=== PATIENT | male | born 1970 | race Hispanic/Latino ===

== ENCOUNTER 2022-03-03 14:44 | Inpatient (IN) | payer OTHER ==
--- OUTSIDE RECORDS SUMMARY | 2022-03-03 14:47 | XMS REPORT | Continuity of Care Document ---
:1970 Author Organization [facility] t Address [address] [place] [address] Dr. Mejia [address] [place] [id number] Care Team Providers Name Role Phone JEREMY BATISTA Attending Clinician Unavailable Problems This patient has no known problems. Allergies, Adverse Reactions, Alerts This patient has no known allergies or adverse reactions. Medications This patient has no known medications. Procedures This patient has no known procedures. Encounters Start End Encounter Admission Attending Care Care Encounter Source Date/Time Date/Time Type Type Clinicians Facility Department ID 2022-03-03 2022-03-03 Outpatient KARINA BATISTA [id number] Karina 10:00:00 10:00:00 JEREMY adler 2022-03-03 2022-03-03 Outpatient KARINA BATISTA [id number] Karina 10:00:00 10:00:00 JEREMY adler Results This patient has no known results.
--- NOTE | 2022-03-03 16:13 | RAD REPORT ---
EXAM DESCRIPTION: RAD -Hand Left 3 View - 03/03/2022 4:07 pm CLINICAL HISTORY: Left hand pain FINDINGS: Amputation involves the digits. Destruction involves portions of the fifth distal phalanx compatible with osteomyelitis . Pathologica l fracture present
[2022-03-03] MEDS ORDERED: MORPHINE 4 MG/ML SYR ONE (16:44)
[2022-03-03 16:53] LABS: Absolute Lymphocytes (CBC) 1.8 K/uL (0.7-4.9); Hematocrit 32.4 % (39.6-49.0); MCV 77.6 fL (80-100); MPV 7.1 fL (7.6-11.3); RBC Red Blood Cell Count 4.18 M/uL (4.33-5.43)
[2022-03-03 16:59] LABS: Protime INR 1.12
[2022-03-03 17:11] LABS: ALT/SGPT 17 U/L (12-78); AST/SGOT 14 U/L (15-37); Albumin 2.1 g/dL (3.4-5.0); Alkaline Phosphatase 97 U/L (45-117); BUN Blood Urea Nitrogen 20 mg/dL (7-18); Bicarbonate 24 mmol/L (21-32); Bilirubin Total 0.2 mg/dL (0.2-1.0); Glomerular Filtration Rate 40 ml/min (=/>90); Glucose Level 227 mg/dL (74-106); Magnesium 1.7 mg/dL (1.8-2.4); Potassium 3.2 mmol/L (3.5-5.1); Protein, Total 7.7 g/dL (6.4-8.2); Sodium Level 138 mmol/L (136-145)
[2022-03-03 17:12] LABS: Bilirubin Direct < 0.1 mg/dL (0-0.2)
[2022-03-03] MEDS ORDERED: POTASSIUM CL SA 10 MEQ TAB PO ONE (17:45)
[2022-03-03] MEDS ORDERED: MAGNESIUM SULFATE 1 gm IVPB 1 GM/100 ML BAG IV ONE (17:46)
[2022-03-03] MEDS ORDERED: CLINDAMYCIN 900MG/D5W 900 MG/50 ML IVPB IV ONE (17:46)
[2022-03-03] MEDS ORDERED: POTASSIUM 25 MEQ EFFERV TAB ONE (17:49)
--- NOTE | 2022-03-03 18:33 | EDPHYS ---
Physician Documentation [facility] Name: Bert Deng Age: 51 yrs Sex: Male : 1970 Arrival Date: 03/03/2022 Time: 14:45 Bed 17 Private MD: Durga Cheung ED Physician Yonny Ortiz HPI: 03/03 15:10 This 51 yrs old Male presents to ER via Ambulatory with complaints of Infected cp Finger. 15:10 The patient or guardian reports pain, tenderness, infection. The complaints affect the cp left fifth finger. 15:10 Onset: The symptoms/episode began/occurred 1.5 week(s) ago. Associated signs and cp symptoms: The patient has no apparent associated signs or symptoms. 15:10 Patient reports recent move to [facility] and history of multiple infections of hands that cp resulted in partial amputation of every finger except right thumb and left small finger. Patient reports history of OCD and biting fingernails and ends of fingers causing infection. Historical: - Allergies: 14:57 Sulfa (Sulfonamide Antibiotics); hb 14:57 Vancomycin; hb 14:57 Clonidine; hb 14:57 Lorazepam; hb - Home Meds: 17:55 Albuterol Inhl Inhale 2 puffs q4 prn for wheezing [Active]; Allopurinol Oral 100 mg mb8 daily [Active]; amlodipine oral 10 mg daily [Active]; Aspirin EC Oral 81 mg daily [Active]; Zyrtec Oral 10 mg daily [Active]; Plavix Oral 75 mg daily [Active]; Ferrous Sulfate Oral 325 mg daily with breakfast [Active]; Proscar Oral 5 mg daily [Active]; Flonase Nasal 1 Golden per nostril daily [Active]; Furosemide Oral 40 mg daily [Active]; Furosemide Oral 20 mg At Noon [Active]; Neurontin Oral 300 mg twice a day [Active]; Atarax Oral 25 mg 3 times a day as needed for itching [Active]; levothyroxine oral 125 mcg daily [Active]; Lisinopril Oral 10 mg daily [Active]; Loperamide Oral 2 mg as needed for diarrhea [Active]; Metformin Oral 500 mg twice a day [Active]; Nitroglycerin SL 0.4 mg as needed [Active]; Ondansetron Oral 4 mg every 8 hours [Active]; Seroquel Oral 25 mg twice a day [Active]; Seroquel Oral 50 mg nightly [Active]; Spironolactone Oral 75 mg daily [Active]; Flomax Oral 0.4 mg daily [Active]; Acetaminophen Oral 650 mg q4-6 hours as needed for pain for Pain Control [Active]; Effexor XR Oral 75 mg daily [Active]; - PMHx: 18:36 Diabetes mellitus; Hypothyroidism; Hypertensive disorder; mb8 - Immunization history:: Adult Immunizations up to date. - Social history:: Smoking status: Patient denies any tobacco usage or history of. ROS: 15:15 Constitutional: Negative for body aches, chills, fever, poor PO intake. cp 15:15 Eyes: Negative for injury, pain, redness, and discharge. cp 15:15 ENT: Negative for drainage from ear(s), ear pain, sore throat, difficulty swallowing, difficulty handling secretions. 15:15 Neck: Negative for pain with movement, pain at rest, stiffness. 15:15 Cardiovascular: Negative for chest pain, edema, palpitations. 15:15 Respiratory: Negative for cough, shortness of breath, wheezing. 15:15 Abdomen/GI: Negative for nausea, vomiting, and diarrhea. 15:15 Back: Negative for pain at rest, pain with movement. Exam: 15:20 Constitutional: The patient appears in no acute distress, alert, awake, cp non-diaphoretic, non-toxic, well developed, well nourished, obese. 15:20 Head/Face: Normocephalic, atraumatic. cp 15:20 Eyes: Periorbital structures: appear normal, Conjunctiva: normal, no exudate, no injection, Sclera: no appreciated abnormality, Lids and lashes: appear normal, bilaterally. 15:20 ENT: External ear(s): are unremarkable, Nose: is normal, Mouth: Lips: moist, Oral mucosa: pink and intact, moist, Posterior pharynx: Airway: no evidence of obstruction, patent. 15:20 Chest/axilla: Inspection: normal. 15:20 Cardiovascular: Rate: normal, Rhythm: regular, Pulses: Pulses are 2+ in right radial artery and left radial artery. Edema: is not appreciated, JVD: is not appreciated. 15:20 Respiratory: the patient does not display signs of respiratory distress, Respirations: normal, no use of accessory muscles, no retractions, labored breathing, is not present, Breath sounds: are clear throughout, no decreased breath sounds, no stridor, no wheezing. 15:20 Abdomen/GI: Exam negative for discomfort, distension, guarding, Inspection: abdomen appears normal. 15:20 Back: pain, is absent, ROM is normal. 15:20 Musculoskeletal/extremity: Extremities: noted in the left hand: deformity, left small finger appears with avulsed nail, distal phalanx is swollen with erythema, purulent drainage noted. 15:20 Neuro: Orientation: to person, place \T\ time. Mentation: is normal, Motor: moves all fours, strength is normal. 16:35 ECG was reviewed by the Attending Physician. cp Vital Signs: 14:54 BP 169 / 108; Pulse 88; Resp 16; Temp 98.1; Pulse Ox 98% on R/A; Weight 120.66 kg; hb Height 5 ft. 7 in. (170.18 cm); Pain 4/10; 16:28 BP 167 / 97; Pulse 82; Resp 20; Pulse Ox 99% on R/A; mb8 16:41 Pain 5/10; mb8 16:45 BP 181 / 96; Pulse 66; Resp 18; Pulse Ox 100% on R/A; Pain 4/10; mb8 17:48 BP 167 / 104; Pulse 64; Resp 18; Temp 97.3; Pulse Ox 99% on R/A; Pain 3/10; mb8 18:32 BP 177 / 103; Pulse 68 MON; Resp 16 S; Temp 98(TE); Pulse Ox 98% on R/A; Pain 3/10; mb8 14:54 Body Mass Index 41.66 (120.66 kg, 170.18 cm) hb MDM: 16:15 Patient medically screened. cp 16:38 Physician consultation: Kavin Msat MD was called at 16:38, regarding consult, cp patient's condition, left message with office staff for consult. 17:25 Data reviewed: vital signs, nurses notes, lab test result(s), EKG, radiologic studies, cp plain films. 17:25 Test interpretation: by ED physician or midlevel provider: ECG, plain radiologic cp studies. 17:32 Physician consultation: Kavin Mast MD was called at 17:25, regarding consult, cp patient's condition, voicemail full and unable to leave message. 17:35 Physician consultation: Kavin Mast MD was contacted at 17:35, regarding consult, cp patient's condition, requests admission to hospitalist, npo after midnight. 03/03 15:04 Order name: Basic Metabolic Panel; Complete Time: 17:23 cp 03/03 17:23 Interpretation: Normal except: K 3.2; GLUC 227; BUN 20; CRE 1.97; GFR 40; CA 8.3. cp 03/03 15:04 Order name: CBC with Diff; Complete Time: 17:23 cp 03/03 17:23 Interpretation: Normal except: RBC 4.18; HGB 11.2; HCT 32.4; MCV 77.6; MCH 26.9; MPV cp 7.1. 03/03 15:04 Order name: LFT's; Complete Time: 17:23 cp 03/03 19:32 Interpretation: Normal except: AST 14; ALB 2.1; GLOB 5.6; A/G 0.4. cp 03/03 15:04 Order name: Magnesium; Complete Time: 17:23 cp 03/03 19:31 Interpretation: Abnormal: MG 1.7. cp 03/03 15:04 Order name: PT-INR; Complete Time: 17:23 cp 03/03 15:04 Order name: ESR; Complete Time: 17:24 cp 03/03 17:24 Interpretation: Abnormal: SED > 140. cp 03/03 15:04 Order name: CRP; Complete Time: 17:23 cp 03/03 15:04 Order name: Blood Culture Adult (2) cp 03/03 15:04 Order name: Wound Culture cp 03/03 15:04 Order name: Procalcitonin; Complete Time: 17:36 cp 03/03 15:04 Order name: Lactate; Complete Time: 17:23 cp 03/03 18:44 Order name: BNP; Complete Time: 19:31 la1 03/03 19:31 Interpretation: NT PRO-BNP 793; Reviewed. cp 03/03 18:44 Order name: Troponin High Sensitivity; Complete Time: 19:31 la1 03/03 19:31 Interpretation: Reviewed. cp 03/03 20:43 Order name: SARS RAPID mw2 03/03 15:04 Order name: XRAY Hand LEFT 3 View; Complete Time: 16:16 cp 03/03 16:16 Interpretation: Report reviewed. cp 03/03 15:04 Order name: EKG; Complete Time: 15:07 cp 03/03 15:04 Order name: Cardiac monitoring; Complete Time: 16:33 cp 03/03 15:04 Order name: EKG - Nurse/Tech; Complete Time: 16:33 cp 03/03 15:04 Order name: IV Saline Lock; Complete Time: 16:33 cp 03/03 15:04 Order name: Labs collected and sent; Complete Time: 16:33 cp 03/03 15:04 Order name: O2 Per Protocol; Complete Time: 16:16 cp 03/03 18:44 Order name: Chest Single View XRAY; Complete Time: 20:17 la1 03/03 21:13 Order name: Glucose, Ancillary Testing EDMS 03/03 21:55 Order name: SARS-COV-2 Antigen Rapid EDMS 03/03 15:04 Order name: O2 Sat Monitoring; Complete Time: 16:16 cp EC:35 Rate is 68 beats/min. Rhythm is regular. OH interval is prolonged at 202 msec. QRS cp interval is prolonged at 106 msec. QT interval is normal. T waves are Inverted in lead aVR. Interpreted by me. Reviewed by me. Administered Medications: 16:40 Drug: morphine 4 mg Route: IVP; Infused Over: 4 mins; Site: right antecubital; mb8 18:34 Follow up: Response: No adverse reaction; Pain is decreased; RASS: Alert and Calm (0) mb8 17:48 Drug: Magnesium Sulfate 1 grams Route: IVPB; Infused Over: 1 hrs; Site: right mb8 antecubital; 18:43 Follow up: Response: No adverse reaction; No change in condition; IV Status: Completed mb8 infusion; IV Intake: 100ml 17:48 Drug: Potassium Effervescent Tablet 50 mEq Route: PO; mb8 18:34 Follow up: Response: No adverse reaction mb8 18:26 Drug: Clindamycin 900 mg Route: IVPB; Infused Over: 30 mins; Site: right antecubital; mb8 18:44 Follow up: Response: No adverse reaction; No change in condition; IV Status: Completed mb8 infusion; IV Intake: 100ml 18:56 Drug: Lasix (furosemide) 60 mg Route: IVP; Site: right antecubital; mb8 18:59 Follow up: Response: No adverse reaction mb8 Disposition: 21:20 Co-signature as Attending Physician, Duane Coronel DO I was immediately available on-site ms3 in the Emergency Department for consultation in the care of the patient.. Disposition Summary: 03/03/22 18:32 Hospitalization Ordered Hospitalization Status: Inpatient Admission cp Provider: Yonny Ortiz cp Condition: Stable cp Problem: new cp Symptoms: have improved cp Bed/Room Type: Standard cp Location: Telemetry/MedSurg (Inpatient)(03/03/22 20:59) mw Room Assignment: 210(03/03/22 22:08) mw Diagnosis - Other acute osteomyelitis, left hand - left fifth finger cp Forms: - Medication Reconciliation Form cp - SBAR form cp Signatures: Dispatcher [employer] EDMS Lilo Guzman Kimberly, RN RN Raina Hdez RN RN Joaquin Ohara, DIESEL ENGINE PIPE FITTER-C DIESEL ENGINE PIPE FITTER-Cla1 Al Boggs PA PA cp Sheri Alexander RN RN Duane Coronel DO DO ms3 Obie Dan RN RN mb8 Corrections: (The following items were deleted from the chart) 18:55 18:32 Telemetry/MedSurg (Inpatient) cp bd 18:55 18:32 cp bd 20:59 18:55 HS ER HOLD bd mw 20:59 18:55 ERHOLD- bd mw 22:08 20:59 mw mw
--- NOTE | 2022-03-03 18:33 | ER ---
Nurse's Notes [facility] Name: Bert Deng Age: 51 yrs Sex: Male : 1970 Arrival Date: 03/03/2022 Time: 14:45 Bed 17 Private MD: Durga Cheung Diagnosis: Other acute osteomyelitis, left hand-left fifth finger Presentation: 03/03 14:54 Chief complaint: Patient states: Sent by PCP for osteomyelitis in left 5th finger. Hx hb of osteomyelitis with partial amputations of all other fingers. Coronavirus screen: At this time, the client does not indicate any symptoms associated with coronavirus-19. Ebola Screen: No symptoms or risks identified at this time. Onset of symptoms is unknown. 14:54 Method Of Arrival: Ambulatory hb 14:54 Acuity: ELPIDIO 3 hb 23:39 Initial Sepsis Screen: Does the patient meet any 2 criteria? No. Patient's initial kl sepsis screen is negative. Does the patient have a suspected source of infection? Yes: Bone or joint infection. Risk Assessment: Do you want to hurt yourself or someone else? Patient reports no desire to harm self or others. Triage Assessment: 23:38 General: Appears in no apparent distress. Behavior is calm, cooperative. Historical: - Allergies: 14:57 Sulfa (Sulfonamide Antibiotics); hb 14:57 Vancomycin; hb 14:57 Clonidine; hb 14:57 Lorazepam; hb - Home Meds: 17:55 Albuterol Inhl Inhale 2 puffs q4 prn for wheezing [Active]; Allopurinol Oral 100 mg mb8 daily [Active]; amlodipine oral 10 mg daily [Active]; Aspirin EC Oral 81 mg daily [Active]; Zyrtec Oral 10 mg daily [Active]; Plavix Oral 75 mg daily [Active]; Ferrous Sulfate Oral 325 mg daily with breakfast [Active]; Proscar Oral 5 mg daily [Active]; Flonase Nasal 1 [place] per nostril daily [Active]; Furosemide Oral 40 mg daily [Active]; Furosemide Oral 20 mg At Noon [Active]; Neurontin Oral 300 mg twice a day [Active]; Atarax Oral 25 mg 3 times a day as needed for itching [Active]; levothyroxine oral 125 mcg daily [Active]; Lisinopril Oral 10 mg daily [Active]; Loperamide Oral 2 mg as needed for diarrhea [Active]; Metformin Oral 500 mg twice a day [Active]; Nitroglycerin SL 0.4 mg as needed [Active]; Ondansetron Oral 4 mg every 8 hours [Active]; Seroquel Oral 25 mg twice a day [Active]; Seroquel Oral 50 mg nightly [Active]; Spironolactone Oral 75 mg daily [Active]; Flomax Oral 0.4 mg daily [Active]; Acetaminophen Oral 650 mg q4-6 hours as needed for pain for Pain Control [Active]; Effexor XR Oral 75 mg daily [Active]; - PMHx: 18:36 Diabetes mellitus; Hypothyroidism; Hypertensive disorder; mb8 - Immunization history:: Adult Immunizations up to date. - Social history:: Smoking status: Patient denies any tobacco usage or history of. Screenin:29 Abuse screen: Denies threats or abuse. Nutritional screening: No deficits noted. mb8 Tuberculosis screening: No symptoms or risk factors identified. Fall Risk None identified. No fall in past 12 months (0 pts). Secondary diagnosis (15 points) Diabetes. No IV (0 pts). Ambulatory Aid- Crutches/Cane/Walker (15 pts). Gait- Normal/Bed Rest/Wheelchair (0 pts) Mental Status- Oriented to own ability (0 pts). Total Adamson Fall Scale indicates Low Risk Score (25-44 pts). Side Rails Up X 2 Family Present and informed to notify staff if they need to leave bedside As available Patient and Family Educated on Fall Prevention Program and strategies. Assessment: 16:26 Pain: Complains of pain in left hand Pain radiates to left arm Pain Quality of pain is mb8 described as Pain began. Cardiovascular: Denies chest pain. Respiratory: No deficits noted. Respiratory:. Derm: Wound noted left hand Reports. Musculoskeletal: Reports pain in left hand. 17:14 Pain: Complains of pain in left hand Pain radiates to left arm Pain currently is 2 out mb8 of 10 on a pain scale. Quality of pain is described as Is Alleviated by medications. 17:30 Reassessment: Patient and/or family updated on plan of care and expected duration. Pain mb8 level reassessed. Patient states feeling better. Patient states symptoms have improved. 18:29 Reassessment: Patient and/or family updated on plan of care and expected duration. Pain mb8 level reassessed. Vital Signs: 14:54 BP 169 / 108; Pulse 88; Resp 16; Temp 98.1; Pulse Ox 98% on R/A; Weight 120.66 kg; hb Height 5 ft. 7 in. (170.18 cm); Pain 4/10; 16:28 BP 167 / 97; Pulse 82; Resp 20; Pulse Ox 99% on R/A; mb8 16:41 Pain 5/10; mb8 16:45 BP 181 / 96; Pulse 66; Resp 18; Pulse Ox 100% on R/A; Pain 4/10; mb8 17:48 BP 167 / 104; Pulse 64; Resp 18; Temp 97.3; Pulse Ox 99% on R/A; Pain 3/10; mb8 18:32 BP 177 / 103; Pulse 68 MON; Resp 16 S; Temp 98(TE); Pulse Ox 98% on R/A; Pain 3/10; mb8 14:54 Body Mass Index 41.66 (120.66 kg, 170.18 cm) hb ED Course: 14:45 Patient arrived in ED. mr 14:46 Durga Cheung is Private Physician. mr 14:51 Al Boggs PA is PHCP. cp 14:51 Duane Coronel DO is Attending Physician. cp 14:54 Arm band placed on. hb 14:57 Triage completed. hb 16:09 XRAY Hand LEFT 3 View In Process Unspecified. EDMS 16:15 Guilherme Tavera, RN is Primary Nurse. ll1 16:15 Patient placed in an exam room, on a stretcher. ll1 16:31 No provider procedures requiring assistance completed. mb8 16:35 Inserted saline lock: 20 gauge in right antecubital area, using aseptic technique. mb8 16:48 Wound Culture Sent. mb8 16:48 Procalcitonin Sent. mb8 16:48 Lactate Sent. mb8 16:48 CRP Sent. mb8 16:48 ESR Sent. mb8 16:48 Blood Culture Adult (2) Sent. mb8 16:48 Basic Metabolic Panel Sent. mb8 16:48 CBC with Diff Sent. mb8 16:48 LFT's Sent. mb8 16:48 Magnesium Sent. mb8 16:48 PT-INR Sent. mb8 16:53 ESR Sent. mb8 16:54 Procalcitonin Sent. mb8 16:54 Lactate Sent. mb8 16:54 Wound Culture Sent. mb8 16:54 Blood Culture Adult (2) Sent. mb8 16:55 CRP Sent. mb8 16:55 Basic Metabolic Panel Sent. mb8 16:55 LFT's Sent. mb8 16:55 Magnesium Sent. mb8 16:55 PT-INR Sent. mb8 17:48 IV is patent, is intact. mb8 18:27 No apparent distress. Resting quietly. mb8 18:31 Yonny Ortiz MD is Hospitalizing Provider. cp 18:32 Admitting physician to see patient. mb8 18:55 IV is patent, is intact, with good blood return. mb8 18:57 Troponin High Sensitivity Sent. mb8 18:57 BNP Sent. mb8 19:23 Primary Nurse role handed off by Guilherme Tavera, NELL mw2 19:50 Chest Single View XRAY In Process Unspecified. EDMS 23:33 Attending Physician role handed off by Duane Coronel DO bb 23:39 Patient has correct armband on for positive identification. kl 23:39 Patient admitted, IV remains in place. 03/04 00:10 Yonny Ortiz MD is Attending Physician. Administered Medications: 03/03 16:40 Drug: morphine 4 mg Route: IVP; Infused Over: 4 mins; Site: right antecubital; mb8 18:34 Follow up: Response: No adverse reaction; Pain is decreased; RASS: Alert and Calm (0) mb8 17:48 Drug: Magnesium Sulfate 1 grams Route: IVPB; Infused Over: 1 hrs; Site: right mb8 antecubital; 18:43 Follow up: Response: No adverse reaction; No change in condition; IV Status: Completed mb8 infusion; IV Intake: 100ml 17:48 Drug: Potassium Effervescent Tablet 50 mEq Route: PO; mb8 18:34 Follow up: Response: No adverse reaction mb8 18:26 Drug: Clindamycin 900 mg Route: IVPB; Infused Over: 30 mins; Site: right antecubital; mb8 18:44 Follow up: Response: No adverse reaction; No change in condition; IV Status: Completed mb8 infusion; IV Intake: 100ml 18:56 Drug: Lasix (furosemide) 60 mg Route: IVP; Site: right antecubital; mb8 18:59 Follow up: Response: No adverse reaction mb8 Medication: 23:39 VIS not applicable for this client. kl Intake: 18:43 IV: 100ml; Total: 100ml. mb8 18:44 IV: 100ml; Total: 200ml. mb8 Outcome: 18:32 Decision to Hospitalize by Provider. cp 23:33 Patient left the ED. bb 23:38 Admitted to Med/surg room 210, with chart, Report called to Beverly lanier 23:38 Condition: good 23:38 Instructed on the need for admit, Demonstrated understanding of instructions. 03/04 00:10 Patient left the ED. yannick Signatures: Dispatcher [employer] EDMS Emma Tavera RN RN kl Rivera, Mary mr Deana Robertson RN RN bb Al Boggs PA PA cp Baxter, Heather, RN RN Omar Montgomery 2 Guilherme Tavera RN RN 1 Obie Dan RN RN mb8 Corrections: (The following items were deleted from the chart) 03/03 16:30 14:54 Chief complaint: Patient states: Sent by PCP for osteomyelitis in left 5th hb finger. Hx of osteomyelitis with amputations of all other fingers.
[2022-03-03] MEDS ORDERED: FUROSEMIDE 40 MG/4 ML VIAL ONE (18:58)
[2022-03-03 19:24] LABS: Troponin High Sensitivity 17.7 pg/mL (<58.9)
[2022-03-03] MEDS ORDERED: HYDRALAZINE HCL 20 MG/ML VIAL IV PRN (20:05)
[2022-03-03] MEDS ORDERED: ONDANSETRON 4 MG/2 ML VIAL IV PRN (20:05)
[2022-03-03] MEDS ORDERED: MORPHINE 2 MG/ML SYR IV PRN (20:05)
--- NOTE | 2022-03-03 20:11 | RAD REPORT ---
EXAM DESCRIPTION: Danial Single View03/03/2022 7:48 pm CLINICAL HISTORY: Shortness of breath COMPARISON: 2010 FINDINGS: The lungs appear clear of acute infiltrate. The heart is normal size IMPRESSION: No acute abnormalities displayed
--- NOTE | 2022-03-03 20:12 | P.HP ---
Certification for Inpatient Patient admitted to: Inpatient With expected LOS: >2 Midnights Patient will require the following post-hospital care: None Practitioner: I am a practitioner with admitting privileges, knowledge of patient current condition, hospital course, and medical plan of care. Services: Services provided to patient in accordance with Admission requirements found in Title 42 Section 412.3 of the Code of Federal Regulations <Joaquin Ohara - Last Filed: 03/03/22 20:02> Patient History Date of Service: 03/03/22 Reason for admission: Osteomyelitis History of Present Illness: 51-year-old male with history of diabetes mellitus type [id number]-[id number], hypothyroidism, CAD, CHF with unknown EF, CVA, CKD 3, gout and COPD presented to the emergency department for infection of his left fifth finger. Patient has had amputations of almost all of the other fingers on both hands as he compulsively chews on the ends of his fingers due to severe underlying OCD which become infected given his diabetes. Patient was evaluated here in the emergency department his labs were significant for white blood cell count of 9.2 ESR greater than 140 potassium 3.2 creatinine 1.97 GFR 40 glucose 227 C-reactive protein 28.3 BNP 793 x-ray of the left hand demonstrates destruction involves the portion of the fifth distal phalanx compatible with osteomyelitis pathological fracture present. Chest x-ray is pending, patient recently moved back from [place] he is only been somewhat compliant with his medications he does have pitting edema bilateral lower extremities history of CHF has been taking his Lasix intermittently chest x-ray pending. He was given antibioticsclindamycin in the emergency department ED provider discussed case with hand surgery who plans for amputation tomorrow patient to be n.p.o. after midnight. - Past Medical/Surgical History -: DM2 -: CHF -: CAD -: Gout -: Hypertension -: Hypothyroid -: COPD -: CKD 3 -: 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 -: Right rotator cuff repair Psychosocial/ Personal History: Patient lives at home with a friend, is disabled/unemployed - Family History Mother -: Diabetes Father -: Cancer - Social History Smoking Status: Former smoker Alcohol use: No CD- Drugs: No Caffeine use: Yes Place of Residence: Home <Joaquin Ohara - Last Filed: 03/03/22 20:02> Date of Service: 03/04/22 <Yonny Ortiz - Last Filed: 03/04/22 17:44> Review of Systems 10-point ROS is otherwise unremarkable Integumentary: Other (Open wound distal tip of left fifth distal phalanx, ulceration present to left moreno) <Joaquin Ohara - Last Filed: 03/03/22 20:02> Physical Examination - Physical Exam General: Alert, In no apparent distress, Oriented x3 HEENT: Atraumatic, PERRLA, Mucous membr. moist/pink, EOMI, Sclerae nonicteric Neck: Supple, 2+ carotid pulse no bruit Respiratory: Normal air movement, Diminished Cardiovascular: Regular rate/rhythm, Normal S1 S2, Edema (2+ pitting edema bilateral lower extremities) Capillary refill: <2 Seconds Gastrointestinal: Normal bowel sounds, No tenderness Musculoskeletal: No tenderness Integumentary: No rashes, Other (Open wound/diabetic ulceration to left distal fifth phalanx) Neurological: Normal speech, Normal strength at 5/5 x4 extr, Normal tone, Normal affect - Studies Laboratory Data (last 24 hrs) 03/03/22 16:37: PT 12.4, INR 1.12 03/03/22 16:37: WBC 9.20, Hgb 11.2 L, Hct 32.4 L, Plt Count 291 03/03/22 16:37: Sodium 138, Potassium 3.2 L, BUN 20 H, Creatinine 1.97 H, G lucose 227 H, Magnesium 1.7 L, Total Bilirubin 0.2, AST 14 L, ALT 17, Alkaline Phosphatase 97 <Joaquin Ohara - Last Filed: 03/03/22 20:02> - Studies Microbiology Data (last 24 hrs): 03/03/22 16:37 Blood - Blood Blood Culture Gram Stain - Final 03/03/22 16:37 Blood - Blood Gram Stain - Final 03/03/22 18:20 Blood - Blood Gram Stain - Final 03/03/22 16:45 Wound - Left Finger Gram Stain - Final <Yonny Ortiz - Last Filed: 03/04/22 17:44> Assessment and Plan - Plan Assessment: Left fifth distal phalanx osteomyelitis with pathological fracture Acute on chronic CHF with volume overloadunknown EF Diabetes mellitus type [id number]-[id number] with hyperglycemia CKD 3 History of CAD, CVA Gout COPD OCD Plan: Left fifth distal phalanx osteomyelitis with pathological fracture: Hand surgery consulted in the emergency department plan for distal tip amputation tomorrow. Patient on broad-spectrum antibiotics. No SIRS criteria met currently. NPO after midnight, as needed pain medications. Appreciate further input from hand surgery. Acute on chronic CHF with volume overloadunknown EF: Patient reports he has been only partially compliant with his Lasix, he is prescribed Lasix 40 mg in the morning, 20 mg at noon. He does have pitting edema bilateral lower extremities complains of mild dyspnea on exertion chest x-ray is pending BNP mildly elevated. We will continue diuresis with IV Lasix and obtain above echocardiogram, troponin pending as well. Patient denies any chest pain at this time. Does not know when he last had an echocardiogram continue other home medications once patient is no longer n.p.o. and have been verified. Diabetes mellitus type 9iqy-sfnjfhw-xtnzbqyyh with hyperglycemia: Sliding scale insulin, A1c with morning lab. CKD 3: Patient reports history of CKD 3 recently moved back from [place] there are recent labs available for comparison, will recheck chemistry in the a.m. if significant worsening consult nephrology. May be similar to patient's baseline. History of CAD, CVA: Hold aspirin, Plavix for now until cleared by surgery to restart. Monitor on telemetry. Gout: Continue allopurinol once milligram p.o. COPD: As needed nebulizer treatments OCD: Patient working to find outpatient psychiatrist to help manage his condition he has severe OCD and chews on his fingers compulsively leading to frequent infections. He has had 8 out of 10 fingers with distal tip amputations for similar problems. DVT PPX: SCD Code status: Full Discharge Plan: Home Plan to discharge in: 72 Hours - Advance Directives Does patient have a Living Will: No Does patient have a Durable POA for Healthcare: No - Code Status/Comfort Care Code Status Assessed: Yes (Full code) Critical Care: No Time Spent Managing Pts Care (In Minutes): 70 <Joaquin Ohara - Last Filed: 03/03/22 20:02> Physician Review: Patient Assessed, Agree with Above Assessment and Plan <Yonny Ortiz - Last Filed: 03/04/22 17:44>
[2022-03-03 20:43] VITALS: BMI 41.6
[2022-03-03] MEDS ORDERED: CEFEPIME 1 GM/VIAL ONE (20:55)
[2022-03-03] MEDS ORDERED: NA CHLORIDE 0.9% 100 ML ONE (20:55)
[2022-03-03] MEDS: CEFEPIME 1 GM in NA CHLORIDE 0.9% 100 ML IV SCH (21:00)
[2022-03-03] MEDS: INSULIN -REGULAR HUMAN 50 UNIT/0.5 ML ML SQ SCH (21:00)
[2022-03-03] MEDS ORDERED: HYDRALAZINE HCL 20 MG/ML VIAL ONE (21:43)
[2022-03-03 21:55] LABS: SARS-CoV-2 Antigen Rapid Res Negative (Negative)
[2022-03-04] MEDS ORDERED: CLINDAMYCIN 600MG/D5W 600 MG/50 ML BAG IV ONE (00:52)
[2022-03-04] MEDS ORDERED: CLINDAMYCIN INJ 600 MG in NA CHLORIDE 0.9% 50 ML IV SCH (01:00)
[2022-03-04 03:52] LABS: Absolute Lymphocytes (CBC) 1.8 K/uL (0.7-4.9); Hematocrit 32.3 % (39.6-49.0); Lymphocytes % 22.9 % (15.3-44.8); MCV 78.4 fL (80-100); MPV 7.2 fL (7.6-11.3); RBC Red Blood Cell Count 4.12 M/uL (4.33-5.43)
[2022-03-04 04:11] LABS: Albumin 1.9 g/dL (3.4-5.0); Bilirubin Total 0.2 mg/dL (0.2-1.0); Potassium 3.2 mmol/L (3.5-5.1); Protein, Total 7.5 g/dL (6.4-8.2)
[2022-03-04] MEDS ORDERED: hydrOXYzine HCL 25 MG TAB PO PRN (04:37)
[2022-03-04] MEDS ORDERED: QUETIAPINE 25 MG TAB PO PRN (05:00)
[2022-03-04] MEDS: LEVOTHYROXINE SOD 0.125 MG TAB PO SCH (06:29)
[2022-03-04] MEDS: INSULIN -REGULAR HUMAN 50 UNIT/0.5 ML ML SQ SCH ×4 (07:30→20:46)
[2022-03-04] MEDS ORDERED: CLINDAMYCIN 600MG/D5W 600 MG/50 ML BAG IV SCH (09:00)
[2022-03-04] MEDS: VITAMIN B COMPLEX 1 CAP PO SCH (09:10)
[2022-03-04] MEDS: VITAMIN D 1000 UNIT TAB PO SCH (09:10)
[2022-03-04] MEDS: FERROUS SULFATE 325 MG TAB PO SCH (09:10)
[2022-03-04] MEDS: CETIRIZINE HCL 5 MG TABLET PO SCH (09:11)
[2022-03-04] MEDS: ROSUVASTATIN 10 MG TAB PO SCH (09:11)
[2022-03-04] MEDS: SPIRONOLACTONE 25 MG TABLET PO SCH (09:11)
[2022-03-04] MEDS: lisinopriL 10 MG TAB PO SCH (09:11)
[2022-03-04] MEDS: AMLODIPINE 10 MG TAB PO SCH (09:11)
[2022-03-04] MEDS: FINASTERIDE 5 MG TAB PO SCH (09:11)
[2022-03-04] MEDS: VENLAFAXINE HCL XR 75 MG CAP PO SCH (09:11)
[2022-03-04] MEDS: allopurinoL 100 MG TAB PO SCH (09:11)
[2022-03-04] MEDS: GABAPENTIN 300 MG CAP PO SCH ×2 (09:11→20:44)
[2022-03-04] MEDS: FUROSEMIDE 40 MG/4 ML VIAL IV SCH ×2 (09:12→16:05)
[2022-03-04] MEDS: TAMSULOSIN 0.4 MG SR CAP PO SCH (09:12)
[2022-03-04] MEDS: CEFEPIME 1 GM in NA CHLORIDE 0.9% 100 ML IV SCH ×2 (09:12→20:44)
[2022-03-04] MEDS: DOXYCYCLINE 100 MG in NA CHLORIDE 0.9% 100 ML IVPB SCH ×2 (11:08→20:45)
--- NOTE | 2022-03-04 12:22 | CON ---
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 The patient was brought in because of osteomyelitis of left distal phalanx. Surgical lois ridement was performed. The patient is currently being treated with cefepime and doxycycline as the patient is allergic to vancomycin and sulfa drugs. Past Medical History: As per HPI. Social History: Tobacco positive. Alcohol negative. Family History: Noncontributory. Medications: Doxycycline and cefepime. See MAR for other medications. Allergies: SULFA DRUG, VANCOMYCIN, LORAZEPAM, CLONIDINE. Review of Systems: A 10-point review was performed. Physical Examination: General: This is a 51-year-old male, lying in bed, not in any acute cardiopulmonary distress. Vital Signs: Temperature 97, pulse 70, respirations 18, blood pressure 172/89. HEENT: Unremarkable. Neck: Supple. Lungs: Clear to auscultation. Heart: S1, S2. Regular. Abdomen: Soft, nontender. Bowel sounds present. Extremity: Multiple amputation sites to the both hands, phalanx. Laboratory Data: WBC 8, hemoglobin 11.2, platelets 292. Chemistry shows sodium 141, potassium 3.2, chloride 107, bicarb 26, BUN 22, creatinine 1.8, glucose is 164. Albumin level is 1.9. Micro data; blood cultures are pending. Blood culture from 03/03 and wound culture from 03/03 is growing gram-po sitive cocci in cluster, most likely Staph. Assessment And Plan: Left hand fifth digit osteomyelitis in a patient with obsessive-compulsive diso rder and nail biting. The patient is currently getting IV antibiotic, continue IV antibiotic and mon itor for signs of infection. Diabetes mellitus and diabetic neuropathy and tobacco, most likely caus e of circulation problem. The patient with multiple amputations sites, morbid obesity and hypoalbumi nemia most likely causing moderate protein-calorie malnourishment. Continue supportive care and woun d care. We will follow the patient. Thank you Dr. Ortiz for consult. NF/MODL Voice ID: [id number] Report ID: [id number]
[2022-03-04] MEDS ORDERED: NA CHLORIDE 0.9% 500 ML ONE (12:25)
[2022-03-04] MEDS ORDERED: FENTANYL CITR 100 MCG/2 ML ONE (14:16)
[2022-03-04] MEDS ORDERED: propofoL 200 MG/20 ML VIAL IV ONE ×2 (14:17→14:38)
[2022-03-04] MEDS ORDERED: LIDOCAINE 1% MPF 5 ML VIAL ONE (14:17)
[2022-03-04] MEDS ORDERED: MIDAZOLAM HCL 2 MG/2 ML INJ ONE (14:17)
--- NOTE | 2022-03-04 14:24 | ECHO ---
HEIGHT: 5 ft 7 in WEIGHT: 266 lb 0 oz DATE OF STUDY: 03/04/[address]: Joaquin Ohara NP 2-DIMENSIONAL: YES M.MODE: YES DOPPLER: YES COLOR FLOW: YES TDS: NO PORTABLE: YES DEFINITY: NO BUBBLE STUDY: NO DIAGNOSIS: CONGESTIVE HEART FAILURE, VOLUME OVERLOAD, SURGICAL CLEARANCE CARDIAC HISTORY: CATHERIZATION: YES SURGERY: NO PROSTHETIC VALVE: NO PACEMAKER: NO MEASUREMENTS (cm) DIASTOLIC (NORMALS) SYSTOLIC (NORMALS) IVSd 1.4 (0.6-1.2) LA Diam 3.0 (1.9-4.0) LVEF 63% LVIDd 4.0 (3.5-5.7) LVIDs 2.7 (2.0-3.5) %FS 34% LVPWd 1.4 (0.6-1.2) Ao Diam 2.9 (2.0-3.7) 2 DIMENSIONAL ASSESSMENT: RIGHT ATRIUM: NORMAL LEFT ATRIUM: NORMAL RIGHT VENTRICLE: NORMAL LEFT VENTRICLE: LEFT VENTRICULAR HYPERTORPHY TRICUSPID VALVE: NORMAL MITRAL VALVE: NORMAL PULMONIC VALVE: NORMAL AORTIC VALVE: NORMAL PERICARDIAL EFFUSION: NONE AORTIC ROOT: NORMAL LEFT VENTRICULAR WALL MOTION: NORMAL. DOPPLER/COLOR FLOW: DECREASED LEFT VENTRICULAR COMPLIANCE. COMMENTS: DIASTOLIC DYSFUNCTION - GRADE I. LEFT VENTRICULAR HYPERTROPHY. NORMAL EJECTION FRACTION. TECHNOLOGIST: SAMIR ALARCON
[2022-03-04] MEDS ORDERED: EPHEDRINE SULF 50 MG/ML VIAL ONE (14:48)
[2022-03-04] MEDS ORDERED: NS 0.9% VIAL 20 ML ONE (14:48)
[2022-03-04 15:14] VITALS: O2SAT 100
[2022-03-04] MEDS ORDERED: CODEINE 30MG/APAP 300MG TAB PO PRN (15:29)
--- NOTE | 2022-03-04 17:29 | P.PN ---
Subjective Date of Service: 03/04/22 Chief Complaint: Osteomyelitis Subjective: No new changes No acute events overnight. Reports minimal pain in left 5th digit. He has been NPO past midnight for surgery today. Review of Systems 10-point ROS is otherwise unremarkable Musculoskeletal: Hand Pain (minimal right and left) Physical Examination - Vital Signs Temperature: 97.5 F Blood Pressure: 102/51 Pulse: 71 Respirations: 18 Pulse Ox (%): 98 - Physical Exam General: Alert, In no apparent distress, Oriented x3 HEENT: Atraumatic, PERRLA, Mucous membr. moist/pink, EOMI, Sclerae nonicteric Neck: Supple, JVD distended (minimal) Respiratory: Normal air movement, Crackles/rales (faint bibasilar) Cardiovascular: Regular rate/rhythm, Normal S1 S2, No gallops, No rubs, No murmurs, Edema (1+ bilateral) Gastrointestinal: Normal bowel sounds, Soft and benign, Non-distended, No tenderness, No rebound, No guarding Musculoskeletal: Other (he is s/p multiple digital distal amputations. Multiple digits with wound at distal tip. 5th digit tip is covered in clean gauze.) Integumentary: No rashes - Studies Microbiology Data (last 24 hrs): 03/03/22 16:37 Blood - Blood Blood Culture Gram Stain - Final 03/03/22 16:37 Blood - Blood Gram Stain - Final 03/03/22 18:20 Blood - Blood Gram Stain - Final 03/03/22 16:45 Wound - Left Finger Gram Stain - Final Assessment And Plan - Plan # Left 5th Distal Phalanx Osteomyelitis with Pathological Fracture # History of 10 Distal Finger due to Amputations # 1/4 Blood Cultures positive for Gram-Positive Cocci in Clusters - Hand Surgery consulted and Dr. Mathews notified - recommendations appreciated - Plan for distal tip amputation today - Consulted Infectious Diseases and spoke with Dr. Glover - recommendations appreciated - 1/4 blood cultures positive for gram-positive cocci in clusters - possibly secondary to contamination - Repeat blood cultures ordered - Started on doxycycline + cefepime given vancomycin allergy - Currently no SIRS criteria met currently. - Appreciate wound care recs # Acute Decompensated Diastolic Congestive Heart Failure with Preserved Ejection Fraction - Consult Cardiology - recommendations appreciated - Transthoracic echocardiogram = LVEF 63 %, grade I diastolic dysfunction - Diuresis with IV furosemide for today - Daily weights - Strict I/O - Cardiac diet, 1.5 L fluid restriction, 2 g Na restriction # Elevated Creatinine - Acute Kidney Injury vs Chronic Kidney Distase Stage III - Monitor creatinine and urine output - Renally dose medications - If worsening, obtain renal ultrasound and consult Nephrology # Coronary Artery Disease # History of Cerebrovascular Accident - Aspirin and clopidogrel on hold now pending surgery - Resume when cleared by surgery # Obsessive-Compulsive Disorder - Requested assistance finding an outpatient psychiatrist - We have provided him with the contact information of the local psychiatrist (Dr. Simon Steve) # Chronic Obstructive Pulmonary Disease # Gout No evidence of exacerbation - Continue home meds Yonny Ortiz M.D.
[2022-03-04] MEDS: MEDIHONEY 44 ML TOPICAL TUBE TOP SCH (18:08)
[2022-03-04] MEDS: QUETIAPINE 25 MG TAB PO SCH (20:44)
--- NOTE | 2022-03-05 02:02 | HP ---
Date of Admission: 03/03/2022 History Of Present Illness: 51-year-old white male who had open wound infection of his left little finger for about one and a half weeks, type 2 diabetic, hypertension, kidney failure, myocardial infarction with strokes. He has multiple amputations of the digits. Social History: He vapes. He drinks alcohol rarely. Allergies: HE IS ALLERGIC TO SULFA, VANCOMYCIN, LORAZEPAM. Medication, see list. Physical Examination: Extremities: He has gangrene of the left little fingertip and osteomyelitis. Assessment: Infection, left little fingertip. Plan: Amputation. ELIECER/VIVIENNE Voice ID: [id number] LANDON
--- NOTE | 2022-03-05 02:16 | OP ---
Surgeon: Kavin Mast MD Preoperative Diagnosis: Osteomyelitis of the left little finger. Postoperative Diagnosis: Osteomyelitis of the left little finger. Procedure: Amputation of the left little finger at the distal portion of the middle phalanx, flap closure. Anesthesia: General. Description Of Procedure: After satisfactory induction of general anesthesia, left hand was prepped with Betadine scrub, Betadine paint, and dry sterile drapes were applied in the usual manner . Incision was made through skin, excellent bleeding. The tourniquet was then placed using a Fabiola drain and then the fishmouth incision was completed. The bone was amputated at the DIP joint. Then, the bone was cut to distal portion of the middle phalanx the tourniquet was removed and then the wound closed with 4-0 Prolene simple sutures. Dressed with Xeroform, 2-inch Ирина. The patient tolerated procedure well and returned to recovery. ELIECER/VIVIENNE Voice ID: [id number] Report ID: [id number] LANDON
[2022-03-05 04:05] LABS: Absolute Lymphocytes (CBC) 1.6 K/uL (0.7-4.9); Lymphocytes % 22.6 % (15.3-44.8); MCV 78.8 fL (80-100); MPV 7.1 fL (7.6-11.3); RBC Red Blood Cell Count 3.81 M/uL (4.33-5.43)
[2022-03-05 04:18] LABS: Albumin 1.9 g/dL (3.4-5.0); Bilirubin Total 0.2 mg/dL (0.2-1.0)
[2022-03-05] MEDS: LEVOTHYROXINE SOD 0.125 MG TAB PO SCH (06:17)
[2022-03-05] MEDS: INSULIN -REGULAR HUMAN 50 UNIT/0.5 ML ML SQ SCH ×4 (07:30→21:00)
[2022-03-05] MEDS ORDERED: LINEZOLID 600 MG IVPB 600 MG/300 ML BAG IV SCH (09:00)
[2022-03-05] MEDS: FUROSEMIDE 40 MG/4 ML VIAL IV SCH (09:14)
[2022-03-05] MEDS: ROSUVASTATIN 10 MG TAB PO SCH (09:15)
[2022-03-05] MEDS: VITAMIN B COMPLEX 1 CAP PO SCH (09:15)
[2022-03-05] MEDS: allopurinoL 100 MG TAB PO SCH (09:15)
[2022-03-05] MEDS: CETIRIZINE HCL 5 MG TABLET PO SCH (09:15)
[2022-03-05] MEDS: ASPIRIN EC 81 MG TAB PO SCH (09:15)
[2022-03-05] MEDS: lisinopriL 10 MG TAB PO SCH (09:15)
[2022-03-05] MEDS: FERROUS SULFATE 325 MG TAB PO SCH (09:15)
[2022-03-05] MEDS: VITAMIN D 1000 UNIT TAB PO SCH (09:15)
[2022-03-05] MEDS: SPIRONOLACTONE 25 MG TABLET PO SCH (09:15)
[2022-03-05] MEDS: AMLODIPINE 10 MG TAB PO SCH (09:15)
[2022-03-05] MEDS: FINASTERIDE 5 MG TAB PO SCH (09:16)
[2022-03-05] MEDS: GABAPENTIN 300 MG CAP PO SCH ×2 (09:16→21:01)
[2022-03-05] MEDS: VENLAFAXINE HCL XR 75 MG CAP PO SCH (09:16)
[2022-03-05] MEDS: TAMSULOSIN 0.4 MG SR CAP PO SCH (09:16)
[2022-03-05] MEDS: MEDIHONEY 44 ML TOPICAL TUBE TOP SCH (09:20)
[2022-03-05] MEDS: CEFEPIME 1 GM in NA CHLORIDE 0.9% 100 ML IV SCH (09:54)
[2022-03-05] MEDS ORDERED: DAPTOmycin 700 MG in NA CHLORIDE 0.9% 100 ML IVPB SCH ×2 (14:00→15:00)
--- NOTE | 2022-03-05 14:30 | EKG ---
Test Date: 2022-03-03 Test Time: 16:28:41 Locomotive Firer: ARON MEASUREMENT RESULTS: Intervals: Rate: 68 CA: 202 QRSD: 106 QT: 426 QTc: 452 [place]: P: 45 CA: 202 QRS: 63 T: 77 INTERPRETIVE STATEMENTS: Normal sinus rhythm Cannot rule out Anterior infarct, age undetermined Abnormal ECG Compared to ECG 02/14/2011 06:52:08 First degree AV block no longer present T-wave abnormality no longer present Possible ischemia no longer present Left ventricular hypertrophy no longer present Prolonged QT interval no longer present Myocardial infarct finding still present Electronically Signed On 03-05-22 14:28:52 CDT by Travis Paulino
--- NOTE | 2022-03-05 14:44 | PN ---
Subjective: The patient lying in bed. No new acute event except blood cultures are growing 4/4 arina les Staph, sensitivity pending. The patient is currently being treated with IV daptomycin. The kade ent denies any headache, nausea, vomiting, chest pain, abdominal pain, constipation, or diarrhea. Objective: Vital Signs: Temperature 97.7, pulse 70, respirations 16, blood pressure 149/80. Lungs: Basal crackles. Heart: S1, S2. Regular. Abdomen: Soft, nontender. Bowel sounds present. Extremity: Trace edema. Wounds noted. Laboratory Data: Labs reviewed. Assessment And Plan: 1.Bacteremia secondary to Staph. Sensitivity is pending. Continue daptomycin. 2.Osteomyelitis of left hand. Consider getting hyperbaric treatment and long-term acute care. Cons ider getting a PICC line placement. Prognosis is guarded. We will follow the patient as needed. NF/MODL Voice ID: [id number] Report ID: [id number]
--- NOTE | 2022-03-05 16:08 | P.PN ---
Subjective Date of Service: 03/05/22 Chief Complaint: Osteomyelitis No acute events overnight. He is post-operative day # 1 from amputation of the left little finger at the distal portion of the middle phalanx, flap closure. Reports minimal pain in left 5th digit. No other concerns this morning. Review of Systems 10-point ROS is otherwise unremarkable Musculoskeletal: Hand Pain (left 5th distal digit) Physical Examination - Vital Signs Temperature: 97.7 F Blood Pressure: 148/83 Pulse: 70 Respirations: 16 Pulse Ox (%): 100 - Studies Microbiology Data (last 24 hrs): 03/03/22 16:45 Wound - Left Finger Gram Stain - Final 03/03/22 16:45 Wound - Left Finger Culture & Sensitivity - Final Staph Aureus 03/03/22 18:20 Blood - Blood Blood Culture Gram Stain - Final 03/03/22 18:20 Blood - Blood Gram Stain - Final 03/03/22 16:37 Blood - Blood Blood Culture Gram Stain - Final 03/03/22 16:37 Blood - Blood Gram Stain - Final Assessment And Plan - Plan - Physical Exam General: Alert, In no apparent distress, Oriented x3 HEENT: Atraumatic, PERRLA, Mucous membr. moist/pink, EOMI, Sclerae nonicteric Neck: Supple, JVD distended (minimal) Respiratory: Normal air movement, Crackles/rales (faint bibasilar) Cardiovascular: Regular rate/rhythm, Normal S1 S2, No gallops, No rubs, No murmurs, Edema (1+ bilateral) Gastrointestinal: Normal bowel sounds, Soft and benign, Non-distended, No tenderness, No rebound, No guarding Musculoskeletal: Other (he is s/p multiple digital distal amputations. Multiple digits with wound at distal tip. 5th digit tip is covered in clean gauze.) Integumentary: No rashes - Plan # Left 5th Distal Phalanx MSSA Osteomyelitis with Pathological Fracture s/p Amputation of the Left 5th Distal Middle Phalanx (03/04/2022) # Gram-Positive Bacteremia # History of 8/10 Distal Finger due to Amputations - Hand Surgery consulted and Dr. Mast notified - recommendations appreciated - Plan for distal tip amputation today - Consulted Infectious Diseases and spoke with Dr. Glover - recommendations appreciated - Recommended daptomycin for now - Recommended PICC line placement for 6 weeks of IV antibiotics and possible LTAC for IV antibiotics and wound care - Appreciate case management assistance - Wound culture positive for MSSA - 4/4 blood cultures positive for gram-positive cocci in clusters - ID following - Repeat blood cultures ordered - May require JÚNIOR - will discuss with Dr. Paulino - Currently no SIRS criteria met currently - Appreciate wound care recs # Acute Decompensated Diastolic Congestive Heart Failure with Preserved Ejection Fraction (improving) - Consult Cardiology - recommendations appreciated - Transthoracic echocardiogram = LVEF 63 %, grade I diastolic dysfunction - Switch to PO furosemide - Daily weights - Strict I/O - Cardiac diet, 1.5 L fluid restriction, 2 g Na restriction # Elevated Creatinine - Acute Kidney Injury vs Chronic Kidney Distase Stage III - Monitor creatinine and urine output - Renally dose medications - If worsening, obtain renal ultrasound and consult Nephrology # Coronary Artery Disease # History of Cerebrovascular Accident - Aspirin and clopidogrel on hold now pending surgery - Resume when cleared by surgery # Obsessive-Compulsive Disorder - Requested assistance finding an outpatient psychiatrist - We have provided him with the contact information of the local psychiatrist (Dr. Simon Steve) # Chronic Obstructive Pulmonary Disease # Gout No evidence of exacerbation - Continue home meds Yonny Ortiz M.D. Discharge Plan: LTAC Plan to discharge in: Greater than 2 days
[2022-03-05] MEDS: QUETIAPINE 25 MG TAB PO SCH (22:24)
[2022-03-06] MEDS: LEVOTHYROXINE SOD 0.125 MG TAB PO SCH (06:06)
[2022-03-06 06:07] LABS: Absolute Lymphocytes (CBC) 2.1 K/uL (0.7-4.9); Hematocrit 30.8 % (39.6-49.0); Lymphocytes % 27.2 % (15.3-44.8); MCV 78.3 fL (80-100); MPV 6.9 fL (7.6-11.3); RBC Red Blood Cell Count 3.94 M/uL (4.33-5.43)
[2022-03-06 06:21] LABS: Albumin 2.1 g/dL (3.4-5.0); Bilirubin Total 0.2 mg/dL (0.2-1.0); Potassium 3.1 mmol/L (3.5-5.1); Protein, Total 7.5 g/dL (6.4-8.2)
[2022-03-06] MEDS: INSULIN -REGULAR HUMAN 50 UNIT/0.5 ML ML SQ SCH ×2 (07:30→11:30)
[2022-03-06] MEDS: MEDIHONEY 44 ML TOPICAL TUBE TOP SCH (09:00)
[2022-03-06] MEDS ORDERED: FUROSEMIDE 40 MG TABLET PO SCH (09:00)
[2022-03-06] MEDS: FERROUS SULFATE 325 MG TAB PO SCH (09:08)
[2022-03-06] MEDS: SPIRONOLACTONE 25 MG TABLET PO SCH (09:08)
[2022-03-06] MEDS: TAMSULOSIN 0.4 MG SR CAP PO SCH (09:08)
[2022-03-06] MEDS: lisinopriL 10 MG TAB PO SCH (09:09)
[2022-03-06] MEDS: VITAMIN D 1000 UNIT TAB PO SCH (09:10)
[2022-03-06] MEDS: GABAPENTIN 300 MG CAP PO SCH (09:10)
[2022-03-06] MEDS: FINASTERIDE 5 MG TAB PO SCH (09:10)
[2022-03-06] MEDS: VENLAFAXINE HCL XR 75 MG CAP PO SCH (09:11)
[2022-03-06] MEDS: ASPIRIN EC 81 MG TAB PO SCH (09:11)
[2022-03-06] MEDS: allopurinoL 100 MG TAB PO SCH (09:11)
[2022-03-06] MEDS: AMLODIPINE 10 MG TAB PO SCH (09:11)
[2022-03-06] MEDS: VITAMIN B COMPLEX 1 CAP PO SCH (09:11)
[2022-03-06] MEDS: CETIRIZINE HCL 5 MG TABLET PO SCH (09:11)
[2022-03-06] MEDS: ROSUVASTATIN 10 MG TAB PO SCH (09:11)
[2022-03-06] MEDS ORDERED: CEFAZOLIN 2 GM in NA CHLORIDE 0.9% 100 ML IVPB SCH (10:30)
[2022-03-06 12:11] VITALS: BP 160/83; TEMP 97.6
--- NOTE | 2022-03-06 14:53 | P.DS ---
Admission Date: 03/03/22 Discharge Date: 03/06/22 Disposition: TRANSFER TO [facility] Discharge Condition: GOOD Reason for Admission: Osteomyelitis Consultations: 1. Infectious Diseases 2. Hand Surgery Procedures: - 03/04/2022 - Amputation of the Left 5th Distal Middle Phalanx Hospital Course: DIAGNOSES: # Left 5th Distal Phalanx MSSA Osteomyelitis with Pathological Fracture s/p Amputation of the Left 5th Distal Middle Phalanx (03/04/2022) # Methicillin-Sensitive Staphylococcus Aureus Bactermia # History of 8/10 Distal Finger due to Amputations # Acute Decompensated Diastolic Congestive Heart Failure with Preserved Ejection Fraction (resolved) # Elevated Creatinine - likely Chronic Kidney Disease Stage III # Coronary Artery Disease # History of Cerebrovascular Accident # Obsessive-Compulsive Disorder # Chronic Obstructive Pulmonary Disease # Gout HOSPITAL COURSE: Mr. Bert Deng is a pleasant 51-year-old male with a past medical history significant for chronic diastolic congestive heart failure, chronic kidney disease stage III, coronary artery disease, history of cerebrovascular accident, chronic obstructive pulmonary disease, and severe obsessive/compulsive disorder who was admitted to the [facility] on 03/03/2022 for pain in his left fifth digit. Upon further evaluation, he was found to have left distal phalanx osteomyelitis. He was admitted to the Medicine service and Hand Surgery was consulted. On 03/04/2022, he underwent an amputation of the left fifth distal middle phalanx, with no apparent complications. His wound culture from the surgery would return positive for Methicillin-Sensitive Staphylococcus Aureus. 4/4 blood cultures were also returned positive for MSSA. A transthoracic echocardiogram was obtained, which did not reveal any obvious valvular vegetations. Infectious Diseases was consulted and he was initially started on daptomycin to cover MRSA given his vancomycin allergy. Following speciation, he was switched to cefazolin. It was recommended that he receive 6 weeks of IV antibiotics and that he be discharged to [facility] for IV antibiotics and wound care. Infectious Diseases, Dr. Rocky Glover, will follow him at [facility]. However, prior to being medically cleared, he requires a transesophageal echocardiogram to evaluate for possible infective endocarditis. Unfortunately, we do not have this service currently available at our facility. He was transferred to [facility] for a transesophageal echocardiogram prior to discharge to [facility]. I have completed a doc to doc with Dr. Marco Lin, who has generously accepted him for transfer. On 03/06/2022, he was seen on morning rounds and deemed medically stable for transfer. He was given the opportunity to ask questions and reported no further questions. Furthermore, all questions were answered to the best of my ability. Today, I personally spent 40 minutes on his case, of which greater than 50% of the time was spent in patient education, counseling, and coordination of care as described above. - Physical Exam General: Alert, In no apparent distress, Oriented x3 HEENT: Atraumatic, PERRLA, Mucous membr. moist/pink, EOMI, Sclerae nonicteric Neck: Supple, JVD not distended Respiratory: Normal air movement, CTAB Cardiovascular: Regular rate/rhythm, Normal S1 S2, No gallops, No rubs, No murmurs, Edema (1+ bilateral) Gastrointestinal: Normal bowel sounds, Soft and benign, Non-distended, No tenderness, No rebound, No guarding Musculoskeletal: Other (he is s/p multiple digital distal amputations. Multiple digits with wound at distal tip. 5th digit tip is covered in clean gauze.) Integumentary: No rashes Vital Signs/Physical Exam: Temp Pulse Resp BP Pulse Ox 97.6 F 69 18 160/83 H 100 03/06/22 12:00 03/06/22 12:00 03/06/22 12:00 03/06/22 12:00 03/06/22 12:00 Laboratory Data at Discharge: WBC 7.60 K/uL (4.3-10.9) 03/06/22 05:43 Hgb 10.9 g/dL (13.6-17.9) L 03/06/22 05:43 Hct 30.8 % (39.6-49.0) L 03/06/22 05:43 Plt Count 262 K/uL (152-406) 03/06/22 05:43 PT 12.4 SECONDS (9.5-12.5) 03/03/22 16:37 INR 1.12 03/03/22 16:37 Sodium 140 mmol/L (136-145) 03/06/22 05:43 Potassium 3.1 mmol/L (3.5-5.1) L 03/06/22 05:43 BUN 24 mg/dL (7-18) H 03/06/22 05:43 Creatinine 1.96 mg/dL (0.55-1.3) H 03/06/22 05:43 Glucose 147 mg/dL (74-106) H 03/06/22 05:43 Magnesium 1.7 mg/dL (1.8-2.4) L 03/03/22 16:37 Total Bilirubin 0.2 mg/dL (0.2-1.0) 03/06/22 05:43 AST 11 U/L (15-37) L 03/06/22 05:43 ALT 14 U/L (12-78) 03/06/22 05:43 Alkaline Phosphatase 91 U/L (45-117) 03/06/22 05:43 Home Medications: Acetaminophen [Tylenol] 650 mg PO SEECOM PRN 03/04/22 Allopurinol 1 tab PO DAILY 03/04/22 Amlodipine [Norvasc*] 1 tab PO DAILY 03/04/22 Aspirin [[place] Aspirin EC] 1 tab PO DAILY 03/04/22 Cetirizine HCl [Zyrtec] 1 tab PO DAILY 03/04/22 Clopidogrel Bisulfate [Plavix] 1 tab PO DAILY 03/04/22 Ferrous Sulfate 1 tab PO BREAKFAST 03/04/22 Finasteride 1 tab PO DAILY 03/04/22 Fluticasone [Flonase 50MCG Nasal [place]*] 1 spray JEWEL DAILY 03/04/22 Folic Acid/Vit B Complex and C [Renal-Joy Tablet] 1 tab PO DAILY 03/04/22 Furosemide 1 tab PO SEECOM 03/04/22 Gabapentin 1 cap PO BID 03/04/22 Levothyroxine Sodium [Tirosint] 1 cap PO DAILY 03/04/22 Metformin HCl [Glucophage*] 1 tab PO BID 03/04/22 Nitroglycerin 1 tab SL SEECOM 03/04/22 Ondansetron [Zofran (Odt)*] 1 tab PO SEECOM PRN 03/04/22 Quetiapine [Seroquel*] 1 tab PO SEECOM 03/04/22 Quetiapine [Seroquel*] 50 mg PO BEDTIME 03/04/22 Rosuvastatin [Crestor*] 1 tab PO DAILY 03/04/22 Semaglutide [Ozempic] 1 mg SQ SEECOM 03/04/22 Sennosides/Docusate Sodium [Senna-S 8.6-50 mg Tablet] 2 tab PO BID 03/04/22 Spironolactone 1 tab PO DAILY 03/04/22 Tamsulosin [Flomax*] 1 cap PO DAILY 03/04/22 Venlafaxine HCl *Xr* [Effexor XR] 1 tab PO DAILY 03/04/22 Venlafaxine HCl [Venlafaxine HCl ER] 1 tab PO BREAKFAST 03/04/22 Vit D 50mcg 1 tab PO DAILY 03/04/22 hydrOXYzine HCL [Atarax*] 1 tab PO TID PRN 03/04/22 lisinopriL [Lisinopril] 1 tab PO DAILY 03/04/22 Medihoney [Medihoney Woundcare Gel*] 1 appl TOP DAILY tube 03/06/22 Diet: AHA Activity: Ad aparna Followup: Durga Cheung, SOCIAL SERVICES MANAGER [Primary Care Provider] - Time spent managing pt's care (in minutes): 40
--- NOTE | 2022-03-08 07:37 | CON ---
Date of Consultation: 03/05/2022 History Of Present Illness: Congestive heart failure. History Of Present Illness: Mr. Deng is a 51-year-old male who came in with an infected finger os teomyelitis, was thought to have congestive heart failure and was consulted. The patient did not hav e any symptoms from a cardiac standpoint. His chest x-ray was normal. He was awaiting surgery on hi s finger by Dr. Mast. He does have a history of hypertension. He is now taking antibiotics. Benigno du is on vancomycin, sulfa. He is on clonidine. No cardiac symptoms reported as stated earlier. Past Medical History: Includes hypertension, neuropathy, dyslipidemia, diabetes, hypothyroidism, chr onic diastolic congestive heart failure. Allergies: NONE. Review of Systems: Negative. Social History: Negative. Family History: Negative. Medications: Include, 1.Neurontin. 2.Synthroid. 3.Crestor. 4.Insulin. 5.Aldactone. 6.Allopurinol. 7.Lisinopril. 8.Lasix. 9.Norvasc. 10.Aspirin. He is now on 4 additional antibiotics. Physical Examination: General: Pleasant, in no acute distress. Vital Signs: Stable, afebrile, sinus rhythm. HEENT: Negative. Neck: Supple, no bruit. Chest: Clear. Cardiac Exam: Revealed a regular rhythm and rate with S4 gallops. Abdomen: Benign. Extremities: Revealed no clubbing, cyanosis, or edema. Diagnostic Data: Showed a normal chest x-ray. Potassium was 3.1, creatinine is 1.96, glucose of 153 . Chest x-ray is negative. EKG showed possible old anterior DE. Impression And Plan: 1.The patient with chronic diastolic congestive heart failure without any cardiac symptoms at this p oint. Echocardiogram is pending. 2.Osteomyelitis, on 4 antibiotics for infected finger. 3.Hypertension. 4.Hypothyroidism. 5.Gout. 6.Diabetes. 7.Dyslipidemia. We will see what the echocardiogram shows. His potassium needs to be corrected. He needs to be gent ly hydrated, I believe, rather than diuresed. NB/MODL Voice ID: [id number] Report ID: [id number]
--- NOTE | 2022-03-08 08:43 | PN ---
Date of Progress Note: 03/06/2022 Subjective: Mr. Deng is here with osteomyelitis. There were some suspicious of congestive heart failure but is not symptomatic from a CHF standpoint. He does have a history of chronic diastolic co ngestive heart failure, secondary to hypertension. He is now on 4 antibiotics for osteomyelitis. Hi s EKG was abnormal, potassium was 3.1, creatinine 1.96. Echocardiogram which was done, showed grade 1 diastolic congestive heart failure with normal ejection fraction. I agree with his present regimen . I will sign off his case. ERIKA/VIVIENNE Voice ID: [id number] Report ID: [id number]
== END 2022-03-06 16:38 | disposition short-term general hospital (02) | DRG 987 ==
LOC: ER 14:44 → ERHOLD 19:56 → 2ND 23:38
PROVIDERS: ADMIT Internal Medicine; ATTEND Internal Medicine
PROC: 0X6R0Z2 Detachment at Left Middle Finger, Mid, Open Approach (ICD-10-PCS; principal; 2022-03-04 13:30)
DX: E11.69 Type 2 diabetes mellitus with other specified complication (principal); I50.33 Acute on chronic diastolic (congestive) heart failure; M86.142 Other acute osteomyelitis, left hand; M84.642A Pathological fracture in other disease, left hand, initial encounter for fracture; I13.0 Hypertensive heart and chronic kidney disease with heart failure and stage 1 through stage 4 chronic kidney disease, or unspecified chronic kidney disease; Z68.41 Body mass index [BMI] 40.0-44.9, adult; E44.0 Moderate protein-calorie malnutrition; R78.81 Bacteremia; N18.30 Chronic kidney disease, stage 3 unspecified; E11.22 Type 2 diabetes mellitus with diabetic chronic kidney disease; E11.65 Type 2 diabetes mellitus with hyperglycemia; E11.40 Type 2 diabetes mellitus with diabetic neuropathy, unspecified; E03.9 Hypothyroidism, unspecified; I25.10 Atherosclerotic heart disease of native coronary artery without angina pectoris; J44.9 Chronic obstructive pulmonary disease, unspecified; E78.5 Hyperlipidemia, unspecified; E88.09 Other disorders of plasma-protein metabolism, not elsewhere classified; M10.9 Gout, unspecified; E66.01 Morbid (severe) obesity due to excess calories; F42.9 Obsessive-compulsive disorder, unspecified; I25.2 Old myocardial infarction; F17.290 Nicotine dependence, other tobacco product, uncomplicated; B95.61 Methicillin susceptible Staphylococcus aureus infection as the cause of diseases classified elsewhere; Z88.1 Allergy status to other antibiotic agents; Z88.8 Allergy status to other drugs, medicaments and biological substances; Z79.82 Long term (current) use of aspirin; Z79.02 Long term (current) use of antithrombotics/antiplatelets; Z79.890 Hormone replacement therapy; Z95.5 Presence of coronary angioplasty implant and graft; Z79.899 Other long term (current) drug therapy; Z86.73 Personal history of transient ischemic attack (TIA), and cerebral infarction without residual deficits; Z89.022 Acquired absence of left finger(s); Z89.021 Acquired absence of right finger(s); Z56.0 Unemployment, unspecified; Z87.891 Personal history of nicotine dependence; Z20.822 Contact with and (suspected) exposure to COVID-19
CPT/HCPCS: 36415; 71045; 80048; 80053; 80076; 82550; 82947; 83036; 83605; 83735; 83880; 84145; 84484; 85025; 85610; 85652; 86140; 87040; 87070; 87075; 87077; 87186; 87205; 87811; 88305; 88311; 93005; 93306; 96365; 96375; 99251; 99285; J0360; J0690; J0692; J0878; J1940; J2020; J2250; J2704; J3010; J3475; J7040

== ENCOUNTER 2022-06-09 11:53 | Emergency (ER) | payer OTHER ==
--- OUTSIDE RECORDS SUMMARY | 2022-06-09 11:57 | XMS REPORT | Continuity of Care Document ---
:1970 Author Organization [facility] t Address [facility] [place] [address] Care Team Providers Name Role Phone HENRY FUNEZ Attending Clinician Unavailable Riley MUNOZ, Emeka Collier Attending Clinician Henry Funez MD Attending Clinician Navid Ledezma MD Attending Clinician Mart Ramirez MD' Attending Clinician [phone] EMEKA ASHTON Attending Clinician Unavailable JEREMY BATISTA Attending Clinician Unavailable EMEKA ASHTON Admitting Clinician Unavailable Payers Payer Name Policy Type Policy Number Effective Date Expiration Date Gildardo MAI MEDICARE HMO [id number] 2021 POS 00:00:00 Problems Condition Condition Condition Status Onset Resolution Last Treating Co mments Source Name Details Category Date Date Treatment Clinician Date MSSA MSSA Disease Active [facility] b[facility]remia bacteremia 03-06 Michelle kes 00:00: Medical 00 [place] Diabetes Diabetes Disease Active [facility] mellitus mellitus [facility] Hypertensi Hypertensi Disease Active [facility] on on [facility] OCD OCD Disease Active Overview: [facility] (obsessive (obsessive [facility] compulsive compulsive g of this Medical disorder) disorder) note Cent er might be different from the original. Nail biting Neuropathy Neuropathy Disease Active [facility] Allergies, Adverse Reactions, Alerts Allergy Allergy Status Severity Reaction(s) Onset Inactive Treating Comm ents Source Name Type Date Date Clinician CLONIDIN Allergy Active [facility]06 [facility] 00:[facility]: Medical 00 Center LORAZEPA Allergy Active [facility] 8[facility]19 [facility] 00:00: Medical 00 Center SULFA Allergy Active [facility] (SULFONA 03-06 [facility] MIDE 00:00: Medical ANTIBIOT 00 Center ICS) VANCOMYC Allergy Active [facility] IN 8 [facility] 00:00: Medical 00 Center Clonidin Drug Active Patient [facility] Intolera 03-06 gets [facility] nce 00:00: dizzy Medical 00 with high Center dosages Lorazepa Drug Active Gets [facility] m Intolera 03-06 dizzy [facility] nce 00:00: with high Medical 00 dosages Center Sulfa Drug Active Swells up [facility] (Sulfona Allergy 03-06 [facility] mide 00:00: Medical Antibiot 00 Center ics) Vancomyc Propensi Active [facility] in ty to 03-06 [facility] adverse 00:00: Medical reaction 00 Center s Family History Family Member Diagnosis Comments Start Date Stop Date Source Natural father Cancer [facility] Natural father Hyperlipidemia [facility] Natural mother Diabetes [facility] Natural mother Hyperlipidemia [facility] Social History Social Habit Start Date Stop Date Quantity Comments Source History SDOH [facility] Alcohol Frequency Medical Center History SDOH [facility] Alcohol Std Drinks Medica l Center History SDOH [facility] Alcohol Binge Medical Shamar ter History SDOH [facility] Transport Non-Med Medical Center History SDWI 2022-03-07 2022-03-[address] [facility] Transport Med 00:00:00 00:00:[address] History SDWI 2022-03-07 2022-03-[address] [facility] Housing Unable to 00:00:00 00:00:00 Medical Center Pay History SDOH 2022-03-07 2022-03-[address] [facility] Housing Places 00:00:00 00:00:00 Medical Ce nter Lived History SDWI 2022-03-07 2022-03-[address] [facility] Housing Homeless 00:00:00 00:00:00 Medical Center Last Year Tobacco use and 2022-03-06 2022-03-[address] [facility] exposure 00:00:00 00:00:00 Medical Center Alcohol intake 2022-03-06 2022-03-06 Current drinker [place] [facility] 00:00:00 00:00:00 of alcohol Medical Center (finding) History SDOH 2022-03-06 2022-03-06 ocassionally. 1 [facility] Alcohol Comment 00:00:00 00:00:00 beer every Medical C enter couple of months Sex Assigned At [birth year] M [facility] kes 00:00:00 00:00:00 Medical Center Smoking Status Start Date Stop Date Source Current some day smoker 2022-03-06 00:00:00 [facility] Medications Ordered Filled Start Stop Current Ordering Indication Dosage Frequency Signature Comments Components Source Medication Medication Date Date Medication? Clinician (SIG) Name Name ceFAZolin 1g Inject [address] (ANCEF) 1 g 03-13 intravenou L ukes in sodium 00:00: 23:59 sly every Me dical chloride 00 :00 8 (eight) Center 0.9 % (NS) hours for 100 mL 33 days. (V2B) IVPB albuterol Yes 2{puff} Inhale [address] HFA 8-25 puffs by [facility] (VENTOLIN 16:51: mouth via Med ical HFA) 90 08 inhaler Center mcg/actuati every 4 on inhaler (four) hours as needed for Wheezing. allopurinoL Yes 100mg QD Take [address] (ZYLOPRIM) 8-25 mg by [facility] 100 MG 16:51: mouth Medical tablet 08 daily. Center amLODIPine Yes 10mg QD Take [address] (NORVASC) 8-25 by mouth [facility]ukes 10 MG 16:51: daily. Medical tablet 08 Center aspirin 81 Yes 81mg QD Take [address] MG EC 8-25 by mouth [facility] tablet 16:51: daily. Medical 08 Center cetirizine Yes 10mg QD Take [address] (ZyrTEC) 10 8-25 by mouth Luke s MG tablet 16:51: daily. Medica l 08 [place] clopidogreL Yes 75mg QD Take [address] (PLAVIX) 75 8-25 by mouth Luke s mg tablet 16:51: daily. Medica l 08 [place] ferrous Yes 325mg Take 325 [facility] t sulfate 325 8-25 mg by [facility]ukes (65 FE) MG 16:51: mouth Medica l tablet 08 daily with Center breakfast. finasteride 0 Yes 5mg QD Take [address] (PROSCAR) 5 8-25 by mouth Luke s mg tablet 16:51: daily. Medica l 08 [place] fluticasone Yes 1{spray QD [address] propionate 8-25 } Nasal [facility] (FLONASE) 16:51: route Medical 50 08 daily. Center mcg/actuati on nasal spray furosemide Yes 40mg QD Take [address] (LASIX) 40 8-25 by mouth [facility]ukes MG tablet 16:51: daily. Medica l 08 [place] gabapentin Yes 300mg Q.5D Take [address] (NEURONTIN) 8-25 mg by [facility]ukes 300 MG 16:51: mouth 2 Medical capsule 08 (two) Center times daily. hydrOXYzine Yes 25mg Take [address] (ATARAX) 25 8-25 by mouth 3 Michelle kes MG tablet 16:51: (three) Medic al 08 times Center daily as needed for Itching. levothyroxi Yes 125ug Take [address] ne 8-25 mcg by Lukes (SYNTHROID, 16:51: mouth Medic al LEVOTHROID) 08 Every Center 125 MCG morning on tablet an empty stomach. nitroglycer Yes .4mg Place 0.[address] in 8-25 mg under [facility]ukes (NITROSTAT) 16:51: the tongue Medical 0.4 MG SL 08 every 5 Center tablet (five) minutes as needed for Chest pain Put 1 pill under tongue every 5min as needed for chest pain.No more than 3 doses in 15min.Call 911 if pain unrelieved 5min after 1st dose . ondansetron Yes 4mg Take [address] (ZOFRAN-ODT 8-25 by mouth Luke s ) 4 MG 16:51: every 8 Medical disintegrat 08 (eight) Cente r ing tablet hours as needed for Nausea. QUEtiapine 0 Yes 25mg Q.5D Take [address] (SEROquel) 8-25 by mouth 2 Naseem es 25 MG 16:51: (two) Medical tablet 08 times Center daily As needed . QUEtiapine Yes 50mg QD Take [address] (SEROquel) 8-25 by mouth [facility]ukes 50 MG 16:51: nightly. Medical tablet 08 Center spironolact Yes 75mg QD Take [address] one 8-25 by mouth [facility]ukes (ALDACTONE) 16:51: daily. Medi kyle 25 MG 08 Center tablet tamsulosin Yes .4mg QD Take 0.[address] (FLOMAX) 8-25 mg by [facility]ukes 0.4 mg Cap 16:51: mouth Medica l 24 hr 08 daily. Center capsule acetaminoph Yes 650mg Take [address] en 8-25 mg by [facility]ukes (TYLENOL) 16:51: mouth Medical 325 MG 08 every 6 Center tablet (six) hours as needed for Pain. venlafaxine Yes 75mg QD Take [address] (EFFEXOR) 8-25 by mouth [facility]ukes 75 MG 16:51: daily. Medical tablet 08 [place] furosemide 2021- No 20mg QD Take [address] (LASIX) 20 8- 08-25 by mouth Luke s MG tablet 15:12: 00:00 daily At Med ica 34 :00 noon . Center lisinopriL 2021- No 10mg QD Take [address] (PRINIVIL,Z - 08-25 by mouth Naseem es ESTRIL) 10 15:12: 00:00 daily. Medi kyle MG tablet 34 :00 Center loperamide 2021- No 2mg Take [address] (IMODIUM) 2 8-25 08-25 by mouth 4 L ukes mg capsule 15:12: 00:00 (four) Medi kyle 34 :00 times Center daily as needed for Diarrhea. metFORMIN 2021- No 500mg Take [address] (GLUCOPHAGE 8-25 08-25 mg by Lukes ) 500 MG 15:12: 00:00 mouth 2 Medic al tablet 34 :00 (two) Center times daily with breakfast and dinner. atorvastati 2022- Yes 40mg QD Take [address] n (LIPITOR) 03-12 tablet (40 L ukes 40 MG 00:00: 23:59 mg total) Medica l tablet 00 :00 by mouth Center nightly. hydrALAZINE 2022- Yes 100mg Take [address] (APRESOLINE 03-12 tablet Lukes ) 100 MG 00:00: 23:59 (100 mg Medic al tablet 00 :00 total) by Center mouth every 8 (eight) hours. glipiZIDE 2022- Yes 5mg QD Take 1 [facility] t (GLUCOTROL 03-12 tablet (5 Naseem es XL) 5 MG 24 00:00: 23:59 mg total) Medical hr tablet 00 :00 by mouth Center daily. carvediloL 2021- No 6.25mg Q.5D Take [address] (COREG) 03-12 tablet Lukes 6.25 MG 00:00: 23:59 (6.25 mg Medic al tablet 00 :00 total) by Center mouth 2 (two) times daily for 30 days. ceFAZolin 2021- No 1g Inject [address] (ANCEF) 1 g 03-12 intravenou L ukes in sodium 00:00: 00:00 sly every Me dical chloride 00 :00 8 (eight) Center 0.9 % (NS) hours for 100 mL 10 days. (V2B) IVPB Vital Signs Vital Name Observation Time Observation Value Comments Source HEIGHT 2022-03-06 21:50:00 170.2 cm WEIGHT 2022-03-06 21:50:00 120.657 kg HEIGHT 2022-03-06 21:50:00 170.2 cm WEIGHT 2022-03-06 21:50:00 120.657 kg HEIGHT 2022-03-06 21:50:00 170.2 cm WEIGHT 2022-03-06 21:50:00 120.657 kg Systolic blood 2022-03-12 16:00:00 116 mm[Hg] [facility] pressure [facility] Center Diastolic blood 2022-03-12 16:00:00 63 mm[Hg] [facility] Heart rate 2022-03-12 16:00:00 87 /min [facility] Body temperature 2022-03-12 16:00:00 36.28 [place] [facility] Respiratory rate 2022-03-12 16:00:00 18 /min [facility] Oxygen saturation in 2022-03-12 16:00:00 99 /min [facility] Arterial blood by Medical Ce nter Pulse oximetry Body height 2022-03-06 21:50:00 170.2 cm [facility] Body weight 2022-03-06 21:50:00 120.657 kg [facility] BMI 2022-03-06 21:50:00 41.66 kg/m2 [facility] Procedures Procedure Date / Time Performing Clinician Source Performed POCT-GLUCOSE METER 2022-03-12 15:24:[facility] PO[facility]-GLUCOSE METER 2022-03-12 11:19:00 [facility] POCT-GLUCOSE METER 2022-03-12 06:41:00 Armin [facility] CBC W/PLT COUNT & AUTO 2022-03-12 05:47:[address] [facility] CBC W/PLT COUNT & AUTO 2022-03-12 05:47:[address] [facility] BASIC METABOLIC PANEL 2022-03-12 05:47:00 Emeka Ashton [facility] MAGNESIUM 2022-03-12 05:47:00 Emeka Ashton [facility] POCT-GLUCOSE METER 2022-03-11 21:10:00 Armin [facility] POCT-GLUCOSE METER 2022-03-11 17:07:00 Armin [facility] POCT-GLUCOSE METER 2022-03-11 12:19:00 Armin [facility] POCT-GLUCOSE METER 2022-03-11 06:51:00 Emeka Ashton [facility] CBC W/PLT COUNT & AUTO 2022-03-11 05:19:[address] [facility] CBC W/PLT COUNT & AUTO 2022-03-11 05:19:[address] [facility] BASIC METABOLIC PANEL 2022-03-11 05:19:00 CherieStephany garciasonido Collier [place] [facility] MAGNESIUM 2022-03-11 05:19:00 CherieStephany garciasonido Collier [place] [facility] POCT-GLUCOSE METER 2022-03-10 21:32:00 Emeka Ashton [facility] POCT-GLUCOSE METER 2022-03-10 16:27:00 Emeka Ashton Nando [facility] POCT-GLUCOSE METER 2022-03-10 11:19:00 Emeka Ashton Nando [facility] POCT-GLUCOSE METER 2022-03-10 07:04:00 Cherieradha Emeka Nando [facility] POCT-GLUCOSE METER 2022-03-09 21:12:00 Emeka Ashton [facility] POCT-GLUCOSE METER 2022-03-09 15:58:00 [facility] Nando [facility] IR TUNNELED CATHETER 2022-03-09 14:05:00 CherieStephany garciasonido Collier [facility] ECG 12-LEAD 2022-03-09 12:56:53 Unknown, Hl7 [facility] TRANSESOPHAGEAL ECHO 2022-03-09 11:09:12 Miguel [facility] COLOR-FLOW MAPPING 2022-03-09 07:32:46 Miguel [facility] CONT WAVE PULSED DOPPLER 2022-03-09 07:32:46 Miguel [facility] POCT-GLUCOSE METER 2022-03-09 06:56:00 Cherieradha Emeka C [facility] CBC W/PLT COUNT & AUTO 2022-03-09 05:51:[address] [facility] CBC W/PLT COUNT & AUTO 2022-03-09 05:51:[address] [facility] BASIC METABOLIC PANEL 2022-03-09 05:51:00 Emeka Ashton [facility] MAGNESIUM 2022-03-09 05:51:00 Emeka Ashton [facility] PROTHROMBIN TIME/INR 2022-03-09 05:51:00 CherieradhaEmeka [facility] APTT 2022-03-09 05:51:00 Emeka Ashton [facility] POCT-GLUCOSE METER 2022-03-08 20:44:00 Cherieradha Emeka C [facility] POCT-GLUCOSE METER 2022-03-08 15:44:00 Cherie Emeka C [facility] POCT-GLUCOSE METER 2022-03-08 11:40:00 CherieradhaEmeka [facility] POCT-GLUCOSE METER 2022-03-08 06:22:00 Emeka Ashton [facility] CBC W/PLT COUNT & AUTO 2022-03-08 05:01:[address] [facility] CBC W/PLT COUNT & AUTO 2022-03-08 05:01:00 [facility] BASIC METABOLIC PANEL 2022-03-08 05:01:00 Emeka Ashton [facility] MAGNESIUM 2022-03-08 05:01:00 Emeka Ashton [facility] POCT-GLUCOSE METER 2022-03-07 20:41:00 Emeka Ashton [facility] POCT-GLUCOSE METER 2022-03-07 15:53:00 [facility] Emeka C [facility] CBC W/PLT COUNT & AUTO 2022-03-07 05:59:[address] [facility] BASIC METABOLIC PANEL 2022-03-07 05:59:00 Emeka Ashton [facility] MAGNESIUM 2022-03-07 05:59:00 Emeka Ashton [facility] PROTHROMBIN TIME/INR 2022-03-07 05:59:00 Emeka Ashton [facility] PHOSPHORUS 2022-03-07 05:59:00 Marialuisa Goff [facility] CBC W/PLT COUNT & AUTO 2022-03-07 05:59:[address] [facility] APTT 2022-03-06 21:42:00 Emeka Ashton [facility] EKG-SCANNED 2022-03-06 00:00:00 Provider, Daniela [facility] St Naseem es Scanning [facility] CARDIAC CATH REPORT - SCAN 2022-03-06 00:00:00 Provider, Daniela [facility] Plan of Care Planned Activity Planned Date Details Comments Source Future Scheduled 2022-03-19 INFLUENZA VACCINE (#1) [facility] Test 00:00:00 [code = INFLUENZA Medical Ce nter VACCINE (#1)] Future Scheduled 2022-03-[address] Michelle kes Test 00:00:00 measurement (procedure) [facility] [code = 53769029] Future Scheduled 2021-10-17 Medicare IPPE (WELCOME [facility] Test 00:00:00 TO MEDICARE) [code = Medical Center Medicare IPPE (WELCOME TO MEDICARE)] Future Scheduled 2021-07-[address] [facility] Test 00:00:00 (12+) [code = Medical Center DEPRESSION SCREENING (12+)] Future Scheduled 2020 SHINGLES VACCINES ([address] [facility] Test 00:00:00 2) [code = SHINGLES [facility] Center VACCINES (1 of 2)] Future Scheduled 2005 Lipid panel (procedure) [facility] Test 00:00:00 [code = 63102010] Medical Ce nter Future Scheduled 1989 DTAP/TDAP/TD VACCINES [facility] Test 00:00:00 (1 - Tdap) [code = Medical C enter DTAP/TDAP/TD VACCINES (1 - Tdap)] Future Scheduled 1988 HEPATITIS C SCREENING [facility] Test 00:00:00 [code = HEPATITIS C Medical Center SCREENING] Future Scheduled 1980 DIABETIC EYE EXAM [code [facility] Test 00:00:00 = DIABETIC EYE EXAM] Medical Center Future Scheduled [address] Naseem es Test 00:00:00 examination Medical Center (regime/therapy) [code = 405690228] Future Scheduled 1980 Urine screening for [facility] Test 00:00:00 protein (procedure) Medical Center [code = 796761353] Future Scheduled [address] [facility] Test 00:00:00 0-64 YRS (1 - PCV) Medical C enter [code = PNEUMOCOCCAL VACCINE 0-64 YRS (1 - PCV)] Future Scheduled 1970 COVID-19 VACCINE (#1) [facility] Test 00:00:00 [code = COVID-[address] VACCINE (#1)] Future Scheduled 1970 CT Colonography (combo) [facility] Test 00:00:00 [code = CT Colonography [facility] Center (combo)] Future Scheduled 1970 Screening for malignant [facility] Test 00:00:00 neoplasm of colon Medical Ce nter (procedure) [code = 209874985] Future Scheduled 1970 Screening for malignant [facility] Test 00:00:00 neoplasm of colon Medical Ce nter (procedure) [code = 117949494] Future Scheduled 1970 Screening for malignant [facility] Test 00:00:00 neoplasm of colon Medical Ce nter (procedure) [code = 108905933] Future Scheduled 1970 Screening for malignant [facility] Test 00:00:00 neoplasm of colon Medical Ce nter (procedure) [code = 564493277] Future Scheduled 1970 Sigmoidoscopy [code = [facility] Test 00:00:00 Sigmoidoscopy] Medical [facility] Encounters Start End Encounter Admission Attending Care Care Encounter Source Date/Time Date/Time Type Type Clinicians Facility Department ID 2022-03-06 2022-03-12 [id number] 17:47:00 16:51:00 [facility] 2022-03-06 2022-03-[address] [facility] [id number] 17:47:00 16:51:00 Encounter Armin [facility] 2022-03-09 2022-03-[address] [facility] [id number] [facility] 11:33:00 12:07:00 Event [facility] 2022-03-09 2022-03-09 Surgery Ashley, [facility] [id number] 11:00:00 11:36:00 [facility] [place] 2022-03-06 2022-03-06 Travel [facility] [id number] [facility] 00:[facility]:00 00:00:00 [facility] 2022-03-03 2022-03-03 Outpatient JANNETTE BATISTA [id number] Jannette 10:00:00 10:00:00 JEREMY Seybol d 2022-03-03 2022-03-03 Outpatient JANNETTE BATISTA [id number] Jannette 10:00:00 10:00:00 JEREMY Seybol d Results Test Description Test Time Test Comments Results Result Comments Source POC-Glucose meter 2022-03-12 15:36:24 Test Item Value Reference Range Interpretation Comme nts POC-Glucose Meter (test code = 241 mg/dL 70-110 H : TESTED AT [facility] [address]) [place] [id number]: Director Of Hotel/Techni narciso ID = [id number] for Bethany Smiley Lab Interpretation (test code = Abnormal 93513-4) [facility] [id number] 15:36:24 Test Item Value Reference Range Interpretation Comments POC-GLUCOSE METER 241 mg/dL 70-110 H : TESTED A T [facility] [address] (BEAKER) (test code [address] [facility], = 1538) [place] [id number]: Director Of Hotel/Techni narciso ID = [id number] for Will iams, Shyanne POCT-GLUCOSE [id number] 11:31:00 Test Item Value Reference Range Interpretation Comments POC-GLUCOSE METER 196 mg/dL 70-110 H : TESTED A T [facility] [address] (BEAKER) (test code [address] [facility], = 1538) [place] [id number]: Director Of Hotel/Techni narciso ID = [id number] for Will iams, Shyanne POCT-GLUCOSE [id number] 06:53:14 Test Item Value Reference Range Interpretation Comments POC-GLUCOSE METER 153 mg/dL 70-110 H : TESTED A T [facility] [address] (BEAKER) (test code [address], = [address]) [facility] 77 [id number]: Director Of Hotel/Techni narciso ID = [id number] for Manuela Real [id number] 06:19:33 Test Item Value Reference Range Interpretation Comments MAGNESIUM (BEAKER) (test code = 1.7 mg/dL 1.5-3.0 627) Director Of Hotel ID - DSENSONOperator ID - DSENSONOperator ID - DSENSONOperator ID - DSENSONBASIC METABOLIC [id number] 06:18:13 Test Item Value Reference Range Interpretation Comments SODIUM (BEAKER) 139 meq/L 135-148 (test code = 381) POTASSIUM 3.7 meq/L 3.6-5.5 (BEAKER) (test code = 379) CHLORIDE (BEAKER) 105 meq/L 98-106 (test code = 382) CO2 (BEAKER) 24 meq/L 20-29 (test code = 355) BLOOD UREA 30 mg/dL 10-26 H NITROGEN (BEAKER) (test code = 354) CREATININE 1.99 mg/dL 0.50-1.20 H (BEAKER) (test code = 358) GLUCOSE RANDOM 152 mg/dL 70-110 H (BEAKER) (test code = 652) CALCIUM (BEAKER) 8.8 mg/dL 8.5-10.5 (test code = 697) EGFR (BEAKER) 40 Interpretatio n of eGFR (test code = mL/min/1.73 values Stage De scription 1092) sq m Result G1 Shannan l or high >=90 G2 Mildly decreased 60-89 G3a Mildl y to moderately 45-5 9 G3b Moderately to s everely 30-44 G4 Severl y decreased 15-29 G5 Kidney failure <15Reported eGF R is based on the CKD-EPI 2020 equation that d oes not use a race coefficientEsti mated GFR is not as accur ate as Creatinine Sasha hooks in predicting glom erular filtration rate . Estimated GFR is not appl icable for dialysis patien ts Director Of Hotel ID - DSENSONOperator ID - DSENSONOperator ID - DSENSONOperator ID - DSENSONOperator ID - DSENSONOperator ID - DSENSONOperator ID - DSENSONOperator ID - DSENSONOperator ID - DSENSONCBC W/PLT COUNT & AUTO DIFFERENTIAL 2022-03-12 06:02:07 Test Item Value Reference Range Interpretation Comments WHITE BLOOD CELL COUNT (BEAKER) 8.3 K/ L 4.0-10.0 (test code = 775) RED BLOOD CELL COUNT (BEAKER) 4.06 M/ L 4.20-5.80 L (test code = 761) HEMOGLOBIN (BEAKER) (test code = 11.3 GM/DL 13.0-16.8 L 410) HEMATOCRIT (BEAKER) (test code = 33.3 % 36.0-50.0 L 411) MEAN CORPUSCULAR VOLUME (BEAKER) 82.0 fL 82.0-99.0 (test code = 753) MEAN CORPUSCULAR HEMOGLOBIN 27.8 pg 27.0-33.0 (BEAKER) (test code = 751) MEAN CORPUSCULAR HEMOGLOBIN CONC 33.9 GM/DL 32.0-36.0 (BEAKER) (test code = 752) RED CELL DISTRIBUTION WIDTH 14.2 % 12.0-15.0 (BEAKER) (test code = 412) PLATELET COUNT (BEAKER) (test 221 K/CU MM 150-430 code = 756) MEAN PLATELET VOLUME (BEAKER) 9.2 fL 6.0-11.5 (test code = 754) NUCLEATED RED BLOOD CELLS 0 /100 WBC 0-0 (BEAKER) (test code = 413) NEUTROPHILS RELATIVE PERCENT 60 % (BEAKER) (test code = 429) LYMPHOCYTES RELATIVE PERCENT 29 % (BEAKER) (test code = 430) MONOCYTES RELATIVE PERCENT 7 % (BEAKER) (test code = 431) EOSINOPHILS RELATIVE PERCENT 3 % (BEAKER) (test code = 432) BASOPHILS RELATIVE PERCENT 1 % (BEAKER) (test code = 437) NEUTROPHILS ABSOLUTE COUNT 4.99 K/ L 1.80-8.00 (BEAKER) (test code = 670) LYMPHOCYTES ABSOLUTE COUNT 2.38 K/ L 1.48-4.50 (BEAKER) (test code = 414) MONOCYTES ABSOLUTE COUNT (BEAKER) 0.56 K/ L 0.00-1.30 (test code = 415) EOSINOPHILS ABSOLUTE COUNT 0.27 K/ L 0.00-0.50 (BEAKER) (test code = 416) BASOPHILS ABSOLUTE COUNT (BEAKER) 0.04 K/ L 0.00-0.20 (test code = 417) IMMATURE GRANULOCYTES-RELATIVE 0 % 0-0 PERCENT (BEAKER) (test code = 2801) POCT-GLUCOSE [id number] 21:21:14 Test Item Value Reference Range Interpretation Comments POC-GLUCOSE METER 229 mg/dL 70-110 H : TESTED A T [facility] (BEAKER) (test code [facility] ([address], = 1538) [place] [id number]: Director Of Hotel/Techni narciso ID = [id number] for Manuela Real POCT-GLUCOSE [id number] 17:19:11 Test Item Value Reference Range Interpretation Comments POC-GLUCOSE METER 222 mg/dL 70-110 H : TESTED A T [facility] (BEAKER) (test code [facility] ([facility], = 1538) [place] [id number]: Director Of Hotel/Techni narciso ID = [id number] for Will iams, Shyanne POCT-GLUCOSE [id number] 12:31:07 Test Item Value Reference Range Interpretation Comments POC-GLUCOSE METER 202 mg/dL 70-110 H : TESTED A T [facility] (BEAKER) (test code [facility] ([facility], = 1538) [place] [id number]: Director Of Hotel/Techni narciso ID = [id number] for Will iams, Shyanne POCT-GLUCOSE [id number] 07:02:52 Test Item Value Reference Range Interpretation Comments POC-GLUCOSE METER 147 mg/dL 70-110 H : TESTED A T [facility]17 (BEAKER) (test code [facility] ([address] [facility], = 1538) [place] [id number]: Director Of Hotel/Techni narciso ID = [id number] for Manuela Real [id number] 05:56:17 Test Item Value Reference Range Interpretation Comments MAGNESIUM (BEAKER) (test code = 1.9 mg/dL 1.5-3.0 627) Director Of Hotel ID - LITOOperator ID - LITOOperator ID - LITOOperator ID - LITOBASIC METABOLIC [id number] 05:54:55 Test Item Value Reference Range Interpretation Comments SODIUM (BEAKER) 138 meq/L 135-148 (test code = 381) POTASSIUM 3.6 meq/L 3.6-5.5 (BEAKER) (test code = 379) CHLORIDE (BEAKER) 105 meq/L 98-106 (test code = 382) CO2 (BEAKER) 23 meq/L 20-29 (test code = 355) BLOOD UREA 28 mg/dL 10-26 H NITROGEN (BEAKER) (test code = 354) CREATININE 1.82 mg/dL 0.50-1.20 H (BEAKER) (test code = 358) GLUCOSE RANDOM 144 mg/dL 70-110 H (BEAKER) (test code = 652) CALCIUM (BEAKER) 8.6 mg/dL 8.5-10.5 (test code = 697) EGFR (BEAKER) 45 Interpretatio n of eGFR (test code = mL/min/1.73 values Stage De scription 1092) sq m Result G1 Shannan l or high >=90 G2 Mildly decreased 60-89 G3a Mildl y to moderately 45-5 9 G3b Moderately to s everely 30-44 G4 Severl y decreased 15-29 G5 Kidney failure <15Reported eGF R is based on the CKD-EPI 2020 equation that d oes not use a race coefficientEsti mated GFR is not as accur ate as Creatinine Sasha hooks in predicting glom erular filtration rate . Estimated GFR is not appl icable for dialysis patien ts Director Of Hotel ID - LITOOperator ID - LITOOperator ID - LITOOperator ID - LITOOperator ID - LITOOperator ID - LITOOperator ID - LITOOperator ID - LITOOperator ID - LITOCBC W/PLT COUNT & AUTO [id number] 05:38:49 Test Item Value Reference Range Interpretation Comments WHITE BLOOD CELL COUNT (BEAKER) 8.2 K/ L 4.0-10.0 (test code = 775) RED BLOOD CELL COUNT (BEAKER) 4.09 M/ L 4.20-5.80 L (test code = 761) HEMOGLOBIN (BEAKER) (test code = 11.3 GM/DL 13.0-16.8 L 410) HEMATOCRIT (BEAKER) (test code = 33.3 % 36.0-50.0 L 411) MEAN CORPUSCULAR VOLUME (BEAKER) 81.4 fL 82.0-99.0 L (test code = 753) MEAN CORPUSCULAR HEMOGLOBIN 27.6 pg 27.0-33.0 (BEAKER) (test code = 751) MEAN CORPUSCULAR HEMOGLOBIN CONC 33.9 GM/DL 32.0-36.0 (BEAKER) (test code = 752) RED CELL DISTRIBUTION WIDTH 14.1 % 12.0-15.0 (BEAKER) (test code = 412) PLATELET COUNT (BEAKER) (test 233 K/CU MM 150-430 code = 756) MEAN PLATELET VOLUME (BEAKER) 9.5 fL 6.0-11.5 (test code = 754) NUCLEATED RED BLOOD CELLS 0 /100 WBC 0-0 (BEAKER) (test code = 413) NEUTROPHILS RELATIVE PERCENT 60 % (BEAKER) (test code = 429) LYMPHOCYTES RELATIVE PERCENT 30 % (BEAKER) (test code = 430) MONOCYTES RELATIVE PERCENT 6 % (BEAKER) (test code = 431) EOSINOPHILS RELATIVE PERCENT 3 % (BEAKER) (test code = 432) BASOPHILS RELATIVE PERCENT 1 % (BEAKER) (test code = 437) NEUTROPHILS ABSOLUTE COUNT 4.91 K/ L 1.80-8.00 (BEAKER) (test code = 670) LYMPHOCYTES ABSOLUTE COUNT 2.41 K/ L 1.48-4.50 (BEAKER) (test code = 414) MONOCYTES ABSOLUTE COUNT (BEAKER) 0.49 K/ L 0.00-1.30 (test code = 415) EOSINOPHILS ABSOLUTE COUNT 0.26 K/ L 0.00-0.50 (BEAKER) (test code = 416) BASOPHILS ABSOLUTE COUNT (BEAKER) 0.06 K/ L 0.00-0.20 (test code = 417) IMMATURE GRANULOCYTES-RELATIVE 1 % 0-0 H PERCENT (BEAKER) (test code = 2801) POCT-GLUCOSE [id number] 21:43:46 Test Item Value Reference Range Interpretation Comments POC-GLUCOSE METER 236 mg/dL 70-110 H : TESTED A T [facility] (BEAKER) (test code [address], = 1538) [facility] 77 478: Director Of Hotel/Techni narciso ID = [id number] for Manuela Real POCT-GLUCOSE [id number] 16:44:29 Test Item Value Reference Range Interpretation Comments POC-GLUCOSE METER 158 mg/dL 70-110 H : TESTED A T [facility] [address] (BEAKER) (test code [address], = 1538) [place] [address]: Director Of Hotel/Techni narciso ID = [id number] for Anamaria Tanner POCT-GLUCOSE [id number] 11:53:34 Test Item Value Reference Range Interpretation Comments POC-GLUCOSE METER 232 mg/dL 70-110 H : TESTED A T [facility] (BEAKER) (test code [address], = 1538) [place] [address] 478: Director Of Hotel/Techni narciso ID = [id number] for Anamaria Tanner POCT-GLUCOSE [id number] 07:16:21 Test Item Value Reference Range Interpretation Comments POC-GLUCOSE METER 159 mg/dL 70-110 H : TESTED A T [facility] [address] (BEAKER) (test code [address], = 1538) [place] [address] 478: Director Of Hotel/Techni narciso ID = [id number] for Brow n Debby POCT-GLUCOSE [id number] 21:25:29 Test Item Value Reference Range Interpretation Comments POC-GLUCOSE METER 151 mg/dL 70-110 H : TESTED A T [facility] [address]17 (BEAKER) (test code [address], = 1538) [place] [address] 478: Director Of Hotel/Techni narciso ID = [id number] for Brow n, Debby POCT-GLUCOSE [id number] 16:24:12 Test Item Value Reference Range Interpretation Comments POC-GLUCOSE METER 181 mg/dL 70-110 H : TESTED A T [facility] [address] (BEAKER) (test code [address], = 1538) [place] [address] 478: Director Of Hotel/Techni narciso ID = [id number] for Anamaria Tanner Transesophageal [id number] 15:43:50Ejection formerly [facility] 2022-03-09 14:32:00Reason for Central Line/PICC?->> 21 days of IV infusionReason for exam:->MSSA Bacteremia/Osteomyelitis requiring long-term IV antibiotics. CKD Stage 3 patient. Nephrology recommended tunneled lined [facility] 1970 Sex: MFINAL REPORT PROCEDURE: Tunneled Central Venous Catheter Placement CLINICAL HISTORY: MSSA Bacteremia/Osteomyelitis requiring long-term IV antibiotics. CKD Stage 3 patient. Nephrology recommended tunneled lined instead of PICC [employer]AS[employer]AND CONSERVATIONIST: Mike Lord M.D. ANESTHESIA: Conscious sedation was provided by radiology nursing using constant hemodynamic monitoring for 30 minutes. Versed IV 0.5 mg, Fentanyl IV 25 mcg. DEVICE: Dual-lumen 6 Swedish catheter DOSE INFORMATION - Ka,r: 38 mGyFluoroscopy time: 1 minute 1 second Estimated Blood Loss: <5 mL Samples: None. PROCEDURE: The risks, benefits, and alternatives to the procedure were discussed with the patient/healthcare proxy. All questions were answered and written informed consent was obtained. A universal timeout was performed prior to starting the procedure. For Prevention of Central Venous Catheter (CVC)-Related Bloodstream Infectionsall elements of maximal sterile barrier technique, hand hygiene, skin preparation and sterile techniques were followed. Ultrasound of the right internal jugular vein demonstrated a patent and compressible vessel. An ultrasound image of the vessel was obtained. Lidocaine was used for cutaneous anesthesia. Under ultrasound guidance the vessel was accessed with a 21-gauge needle and through this a wire was positioned in the inferior vena cava. Under fluoroscopic guidance, a peel- away sheath was advanced over the wire. I next directed my attention to the subcutaneous skin tract which was anesthetized with lidocaine. A small stab incision was made with a #11 blade. Using a metallic tunneling device connected to the catheter a subcutaneous tract was created from the stab incision to the venotomy site and the catheter was brought out the venotomy site. The core and wire were removed and the catheter was advanced with its tip positioned in the right atrium. Both lumens demonstrated excellent blood return and flushed easily. The catheter was secured to skin using suture, and sterile dressing was placed. The patient tolerated the procedure well and was returned to the recovery area/floor in stable condition. IMPRESSION:Successful placement of tunneled right internal jugular vein venous catheter. Catheter is ready for immediate use. Signed: Mariana Lord MDReport Verified Date/Time: 03/09/2022 14:32:48Reading Location: [facility] Radiology Reading Room POCT-GLUCOSE [id number] 07:07:43 Test Item Value Reference Range Interpretation Comments POC-GLUCOSE METER 143 mg/dL 70-110 H : TESTED A T [facility] 1317 (BEAKER) (test code [facility] [address], = 1538) [facility] 77 478: Director Of Hotel/Techni narciso ID = [id number] for Aurora Love [id number] 06:24:21 Test Item Value Reference Range Interpretation Comments MAGNESIUM (BEAKER) (test code = 1.8 mg/dL 1.5-3.0 627) Director Of Hotel ID - LITOOperator ID - LITOOperator ID - LITOOperator ID - LITOBASIC METABOLIC [id number] 06:23:18 Test Item Value Reference Range Interpretation Comments SODIUM (BEAKER) 141 meq/L 135-148 (test code = 381) POTASSIUM 3.6 meq/L 3.6-5.5 (BEAKER) (test code = 379) CHLORIDE (BEAKER) 107 meq/L 98-106 H (test code = 382) CO2 (BEAKER) 24 meq/L 20-29 (test code = 355) BLOOD UREA 22 mg/dL 10-26 NITROGEN (BEAKER) (test code = 354) CREATININE 1.63 mg/dL 0.50-1.20 H (BEAKER) (test code = 358) GLUCOSE RANDOM 146 mg/dL 70-110 H (BEAKER) (test code = 652) CALCIUM (BEAKER) 9.1 mg/dL 8.5-10.5 (test code = 697) EGFR (BEAKER) 51 Interpretatio n of eGFR (test code = mL/min/1.73 values Stage De scription 1092) sq m Result G1 Shannan l or high >=90 G2 Mildly decreased 60-89 G3a Mildl y to moderately 45-5 9 G3b Moderately to s everely 30-44 G4 Severl y decreased 15-29 G5 Kidney failure <15Reported eGF R is based on the CKD-EPI 2021 equation that d oes not use a race coefficientEsti mated GFR is not as accur ate as Creatinine Sasha neva in predicting glom erular filtration rate . Estimated GFR is not appl icable for dialysis patien ts Director Of Hotel ID - LITOOperator ID - LITOOperator ID - LITOOperator ID - LITOOperator ID - LITOOperator ID - LITOOperator ID - LITOOperator ID - LITOOperator ID - LITOPROTHROMBIN TIME/[id number] 06:17:39 Test Item Value Reference Range Interpretation Comments PROTIME (BEAKER) 10.9 seconds 9.3-12.0 Final Infor mation (test code = 759) (Auto Outp ut) INR (BEAKER) (test 0.99 See_Comment Final Inf ormation code = 370) (Auto Output) [Automated mess age] The system [email or web address] generated this result transmitted ref erence range: <=5.90. The reference range was not used to int erpret this result as normal/abnormal . RECOMMENDED COUMADIN/WARFARIN INR THERAPY RANGESSTANDARD DOSE: 2.0 - 3.0 Includes: PROPHYLAXIS for venous thrombosis, systemic embolization; TREATMENT for venous thrombosis and/or pulmonary embolus.HIGH RISK: Target INR is 2.5-3.5 for patients with mechanical heart valves.[id number] 06:17:39 Test Item Value Reference Range Interpretation Comments PARTIAL THROMBOPLASTIN 31.0 seconds 23.0-35.0 Final Information TIME (BEAKER) (test (Auto Ou tput) code = 760) CBC W/PLT COUNT & AUTO [id number] 06:01:50 Test Item Value Reference Range Interpretation Comments WHITE BLOOD CELL COUNT (BEAKER) 7.6 K/ L 4.0-10.0 (test code = 775) RED BLOOD CELL COUNT (BEAKER) 4.18 M/ L 4.20-5.80 L (test code = 761) HEMOGLOBIN (BEAKER) (test code = 11.5 GM/DL 13.0-16.8 L 410) HEMATOCRIT (BEAKER) (test code = 33.6 % 36.0-50.0 L 411) MEAN CORPUSCULAR VOLUME (BEAKER) 80.4 fL 82.0-99.0 L (test code = 753) MEAN CORPUSCULAR HEMOGLOBIN 27.5 pg 27.0-33.0 (BEAKER) (test code = 751) MEAN CORPUSCULAR HEMOGLOBIN CONC 34.2 GM/DL 32.0-36.0 (BEAKER) (test code = 752) RED CELL DISTRIBUTION WIDTH 13.7 % 12.0-15.0 (BEAKER) (test code = 412) PLATELET COUNT (BEAKER) (test 253 K/CU MM 150-430 code = 756) MEAN PLATELET VOLUME (BEAKER) 9.4 fL 6.0-11.5 (test code = 754) NUCLEATED RED BLOOD CELLS 0 /100 WBC 0-0 (BEAKER) (test code = 413) NEUTROPHILS RELATIVE PERCENT 62 % (BEAKER) (test code = 429) LYMPHOCYTES RELATIVE PERCENT 29 % (BEAKER) (test code = 430) MONOCYTES RELATIVE PERCENT 5 % (BEAKER) (test code = 431) EOSINOPHILS RELATIVE PERCENT 3 % (BEAKER) (test code = 432) BASOPHILS RELATIVE PERCENT 1 % (BEAKER) (test code = 437) NEUTROPHILS ABSOLUTE COUNT 4.68 K/ L 1.80-8.00 (BEAKER) (test code = 670) LYMPHOCYTES ABSOLUTE COUNT 2.17 K/ L 1.48-4.50 (BEAKER) (test code = 414) MONOCYTES ABSOLUTE COUNT (BEAKER) 0.41 K/ L 0.00-1.30 (test code = 415) EOSINOPHILS ABSOLUTE COUNT 0.25 K/ L 0.00-0.50 (BEAKER) (test code = 416) BASOPHILS ABSOLUTE COUNT (BEAKER) 0.04 K/ L 0.00-0.20 (test code = 417) IMMATURE GRANULOCYTES-RELATIVE 0 % 0-0 PERCENT (BEAKER) (test code = 2801) POCT-GLUCOSE [id number] 20:56:03 Test Item Value Reference Range Interpretation Comments POC-GLUCOSE METER 250 mg/dL 70-110 H : TESTED A T [facility] [address] (BEAKER) (test code [address], = 1538) [place] [id number]: Director Of Hotel/Techni narciso ID = [id number] [facility] PO[facility]-GLUCOSE [id number] 15:56:12 Test Item Value Reference Range Interpretation Comments POC-GLUCOSE METER 195 mg/dL 70-110 H : TESTED A T [facility] [address] (BEAKER) (test code [address], = 1538) [place] [id number]: Director Of Hotel/Techni narciso ID = [id number] for Will iams, Shyanne POCT-GLUCOSE [id number] 11:52:00 Test Item Value Reference Range Interpretation Comments POC-GLUCOSE METER 234 mg/dL 70-110 H : TESTED A T [facility]17 (BEAKER) (test code [address] [facility], = 1538) [place] [id number]: Director Of Hotel/Techni narciso ID = [id number] for Will iams, Shyanne POCT-GLUCOSE [id number] 06:33:26 Test Item Value Reference Range Interpretation Comments POC-GLUCOSE METER 146 mg/dL 70-110 H : TESTED A T [facility] [address] (BEAKER) (test code [address], = 1538) [place] [id number]: Director Of Hotel/Techni narciso ID = [id number] [facility] BASIC METABOLIC [id number] 05:52:23 Test Item Value Reference Range Interpretation Comments SODIUM (BEAKER) 140 meq/L 135-148 (test code = 381) POTASSIUM 3.5 meq/L 3.6-5.5 L (BEAKER) (test code = 379) CHLORIDE (BEAKER) 106 meq/L 98-106 (test code = 382) CO2 (BEAKER) 24 meq/L 20-29 (test code = 355) BLOOD UREA 20 mg/dL 10-26 NITROGEN (BEAKER) (test code = 354) CREATININE 1.53 mg/dL 0.50-1.20 H (BEAKER) (test code = 358) GLUCOSE RANDOM 146 mg/dL 70-110 H (BEAKER) (test code = 652) CALCIUM (BEAKER) 8.5 mg/dL 8.5-10.5 (test code = 697) EGFR (BEAKER) 55 Interpretatio n of eGFR (test code = mL/min/1.73 values Stage D escription 1092) sq m Result G1 Shannan l or high >=90 G2 Mildly decreased 60-89 G3a Mildl y to moderately 45-5 9 G3b Moderately to s everely 30-44 G4 Severl y decreased 15-29 G5 Kidney failure <15Reported eGF R is based on the CKD-EPI 2020 equation that d oes not use a race coefficientEsti mated GFR is not as accur ate as Creatinine Sasha hooks in predicting glom erular filtration rate . Estimated GFR is not appl icable for dialysis patien ts Director Of Hotel ID - [id number] ID - JBODOFFMV537Fwuerpxz ID - PZTZIPNEG948Mgkcljgy ID - [id number] ID - XXAYQMRDL276Kktesims ID - NOMYTJCRR115Xdzkmwdm ID - WUQAFUWAS772Dhcqtyml ID - AIDNQUXWA827Kxvlriro ID - MBEEGMAOH157Mcgjkuqf ID - [id number] 05:51:02 Test Item Value Reference Range Interpretation Comments MAGNESIUM (BEAKER) (test code = 2.2 mg/dL 1.5-3.0 627) Director Of Hotel ID - [id number] ID - GLLMTNLDN847Cpkofftd ID - VYDPBSSZW751Riunpkum ID - [id number] W/PLT COUNT & AUTO DIFFERENTIAL 2022-03-08 05:34:17 Test Item Value Reference Range Interpretation Comments WHITE BLOOD CELL COUNT (BEAKER) 7.1 K/ L 4.0-10.0 (test code = 775) RED BLOOD CELL COUNT (BEAKER) 3.92 M/ L 4.20-5.80 L (test code = 761) HEMOGLOBIN (BEAKER) (test code = 10.8 GM/DL 13.0-16.8 L 410) HEMATOCRIT (BEAKER) (test code = 31.6 % 36.0-50.0 L 411) MEAN CORPUSCULAR VOLUME (BEAKER) 80.6 fL 82.0-99.0 L (test code = 753) MEAN CORPUSCULAR HEMOGLOBIN 27.6 pg 27.0-33.0 (BEAKER) (test code = 751) MEAN CORPUSCULAR HEMOGLOBIN CONC 34.2 GM/DL 32.0-36.0 (BEAKER) (test code = 752) RED CELL DISTRIBUTION WIDTH 13.6 % 12.0-15.0 (BEAKER) (test code = 412) PLATELET COUNT (BEAKER) (test 257 K/CU MM 150-430 code = 756) MEAN PLATELET VOLUME (BEAKER) 9.3 fL 6.0-11.5 (test code = 754) NUCLEATED RED BLOOD CELLS 0 /100 WBC 0-0 (BEAKER) (test code = 413) NEUTROPHILS RELATIVE PERCENT 58 % (BEAKER) (test code = 429) LYMPHOCYTES RELATIVE PERCENT 31 % (BEAKER) (test code = 430) MONOCYTES RELATIVE PERCENT 6 % (BEAKER) (test code = 431) EOSINOPHILS RELATIVE PERCENT 4 % (BEAKER) (test code = 432) BASOPHILS RELATIVE PERCENT 1 % (BEAKER) (test code = 437) NEUTROPHILS ABSOLUTE COUNT 4.10 K/ L 1.80-8.00 (BEAKER) (test code = 670) LYMPHOCYTES ABSOLUTE COUNT 2.19 K/ L 1.48-4.50 (BEAKER) (test code = 414) MONOCYTES ABSOLUTE COUNT (BEAKER) 0.45 K/ L 0.00-1.30 (test code = 415) EOSINOPHILS ABSOLUTE COUNT 0.30 K/ L 0.00-0.50 (BEAKER) (test code = 416) BASOPHILS ABSOLUTE COUNT (BEAKER) 0.05 K/ L 0.00-0.20 (test code = 417) IMMATURE GRANULOCYTES-RELATIVE 0 % 0-0 PERCENT (BEAKER) (test code = 2801) POCT-GLUCOSE [id number] 20:53:26 Test Item Value Reference Range Interpretation Comments POC-GLUCOSE METER 176 mg/dL 70-110 H : TESTED A T [facility] [address] (BEAKER) (test code [address], = 1538) [facility] 77 478: Director Of Hotel/Techni narciso ID = [id number] for [facility] december POCT-GLUCOSE [id number] 16:05:06 Test Item Value Reference Range Interpretation Comments POC-GLUCOSE METER 207 mg/dL 70-110 H : TESTED A T [facility] [address] (BEAKER) (test code [address], = 1538) [facility] 77 478: Director Of Hotel/Techni narciso ID = [id number] for Angelic Hoskins BASIC METABOLIC [id number] 06:50:11 Test Item Value Reference Range Interpretation Comments SODIUM (BEAKER) 139 meq/L 135-148 (test code = 381) POTASSIUM 3.0 meq/L 3.6-5.5 L (BEAKER) (test code = 379) CHLORIDE (BEAKER) 105 meq/L 98-106 (test code = 382) CO2 (BEAKER) 23 meq/L 20-29 (test code = 355) BLOOD UREA 18 mg/dL 10-26 NITROGEN (BEAKER) (test code = 354) CREATININE 1.52 mg/dL 0.50-1.20 H (BEAKER) (test code = 358) GLUCOSE RANDOM 125 mg/dL 70-110 H (BEAKER) (test code = 652) CALCIUM (BEAKER) 8.5 mg/dL 8.5-10.5 (test code = 697) EGFR (BEAKER) 56 Interpretatio n of eGFR (test code = mL/min/1.73 values Stage De scription 1092) sq m Result G1 Shannan l or high >=90 G2 Mildly decreased 60-89 G3a Mildl y to moderately 45-5 9 G3b Moderately to s everely 30-44 G4 Severl y decreased 15-29 G5 Kidney failure <15Reported eGF R is based on the CKD-EPI 2020 equation that d oes not use a race coefficientEsti mated GFR is not as accur ate as Creatinine Sasha hooks in predicting glom erular filtration rate . Estimated GFR is not appl icable for dialysis patien ts Director Of Hotel ID - LITOOperator ID - LITOOperator ID - LITOOperator ID - LITOOperator ID - LITOOperator ID - LITOOperator ID - LITOOperator ID - LITOOperator ID - LITOOperator ID - [id number] 06:43:01 Test Item Value Reference Range Interpretation Comments MAGNESIUM (BEAKER) (test code = 1.7 mg/dL 1.5-3.0 627) Director Of Hotel ID - LITOOperator ID - LITOOperator ID - LITOOperator ID - SUNNI [id number] 06:39:57 Test Item Value Reference Range Interpretation Comments PHOSPHORUS (BEAKER) (test code = 3.0 mg/dL 2.5-4.5 604) Director Of Hotel ID - LITOPROTHROMBIN TIME/[id number] 06:35:14 Test Item Value Reference Range Interpretation Comments PROTIME (BEAKER) 11.6 seconds 9.3-12.0 Final Infor mation (test code = 759) (Auto Outp ut) INR (BEAKER) (test 1.06 See_Comment Final Inf ormation code = 370) (Auto Output) [Automated mess age] The system [email or web address] generated this result transmitted ref erence range: <=5.90. The reference range was not used to int erpret this result as normal/abnormal . RECOMMENDED COUMADIN/WARFARIN INR THERAPY RANGESSTANDARD DOSE: 2.0 - 3.0 Includes: PROPHYLAXIS for venous thrombosis, systemic embolization; TREATMENT for venous thrombosis and/or pulmonary embolus.HIGH RISK: Target INR is 2.5-3.5 for patients with mechanical heart valves.CBC W/PLT COUNT & AUTO [id number] 06:11:48 Test Item Value Reference Range Interpretation Comments WHITE BLOOD CELL COUNT (BEAKER) 6.6 K/ L 4.0-10.0 (test code = 775) RED BLOOD CELL COUNT (BEAKER) 3.95 M/ L 4.20-5.80 L (test code = 761) HEMOGLOBIN (BEAKER) (test code = 10.9 GM/DL 13.0-16.8 L 410) HEMATOCRIT (BEAKER) (test code = 31.2 % 36.0-50.0 L 411) MEAN CORPUSCULAR VOLUME (BEAKER) 79.0 fL 82.0-99.0 L (test code = 753) MEAN CORPUSCULAR HEMOGLOBIN 27.6 pg 27.0-33.0 (BEAKER) (test code = 751) MEAN CORPUSCULAR HEMOGLOBIN CONC 34.9 GM/DL 32.0-36.0 (BEAKER) (test code = 752) RED CELL DISTRIBUTION WIDTH 13.4 % 12.0-15.0 (BEAKER) (test code = 412) PLATELET COUNT (BEAKER) (test 243 K/CU MM 150-430 code = 756) MEAN PLATELET VOLUME (BEAKER) 9.1 fL 6.0-11.5 (test code = 754) NUCLEATED RED BLOOD CELLS 0 /100 WBC 0-0 (BEAKER) (test code = 413) NEUTROPHILS RELATIVE PERCENT 57 % (BEAKER) (test code = 429) LYMPHOCYTES RELATIVE PERCENT 31 % (BEAKER) (test code = 430) MONOCYTES RELATIVE PERCENT 7 % (BEAKER) (test code = 431) EOSINOPHILS RELATIVE PERCENT 4 % (BEAKER) (test code = 432) BASOPHILS RELATIVE PERCENT 1 % (BEAKER) (test code = 437) NEUTROPHILS ABSOLUTE COUNT 3.76 K/ L 1.80-8.00 (BEAKER) (test code = 670) LYMPHOCYTES ABSOLUTE COUNT 2.02 K/ L 1.48-4.50 (BEAKER) (test code = 414) MONOCYTES ABSOLUTE COUNT (BEAKER) 0.44 K/ L 0.00-1.30 (test code = 415) EOSINOPHILS ABSOLUTE COUNT 0.29 K/ L 0.00-0.50 (BEAKER) (test code = 416) BASOPHILS ABSOLUTE COUNT (BEAKER) 0.04 K/ L 0.00-0.20 (test code = 417) IMMATURE GRANULOCYTES-RELATIVE 0 % 0-0 PERCENT (BEAKER) (test code = 2801) [id number] 22:05:34 Test Item Value Reference Range Interpretation Comments PARTIAL THROMBOPLASTIN 32.5 seconds 23.0-35.0 Final Information TIME (BEAKER) (test (Auto Ou tput) code = 760)
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
[2022-06-09] MEDS ORDERED: HYDROCODONE/APAP 5/325 MG TAB ONE (12:42)
[2022-06-09] MEDS ORDERED: MUPIROCIN 2% OINT 22GM TUBE TOP ONE (12:49)
[2022-06-09 13:11] VITALS: BP 192/111; TEMP 98.7; O2SAT 100
== END 2022-06-09 13:06 | disposition home or self-care (01) ==
LOC: ER 11:53
DX: T23.102A Burn of first degree of left hand, unspecified site, initial encounter (principal); Z88.2 Allergy status to sulfonamides; Z88.3 Allergy status to other anti-infective agents; Z88.8 Allergy status to other drugs, medicaments and biological substances
CPT/HCPCS: 99282

== ENCOUNTER 2022-06-26 15:58 | Inpatient (IN) | payer OTHER ==
--- OUTSIDE RECORDS SUMMARY | 2022-06-26 16:02 | XMS REPORT | Continuity of Care Document ---
:1970 Author Organization [facility] t Address [address] [place] [address] Dr. Mejia [address] [place] [address] Care Team Providers Name Role Phone Emeka Ashton MD Attending Clinician Armin MUNOZ, Henry Attending Clinician HENRY BELL Attending Clinician Unavailable Navid Ledezma MD Attending Clinician Ashley MUNOZ, Mart Arango' Attending Clinician [phone] JEREMY BATISTA Attending Clinician Unavailable EMEKA ASHTON Admitting Clinician Unavailable Payers Payer Name Policy Type Policy Number Effective Date Expiration Date S ource Problems Condition Condition Condition Status Onset Resolution Last Treating Co mments Source Name Details Category Date Date Treatment Clinician Date MSSA MSSA Disease Active [facility] bacteremia 03-06 Michelle kes 00:00: Medical 00 Center Diabetes Diabetes Disease Active [facility] mellitus mellitus [facility] Hypertensi Hypertensi Disease Active [facility] on on [facility] OCD OCD Disease Active Overview: [facility] (obsessive (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 Nail biting Neuropathy Neuropathy Disease Active C [facility] Allergies, Adverse Reactions, Alerts Allergy Allergy Status Severity Reaction(s) Onset Inactive Treating Comm ents Source Name Type Date Date Clinician Clonidin Drug Active Patient [facility] 00:00: dizzy Medical 00 [...] adverse 00:00: Medical reaction 00 Center s CLONIDIN Allergy Active [facility] 00:[facility]: Medical 00 Center LORAZEPA Allergy Active [facility] 00[facility]: Medical 00 Center SULFA Allergy Active [facility] (SULFONA 03-06 [facility] MIDE 00:00: Medical ANTIBIOT 00 Center ICS) VANCOMYC Allergy Active [facility]06 [facility] 00:[facility]: Medical 00 Center Sulfa Drug Active Swells up [facility] (Sulfona Allergy 03-06 [facility] mide 00:00: Medical Antibiot 00 Center ics) Family History Family Member Diagnosis Comments Start Date Stop Date Source Natural father Cancer [facility] Natural father Hyperlipidemia [facility] Natural mother Diabetes [facility] Natural mother Hyperlipidemia [facility] Social History Social Habit Start Date Stop Date Quantity Comments Source History SDOH [facility] Alcohol Frequency Medical Center History SDOH [facility] Alcohol Std Drinks Medica l Center History SDOH [facility] Alcohol Binge Medical Shamar [facility] History SDOH [facility] Transport Non-Med Medical Center History [facility] 2022-03-07 2022-03-[address] [facility] Transport Med 00:00:00 00:00:[address] History [facility] 2022-03-07 2022-03-[address] [facility] Housing Unable to 00:00:00 00:00:00 Medical Center Pay History [facility] 2022-03-07 2022-03-[address] [facility] Housing Places 00:00:00 00:00:00 Medical Ce nter Lived History [facility] 2022-03-07 2022-03-[address] [facility] Housing Homeless 00:00:00 00:00:00 Medical Center Last Year Tobacco use and 2022-03-06 2022-03-[address] [facility] exposure 00:00:00 00:00:00 Medical Center Alcohol intake 2022-03-06 2022-03-06 Current drinker [place] 00:00:00 00:00:00 of alcohol Medical Center (finding) History SDOH 2022-03-06 2022-03-06 ocassionally. [address] [facility] [address] [facility] Alcohol Comment 00:00:00 00:00:00 beer every Medical C enter couple of months Sex Assigned At [birth year] M [facility] damiáns 00:00:00 00:00:00 Medical Center Smoking Status Start Date Stop Date Source Current some day smoker 2022-03-06 00:00:00 [facility] Medications Ordered Filled Start Stop Current Ordering Indication Dosage Frequency Signature Comments Components Source Medication Medication Date Date Medication? Clinician (SIG) Name Name ceFAZolin 2021- No 1g Inject [address] (ANCEF) 1 g 03-13 intravenou L ukes in sodium 00:00: 23:59 sly every Me dical chloride 00 :00 8 (eight) Center 0.9 % (NS) hours for 100 mL 33 days. (V2B) IVPB ceFAZolin 2021- No 1g Inject [address] (ANCEF) 1 g 03-13 intravenou L ukes in sodium 00:00: 23:59 sly every Me dical chloride 00 :00 8 (eight) Center 0.9 % (NS) hours for 100 mL 33 days. (V2B) IV allopurinoL Yes 100mg QD Take 100 C [...] s MG tablet 16:51: daily. Medica l Center clopidogreL Yes 75mg QD Take [address] (PLAVIX) 75 8-25 by mouth Luke s mg tablet 16:51: daily. Medica l [address] [place] ferrous Yes 325mg Take 325 [facility] sulfate 325 8-25 mg by [facility]ukes (65 FE) MG 16:51: mouth Medica l tablet 08 daily with Center breakfast. finasteride Yes 5mg QD Take [address] (PROSCAR) 5 8-25 by mouth Luke s mg tablet 16:51: daily. Medica l 08 [place] fluticasone Yes 1{spray QD [address] propionate 8-25 } Nasal [facility]ukes (FLONASE) 16:51: route Medical 50 08 daily. Center mcg/actuati on nasal spray furosemide Yes 40mg QD Take [address] (LASIX) 40 8-25 by mouth [facility]ukes MG tablet 16:51: daily. Medica l 08 [place] gabapentin Yes 300mg Q.5D Take 300 CH [...] tablet hours as needed for Nausea. QUEtiapine Yes 25mg Q.5D Take [address] (SEROquel) 8-25 by mouth 2 Naseem es 25 MG 16:51: (two) Medical tablet 08 times Center daily As needed . QUEtiapine 0 Yes 50mg QD Take [address] (SEROquel) 8-25 by mouth [facility]ukes 50 MG 16:51: nightly. Medical tablet 08 [place] spironolact Yes 75mg QD Take [address] one 8-25 by mouth [facility]ukes (ALDACTONE) 16:51: daily. Medi kyle 25 MG 08 Center tablet tamsulosin Yes .4mg QD Take 0.[address] (FLOMAX) 8-25 mg by [facility]ukes 0.4 mg Cap 16:51: mouth Medica l 24 hr 08 daily. [place] capsule acetaminoph Yes 650mg Take [address] en 8-25 mg by [facility]ukes (TYLENOL) 16:51: mouth Medical 325 MG 08 every 6 Center tablet (six) hours as needed for Pain. venlafaxine Yes 75mg QD Take [address] (EFFEXOR) 8-25 by mouth [facility]ukes 75 MG 16:51: daily. Medical tablet 08 [place] albuterol Yes 2{puff} Inhale [address] HFA 8-25 puffs by [facility]ukes (VENTOLIN 16:51: mouth via Med ical HFA) 90 08 inhaler Center mcg/actuati every 4 on inhaler (four) hours as needed for Wheezing. allopurinoL Yes 100mg QD Take [address] (ZYLOPRIM) 8-25 mg by Lukes 100 MG 16:51: mouth Medical tablet 08 daily. [place] amLODIPine Yes 10mg QD Take [address] (NORVASC) 8-25 by mouth [facility]ukes 10 MG 16:51: daily. Medical tablet 08 [place] aspirin 81 0 Yes 81mg QD Take [address] MG EC 8-25 by mouth Lukes tablet 16:51: daily. Medical [address] [place] [address] cetirizine Yes 10mg QD Take [address] (ZyrTEC) 10 8-25 by mouth Luke s MG tablet 16:51: daily. Medica [address] clopidogreL Yes 75mg QD Take [address] (PLAVIX) 75 8-25 by mouth Luke s mg tablet 16:51: [facility]. [facility] [address] ferrous Yes 325mg Take 325 [facility] t sulfate 325 8-25 mg by Lukes (65 FE) MG 16:51: mouth Medica l tablet 08 daily with Center breakfast. finasteride Yes 5mg QD Take [address] (PROSCAR) 5 8-25 by mouth Luke s mg tablet 16:51: daily. [facility] [address] fluticasone Yes 1{spray QD [address] propionate 8-25 } Nasal [facility]ukes (FLONASE) 16:51: route Medical 50 08 daily. [place] mcg/actuati on nasal spray furosemide Yes 40mg QD Take [address] (LASIX) 40 8-25 by mouth [facility]ukes MG tablet 16:51: daily. [address] gabapentin Yes 300mg Q.5D Take 300 CH [...] tablet hours as needed for Nausea. QUEtiapine Yes 25mg Q.5D Take [address] (SEROquel) 8-25 by mouth 2 Naseem es 25 MG 16:51: (two) Medical tablet 08 times Center daily As needed . QUEtiapine 0 Yes 50mg QD Take [address] (SEROquel) 8-25 by mouth Lukes 50 MG 16:51: nightly. Medical tablet 08 Center spironolact 0 Yes 75mg QD Take [address] one 8-25 by mouth [facility]ukes (ALDACTONE) 16:51: daily. Medi kyle 25 MG 08 Center tablet tamsulosin Yes .4mg QD Take 0.[address] (FLOMAX) 8-25 mg by [facility]ukes 0.4 mg Cap 16:51: mouth Medica l 24 hr 08 daily. [place] capsule acetaminoph Yes 650mg Take [address] en 8-25 mg by Lukes (TYLENOL) 16:51: mouth Medical 325 MG 08 every 6 Center tablet (six) hours as needed for Pain. venlafaxine Yes 75mg QD Take [address] (EFFEXOR) 8-25 by mouth Lukes 75 MG 16:51: daily. Medical tablet 08 [place] albuterol Yes 2{puff} Inhale [address] HFA 8-25 puffs by Lukes (VENTOLIN 16:51: mouth via Med ical HFA) 90 08 inhaler Center mcg/actuati every 4 on inhaler (four) hours as needed for Wheezing. furosemide 2021- No 20mg QD Take [address] (LASIX) 20 8-25 08-25 by mouth Luke s MG tablet 15:12: 00:00 daily At Med ical 34 :00 noon . [place] lisinopriL 2021- No 10mg QD Take [address] (PRINIVIL,Z 8-25 08-25 by mouth Naseem es ESTRIL) 10 [...] Center times daily with breakfast and dinner. furosemide 2021- No 20mg QD Take [address] (LASIX) 20 03-12-25 by mouth Luke s MG tablet 15:12: 00:00 daily At [facility] 34 :00 noon . Center lisinopriL 2021- No 10mg QD Take [address] (PRINIVIL,Z 03-12-25 by mouth Naseem es ESTRIL) 10 15:12: 00:00 daily. Medi kyle MG tablet 34 :00 Center loperamide 2021- No 2mg Take [address] (IMODIUM) 2 03-12-25 by mouth 4 L ukes mg capsule 15:12: 00:00 (four) Medi kyle 34 :00 times Center daily as needed for Diarrhea. metFORMIN 2021- No 500mg Take [address] (GLUCOPHAGE 8-25 08-25 mg by Lukes ) 500 MG 15:12: 00:00 mouth 2 Medic al tablet 34 :00 (two) Center times daily with breakfast and dinner. atorvastati 2022- No 40mg QD Take [address] n (LIPITOR) -12 03-25 tablet (40 L ukes 40 MG 00:00: 23:59 mg total) Medica l tablet 00 :00 by mouth Center nightly. hydrALAZINE 2022- No 100mg Take [address] (APRESOLINE 8-25 08-25 tablet Lukes ) 100 MG 00:00: 23:59 (100 mg Medic al tablet 00 :00 total) by Center mouth every 8 (eight) hours. glipiZIDE 2022- No 5mg QD Take 1 [facility] t (GLUCOTROL 8-25 08-25 tablet (5 Naseem es XL) 5 MG 24 00:00: 23:59 mg total) Medical hr tablet 00 :00 by mouth Center daily. atorvastati 2022- No 40mg QD Take [address] n (LIPITOR) 03-12 tablet (40 L ukes 40 MG 00:00: 23:59 mg total) Medica l tablet 00 :00 by mouth Center nightly. hydrALAZINE 2022- No 100mg Take [address] (APRESOLINE 03-12 tablet Lukes ) 100 MG 00:00: 23:59 (100 mg Medic al tablet 00 :00 total) by Center mouth every 8 (eight) hours. glipiZIDE 2022- No 5mg QD Take 1 [facility] t [...] 2 (two) times daily for 30 days. carvediloL 2021- No 6.25mg Q.5D Take [address] (COREG) 03-12 tablet [facility]ukes 6.25 MG 00:00: 23:59 (6.25 mg Medic al tablet 00 :00 total) by Center mouth 2 (two) times daily for 30 days. ceFAZolin 2021- No 1g Inject [address] (ANCEF) 1 g 03-12- intravenou L ukes in sodium 00:00: 00:00 sly every Me dical chloride 00 :00 8 (eight) Center 0.9 % (NS) hours for 100 mL 10 days. (V2B) IVPB ceFAZolin 2021- No 1g Inject [address] (ANCEF) 1 g 03-12-26 intravenou L ukes in sodium 00:00: 00:00 [...] kg Systolic blood 2022-03-12 16:00:00 116 mm[Hg] [facility] Diastolic blood 2022-03-12 16:00:00 63 mm[Hg] [facility] Heart rate 2022-03-12 16:00:00 87 /min [facility] Body temperature 2022-03-12 16:00:00 36.28 [facility] Respiratory rate 2022-03-12 16:00:00 18 /min [facility] Oxygen saturation in 2022-03-12 16:00:00 99 /min [facility] Arterial blood by Medical Ce nter Pulse oximetry Body height 2022-03-06 21:50:00 170.2 cm [facility] Body weight 2022-03-06 21:50:00 120.657 kg [facility] BMI 2022-03-06 21:50:00 41.66 kg/m2 [facility] Procedures Procedure Date / Time Performing Clinician Source Performed POCT-GLUCOSE METER 2022-03-12 15:24:[facility]-03-12 [facility] 2022-03-12 06:41:00 Armin [facility] CBC W/PLT COUNT & AUTO 2022-03-12 05:47:00 Emeka Ashton [facility] BASIC METABOLIC PANEL 2022-03-12 05:47:00 Emeka Ashton [facility] MAGNESIUM 2022-03-12 05:47:00 Emeka Ashton [facility] CBC W/PLT COUNT & AUTO 2022-03-12 05:47:00 Emeka Ashton Nando [facility] POCT-GLUCOSE METER 2022-03-11 21:10:00 Armin [facility] POCT-GLUCOSE METER 2022-03-11 17:07:00 Armin [facility] POCT-GLUCOSE METER 2022-03-11 12:19:00 Armin [facility] POCT-GLUCOSE METER 2022-03-11 06:51:00 Emeka Ashton Nando [facility] CBC W/PLT COUNT & AUTO 2022-03-11 05:19:00 Stephany Ashtonsonido Collier [facility] BASIC METABOLIC PANEL 2022-03-11 05:19:00 RileyEmeka [facility] MAGNESIUM 2022-03-11 05:19:00 Emeka Ashton [facility] CBC W/PLT COUNT & AUTO 2022-03-11 05:19:00 Emeka Ashton Nando [facility] POCT-GLUCOSE METER 2022-03-10 21:32:00 RileyEmeka [facility] POCT-GLUCOSE METER 2022-03-10 16:27:00 Riley Emeka C [facility] POCT-GLUCOSE METER 2022-03-10 11:19:00 CherieradhaEmeka [facility] POCT-GLUCOSE METER 2022-03-10 07:04:00 RileyEmeka [facility] POCT-GLUCOSE METER 2022-03-09 21:12:00 Riley Emeka C [facility] POCT-GLUCOSE METER 2022-03-09 15:58:00 CherieradhaEmeka [facility] IR TUNNELED CATHETER 2022-03-09 14:05:00 CherieradhaEmeka [facility] ECG 12-LEAD 2022-03-09 12:56:53 Unknown, H[facility] ECG 12-LEAD 2022-03-09 12:56:53 Unknown, Hl7 Doctor [facility] TRANSESOPHAGEAL ECHO 2022-03-09 11:09:12 Miguel [facility] COLOR-FLOW MAPPING 2022-03-09 07:32:[address] [facility] CONT WAVE PULSED DOPPLER 2022-03-09 07:32:46 [facility] POCT-GLUCOSE METER 2022-03-09 06:56:00 Emeka Ashton [facility] CBC W/PLT COUNT & AUTO 2022-03-09 05:51:00 Emeka Ashton [facility] BASIC METABOLIC PANEL 2022-03-09 05:51:00 Emeka Ashton [facility] MAGNESIUM 2022-03-09 05:51:00 Emeka Ashton [facility] PROTHROMBIN TIME/INR 2022-03-09 05:51:00 Emeka Ashton [facility] APTT 2022-03-09 05:51:00 Emeka Ashton [facility] CBC W/PLT COUNT & AUTO 2022-03-09 05:51:00 Emeka Ashton [facility] POCT-GLUCOSE METER 2022-03-08 20:44:00 Emeka Ashton [facility] POCT-GLUCOSE METER 2022-03-08 15:44:00 Emeka Ashton [facility] POCT-GLUCOSE METER 2022-03-08 11:40:00 CherieEmeka [facility] POCT-GLUCOSE METER 2022-03-08 06:22:00 Emeak Ashton [facility] CBC W/PLT COUNT & AUTO 2022-03-08 05:01:00 Emeka Ashton [facility] BASIC METABOLIC PANEL 2022-03-08 05:01:00 Emeka Ashton [facility] MAGNESIUM 2022-03-08 05:01:00 Emeka Ashton [facility] CBC W/PLT COUNT & AUTO 2022-03-08 05:01:00 Riley Emeka Nando [facility] POCT-GLUCOSE METER 2022-03-07 20:41:00 [facility] Emeka Nando [facility] POCT-GLUCOSE METER 2022-03-07 15:53:00 [facility] CBC W/PLT COUNT & AUTO 2022-03-07 05:59:00 [facility] BASIC METABOLIC PANEL 2022-03-07 05:59:00 [facility] MAGNESIUM 2022-03-07 05:59:00 [facility] Emeka C [facility] PROTHROMBIN TIME/INR 2022-03-07 05:59:00 [facility] PHOSPHORUS 2022-03-07 05:59:00 Marialuisa Goff [facility] CBC W/PLT COUNT & AUTO 2022-03-07 05:59:00 [facility] APTT 2022-03-06 21:42:00 [facility] Emeka C [facility] CARDIAC CATH REPORT - SCAN 2022-03-06 00:00:00 ProviderDaniela [facility] EKG-SCANNED 2022-03-06 00:00:00 Provider [facility] Plan of Care Planned Activity Planned Date Details Comments Source Future Scheduled 2022-03-19 INFLUENZA VACCINE (#1) [facility] 00:00:00 [code = INFLUENZA Medical Ce nter VACCINE (#1)] Future Scheduled 2022-03-19 INFLUENZA VACCINE (#1) [facility] Test 00:00:00 [code = INFLUENZA Medical Ce nter VACCINE (#1)] Future Scheduled 2022-03-[address] Michelle kes Test 00:00:00 measurement (procedure) [facility] [code = 77899483] Future Scheduled 2022-03-[address] Michelle kes Test 00:00:00 measurement (procedure) [facility] [code = 84370703] Future Scheduled 2021-10-17 Medicare IPPE (WELCOME [facility] Test 00:00:00 TO MEDICARE) [code = Medical Center Medicare IPPE (WELCOME TO MEDICARE)] Future Scheduled 2021-10-17 Medicare IPPE (WELCOME [facility] Test 00:00:00 TO MEDICARE) [code = Medical Center Medicare IPPE (WELCOME TO MEDICARE)] Future Scheduled 2021-07-[address] [facility] Test 00:00:00 (12+) [code = Medical Center DEPRESSION SCREENING (12+)] Future Scheduled 2021-07-[address] [facility] Test 00:00:00 (12+) [code = Medical Center DEPRESSION SCREENING (12+)] Future Scheduled 2020 SHINGLES VACCINES ([address] [facility] Test 00:00:00 2) [code = SHINGLES Medical Center VACCINES (1 of 2)] Future Scheduled 2020 SHINGLES VACCINES ([address] [facility] Test 00:00:00 2) [code = SHINGLES Medical Center VACCINES (1 of 2)] Future Scheduled 2005 Lipid panel (procedure) [facility] Test 00:00:00 [code = 68790450] Medical Ce nter Future Scheduled 2005 Lipid panel (procedure) [facility] Test 00:00:00 [code = 70237848] Medical Ce nter Future Scheduled 1989 DTAP/TDAP/TD VACCINES [facility] 00:00:00 (1 - Tdap) [code = Medical C enter DTAP/TDAP/TD VACCINES (1 - Tdap)] Future Scheduled 1989 DTAP/TDAP/TD VACCINES [facility] Test 00:00:00 (1 - Tdap) [code = Medical C enter DTAP/TDAP/TD VACCINES (1 - Tdap)] Future Scheduled 1988 HEPATITIS C SCREENING [facility] 00:00:00 [code = HEPATITIS C Medical Center SCREENING] Future Scheduled 1988 HEPATITIS C [facility]CRE[facility]ING [facility] 00:00:00 [code = HEPATITIS C Medical Center SCREENING] Future Scheduled [address] [facility] Test 00:00:00 Counseling and Medical Cente r Screening (12+) [code = Tobacco Cessation Counseling and Screening (12+)] Future Scheduled 1980 DIABETIC EYE EXAM [code [facility] Test 00:00:00 = DIABETIC EYE EXAM] Medical Center Future Scheduled [address] Naseem es Test 00:00:00 examination Medical Center (regime/therapy) [code = 658048845] Future Scheduled 1980 Urine screening for [facility] Test 00:00:00 protein (procedure) Medical Center [code = 141769715] Future Scheduled 1980 DIABETIC EYE EXAM [code [facility] Test 00:00:00 = DIABETIC EYE EXAM] Medical Center Future Scheduled [address] Naseem es Test 00:00:00 examination Medical Center (regime/therapy) [code = 769027044] Future Scheduled 1980 Urine screening for [facility] Test 00:00:00 protein (procedure) Medical Center [code = 107482716] Future Scheduled [address] [facility] Test 00:00:00 0-64 YRS (1 - PCV) Medical C enter [code = PNEUMOCOCCAL VACCINE 0-64 YRS (1 - PCV)] Future Scheduled [address] [facility] Test 00:00:00 0-64 YRS (1 - PCV) Medical C enter [code = PNEUMOCOCCAL VACCINE 0-64 YRS (1 - PCV)] Future Scheduled 1970 COVID-19 VACCINE (#1) [facility] 00:00:00 [code = COVID-[address] VACCINE (#1)] Future Scheduled 1970 COVID-19 VACCINE (#1) [facility] 00:00:00 [code = COVID-[address] VACCINE (#1)] Future Scheduled 1970 CT Colonography (combo) [facility] Test 00:00:00 [code = CT Colonography [facility] (combo)] Future Scheduled 1970 Screening for malignant [facility] Test 00:00:00 neoplasm of colon Medical Ce nter (procedure) [code = 153814814] Future Scheduled 1970 Screening for malignant [facility] Test 00:00:00 neoplasm of colon Medical Ce nter (procedure) [code = 960480006] Future Scheduled 1970 Screening for malignant [facility] Test 00:00:00 neoplasm of colon Medical Ce nter (procedure) [code = 747640003] Future Scheduled 1970 Screening for malignant [facility] Test 00:00:00 neoplasm of colon Medical Ce nter (procedure) [code = 919001086] Future Scheduled 1970 Sigmoidoscopy [code = [facility] 00:00:00 Sigmoidoscopy] Medical Cente r Future Scheduled 1970 CT Colonography (combo) [facility] Test 00:00:00 [code = CT Colonography [facility] (combo)] Future Scheduled 1970 Screening for malignant [facility] Test 00:00:00 neoplasm of colon Medical Ce nter (procedure) [code = 068806019] Future Scheduled 1970 Screening for malignant [facility] Test 00:00:00 neoplasm of colon Medical Ce nter (procedure) [code = 374342988] Future Scheduled 1970 Screening for malignant [facility] Test 00:00:00 neoplasm of colon Medical Ce nter (procedure) [code = 204156869] Future Scheduled 1970 Screening for malignant [facility] Test 00:00:00 neoplasm of colon Medical Ce nter (procedure) [code = 878170670] Future Scheduled 1970 Sigmoidoscopy [code = [facility] Test 00:00:00 Sigmoidoscopy] Medical Cente r Encounters Start End Encounter Admission Attending Care Care Encounter Source Date/Time Date/Time Type Type Clinicians Facility Department ID 2022-03-06 2022-03-12 [facility] Emeka Ashton [facility] [id number] 17:47:00 16:51:00 Encounter Armin [facility] 2022-03-06 2022-03-12 [facility] CherieradhaEmeka [facility] [id number] 17:47:00 16:51:00 Encounter Armin [facility] 2022-03-06 2022-03-12 [facility] [id number]:47[facility]00 16:51:00 [facility] 2] 2022-03-09 2022-03-09 Anesthesia Ledezma, Navid [facility] [id number] [facility] 11:33:00 12:07:00 Event [facility] 2022-03-09 2022-03-09 Anesthesia Navid Ledezma [facility] [id number] [facility] 11:33:00 12:07:00 Event [facility] 2022-03-09 2022-03-09 [facility] [id number] 11:00:00 11:36:00 [facility] [place] 2022-03-09 2022-03-09 [facility] [id number] 11:00:00 11:36:00 [facility] [place] 2022-03-06 2022-03-[address] [facility] [id number] [facility] 00:00:00 [facility] 2022-03-06 2022-03-[address] [facility] [id number] [facility] 00:00:00 [facility] 2022-03-03 2022-03-03 Outpatient JANNETTE BATISTA [id number] Jannette 10:00:00 10:00:00 JEREMY adler 2022-03-03 2022-03-03 Outpatient JANNETTE BATISTA [id number] Jannette 10:00:00 10:00:00 JEREMY Setrinyol d Results Test Description Test Time Test Comments Results Result Comments Source POC-Glucose meter 2022-03-12 15:36:24 Test Item Value Reference Range Interpretation Comme [facility] POC-Glucose Meter (test code = 241 mg/dL 70-110 H : TESTED AT [place] [address]) [facility] [address]: Pediatric Neurologist/Techni narciso ID = [id number] for Baljit Bethany hall Lab Interpretation (test code = Abnormal 61484-3) [facility] [id number] 15:36:24 Test Item Value Reference Range Interpretation Comments POC-Glucose Meter (test 241 mg/dL 70-110 H : TE STED AT [facility] code = 1538) [address], [facility] [address]: Pediatric Neurologist/Techni narciso ID = [id number] for Bethany Smiley ee Lab Interpretation (test Abnormal code = 16719-9) [facility] [id number] 15:36:24 Test Item Value Reference Range Interpretation Comments POC-GLUCOSE METER 241 mg/dL 70-110 H : TESTED A T SLSL 1317 (BEAKER) (test code [address], = 1538) [place] [address] 478: Pediatric Neurologist/Techni narciso ID = [id number] for Will iams, Shyanne POCT-GLUCOSE [id number] 11:31:00 Test Item Value Reference Range Interpretation Comments POC-GLUCOSE METER 196 mg/dL 70-110 H : TESTED A T SLSL 1317 (BEAKER) (test code [address] [facility], = 1538) [place] [address] 478: Pediatric Neurologist/Techni narciso ID = [id number] for Will iams, Shyanne POCT-GLUCOSE [id number] 06:53:14 Test Item Value Reference Range Interpretation Comments POC-GLUCOSE METER 153 mg/dL 70-110 H : TESTED A T SLSL 1317 (BEAKER) (test code [address] [facility], = 1538) [place] [address] 478: Pediatric Neurologist/Techni narciso ID = [id number] for Manuela Real [id number] 06:19:33 Test Item Value Reference Range Interpretation Comments MAGNESIUM (BEAKER) (test code = 1.7 mg/dL 1.5-3.0 627) Pediatric Neurologist ID - DSENSONOperator ID - DSENSONOperator ID - DSENSONOperator ID - DSENSONBASIC METABOLIC [id number] 06:18:13 Test Item Value Reference Range Interpretation [...] not appl icable for dialysis patien ts Pediatric Neurologist ID - DSENSONOperator ID - DSENSONOperator ID [...] PERCENT (BEAKER) (test code = 2801) POCT-GLUCOSE [id number] 21:21:14 Test Item Value Reference Range Interpretation Comments POC-GLUCOSE METER 229 mg/dL 70-110 H : TESTED A T SLSL 1317 (BEAKER) (test code [facility], = 1538) [place] [id number]: Pediatric Neurologist/Techni narciso ID = [id number] for Justin danteManuela POCT-GLUCOSE [id number] 17:19:11 Test Item Value Reference Range Interpretation Comments POC-GLUCOSE METER 222 mg/dL 70-110 H : TESTED A T SLSL 1317 (BEAKER) (test code [facility], = 1538) [place] [address] 478: Pediatric Neurologist/Techni narciso ID = [id number] for Kendall gatesLiliae POCT-GLUCOSE [id number] 12:31:07 Test Item Value Reference Range Interpretation Comments POC-GLUCOSE METER 202 mg/dL 70-110 H : TESTED A T SLSL 1317 (BEAKER) (test code [address], = 1538) [facility] 77 478: Pediatric Neurologist/Techni narciso ID = [id number] for Shyanne Chung POCT-GLUCOSE [id number] 07:02:52 Test Item Value Reference Range Interpretation Comments POC-GLUCOSE METER 147 mg/dL 70-110 H : TESTED A T SLSL 1317 (BEAKER) (test code [address], = 1538) [facility] 77 478: Pediatric Neurologist/Techni narciso ID = [id number] for Manuela Real [id number] 05:56:17 Test Item Value Reference Range Interpretation Comments MAGNESIUM (BEAKER) (test code = 1.9 mg/dL 1.5-3.0 627) Pediatric Neurologist ID - LITOOperator ID - LITOOperator ID - LITOOperator ID - LITOBASIC METABOLIC [id number] 05:54:55 Test Item Value Reference Range Interpretation [...] not appl icable for dialysis patien ts Pediatric Neurologist ID - LITOOperator ID - LITOOperator ID - LITOOperator ID - LITOOperator ID - LITOOperator ID - LITOOperator ID - LITOOperator ID - LITOOperator ID - LITOCBC W/PLT COUNT & AUTO [id number] 05:38:49 Test Item Value Reference Range Interpretation [...] PERCENT (BEAKER) (test code = 2801) POCT-GLUCOSE [id number] 21:43:46 Test Item Value Reference Range Interpretation Comments POC-GLUCOSE METER 236 mg/dL 70-110 H : TESTED A T SLSL 1317 (BEAKER) (test code [facility], = 1538) [place] [address]: Pediatric Neurologist/Techni narciso ID = [id number] for Manuela Real POCT-GLUCOSE [id number] 16:44:29 Test Item Value Reference Range Interpretation Comments POC-GLUCOSE METER 158 mg/dL 70-110 H : TESTED A T SLSL 1317 (BEAKER) ([facility] = 1538) [place] [address]: Pediatric Neurologist/Techni narciso ID = [id number] for Kathryn Sarah corrigany POCT-GLUCOSE [id number] 11:53:34 Test Item Value Reference Range Interpretation Comments POC-GLUCOSE METER 232 mg/dL 70-110 H : TESTED A T SLSL 1317 (BEAKER) (test [facility], = 1538) [place] [id number]: Pediatric Neurologist/Techni narciso ID = [id number] for Kathryn corrigan, Anamaria POCT-GLUCOSE [id number] 07:16:21 Test Item Value Reference Range Interpretation Comments POC-GLUCOSE METER 159 mg/dL 70-110 H : TESTED A T SLSL 1317 (BEAKER) (test code [facility], = 1538) [place] [id number]: Pediatric Neurologist/Techni narciso ID = [id number] for Debby Chapman POCT-GLUCOSE [id number] 21:25:29 Test Item Value Reference Range Interpretation Comments POC-GLUCOSE METER 151 mg/dL 70-110 H : TESTED A T SLSL 1317 (BEAKER) (test code [address], = 1538) [facility] 77 478: Pediatric Neurologist/Techni narciso ID = [id number] for Debby Chapman POCT-GLUCOSE [id number] 16:24:12 Test Item Value Reference Range Interpretation Comments POC-GLUCOSE METER 181 mg/dL 70-110 H : TESTED A T SLSL 1317 (BEAKER) (test code [address], = 1538) [place] [address] 478: Pediatric Neurologist/Techni narciso ID = [id number] for Anamaria Tanner Transesophageal [id number] 15:43:50Ejection FractionSLEH ECHO HEARTLAB [facility] [id number] 15:43:50Ejection FractionSLEH ECHO HEARTLAB MKCKESSON [facility]NELED CATHETER [id number] 14:32:00Reason for Central Line/PICC?->> 21 days of IV infusionReason for exam:->MSSA Bacteremia/Osteomyelitis requiring long-term IV antibiotics. CKD Stage 3 patient. Nephrology recommended tunneled lined instead of PICC [facility] : 1970 Sex: MFINAL REPORT PROCEDURE: Tunneled Central Venous Catheter Placement CLINICAL HISTORY: MSSA Bacteremia/Osteomyelitis requiring long-term IV antibiotics. CKD Stage 3 patient. Nephrology recommended tunneled lined instead of PICC CONSUMER LOAN PROCESSOR: Mike Lord M.D. ANESTHESIA: Conscious sedation was provided by radiology nursing using constant hemodynamic monitoring for 30 minutes. Versed IV 0.5 mg, Fentanyl IV 25 mcg. DEVICE: Dual-lumen 6 Georgian catheter DOSE INFORMATION - Ka,r: 38 mGyFluoroscopy [...] ready for immediate use. Signed: Mariana Lord Verified Date/Time: 03/09/2022 14:32:48Reading Location: [facility] Radiology Reading Room POCT-GLUCOSE [id number] 07:07:43 Test Item Value Reference Range Interpretation Comments POC-GLUCOSE METER 143 mg/dL 70-110 H : [facility] ([facility] (test code [address], = 1538) [facility] [place] 77 478: Pediatric Neurologist/Techni narciso ID = [id number] for Aurora Love [id number] 06:24:21 Test Item Value Reference Range Interpretation Comments MAGNESIUM (BEAKER) (test code = 1.8 mg/dL 1.5-3.0 627) Pediatric Neurologist ID - LITOOperator ID - LITOOperator ID - LITOOperator ID - LITOBASIC METABOLIC [id number] 06:23:18 Test Item Value Reference Range Interpretation [...] not appl icable for dialysis patien ts Pediatric Neurologist ID - LITOOperator ID - LITOOperator ID - LITOOperator ID - LITOOperator ID - LITOOperator ID - LITOOperator ID - LITOOperator ID - LITOOperator ID - LITOPROTHROMBIN [id number] 06:17:39 Test Item Value Reference Range Interpretation Comments PROTIME (BEAKER) 10.9 seconds 9.3-12.0 Final Infor mation (test code = 759) (Auto Outp ut) INR (BEAKER) (test 0.99 See_Comment Final Inf ormation code = 370) (Auto Output) [Automated mess age] The system [employer] generated this result transmitted ref erence range: <=5.90. The reference range was not used to int erpret this result as normal/abnormal . RECOMMENDED COUMADIN/WARFARIN INR THERAPY RANGESSTANDARD DOSE: 2.0 - 3.0 Includes: PROPHYLAXIS for venous thrombosis, systemic embolization; TREATMENT for venous thrombosis and/or pulmonary embolus.HIGH RISK: Target INR is 2.5-3.5 for patients with mechanical heart valves.[id number] 06:17:39 Test Item Value Reference Range Interpretation Comments PARTIAL THROMBOPLASTIN 31.0 seconds 23.0-35.0 Final Information TIME (BEAKER) (test (Auto Ou tput) code = 760) CBC W/PLT COUNT & AUTO [id number] 06:01:50 Test Item Value Reference Range Interpretation [...] PERCENT (BEAKER) (test code = 2801) POCT-GLUCOSE [id number] 20:56:03 Test Item Value Reference Range Interpretation Comments POC-GLUCOSE METER 250 mg/dL 70-110 H : TESTED A T SLSL 1317 (BEAKER) (test code [facility] [address], = 1538) [place] [address]: Pediatric Neurologist/Techni narciso ID = [id number] for [facility] december POCT-GLUCOSE [id number] 15:56:12 Test Item Value Reference Range Interpretation Comments POC-GLUCOSE METER 195 mg/dL 70-110 H : TESTED A T SLSL 1317 (BEAKER) (test code [address], = 1538) [place] [address]: Pediatric Neurologist/Techni narciso ID = [id number] for Kendall yajairams Shyanne POCT-GLUCOSE [id number] 11:52:00 Test Item Value Reference Range Interpretation Comments POC-GLUCOSE METER 234 mg/dL 70-110 H : TESTED A T SLSL 1317 (BEAKER) (test code [address], = 1538) [facility] 77 478: Pediatric Neurologist/Techni narciso ID = [id number] for Shyanne Chung POCT-GLUCOSE [id number] 06:33:26 Test Item Value Reference Range Interpretation Comments POC-GLUCOSE METER 146 mg/dL 70-110 H : TESTED A T SLSL 1317 (BEAKER) (test code [address], = 1538) [facility] 77 478: Pediatric Neurologist/Techni narciso ID = [id number] for Bacc december BASIC METABOLIC [id number] 05:52:23 Test Item Value Reference Range Interpretation [...] not appl icable for dialysis patien ts Pediatric Neurologist ID - [id number] ID - [id number] ID - [id number] ID - [id number] ID - CSDVQZGEO909Ytuzolha ID - ZWWSVGNVB622Yffouiun ID - DBLLOUTZS209Qpgrcpax ID - PVVMSTGTL417Nkvgddpi ID - YRCYFQFCU724Jwpwjlzr ID - [id number] 05:51:02 Test Item Value Reference Range Interpretation Comments MAGNESIUM (BEAKER) (test code = 2.2 mg/dL 1.5-3.0 627) Pediatric Neurologist ID - [id number] ID - [id number] ID - [id number] ID - [id number] W/PLT COUNT & AUTO DIFFERENTIAL 2022-03-08 05:34:17 [...] PERCENT (BEAKER) (test code = 2801) POCT-GLUCOSE [id number] 20:53:26 Test Item Value Reference Range Interpretation Comments POC-GLUCOSE METER 176 mg/dL 70-110 H : TESTED A T SLSL 1317 (BEAKER) (test code [facility], = 1538) [place] [id number]: Pediatric Neurologist/Techni narciso ID = [id number] for [facility] december POCT-GLUCOSE [id number] 16:05:06 Test Item Value Reference Range Interpretation Comments POC-GLUCOSE METER 207 mg/dL 70-110 H : TESTED A T SLSL 1317 (BEAKER) (test code [facility], = 1538) [place] [id number]: Pediatric Neurologist/Techni narciso ID = [id number] for Angelic Hoskins BASIC METABOLIC [id number] 06:50:11 Test Item Value Reference Range Interpretation [...] 30-44 G4 Severl y decreased 15-29 G5 Kidne y failure <15Reported eGF R is based on the CKD-EPI 2020 equation that d oes not use a race coefficientEsti mated GFR is not as accur ate as Creatinine Sasha neva in predicting glom erular filtration rate . Estimated GFR is not appl icable for dialysis patien ts Pediatric Neurologist ID - LITOOperator ID - LITOOperator ID - LITOOperator ID - LITOOperator ID - LITOOperator ID - LITOOperator ID - LITOOperator ID - LITOOperator ID - LITOOperator ID - [id number] 06:43:01 Test Item Value Reference Range Interpretation Comments MAGNESIUM (BEAKER) (test code = 1.7 mg/dL 1.5-3.0 627) Pediatric Neurologist ID - LITOOperator ID - LITOOperator ID - LITOOperator ID - SUNNI [id number] 06:39:57 Test Item Value Reference Range Interpretation Comments PHOSPHORUS (BEAKER) (test code = 3.0 mg/dL 2.5-4.5 604) Pediatric Neurologist ID - LITOPROTHROMBIN [id number] 06:35:14 Test Item Value Reference Range Interpretation Comments PROTIME (BEAKER) 11.6 seconds 9.3-12.0 Final Infor mation (test code = 759) (Auto Outp ut) INR (BEAKER) (test 1.06 See_Comment Final Inf ormation code = 370) (Auto Output) [Automated mess age] The system [employer] generated this result transmitted ref erence range: <=5.90. The reference range was not used to int erpret this result as normal/abnormal . RECOMMENDED COUMADIN/WARFARIN INR THERAPY RANGESSTANDARD DOSE: 2.0 - 3.0 Includes: PROPHYLAXIS for venous thrombosis, systemic embolization; TREATMENT for venous thrombosis and/or pulmonary embolus.HIGH RISK: Target INR is 2.5-3.5 for patients with mechanical heart valves.CBC W/PLT COUNT & AUTO [id number] 06:11:48 Test Item Value Reference Range Interpretation [...] 0-0 PERCENT (BEAKER) (test code = 2801) [id number] 22:05:34 Test Item Value Reference Range Interpretation Comments PARTIAL THROMBOPLASTIN 32.5 seconds 23.0-35.0 Final Information TIME (BEAKER) (test (Auto Ou tput) code = 760)
[2022-06-26 16:52] LABS: Absolute Lymphocytes (CBC) 1.6 K/uL (0.7-4.9); Hematocrit 30.5 % (39.6-49.0); MCV 80.5 fL (80-100); MPV 7.6 fL (7.6-11.3); RBC Red Blood Cell Count 3.79 M/uL (4.33-5.43)
[2022-06-26 16:57] LABS: Protime INR 1.21
[2022-06-26] MEDS ORDERED: FENTANYL CITR 100 MCG/2 ML ONE (16:58)
[2022-06-26 17:07] LABS: Magnesium 1.2 mg/dL (1.6-2.4); Potassium 3.7 mmol/L (3.5-5.1)
--- NOTE | 2022-06-26 17:26 | RAD REPORT ---
EXAM DESCRIPTION: RAD - Chest Single View - 06/26/2022 5:13 pm CLINICAL HISTORY: leg swelling, chest pain COMPARISON: Portable 03/03/2022 TECHNIQUE: AP portable chest image was obtained 06/26/2022 5:13 pm . FINDINGS: Lungs are clear. Interstitial pattern matches comparison. Heart and vasculature are normal . No measurable pleural effusion and no pneumothorax. No acute bony abnormality seen. No acute aortic findings suspected. IMPRESSION: No acute cardiopulmonary process. No significant change from comparison study.
--- NOTE | 2022-06-26 18:09 | RAD REPORT ---
EXAM DESCRIPTION: US - Extrem Venous W Compress Sylvain - 06/26/2022 5:49 pm CLINICAL HISTORY: SWELLING COMPARISON: None. TECHNIQUE: Real-time sonographic evaluation of the bilateral lower extremity common femoral, superfi cial femoral, popliteal and posterior tibial veins was performed. FINDINGS: Normal compressibility, flow augmentation, phasic flow and spontaneous flow are identified in the left and right lower extremity common femoral, superficial femoral, popliteal and posterior t ibial veins. No intraluminal filling defects seen. IMPRESSION: No DVT in either lower extremity.
[2022-06-26] MEDS ORDERED: NA CHLORIDE 0.9% 100 ML IV ONE (18:38)
[2022-06-26] MEDS ORDERED: Levofloxacin 750mg IV 750 MG/150 ML BAG IV ONE (18:38)
[2022-06-26] MEDS ORDERED: CEFEPIME 2 GM VIAL ONE (18:38)
--- NOTE | 2022-06-26 18:40 | EDPHYS ---
Physician Documentation [facility] Name: Bert Deng Age: 52 yrs Sex: Male : 1970 Arrival Date: 06/26/2022 Time: 16:02 Bed 24 Private MD: ED Physician Steffen Sims HPI: 06/26 16:30 This 52 yrs old Male presents to ER via EMS with complaints of Leg Swelling. cp 16:30 The patient presents with pain, that is acute, swelling, tenderness. The complaints cp affect the left lower leg. Context: resulted from an unknown cause, the patient can fully bear weight, the patient is able to ambulate. Onset: The symptoms/episode began/occurred 1 week(s) ago. Associated signs and symptoms: Pertinent positives: swelling, warmth, Pertinent negatives fever, injury. Historical: - Allergies: 16:04 Clonidine; hb 16:04 Lorazepam; hb 16:04 Sulfa (Sulfonamide Antibiotics); hb 16:04 Vancomycin; hb - PMHx: 16:04 Cerebrovascular accident; chronic kidney disease; COPD; diabetes mellitus; Enlarged hb Heart; Hypertensive disorder; Hypothyroidism; Myocardial infarction; - Immunization history:: Adult Immunizations up to date. - Social history:: Smoking status: Patient denies any tobacco usage or history of. ROS: 16:35 Constitutional: Negative for body aches, chills, fever, poor PO intake. cp 16:35 Eyes: Negative for injury, pain, redness, and discharge. cp 16:35 ENT: Negative for drainage from ear(s), ear pain, sore throat, difficulty swallowing, difficulty handling secretions. 16:35 Cardiovascular: Negative for chest pain. 16:35 Respiratory: Negative for cough, shortness of breath, wheezing. 16:35 Abdomen/GI: Negative for abdominal pain, nausea, vomiting, and diarrhea. 16:35 MS/extremity: Negative for injury or acute deformity, paresthesias. 16:35 Skin: Positive for erythema, swelling, of the left lower leg. 16:35 Neuro: Negative for altered mental status, headache, weakness. 16:35 All other systems are negative. Exam: 16:40 Constitutional: The patient appears in no acute distress, alert, awake, cp non-diaphoretic, non-toxic, well developed, well nourished, obese. 16:40 Head/Face: Normocephalic, atraumatic. cp 16:40 Eyes: Periorbital structures: appear normal, Conjunctiva: normal, no exudate, no injection, Sclera: no appreciated abnormality, Lids and lashes: appear normal, bilaterally. 16:40 ENT: External ear(s): are unremarkable, Nose: is normal, Mouth: Lips: moist, Oral mucosa: pink and intact, moist, Posterior pharynx: Airway: no evidence of obstruction, patent. 16:40 Chest/axilla: Inspection: normal. 16:40 Cardiovascular: Rate: normal, Rhythm: regular, JVD: is not appreciated. 16:40 Respiratory: the patient does not display signs of respiratory distress, Respirations: normal, no use of accessory muscles, no retractions, labored breathing, is not present, Breath sounds: are clear throughout, no decreased breath sounds, no stridor, no wheezing. 16:40 Abdomen/GI: Inspection: abdomen appears normal, Palpation: abdomen is soft and non-tender, in all quadrants. 16:40 Musculoskeletal/extremity: Extremities: grossly normal except: noted in the left lower leg: erythema, pain, swelling, tenderness, left dorsalis pedis pulse palpable, weak. 16:40 Neuro: Orientation: to person, place \T\ time. Mentation: is normal, Motor: moves all fours, strength is normal. Vital Signs: 16:02 BP 113 / 76; Pulse 95; Resp 18; Temp 100; Pulse Ox 100% on R/A; Weight 122.47 kg; hb Height 5 ft. 8 in. (172.72 cm); Pain 10/10; 17:00 BP 132 / 82; Pulse 89; Resp 19; Pulse Ox 99% on R/A; hb 19:00 BP 126 / 68; Pulse 88; Resp 18; Pulse Ox 99% ; hb 20:37 BP 138 / 87; Pulse 84; Resp 15; Pulse Ox 100% on R/A; hb 21:43 BP 121 / 79; Pulse 86; Resp 16; Pulse Ox 100% on R/A; hb 16:02 Body Mass Index 41.05 (122.47 kg, 172.72 cm) hb MDM: 16:05 Patient medically screened. rt 18:30 Data reviewed: vital signs, nurses notes, lab test result(s), EKG, radiologic studies, cp plain films, ultrasound, and as a result, I will admit patient. 18:30 Test interpretation: by ED physician or midlevel provider: ECG, plain radiologic cp studies. Counseling: I had a detailed discussion with the patient and/or guardian regarding: the historical points, exam findings, and any diagnostic results supporting the discharge/admit diagnosis, lab results, radiology results, the need for further work-up and treatment in the hospital. Physician consultation: Ruben Blandon MD was contacted at 18:30, regarding admission, to the medical/surgical unit. patient's condition. 06/26 16:21 Order name: Basic Metabolic Panel; Complete Time: 17:28 cp 06/26 17:28 Interpretation: Normal except: NA 134; GLUC 244; BUN 44; CRE 2.52; GFR 30; CA 8.3. cp 06/26 16:21 Order name: CBC with Diff; Complete Time: 17:28 cp 06/26 17:29 Interpretation: Normal except: WBC 15.70; RBC 3.79; HGB 10.4; HCT 30.5; BLAKE% 81.8; LYM% cp 10.0; NEUT A 12.8. 06/26 16:21 Order name: Magnesium; Complete Time: 17:28 cp 06/26 17:29 Interpretation: Abnormal: MG 1.2. cp 06/26 16:21 Order name: NT PRO-BNP; Complete Time: 17:28 cp 06/26 16:21 Order name: PT-INR; Complete Time: 17:28 cp 06/26 16:21 Order name: Troponin HS; Complete Time: 17:28 cp 06/26 16:21 Order name: Lactate w/ 2H reflex if indic.; Complete Time: 17:28 cp 06/26 16:21 Order name: Procalcitonin; Complete Time: 18:21 cp 06/26 16:21 Order name: Blood Culture Adult (2) cp 06/26 19:43 Order name: SARS RAPID vc1 06/26 20:44 Order name: Basic Metabolic Panel EDMS 06/26 20:44 Order name: Basic Metabolic Panel EDMS 06/26 20:44 Order name: CBC with Automated Diff EDMS 06/26 20:44 Order name: CBC with Automated Diff EDMS 06/26 16:21 Order name: XRAY Chest (1 view); Complete Time: 17:28 cp 06/26 16:21 Order name: EKG; Complete Time: 16:22 cp 06/26 16:21 Order name: US Extremity Venous W Compression Sylvain; Complete Time: 18:21 cp 06/26 20:44 Order name: CONS Physician Consult EDMS 06/26 20:44 Order name: CONS [facility] Cons EDMS 06/26 20:44 Order name: 60g Consistent Carbohydrate (ADA 1800/1999) EDMS 06/26 20:44 Order name: Lipid Profile EDMS 06/26 20:44 Order name: Lipid Profile EDMS 06/26 20:44 Order name: Magnesium EDMS 06/26 20:44 Order name: Magnesium EDMS 06/26 20:44 Order name: Phosphorus EDMS 06/26 20:44 Order name: Phosphorus EDMS 06/26 16:21 Order name: Cardiac monitoring; Complete Time: 16:54 cp 06/26 16:21 Order name: EKG - Nurse/Tech; Complete Time: 19:01 cp 06/26 16:21 Order name: IV Saline Lock; Complete Time: 16:54 cp 06/26 16:21 Order name: Labs collected and sent; Complete Time: 16:54 cp 06/26 16:21 Order name: O2 Per Protocol; Complete Time: 16:54 cp 06/26 16:21 Order name: O2 Sat Monitoring; Complete Time: 16:54 cp Administered Medications: 16:57 Drug: fentaNYL (PF) 25 mcg Route: IVP; Site: left antecubital; hb 18:51 Drug: Cefepime 1 grams Route: IVPB; Rate: 200 ml/hr; Infused Over: 30 mins; Site: left hb antecubital; 19:36 Follow up: Response: No adverse reaction; IV Status: Completed infusion; IV Intake: hb 100ml 20:15 Drug: Magnesium Sulfate 2 grams Route: IVPB; Infused Over: 2 hrs; Site: left hb antecubital; 20:22 Drug: LevaQUIN (levofloxacin) 750 mg Volume: 150 ml; Route: IVPB; Infused Over: 90 hb mins; Site: left antecubital; Disposition Summary: 06/26/22 18:39 Hospitalization Ordered Hospitalization Status: Inpatient Admission cp Provider: Ruben Blandon cp Location: Telemetry/MedSurg (Inpatient) cp Condition: Stable cp Problem: new cp Symptoms: have improved cp Bed/Room Type: Standard cp Room Assignment: [facility](06/26/22 21:14) cg Diagnosis - Cellulitis of left lower limb cp - Hypomagnesemia cp Forms: - Medication Reconciliation Form cp - SBAR form cp Addendum: 07/03/2022 17:12 Co-signature as Attending Physician, Steffen Sims MD I agree with the assessment and r t plan of care. Signatures: Dispatcher [employer] EDMS Al Boggs PA PA cp Garcia, Cindy, RN RN cg Baxter, Heather, RN RN Steffen Sims MD MD rt Corrections: (The following items were deleted from the chart) 06/26 21:14 18:39 cp cg
--- NOTE | 2022-06-26 18:40 | ER ---
Nurse's Notes [facility] Name: Bert Deng Age: 52 yrs Sex: Male : 1970 Arrival Date: 06/26/2022 Time: 16:02 Bed 24 Private MD: Diagnosis: Cellulitis of left lower limb;Hypomagnesemia Presentation: 06/26 16:02 Chief complaint: EMS states: Left leg swelling and pain x 1 week. Coronavirus screen: hb At this time, the client does not indicate any symptoms associated with coronavirus-19. Ebola Screen: No symptoms or risks identified at this time. Initial Sepsis Screen: Does the patient meet any 2 criteria? No. Patient's initial sepsis screen is negative. Does the patient have a suspected source of infection? No. Patient's initial sepsis screen is negative. Risk Assessment: Do you want to hurt yourself or someone else? Patient reports no desire to harm self or others. Onset of symptoms was June 19, 2022. 16:02 Method Of Arrival: EMS: [facility] hb 16:02 Acuity: ELPIDIO 3 hb Triage Assessment: 16:04 General: Appears in no apparent distress. Behavior is calm, cooperative. Pain: Pain hb currently is 10 out of 10 on a pain scale. EENT: No signs and/or symptoms were reported regarding the EENT system. Neuro: Level of Consciousness is awake, alert, obeys commands, Oriented to person, place, time, situation. Cardiovascular: Patient's skin is warm and dry. Respiratory: Respiratory effort is even, unlabored, Respiratory pattern is regular, symmetrical. GI: No signs and/or symptoms were reported involving the gastrointestinal system. : No signs and/or symptoms were reported regarding the genitourinary system. Derm: Skin is pink, warm \T\ dry. Musculoskeletal: Reports left lower leg pain and swelling. Historical: - Allergies: 16:04 Clonidine; hb 16:04 Lorazepam; hb 16:04 Sulfa (Sulfonamide Antibiotics); hb 16:04 Vancomycin; hb - PMHx: 16:04 Cerebrovascular accident; chronic kidney disease; COPD; diabetes mellitus; Enlarged hb Heart; Hypertensive disorder; Hypothyroidism; Myocardial infarction; - Immunization history:: Adult Immunizations up to date. - Social history:: Smoking status: Patient denies any tobacco usage or history of. Screenin:06 Abuse screen: Denies threats or abuse. Denies injuries from another. Nutritional hb screening: No deficits noted. Tuberculosis screening: No symptoms or risk factors identified. Fall Risk Total Adamson Fall Scale indicates Low Risk Score (25-44 pts). Fall prevention measures have been instituted. Side Rails Up X 2 Frequent Obs/Assesments occuring As available Patient and Family Educated on Fall Prevention Program and strategies. Assessment: 16:06 General: See triage assessment. hb 17:00 Reassessment: Patient appears in no apparent distress at this time. Patient and/or hb family updated on plan of care and expected duration. Pain level reassessed. Patient is alert, oriented x 3, equal unlabored respirations, skin warm/dry/pink. 18:00 Reassessment: Patient appears in no apparent distress at this time. Patient and/or hb family updated on plan of care and expected duration. Pain level reassessed. Patient is alert, oriented x 3, equal unlabored respirations, skin warm/dry/pink. 18:40 Reassessment: OK to feed pt per LEANDER Melendez. [place] and drink provided as requested. hb 19:02 Reassessment: Admission ordered, awaiting floor orders and bed assignment. Family at bedside. VSS, NAD. 20:02 Reassessment: Patient appears in no apparent distress at this time. Patient and/or hb family updated on plan of care and expected duration. Pain level reassessed. Patient is alert, oriented x 3, equal unlabored respirations, skin warm/dry/pink. 21:43 Reassessment: Patient appears in no apparent distress at this time. Patient and/or hb family updated on plan of care and expected duration. Pain level reassessed. Patient is alert, oriented x 3, equal unlabored respirations, skin warm/dry/pink. Vital Signs: 16:02 BP 113 / 76; Pulse 95; Resp 18; Temp 100; Pulse Ox 100% on R/A; Weight 122.47 kg; hb Height 5 ft. 8 in. (172.72 cm); Pain 10/10; 17:00 BP 132 / 82; Pulse 89; Resp 19; Pulse Ox 99% on R/A; hb 19:00 BP 126 / 68; Pulse 88; Resp 18; Pulse Ox 99% ; hb 20:37 BP 138 / 87; Pulse 84; Resp 15; Pulse Ox 100% on R/A; hb 21:43 BP 121 / 79; Pulse 86; Resp 16; Pulse Ox 100% on R/A; hb 16:02 Body Mass Index 41.05 (122.47 kg, 172.72 cm) hb ED Course: 16:02 Patient arrived in ED. hb 16:02 Steffen Sims MD is Attending Physician. rt 16:04 Triage completed. hb 16:04 Arm band placed on. hb 16:06 Patient has correct armband on for positive identification. hb 16:19 Al Boggs PA is PHCP. cp 16:54 Sheri Alexander, RN is Primary Nurse. hb 17:15 XRAY Chest (1 view) In Process Unspecified. EDMS 17:51 US Extremity Venous W Compression [place] In Process Unspecified. EDMS 18:38 Ruben Blandon MD is Hospitalizing Provider. cp 20:37 SARS RAPID Sent. hb 21:43 No provider procedures requiring assistance completed. Patient admitted, IV remains in hb place. Administered Medications: 16:57 Drug: fentaNYL (PF) 25 mcg Route: IVP; Site: left antecubital; hb 18:51 Drug: Cefepime 1 grams Route: IVPB; Rate: 200 ml/hr; Infused Over: 30 mins; Site: left hb antecubital; 19:36 Follow up: Response: No adverse reaction; IV Status: Completed infusion; IV Intake: hb 100ml 20:15 Drug: Magnesium Sulfate 2 grams Route: IVPB; Infused Over: 2 hrs; Site: left hb antecubital; 20:22 Drug: LevaQUIN (levofloxacin) 750 mg Volume: 150 ml; Route: IVPB; Infused Over: 90 hb mins; Site: left antecubital; Medication: 16:06 VIS not applicable for this client. hb Intake: 19:36 IV: 100ml; Total: 100ml. hb Outcome: 18:39 Decision to Hospitalize by Provider. cp 22:05 Admitted to Tele hb 22:05 Condition: stable 22:05 Instructed on the need for admit, Demonstrated understanding of instructions. 23:17 Patient left the ED. [email or web address] Signatures: Dispatcher [employer] EDMS Al Boggs PA PA Sheri Muro RN RN Anupama Campa RN RN [email or web address] Steffen Sims MD MD rt Corrections: (The following items were deleted from the chart) 19:03 17:00 BP 123 / 62; Pulse 89bpm; Resp 19bpm; Pulse Ox 99% RA; hb hb
[2022-06-26] MEDS ORDERED: ONDANSETRON 4 MG/2 ML VIAL IV PRN (20:36)
[2022-06-26] MEDS ORDERED: ACETAMINOPHEN 325 MG TABLET PO PRN (20:36)
--- NOTE | 2022-06-26 20:47 | P.HP ---
Certification for Inpatient Patient admitted to: Inpatient Practitioner: I am a practitioner with admitting privileges, knowledge of patient current condition, hospital course, and medical plan of care. Services: Services provided to patient in accordance with Admission requirements found in Title 42 Section 412.3 of the Code of Federal Regulations Patient History Date of Service: 06/27/22 Reason for admission: Cellulitis and multiple wounds on the hands and left leg. History of Present Illness: 53-year-old male patient with medical history significant for obesity, hypertension, hyperlipidemia, diabetes type 2, benign prostatic hypertrophy, history of recurrent infection in the digits of the hands and leg was evaluated for episode of worsening infection in the left lower extremity and also in the fingers. 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 He also has increased redness and swelling in the left leg with an area of excoriation and hyperemia involving the lower two third of the left leg. He reports that he has been having this recurrent infection for a long time and he requires iv antibiotic therapy for management. Labs done in the emergency room was pertinent for elevated white cell of 15.7K and magnesium of 1.2. He also has elevated creatinine of 2.5. He was asked to be admitted for wound care, IV antibiotic therapy for management of cellulitis. At the time of encounter patient denied any overt episode of nausea with vomiting, headache, recent trauma. Allergies clonidine Allergy (Unknown, Verified 03/04/22 00:51) Itching/Hives/Rash Sulfa (Sulfonamide Antibiotics) Allergy (Verified 03/04/22 00:51) Itching vancomycin Allergy (Verified 03/04/22 00:51) Itching/Hives/Rash lorazepam Adverse Reaction (Verified 03/04/22 00:51) Shortness of breath Home Medications: Albuterol Inhaler [Ventolin Inhaler] 2 puff IH Q6H PRN 06/27/22 Allopurinol 100 mg PO DAILY 06/27/22 Amlodipine [Norvasc] 10 mg PO DAILY 06/27/22 Aspirin [Aspirin EC] 81 mg PO DAILY 06/27/22 Atorvastatin Calcium 40 mg PO BEDTIME 06/27/22 Cetirizine HCl 10 mg PO DAILY 06/27/22 Clopidogrel Bisulfate [Plavix] 75 mg PO DAILY 06/27/22 Ferrous Sulfate [Feosol] 325 mg PO DAILY 06/27/22 Finasteride [Proscar] 5 mg PO DAILY 06/27/22 Fluticasone [Flonase 50mcg Nasal [place]] 2 sprays NS DAILY 06/27/22 Furosemide [Lasix] 40 mg PO BID 06/27/22 Gabapentin 300 mg PO BID 06/27/22 Hydralazine HCl 100 mg PO TID 06/27/22 Levothyroxine [Synthroid] 125 mcg PO [id number] 06/27/22 Lisinopril [Zestril] 20 mg PO DAILY 06/27/22 Ondansetron [Zofran] 4 mg PO Q8HR PRN 06/27/22 Potassium Chloride [Klor-Con M20] 20 meq PO DAILY 06/27/22 Quetiapine Fumarate [Seroquel] 50 mg PO BEDTIME 06/27/22 Quetiapine [Seroquel] 25 mg PO BID PRN 06/27/22 Spironolactone [Aldactone] 75 mg PO DAILY 06/27/22 Tamsulosin [Flomax] 0.4 mg PO BEDTIME 06/27/22 Venlafaxine HCl 75 mg PO DAILY 06/27/22 carvediloL [Carvedilol] 6.25 mg PO BID 06/27/22 hydrOXYzine HCL [Atarax] 25 mg PO TID 06/27/22 - Past Medical/Surgical History Diabetic: Yes -: DM2 -: CHF -: CAD -: Gout -: Hypertension -: Hypothyroid -: COPD -: CKD 3 -: 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 -: Right rotator cuff repair Psychosocial/ Personal History: Patient lives at home with a friend, is disabled/unemployed - Family History Mother -: Diabetes Father -: Cancer - Social History Alcohol use: No CD- Drugs: No Caffeine use: Yes Review of Systems General: Malaise Eyes: Unremarkable ENT: Unremarkable Respiratory: Unremarkable Cardiovascular: Unremarkable Gastrointestinal: Unremarkable Genitourinary: Unremarkable Musculoskeletal: Hand Pain, Leg Pain Integumentary: Unremarkable Neurological: Unremarkable Lymphatics: Unremarkable Physical Examination - Physical Exam General: Alert, Oriented x3 HEENT: Atraumatic, Normocephalic Neck: Supple Respiratory: Normal air movement Cardiovascular: Regular rate/rhythm, Normal S1 S2 Gastrointestinal: Soft and benign Musculoskeletal: Erythema, Tenderness, Warmth (Involving the left leg.) Integumentary: Skin breakdown, Tenderness/swelling Neurological: Normal speech, Normal strength at 5/5 x4 extr - Studies Laboratory Data (last 24 hrs) 06/26/22 16:37: PT 13.3 H, INR 1.21 06/26/22 16:37: WBC 15.70 H, Hgb 10.4 L, Hct 30.5 L, Plt Count 196 06/26/22 16:37: Sodium 134 L, Potassium 3.7, BUN 44 H, Creatinine 2.52 H, Glucose 244 H, Magnesium 1.2 L* Assessment and Plan - Plan Cellulitis: Patient has multiple areas of the digits of the fingers bilaterally on the left lower extremity has hyperemia and open sores and significant infection. We have started empiric antibiotic therapy of Levaquin and cefepime for management of infection. ID has been consulted for management recommendation. Blood cultures have been obtained. Monitor cultures for adjustment of antibiotic therapy based on antibiogram Hypertension: Monitor vital signs per unit protocol and continue antihypertensive medications as prescribed outpatient. Diabetes type 2: Will monitor blood sugar before meals and at bedtime. We will continue sliding scale insulin for glucose management. Carb restricted diet to be continued. Hyperlipidemia: Continue statin therapy. Chronic wounds: Wound center consulted for management recommendations Prophylaxis: Heparin for DVT prophylaxis CODE STATUS: Full code Disposition: We will address cellulitis, have plans for wound management and discharge him when management plan is finalized. - Advance Directives Does patient have a Living Will: No Does patient have a Durable POA for Healthcare: No
[2022-06-26] MEDS: INSULIN -REGULAR HUMAN 50 UNIT/0.5 ML ML SQ SCH (21:00)
[2022-06-26 21:06] LABS: SARS-CoV-2 Antigen Rapid Res Negative (Negative)
[2022-06-27] MEDS: HEPARIN 5000 UNIT/ML 1 ML VIAL SQ SCH ×3 (02:03→16:28)
[2022-06-27 05:40] LABS: Absolute Lymphocytes (CBC) 1.8 K/uL (0.7-4.9); Hematocrit 27.5 % (39.6-49.0); Lymphocytes % 17.3 % (15.3-44.8); MCV 80.6 fL (80-100); MPV 7.6 fL (7.6-11.3); RBC Red Blood Cell Count 3.41 M/uL (4.33-5.43)
[2022-06-27 06:00] LABS: Magnesium 1.3 mg/dL (1.6-2.4); Phosphorus 3.1 mg/dL (2.5-4.9); Potassium 3.2 mmol/L (3.5-5.1)
[2022-06-27] MEDS ORDERED: Magnesium Sulfate 2gm IVPB 2 G/50 ML BAG IV ONE (09:00)
[2022-06-27] MEDS ORDERED: POTASSIUM 25 MEQ EFFERV TAB PO ONE (09:00)
[2022-06-27] MEDS: INSULIN -REGULAR HUMAN 50 UNIT/0.5 ML ML SQ SCH ×4 (09:08→21:18)
[2022-06-27 14:51] LABS: Magnesium 1.9 mg/dL (1.6-2.4); Potassium 3.9 mmol/L (3.5-5.1)
[2022-06-27] MEDS: CEFEPIME 1 GM in NA CHLORIDE 0.9% 100 ML IV SCH (21:18)
--- NOTE | 2022-06-27 21:42 | P.PN ---
Date of Service: 06/27/22 Subjective: no acute events overnight no significant change in cellulitis, erythema ROS: A complete review of systems was performed and is negative except as mentioned above Physical Exam: Gen: NAD, AOx3 HEENT: normal conjunctiva, sclera anicteric CV: regular rate & rhythm, trace edema in b/l lower extremities Pulm: non-labored respirations, clear bilaterally Abd: soft, non-tender, non-distended Skin: multiple wounds, ulcerations on b/l fingers, LLE: erythema, swelling, warmth Neuro: normal speech, normal affect, moves all extremities vitals reviewed Problem List Cellulitis of LLE HTN NIDDM2, with neuropathy HLD Chronic wounds prior amputations of b/l fingers multiple areas of digits of bilateral fingers with open wounds, erythema, infection pt with prior osteomyelitis continue empiric antibiotics ID consulted given appearance of wounds on hands, will consult Dr. Mast insulin sliding scale, diabetic diet continue statin continue antihypertensives VTE: heparin SQ Code: full Dispo: home, ~3-4 days Time Spent Managing Pts Care (In Minutes): 35
[2022-06-27] MEDS: QUETIAPINE 25 MG TAB PO SCH (22:35)
[2022-06-28] MEDS: HEPARIN 5000 UNIT/ML 1 ML VIAL SQ SCH ×3 (03:08→16:26)
[2022-06-28 05:02] LABS: MPV 7.6 fL (7.6-11.3); RBC Red Blood Cell Count 3.58 M/uL (4.33-5.43)
[2022-06-28 05:23] LABS: Magnesium 1.8 mg/dL (1.6-2.4); Phosphorus 3.6 mg/dL (2.5-4.9); Potassium 3.6 mmol/L (3.5-5.1)
--- NOTE | 2022-06-28 06:52 | RAD REPORT ---
EXAM DESCRIPTION: US - Renal Ultrasound-Complete - 06/28/2022 6:39 am CLINICAL HISTORY: incontinence COMPARISON: <Comparisons> FINDINGS: Both kidneys are normal in size, shape and echotexture. The right kidney measures 13 cm. Anechoic right upper pole renal lesion measuring 2.4 cm consistent w ith a cyst. Other smaller cysts noted. No hydronephrosis. No stones. The left kidney measures 12.8 cm. Hypoechoic lesion lower pole left kidney measuring 1.8 cm likely re presents a cyst. No hydronephrosis. No stones. Marked distended bladder with volume of 859 cc. IMPRESSION: 1. No evidence of hydronephrosis. 2. Distended bladder. 3. Bilateral renal lesions. On the right, these are consistent with simple cysts. On the left, the le puma is hypoechoic and cannot be confidently characterized as a though this is favored. Recommend thr ee-month follow-up ultrasound.
[2022-06-28] MEDS ORDERED: MAGNESIUM SULFATE 1 gm IVPB 1 GM/100 ML BAG IV ONE (07:00)
--- NOTE | 2022-06-28 07:32 | P.PN ---
Date of Service: 06/28/22 Subjective: no acute events overnight pain ok no worsening no incontinence since admission leg swelling slightly improved ROS: A complete review of systems was performed and is negative except as mentioned above Physical Exam: Gen: NAD, AOx3 HEENT: normal conjunctiva, sclera anicteric CV: regular rate & rhythm, trace-1+ edema in b/l lower extremities L>R Pulm: non-labored respirations, clear bilaterally Abd: soft, non-tender, non-distended Skin: multiple wounds, ulcerations on b/l fingers, LLE: erythema, swelling, warmth Neuro: normal speech, normal affect, moves all extremities vitals reviewed Problem List Cellulitis of LLE HTN NIDDM2, with neuropathy HLD Chronic wounds prior partial amputations of b/l fingers urinary incontinence multiple areas of digits of bilateral fingers with open wounds, erythema pt with prior osteomyelitis continue empiric antibiotics ID consulted given appearance of wounds on hands, consulted Dr. Mast insulin sliding scale, diabetic diet continue statin continue antihypertensives pt reported urinary and stool incontinence over the last ~1.5 weeks prior to admission, mostly consistent denies any new/worse numbness/tingling of saddle area or legs/feet no weakness, no paresthesias no recent fall / trauma to lower back no pain in lower back no other red flags for spinal injury from what patient tells me possibly from infection check UA, renal U/S, check post void residual patient denies any incontinence since admission, which is first time in last 1.5 weeks VTE: heparin SQ Code: full Dispo: home, ~3-4 days pending improvement / further eval by Dr. Mast if will need surgical treatment Time Spent Managing Pts Care (In Minutes): 35
[2022-06-28] MEDS ORDERED: POTASSIUM CL SA 10 MEQ TAB PO ONE (09:00)
[2022-06-28] MEDS: Levofloxacin 750mg IV 750 MG/150 ML BAG IV SCH (10:19)
[2022-06-28] MEDS: INSULIN -REGULAR HUMAN 50 UNIT/0.5 ML ML SQ SCH ×4 (12:52→21:04)
[2022-06-28 12:58] LABS: Specific Gravity 1.013 (1.005-1.030); Urine Bacteria <20 /HPF (<20); Urine Bilirubin NEGATIVE (Negative); Urine Blood Trace (Negative); Urine Clarity Clear (Clear); Urine Color Light-Yellow (Yellow); Urine Glucose 2+ (Negative); Urine Mucus Slight /HPF (None Seen); Urine Protein 3+ (Negative); Urine RBC <5 /HPF (None Seen); Urine Urobilinogen Normal (Normal); Urine WBC Clump Rare /HPF (None Seen)
[2022-06-28] MEDS: CEFEPIME 1 GM in NA CHLORIDE 0.9% 100 ML IV SCH (21:05)
[2022-06-28] MEDS: QUETIAPINE 25 MG TAB PO SCH (21:05)
[2022-06-28] MEDS ORDERED: QUETIAPINE 25 MG TAB PO SCH (22:11)
[2022-06-29] MEDS: HEPARIN 5000 UNIT/ML 1 ML VIAL SQ SCH ×4 (00:45→23:51)
[2022-06-29 05:58] LABS: Hematocrit 28.7 % (39.6-49.0); MCV 80.9 fL (80-100); MPV 7.8 fL (7.6-11.3); RBC Red Blood Cell Count 3.54 M/uL (4.33-5.43)
[2022-06-29 06:17] LABS: C-Reactive Protein 86.6 mg/L (<3.00); Magnesium 2.1 mg/dL (1.6-2.4); Potassium 4.1 mmol/L (3.5-5.1)
[2022-06-29 06:30] VITALS: BMI 42.2
--- NOTE | 2022-06-29 07:22 | P.PN ---
Date of Service: 06/29/22 Subjective: no acute events overnight pain improved swelling improving patient states Dr. Mast stopped by and planning to take him to OR tomorrow for skin grafts ROS: A complete review of systems was performed and is negative except as mentioned above Physical Exam: Gen: NAD, AOx3 HEENT: normal conjunctiva, sclera anicteric CV: regular rate & rhythm, trace-1+ edema in b/l lower extremities L>R Pulm: non-labored respirations, clear bilaterally Abd: soft, non-tender, non-distended Skin: multiple wounds, ulcerations on b/l fingers, LLE: erythema, swelling, warmth Neuro: normal speech, normal affect, moves all extremities vitals reviewed Problem List Cellulitis of LLE HTN NIDDM2, with neuropathy HLD Chronic wounds prior partial amputations of b/l fingers urinary incontinence multiple areas of digits of bilateral fingers with open wounds, erythema pt with prior osteomyelitis continue empiric antibiotics ID consulted given appearance of wounds on hands, consulted Dr. Mast tentatively planned for OR 06/29 insulin sliding scale, diabetic diet continue statin continue antihypertensives pt reported urinary and stool incontinence over the last ~1.5 weeks prior to admission, mostly consistent patient denies any incontinence since admission, which is first time in last 1.5 weeks VTE: heparin SQ Code: full Dispo: home, ~2-3 days pending improvement Time Spent Managing Pts Care (In Minutes): 25
[2022-06-29] MEDS: INSULIN -REGULAR HUMAN 50 UNIT/0.5 ML ML SQ SCH ×4 (09:25→21:00)
--- NOTE | 2022-06-29 12:27 | P.CNS ---
Date of Consult: 06/29/22 This is a 52-year-old male was consulted for cellulitis of leg and upper extremity osteomyelitis. Patient is feeling much better today denies any headache nausea vomiting chest pain abdominal pain constipation diarrhea currently getting cefepime and Levaquin swelling of the leg has gone down significantly. Patient has significant past medical history of benign prostatic hypertrophy diabetes mellitus, history of recurrent infection of the digits of the hand causing him to have partial amputation. Patient also has worsening infection of the lower extremity denies any other problems at this time tolerating antibiotic without any problems no rashes no diarrhea Past medical history Diabetes mellitus 's congestive heart failure Coronary artery disease Gout Hypertension Hypothyroidism COPD CKD x3 Amputation of distal phalanx 8 out of 10 Right rotator cuff repair Medication cefepime and Levaquin see MARS further medication Acetaminophen (Acetaminophen 325 Mg Tablet) 650 mg PO Q4HP PRN PRN Reason: Pain scale 2-4 (Mild) Last Admin: 06/28/22 15:52 Dose: 650 mg Heparin Sodium (Porcine) (Heparin 5000 Unit/Ml 1 Ml Vial) 5,000 unit SQ Q8HR MARY Last Admin: 06/29/22 09:25 Dose: 5,000 unit Cefepime HCl 1 gm/ Sodium (Chloride) 100 mls @ 200 mls/hr IV Q24H MARY; Protocol Last Admin: 06/28/22 21:05 Dose: 100 mls Levofloxacin/Dextrose (Levaquin 750 Mg/150 Ml Ivpb (Premix)) 750 mg in 150 mls @ 100 mls/hr IV Q48H MARY; Protocol Last Admin: 06/28/22 10:19 Dose: 150 mls Insulin Human Regular (Insulin -Regular Human 50 Unit/0.5 Ml Ml) 0 unit SQ ACHS MARY; Protocol Last Admin: 06/29/22 12:18 Dose: 5 unit Ondansetron HCl (Ondansetron 4 Mg/2 Ml Vial) 4 mg IV Q6HP PRN PRN Reason: NAUSEA / VOMITING Quetiapine Fumarate (Quetiapine 25 Mg Tab) 50 mg PO BEDTIME MARY Last Admin: 06/28/22 21:05 Dose: 50 mg Sodium Chloride (Flush Normal Saline 10 Ml) 10 ml IV BID MARY Last Admin: 06/29/22 09:25 Dose: 10 ml Allergies: Clonidine, sulfa drugs, vancomycin, and lorazepam Social history non-smoker nondrinker Family history noncontributory Review of system: 10 point review was performed Physical exam: Patient sitting in easy chair not in any acute cardiopulmonary distress Vital signs reviewed Temp Pulse Resp BP Pulse Ox 97.1 F 90 16 138/81 96 06/29/22 12:00 06/29/22 12:00 06/29/22 12:00 06/29/22 12:00 06/29/22 12:00 HEENT: Within normal limits Neck: Supple, no lymph apathy Lungs: Basal crackles Heart: S1-S2 regular Abdomen: Soft, bowel sound present Extremity: 2+ edema wounds noted on hands and on leg Laboratory Last Values WBC 15.70 K/uL (4.3-10.9) H 06/26/22 16:37 RBC 3.79 M/uL (4.33-5.43) L 06/26/22 16:37 Hgb 10.4 g/dL (13.6-17.9) L 06/26/22 16:37 Hct 30.5 % (39.6-49.0) L 06/26/22 16:37 MCV 80.5 fL (80-100) 06/26/22 16:37 MCH 27.5 pg (27.0-35.0) 06/26/22 16:37 MCHC 34.1 g/dL (32.0-36.0) 06/26/22 16:37 RDW 13.9 % (12.1-15.2) 06/26/22 16:37 Plt Count 196 K/uL (152-406) 06/26/22 16:37 MPV 7.6 fL (7.6-11.3) 06/26/22 16:37 Neutrophils % 81.8 % (41.7-73.7) H 06/26/22 16:37 Lymphocytes % 10.0 % (15.3-44.8) L 06/26/22 16:37 Monocytes % 6.5 % (3.3-12.3) 06/26/22 16:37 Eosinophils % 0.7 % (0-4.4) 06/26/22 16:37 Basophils % 1.0 % (0-1.3) 06/26/22 16:37 Absolute Neutrophils 12.8 K/uL (1.8-8.0) H 06/26/22 16:37 Absolute Lymphocytes 1.6 K/uL (0.7-4.9) 06/26/22 16:37 Absolute Monocytes 1.0 K/uL (0.1-1.3) 06/26/22 16:37 Absolute Eosinophils 0.1 K/uL (0-0.5) 06/26/22 16:37 Absolute Basophils 0.2 K/uL (0-0.5) 06/26/22 16:37 PT 13.3 SECONDS (9.5-12.5) H 06/26/22 16:37 INR 1.21 06/26/22 16:37 Sodium 134 mmol/L (136-145) L 06/26/22 16:37 Potassium 3.7 mmol/L (3.5-5.1) 06/26/22 16:37 Chloride 103 mmol/L (98-107) 06/26/22 16:37 Carbon Dioxide 21 mmol/L (21-32) 06/26/22 16:37 Anion Gap 13.7 mEq/L (5.0-15.0) 06/26/22 16:37 BUN 44 mg/dL (7-18) H 06/26/22 16:37 Creatinine 2.52 mg/dL (0.70-1.30) H 06/26/22 16:37 Est GFR (CKD-EPI) 30 ml/min (=/>90) L 06/26/22 16:37 Glucose 244 mg/dL (74-106) H 06/26/22 16:37 Lactic Acid 1.7 mmol/L (0.4-2.0) 06/26/22 16:37 Calcium 8.3 mg/dL (8.5-10.1) L 06/26/22 16:37 Magnesium 1.2 mg/dL (1.6-2.4) L* 06/26/22 16:37 Troponin I High Sens 27.0 pg/mL (<58.9) 06/26/22 16:37 NT-Pro-B Natriuret Pep 840 pg/mL (<125) H 06/26/22 16:37 Procalcitonin 1.32 ng/mL (<0.050) H 06/26/22 16:37 SARS-CoV-2 Ag (Rapid) Negative (Negative) 06/26/22 20:34 Cellulitis: Patient 52-year-old male with significant comorbidities has multiple areas of the digits of the fingers bilaterally on the left lower extremity has hyperemia and open sores and significant infection. Agree with antibiotic therapy of Levaquin and cefepime for management of infection. Diabetes type 2: Will monitor blood sugar before meals and at bedtime. We will continue sliding scale insulin for glucose management. Carb restricted diet to be continued. Anemia of chronic disease Chronic kidney disease Chronic wounds: Wound center consulted for management recommendations Monitor signs of infection with WBC and fever pattern Thank you for consult
[2022-06-29] MEDS: QUETIAPINE 25 MG TAB PO SCH (22:23)
[2022-06-29] MEDS: CEFEPIME 1 GM in NA CHLORIDE 0.9% 100 ML IV SCH (22:23)
[2022-06-30 04:17] LABS: C-Reactive Protein 54.7 mg/L (<3.00); Potassium 4.1 mmol/L (3.5-5.1)
[2022-06-30] MEDS: INSULIN -REGULAR HUMAN 50 UNIT/0.5 ML ML SQ SCH ×4 (07:30→21:00)
[2022-06-30] MEDS: HEPARIN 5000 UNIT/ML 1 ML VIAL SQ SCH ×2 (07:49→16:31)
[2022-06-30] MEDS: Levofloxacin 750mg IV 750 MG/150 ML BAG IV SCH (07:56)
[2022-06-30] MEDS ORDERED: NA CHLORIDE 0.9% 1,000 ML ONE (08:08)
[2022-06-30] MEDS ORDERED: propofoL 200 MG/20 ML VIAL IV ONE (08:34)
[2022-06-30] MEDS ORDERED: LIDOCAINE 2% MPF 5 ML VIAL ONE (08:34)
[2022-06-30] MEDS ORDERED: ONDANSETRON 4 MG/2 ML VIAL ONE (08:34)
[2022-06-30] MEDS ORDERED: FENTANYL CITR 100 MCG/2 ML ONE (08:34)
[2022-06-30] MEDS ORDERED: MINERAL OIL, LITE 10 ML VIAL ONE (08:44)
[2022-06-30] MEDS ORDERED: Mastisol Adhesive Liq ONE ×2 (10:30)
[2022-06-30] MEDS: MORPHINE 4 MG/ML SYR ONE ×2 (11:05→11:10)
[2022-06-30] MEDS ORDERED: CODEINE 30MG/APAP 300MG TAB PO PRN (11:19)
--- NOTE | 2022-06-30 17:47 | P.PN ---
Subjective Date of Service: 06/30/22 Chief Complaint: Cellulitis and multiple wounds on the hands and left leg. Patient has no new complain. Status post multiple finger wound debridement and skin grafting today. Physical Examination - Vital Signs Temperature: 97.2 F Blood Pressure: 169/86 Pulse: 72 Respirations: 18 Pulse Ox (%): 100 Assessment And Plan - Plan Physical Exam: Gen: NAD, AOx3 HEENT: normal conjunctiva, sclera anicteric CV: regular rate & rhythm, 1+ edema in b/l lower extremities L>R Pulm: clear bilaterally, no crackles or wheezes Abd: soft, non-tender, non-distended Skin: multiple wounds, ulcerations on b/l fingers, LLE: erythema, swelling, warmth Neuro: normal speech, normal affect, moves all extremities vitals reviewed Problem List Cellulitis of LLE HTN NIDDM2, with neuropathy HLD Chronic wounds prior partial amputations of b/l fingers urinary incontinence multiple areas of digits of bilateral fingers with open wounds, erythema pt with prior osteomyelitis. Status postdebridement and skin grafting done by Dr. Steve salgado continue empiric antibiotics ID is following Further management of wound per Dr. Mast. insulin sliding scale, diabetic diet continue statin continue home antihypertensives VTE: heparin SQ Code: full Dispo: home once cleared by Dr. Mast Time Spent Managing Pts Care (In Minutes): 26
[2022-06-30] MEDS ORDERED: HOME MED 1 EA UNK (Hydralazine Hcl [Hydralazine Hcl] 100 MG Tablet) PO SCH (21:00)
[2022-06-30] MEDS ORDERED: TAMSULOSIN 0.4 MG SR CAP PO SCH (21:00)
[2022-06-30] MEDS ORDERED: ATORVASTATIN 40 MG TAB PO SCH (21:00)
[2022-06-30] MEDS: FUROSEMIDE 40 MG TABLET PO SCH (22:23)
[2022-06-30] MEDS: GABAPENTIN 300 MG CAP PO SCH (22:23)
[2022-06-30] MEDS: carvediloL 6.25 MG TAB PO SCH (22:24)
[2022-06-30] MEDS: QUETIAPINE 25 MG TAB PO SCH (22:25)
[2022-06-30] MEDS: HYDRALAZINE HCL 25 MG TABLET PO SCH (22:25)
[2022-06-30] MEDS: CEFEPIME 1 GM in NA CHLORIDE 0.9% 100 ML IV SCH (22:26)
[2022-07-01] MEDS: HEPARIN 5000 UNIT/ML 1 ML VIAL SQ SCH ×3 (01:04→17:58)
[2022-07-01] MEDS ORDERED: LEVOTHYROXINE SOD 0.125 MG TAB PO SCH (06:00)
[2022-07-01] MEDS ORDERED: FINASTERIDE 5 MG TAB PO SCH (09:00)
[2022-07-01] MEDS ORDERED: HOME MED 1 EA UNK (Cetirizine Hcl [Cetirizine Hcl] 10 MG Tablet) PO SCH (09:00)
[2022-07-01] MEDS ORDERED: FLUTICASONE NAS SCH (09:00)
[2022-07-01] MEDS ORDERED: SPIRONOLACTONE 25 MG TABLET PO SCH (09:00)
[2022-07-01] MEDS ORDERED: CETIRIZINE HCL 5 MG TABLET PO SCH (09:00)
[2022-07-01] MEDS ORDERED: lisinopriL 20 MG TAB PO SCH (09:00)
[2022-07-01] MEDS ORDERED: FERROUS SULFATE 325 MG TAB PO SCH (09:00)
[2022-07-01] MEDS ORDERED: AMLODIPINE 10 MG TAB PO SCH (09:00)
[2022-07-01] MEDS ORDERED: VENLAFAXINE HCL 75 MG TABLET PO SCH (09:00)
[2022-07-01] MEDS ORDERED: allopurinoL 100 MG TAB PO SCH (09:00)
[2022-07-01] MEDS: HYDRALAZINE HCL 25 MG TABLET PO SCH ×2 (09:27→14:00)
[2022-07-01] MEDS: GABAPENTIN 300 MG CAP PO SCH (09:28)
[2022-07-01] MEDS: FUROSEMIDE 40 MG TABLET PO SCH (09:28)
[2022-07-01] MEDS: carvediloL 6.25 MG TAB PO SCH (09:29)
[2022-07-01] MEDS: INSULIN -REGULAR HUMAN 50 UNIT/0.5 ML ML SQ SCH ×3 (09:29→17:59)
--- NOTE | 2022-07-01 09:48 | OP ---
Surgeon: Kavin Mast MD Dispatch Supervisor: None. Preoperative Diagnosis: Open wounds of the right and left hand fingers. Postoperative Diagnosis: Open wounds of the right and left hand fingers. Procedure Performed: Debridement of skin and subcutaneous tissue, split-thickness skin graft to the right thumb, index, and middle; to the left thumb, index, middle, and ring. Anesthesia: General. Description Of Procedure: After satisfactory induction of general anesthesia, both hands and thigh w ere prepped with Betadine scrub and Betadine paint. Dry sterile drapes were applied in usual manner. A dermatome was used to harvest skin graft approximately 8 x 10 cm and then was placed o n back table. Attention was turned to the left hand first. A scalpel curette were used to debride s kin tissue as needed. The wounds were irrigated with saline and then the Veress open wound approxima tely 1 to 2 cm in size were covered were skin graft, in-stent dressing of 4-0 Prolene. wa s tied. This was done to the right hand the thumb, index, middle, and ring, and the left hand thumb, index, and middle. After both hands were done, the remaining graft was placed on donor site, covere d with Opsite and then dressing consisted of 2 inch Ирина in both hands. The patient tolerated procedure well and returned to recovery. ELIECER/VIVIENNE Voice ID: [id number] Report ID: [id number]
[2022-07-01 11:32] VITALS: O2SAT 99
--- NOTE | 2022-07-01 13:39 | PN ---
Subjective: The patient is sitting in easy chair, not in any acute distress. Had plastic surgery do ne and flap on his leg wound. Denies any other problems. Objective: Vital Signs: Temperature 97, pulse 72, respirations 18, blood pressure 139/83. Lungs: Clear to auscultation. Heart: S1, S2. Regular. Abdomen: Soft, nontender. Bowel sounds present. Extremity: Trace edema. Erythematous changes noted in lower extremity. Laboratory Data: Shows WBC 8, hemoglobin 9.7, platelets are 218. Chemistry shows BUN 37, creatinine 2.1, blood sugars ranging from 125 to 195. Blood cultures are negative. Assessment And Plan: Multiple wounds to hand and legs with cellulitis, improving. Continue cefepime and Levaquin. We will recommend to discontinue cefepime at this time and continue Levaquin total of 14 days. Monitor the patient for signs of infection with WBC and fever trend. NF/MODL Voice ID: [id number] Report ID: [id number]
--- NOTE | 2022-07-01 17:38 | P.DS ---
Admission Date: 06/26/22 Discharge Date: 07/01/22 Disposition: ROUTINE DISCHARGE Discharge Condition: FAIR Reason for Admission: Cellulitis and multiple wounds on the hands and left leg. Brief History of Present Illness: 53-year-old male patient with medical history significant for obesity, hypertension, hyperlipidemia, diabetes type 2, benign prostatic hypertrophy, history of recurrent infection in the digits of the hands and leg was evaluated for episode of worsening infection in the left lower extremity and also in the fingers. 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 He also has increased redness and swelling in the left leg with an area of excoriation and hyperemia involving the lower two third of the left leg. He reports that he has been having this recurrent infection for a long time and he requires iv antibiotic therapy for management. Labs done in the emergency room was pertinent for elevated white cell of 15.7K and magnesium of 1.2. He also has elevated creatinine of 2.5. He was admitted for wound care, IV antibiotic therapy for management of cellulitis. Hospital Course: Diagnosis Cellulitis of LLE HTN NIDDM2, with neuropathy HLD Chronic wounds prior partial amputations of b/l fingers urinary incontinence Patient with multiple areas of digits of bilateral fingers with open wounds and erythema He was seen and evaluated by hand surgery Dr. Mast who performed debridement and skin grafting of multiple fingers. He was treated with empiric antibiotic in consultation with infectious disease- Dr. Glover Blood sugar was managed with insulin sliding scale. Continued on home medications during the hospital stay. Patient deemed okay for discharge by Dr. Mast. He is discharged to continue antibiotic. He is informed to follow up with Dr. Mast next week Wednesday07/06/22. Vital Signs/Physical Exam: Temp Pulse Resp BP Pulse Ox 97.3 F 77 18 107/58 L 92 07/01/22 12:00 07/01/22 14:55 07/01/22 12:00 07/01/22 14:55 07/01/22 12:00 General: Alert, In no apparent distress, Oriented x3 HEENT: Mucous membr. moist/pink Neck: JVD not distended Respiratory: Clear to auscultation bilaterally Cardiovascular: Regular rate/rhythm, Normal S1 S2 Gastrointestinal: Soft and benign, Non-distended Musculoskeletal: No swelling, Other (Fingertips dressed.) Integumentary: Other (Superficial wound-left thigh-source of skin graft.) Neurological: Normal strength at 5/5 x4 extr Laboratory Data at Discharge: WBC 8.00 K/uL (4.3-10.9) 06/29/22 05:27 Hgb 9.7 g/dL (13.6-17.9) L 06/29/22 05:27 Hct 28.7 % (39.6-49.0) L 06/29/22 05:27 Plt Count 218 K/uL (152-406) 06/29/22 05:27 PT 13.3 SECONDS (9.5-12.5) H 06/26/22 16:37 INR 1.21 06/26/22 16:37 Sodium 137 mmol/L (136-145) 06/30/22 03:06 Potassium 4.1 mmol/L (3.5-5.1) 06/30/22 03:06 BUN 37 mg/dL (7-18) H 06/30/22 03:06 Creatinine 2.10 mg/dL (0.70-1.30) H 06/30/22 03:06 Glucose 137 mg/dL (74-106) H 06/30/22 03:06 Phosphorus 3.6 mg/dL (2.5-4.9) 06/28/22 04:50 Magnesium 2.1 mg/dL (1.6-2.4) 06/29/22 05:27 Triglycerides 195 mg/dL (<150) H 06/27/22 05:15 Cholesterol 96 mg/dL (<200) 06/27/22 05:15 HDL Cholesterol 34 mg/dL (40-60) L 06/27/22 05:15 Cholesterol/HDL Ratio 2.82 06/27/22 05:15 Home Medications: Albuterol Inhaler [Ventolin Inhaler*] 2 puff IH Q6H PRN 06/27/22 Allopurinol 100 mg PO DAILY 06/27/22 Amlodipine [Norvasc*] 10 mg PO DAILY 06/27/22 Aspirin [Aspirin EC] 81 mg PO DAILY 06/27/22 Atorvastatin Calcium 40 mg PO BEDTIME 06/27/22 Cetirizine HCl 10 mg PO DAILY 06/27/22 Clopidogrel Bisulfate [Plavix*] 75 mg PO DAILY 06/27/22 Ferrous Sulfate [Ferrous Sulfate*] 325 mg PO DAILY 06/27/22 Finasteride [Proscar*] 5 mg PO DAILY 06/27/22 Fluticasone [Flonase 50MCG Nasal [place]*] 2 sprays NS DAILY 06/27/22 Furosemide [Lasix] 40 mg PO BID 06/27/22 Gabapentin 300 mg PO BID 06/27/22 Hydralazine HCl 100 mg PO TID 06/27/22 Levothyroxine [Synthroid*] 125 mcg PO [id number] 06/27/22 Lisinopril [Zestril] 20 mg PO DAILY 06/27/22 Potassium Chloride [Klor-Con M20] 20 meq PO DAILY 06/27/22 Quetiapine Fumarate [Seroquel] 50 mg PO BEDTIME 06/27/22 Quetiapine [Seroquel*] 25 mg PO BID PRN 06/27/22 Spironolactone [Aldactone*] 75 mg PO DAILY 06/27/22 Tamsulosin [Flomax*] 0.4 mg PO BEDTIME 06/27/22 Venlafaxine HCl 75 mg PO DAILY 06/27/22 carvediloL [Carvedilol] 6.25 mg PO BID 06/27/22 hydrOXYzine HCL [Atarax*] 25 mg PO TID 06/27/22 Codeine/APAP [Tylenol #3*] 1 tab PO Q4HP PRN #15 tab 07/01/22 levoFLOXacin [Levaquin] 750 mg PO Q48H #4 tab 07/01/22 New Medications: Codeine/APAP [Tylenol #3*] 1 tab PO Q4HP PRN #15 tab PRN Reason: Pain Scale 5-7 (Moderate) levoFLOXacin [Levaquin] 750 mg PO Q48H #4 tab Diet: ADA Activity: Ad aparna Followup: NONE,NONE [Primary Care Provider] - Kavin Mast MD [ACTIVE - CAN ADMIT] - (Next week Wednesday at [place] [facility]. Please call and confirm time of appointment. ) Time spent managing pt's care (in minutes): 37
[2022-07-01 18:14] VITALS: BP 128/72; TEMP 97.2
== END 2022-07-01 19:30 | disposition home or self-care (01) | DRG 574 ==
LOC: ER 15:58 → ERHOLD 20:37 → 4TH 22:56
PROVIDERS: ADMIT Internal Medicine Nephrology; ATTEND Internal Medicine
PROC: 0HRFX74 Replacement of Right Hand Skin with Autologous Tissue Substitute, Partial Thickness, External Approach (ICD-10-PCS; 2022-06-30)
PROC: 0JBK0ZZ Excision of Left Hand Subcutaneous Tissue and Fascia, Open Approach (ICD-10-PCS; 2022-06-30)
PROC: 0JBJ0ZZ Excision of Right Hand Subcutaneous Tissue and Fascia, Open Approach (ICD-10-PCS; 2022-06-30)
PROC: 0HRGX74 Replacement of Left Hand Skin with Autologous Tissue Substitute, Partial Thickness, External Approach (ICD-10-PCS; principal; 2022-06-30 09:00)
DX: L03.116 Cellulitis of left lower limb (principal); N18.4 Chronic kidney disease, stage 4 (severe); Z68.41 Body mass index [BMI] 40.0-44.9, adult; L03.012 Cellulitis of left finger; E66.9 Obesity, unspecified; I12.9 Hypertensive chronic kidney disease with stage 1 through stage 4 chronic kidney disease, or unspecified chronic kidney disease; E11.22 Type 2 diabetes mellitus with diabetic chronic kidney disease; E11.40 Type 2 diabetes mellitus with diabetic neuropathy, unspecified; D63.1 Anemia in chronic kidney disease; E03.9 Hypothyroidism, unspecified; E78.5 Hyperlipidemia, unspecified; M10.9 Gout, unspecified; E83.42 Hypomagnesemia; J44.9 Chronic obstructive pulmonary disease, unspecified; D63.8 Anemia in other chronic diseases classified elsewhere; I25.10 Atherosclerotic heart disease of native coronary artery without angina pectoris; I25.2 Old myocardial infarction; R32 Unspecified urinary incontinence; Z88.1 Allergy status to other antibiotic agents; Z88.8 Allergy status to other drugs, medicaments and biological substances; Z56.0 Unemployment, unspecified; Z86.73 Personal history of transient ischemic attack (TIA), and cerebral infarction without residual deficits; Z79.82 Long term (current) use of aspirin; Z79.02 Long term (current) use of antithrombotics/antiplatelets; Z79.890 Hormone replacement therapy; Z79.899 Other long term (current) drug therapy; Z89.022 Acquired absence of left finger(s); Z89.021 Acquired absence of right finger(s); Z20.822 Contact with and (suspected) exposure to COVID-19
CPT/HCPCS: 36415; 71045; 76770; 80048; 80061; 81001; 82947; 83605; 83735; 83880; 84100; 84132; 84145; 84484; 85025; 85027; 85610; 86140; 87040; 87811; 88304; 93970; 96365; 96375; 99285; J0692; J1644; J1815; J2001; J2405; J2704; J3010; J3475; J7030

== ENCOUNTER 2022-07-24 13:22 | Emergency (ER) | payer OTHER ==
--- OUTSIDE RECORDS SUMMARY | 2022-07-24 13:28 | XMS REPORT | Continuity of Care Document ---
:1970 Author Organization [facility] t Address [facility] [address] [place] [address] Care Team Providers Name Role Phone VICKEY AMATO Attending Clinician Unavailable TROY CASE Attending Clinician Unavailable Emeka Ashton MD Attending Clinician Armin MUNOZ, Henry Attending Clinician HENRY FUNEZ Attending Clinician Unavailable Navid Ledezma MD Attending Clinician Ashley MUNOZ, Mart Arango' Attending Clinician [phone] JEREMY BATISTA Attending Clinician Unavailable EMEKA ASHTON Admitting Clinician Unavailable Payers Payer Name Policy Type Policy Number Effective Date Expiration Date S mian SERGEI CASTRO PPO 5 [id number] 2022 00:00:00 SERGEI CASTRO PREMIER 7 [id number] 2022 00:00:00 HMO PLAN Problems Condition Condition Condition Status Onset Resolution Last Treating Co mments Source Name Details Category Date Date Treatment Clinician Date MSSA MSSA Disease Active [facility] bacteremia - Michelle kes 00:00: Medical 00 Center Diabetes Diabetes Disease Active [facility] mellitus mellitus [facility] Hypertensi Hypertensi Disease Active [facility] on on [facility] OCD OCD Disease Active Overview: [facility] (obsessive (obsessive Formattin kes compulsive compulsive g of this Medical disorder) disorder) note Cent er might be different from the original. Nail biting Neuropathy Neuropathy Disease Active [facility] Allergies, Adverse Reactions, Alerts Allergy Allergy Status Severity Reaction(s) Onset Inactive Treating Comm ents Source Name Type Date Date Clinician Clonidin Drug Active Patient [facility] dizzy Medical 00 with high Center dosages Lorazepa Drug Active Gets [facility] - [facility] 00:00: with high Medical 00 dosages Center Sulfa Drug Active Swells up [facility] (Sulfona Allergy 03-06 [facility] 00:00: Medical Antibiot 00 Center ics) Vancomyc Propensi Active [facility] in ty to 03-06 [facility] adverse 00:00: Medical reaction 00 Center s CLONIDIN Allergy Active [facility]19 [facility] 00:00: Medical 00 Center LORAZEPA Allergy [...] Date Stop Date Source Natural father Cancer [facility] Natural father Hyperlipidemia [facility] Natural mother Diabetes [facility] Natural mother Hyperlipidemia [facility] Social History Social Habit Start Date Stop Date Quantity Comments Source History SDOH [facility] Alcohol Frequency Medical Center History SDOH [facility] Alcohol Std Drinks Medica l Center History SDOH [facility] Alcohol Binge Medical Shamar ter History SDOH [facility] Transport Non-Med Medical Center History SDOH 2022-03-07 2022-03-[address] [facility] Transport Med 00:00:00 00:00:[address] History SDOH 2022-03-07 2022-03-[address] [facility] Housing Unable to 00:00:00 00:00:00 Medical Center Pay History SDOH 2022-03-07 2022-03-[address] [facility] Housing Places 00:00:00 00:00:00 Medical Ce nter Lived History SDOH 2022-03-07 2022-03-[address] [facility] Housing Homeless 00:00:00 00:00:00 Medical Center Last Year Tobacco use and 2022-03-06 2022-03-[address] [facility] exposure 00:00:00 00:00:00 Medical Center Alcohol intake 2022-03-06 2022-03-06 Current drinker [place] [facility] 00:[facility] 00:00:00 of alcohol Medical Center (finding) History SDOH 2022-03-06 2022-03-06 ocassionally. 1 [place] Alcohol Comment 00:00:00 00:00:00 beer every Medical C enter couple of months Sex Assigned At [birth year] M [place] [facility] 00:00:00 00:00:00 Medical Center Smoking Status Start Date Stop Date Source Current some day smoker 2022-03-06 00:00:00 [facility] Medications Ordered Filled Start Stop Current Ordering Indication Dosage Frequency Signature Comments Components Source Medication Medication Date Date Medication? Clinician (SIG) Name Name ceFAZolin 2021- No 1g Inject [address] (ANCEF) 1 g 8-13 04-28 intravenou L ukes in sodium 00:00: 23:59 sly every Me dical chloride 00 :00 8 (eight) Center 0.9 % (NS) hours for 100 mL 33 days. (V2B) IVPB ceFAZolin 2021- No 1g Inject [address] (ANCEF) 1 g 8-13 04-28 intravenou L ukes in sodium 00:00: 23:59 sly every Me dical chloride 00 :00 8 (eight) Center 0.9 % (NS) hours for 100 mL 33 days. (V2B) IVPB ceFAZolin 2021- No 1g Inject [address] (ANCEF) 1 g 8-13 04-28 intravenou L ukes in sodium 00:00: 23:59 [...] MG 16:51: mouth Medical tablet 08 daily. [place] amLODIPine Yes 10mg QD Take [address] (NORVASC) 8-25 by mouth [facility] 10 MG 16:51: daily. Medical tablet 08 [place] aspirin 81 Yes 81mg QD Take [address] MG EC 8-25 by mouth [facility] tablet 16:51: daily. Medical [address] [place] [address] cetirizine Yes 10mg QD Take [address] (ZyrTEC) 10 8-25 by mouth Luke s MG tablet 16:51: daily. Medica l [address] [place] [address] clopidogreL Yes 75mg QD Take [address] (PLAVIX) 75 8-25 by mouth Luke s mg tablet 16:51: daily. Medica l [address] [place] [address] ferrous Yes 325mg Take 325 [facility] sulfate 325 8-25 mg by [facility] (65 FE) MG 16:51: mouth Medica l tablet 08 daily with Center breakfast. finasteride Yes 5mg QD Take [address] (PROSCAR) 5 8-25 by mouth Luke s mg tablet 16:51: daily. Medica [address] fluticasone Yes 1{spray QD [address] propionate 8-25 } Nasal [facility]ukes (FLONASE) 16:51: route Medical 50 08 daily. Center mcg/actuati on nasal spray furosemide Yes 40mg QD Take [address] (LASIX) 40 8-25 by mouth [facility]ukes MG tablet 16:51: daily. Medica l [address] [place] [address] gabapentin Yes 300mg Q.5D Take [address] (NEURONTIN) 8-25 mg by [facility]ukes 300 MG 16:51: mouth 2 Medical capsule 08 (two) Center times daily. hydrOXYzine Yes 25mg Take [address] (ATARAX) 25 8-25 by mouth 3 Michelle kes MG tablet 16:51: (three) Medic al 08 times Center daily as needed for Itching. levothyroxi 0 Yes 125ug Take [address] ne 8-25 mcg by [facility]ukes (SYNTHROID, 16:51: mouth Medic al LEVOTHROID) 08 Every Center 125 MCG morning on tablet an empty stomach. nitroglycer [address] 0[address] in 8-25 mg under [facility]ukes (NITROSTAT) 16:51: the tongue Medical 0.4 MG SL 08 every 5 Center tablet (five) minutes as needed for Chest pain Put 1 pill under tongue every 5min as needed for chest pain.No more than 3 doses in 15min.Call 911 if pain unrelieved 5min after 1st dose . ondansetron 0 Yes 4mg Take 4 mg C HI [...] kyle 25 MG 08 Center tablet tamsulosin 0 Yes .4mg QD Take 0.[address] (FLOMAX) 8-25 mg by [facility]ukes 0.4 mg Cap 16:51: mouth Medica l 24 hr 08 daily. Center capsule acetaminoph 0 Yes 650mg Take [address] en 8-25 mg by [facility]ukes (TYLENOL) 16:51: mouth Medical 325 MG 08 every 6 Center tablet (six) hours as needed for Pain. venlafaxine 2021-0 Yes 75mg QD Take [address] (EFFEXOR) 8-25 by mouth [facility]ukes 75 MG 16:51: daily. Medical tablet 08 Center albuterol 2022-0 Yes 2{puff} Inhale [address] HFA 8-25 puffs by [facility]ukes (VENTOLIN 16:51: mouth via Med ical HFA) 90 08 inhaler Center mcg/actuati every 4 on inhaler (four) hours as needed for Wheezing. allopurinoL Yes 100mg QD Take [address] (ZYLOPRIM) 8-25 mg by Lukes 100 MG 16:51: mouth Medical tablet 08 daily. [place] amLODIPine Yes 10mg QD Take [address] (NORVASC) 8-25 by mouth [facility]ukes 10 MG 16:51: daily. Medical tablet 08 [place] aspirin 81 Yes 81mg QD Take [address] MG EC 8-25 by mouth [facility]ukes tablet 16:51: daily. [address] cetirizine Yes 10mg QD Take [address] (ZyrTEC) 10 8-25 by mouth Luke s MG tablet 16:51: daily. Medica [address] clopidogreL Yes 75mg QD Take [address] (PLAVIX) 75 8-25 by mouth Luke s mg tablet 16:51: daily. Medica l [address] [place] [address] ferrous Yes 325mg Take 325 [facility] sulfate 325 8-25 mg by Lukes (65 FE) MG 16:51: mouth Medica l tablet 08 daily with Center breakfast. finasteride Yes 5mg QD Take [address] (PROSCAR) 5 8-25 by mouth Luke s mg tablet 16:51: daily. Medica [address] fluticasone Yes 1{spray QD [address] propionate 8-25 } Nasal Lukes (FLONASE) 16:51: route Medical 50 08 daily. Center mcg/actuati on nasal spray furosemide Yes 40mg QD Take [address] (LASIX) 40 8-25 by mouth Lukes MG tablet 16:51: daily. Medica l [address] [place] [address] gabapentin Yes 300mg Q.5D Take [address] (NEURONTIN) 8-25 mg by Lukes 300 MG 16:51: mouth 2 Medical capsule 08 (two) Center times daily. hydrOXYzine Yes 25mg Take [address] (ATARAX) 25 8-25 by mouth 3 Michelle kes MG tablet 16:51: (three) Medic al 08 times Center daily as needed for Itching. levothyroxi 2021-0 Yes 125ug Take [address] ne 8-25 mcg by Lukes (SYNTHROID, 16:51: mouth Medic al LEVOTHROID) 08 Every Center 125 MCG morning on tablet an empty stomach. nitroglycer [address] 0[address] in 8-25 mg under [facility]ukes (NITROSTAT) 16:51: the tongue Medical 0.4 MG SL 08 every 5 Center tablet (five) minutes as needed for Chest pain Put 1 pill under tongue every 5min as needed for chest pain.No more than 3 doses in 15min.Call 911 if pain unrelieved 5min after 1st dose . ondansetron 0 Yes 4mg Take [address] (ZOFRAN-ODT 8-25 by mouth Luke s ) 4 MG 16:51: every 8 Medical disintegrat 08 (eight) Cente r ing tablet hours as needed for Nausea. QUEtiapine 2021-0 Yes 25mg Q.5D Take 25 mg C [...] kyle 25 MG 08 Center tablet tamsulosin 0 Yes .4mg QD Take 0.[address] (FLOMAX) 8-25 mg by Lukes 0.4 mg Cap 16:51: mouth Medica l 24 hr 08 daily. Center capsule acetaminoph 2021-0 Yes 650mg Take [address] en 8-25 mg by Lukes (TYLENOL) 16:51: mouth Medical 325 MG 08 every 6 Center tablet (six) hours as needed for Pain. venlafaxine 2021-0 Yes 75mg QD Take [address] (EFFEXOR) 8-25 by mouth Lukes 75 MG 16:51: daily. Medical tablet 08 [place] albuterol Yes 2{puff} Inhale [address] HFA 8-25 puffs by Lukes (VENTOLIN 16:51: mouth via Med ical HFA) 90 08 inhaler Center mcg/actuati every 4 on inhaler (four) hours as needed for Wheezing. allopurinoL Yes 100mg QD Take [address] (ZYLOPRIM) 8-25 mg by Lukes 100 MG 16:51: mouth Medical tablet 08 daily. [place] amLODIPine Yes 10mg QD Take [address] (NORVASC) 8-25 by mouth Lukes 10 MG 16:51: daily. Medical tablet [address] [place] [address] aspirin 81 Yes 81mg QD Take [address] MG EC 8-25 by mouth Lukes tablet 16:51: daily. Medical [address] [place] [address] cetirizine Yes 10mg QD Take [address] (ZyrTEC) 10 8-25 by mouth Luke s MG tablet 16:51: daily. Medica [address] clopidogreL Yes 75mg QD Take [address] (PLAVIX) 75 8-25 by mouth Luke s mg tablet 16:51: daily. Medica l [address] [place] [address] ferrous Yes 325mg Take 325 [facility] sulfate 325 8-25 mg by Lukes (65 FE) MG 16:51: mouth Medica l tablet 08 daily with Center breakfast. finasteride Yes 5mg QD Take [address] (PROSCAR) 5 8-25 by mouth Luke s mg tablet 16:51: daily. Medica l [address] [place] [address] fluticasone Yes 1{spray QD [address] propionate 8-25 } Nasal Lukes (FLONASE) 16:51: route Medical 50 08 daily. [place] mcg/actuati on nasal spray furosemide Yes 40mg QD Take [address] (LASIX) 40 8-25 by mouth Lukes MG tablet 16:51: daily. Medica l [address] [place] [address] gabapentin Yes 300mg Q.5D Take [address] (NEURONTIN) 8-25 mg by Lukes 300 MG 16:51: mouth 2 Medical capsule 08 (two) Center times daily. hydrOXYzine 2022-0 Yes 25mg Take [address] (ATARAX) 25 8-25 by mouth 3 Michelle kes MG tablet 16:51: (three) Medic al 08 times Center daily as needed for Itching. levothyroxi 2021-0 Yes 125ug Take [address] ne 8-25 mcg by Lukes (SYNTHROID, 16:51: mouth Medic al LEVOTHROID) 08 Every Center 125 MCG morning on tablet an empty stomach. nitroglycer [address] 0[address] in 8-25 mg under Lukes (NITROSTAT) 16:51: the tongue Medical 0.4 MG SL 08 every 5 Center tablet (five) minutes as needed for Chest pain Put 1 pill under tongue every 5min as needed for chest pain.No more than 3 doses in 15min.Call 911 if pain unrelieved 5min after 1st dose . ondansetron 0 Yes 4mg Take 4 mg C HI [...] times Center daily As needed . QUEtiapine 2021-0 Yes 50mg QD Take [address] (SEROquel) 8-25 by mouth Lukes 50 MG 16:51: nightly. Medical tablet 08 Center spironolact 2021-0 Yes 75mg QD Take [address] one 8-25 by mouth Lukes (ALDACTONE) 16:51: daily. Medi kyle 25 MG 08 Center tablet tamsulosin 2021-0 Yes .4mg QD Take 0.[address] (FLOMAX) 8-25 mg by Lukes 0.4 mg Cap 16:51: mouth Medica l 24 hr 08 daily. Center capsule acetaminoph 2021-0 Yes 650mg Take [address] en 8-25 mg by Lukes (TYLENOL) 16:51: mouth Medical 325 MG 08 every 6 Center tablet (six) hours as needed for Pain. venlafaxine 2021-0 Yes 75mg QD Take [address] (EFFEXOR) 8-25 by mouth Lukes 75 MG 16:51: daily. Medical tablet 08 [place] furosemide 2021- No 20mg QD Take [address] (LASIX) 20 8- 08-25 by mouth Luke s MG tablet 15:12: 00:00 daily At [facility] 34 :00 noon . [place] lisinopriL 2021- No 10mg QD Take [address] (PRINIVIL,Z 8-12 03-25 by mouth Naseem es ESTRIL) 10 15:12: [...] Take [address] (LASIX) 20 8-12 03-25 by mouth Luke s MG tablet 15:12: 00:00 daily At [facility] 34 :00 noon . [place] lisinopriL 2021- No 10mg QD Take [address] (PRINIVIL,Z 8-12 03-25 by mouth Naseem es ESTRIL) 10 15:12: 00:00 daily. Medi kyle MG tablet 34 :00 Center loperamide 2021- No 2mg Take [address] (IMODIUM) 2 8- 08-25 by mouth 4 L ukes mg [...] Take [address] (LASIX) 20 03-1225 by mouth Luke s MG tablet 15:12: 00:00 daily At [facility] ica 34 :00 noon . Center lisinopriL 10mg QD Take [address] (PRINIVIL,Z 03-12 by mouth Naseem es ESTRIL) 10 15:12: 00:00 daily. Medi kyle MG tablet 34 :00 Center loperamide 2mg Take [address] (IMODIUM) 2 03-12 by mouth 4 L ukes mg capsule 15:12: 00:00 (four) Medi kyle 34 :00 times Center daily as needed for Diarrhea. metFORMIN 500mg Take [address] (GLUCOPHAGE 03-12-25 mg by Lukes ) 500 MG 15:12: 00:00 mouth 2 Medic al tablet 34 :00 (two) Center times daily with breakfast and dinner. atorvastati 2022- No 40mg QD Take [address] n (LIPITOR) 03-12-25 tablet (40 L ukes 40 MG 00:00: 23:59 mg total) Medica l tablet 00 :00 by mouth Center nightly. hydrALAZINE No 100mg Take [address] (APRESOLINE 03-12 08-25 tablet Lukes ) 100 MG 00:00: 23:59 (100 mg Medic al tablet 00 :00 total) by Center mouth every 8 (eight) hours. glipiZIDE No 5mg QD Take 1 [facility] (GLUCOTROL 03-12-25 tablet (5 Naseem es XL) 5 MG 24 00:00: 23:59 mg total) Medical hr tablet 00 :00 by mouth Center daily. atorvastati 2022- No 40mg QD Take [address] n (LIPITOR) 8- 08-25 tablet (40 L ukes 40 MG 00:00: [...] QD Take 1 [facility] (GLUCOTROL 03-12-25 tablet (5 Naseem es XL) 5 MG 24 00:00: 23:59 mg total) Medical hr tablet 00 :00 by mouth Center daily. atorvastati 2022- No 40mg QD Take [address] n (LIPITOR) 03-12-25 tablet (40 L ukes 40 MG 00:00: 23:59 mg total) Medica l tablet 00 :00 by mouth Center nightly. hydrALAZINE 2022- No 100mg Take [address] (APRESOLINE 03-12- tablet [facility]ukes ) 100 MG 00:00: 23:59 (100 mg Medic al tablet 00 :00 total) by Center mouth every 8 (eight) hours. glipiZIDE 2022- No 5mg QD Take 1 [facility] (GLUCOTROL 03-12-25 tablet (5 Naseem es XL) 5 MG 24 00:00: 23:59 mg total) Medical hr tablet 00 :00 by mouth Center daily. carvediloL 2021- No 6.25mg Q.5D Take [address] (COREG) 03-12 tablet Lukes 6.25 MG 00:00: 23:59 (6.25 mg Medic al tablet 00 :00 total) by Center mouth 2 (two) times daily for 30 days. carvediloL 2021-2021- No 6.25mg Q.5D Take [address] (COREG) 03-12- tablet [facility]ukes 6.25 MG 00:00: 23:59 (6.25 mg Medic al tablet 00 :00 total) by Center mouth 2 (two) times daily for 30 days. carvediloL 2021- No 6.25mg Q.5D Take [address] (COREG) 03-12-24 tablet [facility]ukes 6.25 MG 00:00: 23:59 (6.25 mg Medic al tablet 00 :00 total) by Center mouth 2 (two) times daily for 30 days. ceFAZolin 1g Inject [address] (ANCEF) 1 g 03-12- intravenou L ukes in sodium 00:00: 00:00 sly every Me dical chloride 00 :00 8 (eight) Center 0.9 % (NS) hours for 100 mL 10 days. (V2B) IVPB ceFAZolin 1g Inject [address] (ANCEF) 1 g 03-12- intravenou L ukes in sodium 00:00: 00:00 sly every Me dical chloride 00 :00 8 (eight) Center 0.9 % (NS) hours for 100 mL 10 days. (V2B) IVPB ceFAZolin 1g Inject 1 g C HI [...] kg Systolic blood 2022-03-12 16:00:00 116 mm[Hg] [facility] Diastolic blood 2022-03-12 16:00:00 63 mm[Hg] [facility] Heart rate 2022-03-12 16:00:00 87 /min [facility] Body temperature 2022-03-12 16:00:00 36.28 B[place]y [facility] Respiratory rate 2022-03-12 16:00:00 18 /min [facility] Oxygen saturation in 2022-03-12 16:00:00 99 /min [facility] Arterial blood by Medical Ce nter Pulse oximetry Body height 2022-03-06 21:50:00 170.2 cm [facility] Body weight 2022-03-06 21:50:00 120.657 kg [facility] BMI 2022-03-06 21:50:00 41.66 kg/m2 [facility] Procedures Procedure Date / Time Performing Clinician Source Performed POCT-GLUCOSE METER 2022-03-12 15:24:00 Armin [facility] POCT-GLUCOSE METER 2022-03-12 11:19[facility]UCOSE METER 2022-03-12 06:41:00 Armin [facility] CBC W/PLT COUNT & AUTO 2022-03-12 05:47:00 Emeka Ashton [facility] BASIC METABOLIC PANEL 2022-03-12 05:47:00 Emeka Ashton [facility] MAGNESIUM 2022-03-12 05:47:00 Emeka Ashton [facility] CBC W/PLT COUNT & AUTO 2022-03-12 05:47:00 Emeka Ashton [facility] POCT-GLUCOSE METER 2022-03-11 21:10:00 Armin [facility] POCT-GLUCOSE METER 2022-03-11 17:07:00 Armin [facility] POCT-GLUCOSE METER 2022-03-11 12:19:00 Armin [facility] POCT-GLUCOSE METER 2022-03-11 06:51:00 Emeka Ashton [facility] CBC W/PLT COUNT & AUTO 2022-03-11 05:19:00 Emeka Ashton [facility] BASIC METABOLIC PANEL 2022-03-11 05:19:00 Emeka Ashton [facility] MAGNESIUM 2022-03-11 05:19:00 Emeka Ashton [facility] CBC W/PLT COUNT & AUTO 2022-03-11 05:19:00 Emeka Ashton [facility] POCT-GLUCOSE METER 2022-03-10 21:32:00 Emeka Ashton [facility] POCT-GLUCOSE METER 2022-03-10 16:27:00 Riley Emeka C [facility] POCT-GLUCOSE METER 2022-03-10 11:19:00 Emeka Ashton [facility] POCT-GLUCOSE METER 2022-03-10 07:04:00 Emeka Ashton [facility] POCT-GLUCOSE METER 2022-03-09 21:12:00 Riley Emeka Nando [facility] POCT-GLUCOSE METER 2022-03-09 15:58:00 Riley Emeka C [facility] IR TUNNELED CATHETER 2022-03-09 14:05:00 Riley Emeka [facility] ECG 12-LEAD 2022-03-09 12:56:53 Unknown, H[facility]7 [facility] ECG 12-LEAD 2022-03-09 12:56:53 Unknown, H[facility] TRANSESOPHAGEAL ECHO 2022-03-09 11:09:12 Miguel [facility] COLOR-FLOW MAPPING 2022-03-09 07:32:46 Miguel [facility] CONT WAVE PULSED DOPPLER 2022-03-09 07:32:46 Miguel [facility] POCT-GLUCOSE METER 2022-03-09 06:56:00 Emeka Ashton [facility] CBC W/PLT COUNT & AUTO 2022-03-09 05:51:00 Emeka Ashton [facility] BASIC METABOLIC PANEL 2022-03-09 05:51:00 Emeka Ashton [facility] MAGNESIUM 2022-03-09 05:51:00 Riley Emeka [facility] PROTHROMBIN TIME/INR 2022-03-09 05:51:00 [facility] APTT 2022-03-09 05:51:00 Riley Emeka C [facility] CBC W/PLT COUNT & AUTO 2022-03-09 05:51:00 Riley Emeka C [facility] POCT-GLUCOSE METER 2022-03-08 20:44:00 Emeka Ashton N[place] [facility] POCT-GLUCOSE METER 2022-03-08 15:44:00 Emeka Ashton Nando [facility] POCT-GLUCOSE METER 2022-03-08 11:40:00 Emeka Ashton Nando [facility] POCT-GLUCOSE METER 2022-03-08 06:22:00 [facility] CBC W/PLT COUNT & AUTO 2022-03-08 05:01:00 CherieradhaEmeka [facility] BASIC METABOLIC PANEL 2022-03-08 05:01:00 Emeka Ashton [facility] MAGNESIUM 2022-03-08 05:01:00 Emeka Ashton [facility] CBC W/PLT COUNT & AUTO 2022-03-08 05:01:00 CherieradhaEmeka [facility] POCT-GLUCOSE METER 2022-03-07 20:41:00 [facility] POCT-GLUCOSE METER 2022-03-07 15:53:00 Riley Emeka C [facility] CBC W/PLT COUNT & AUTO 2022-03-07 05:59:00 [facility] BASIC METABOLIC PANEL 2022-03-07 05:59:00 Emeka Ashton [facility] MAGNESIUM 2022-03-07 05:59:00 [facility] PROTHROMBIN TIME/INR 2022-03-07 05:59:00 [facility] PHOSPHORUS 2022-03-07 05:59:00 Marialuisa Goff [facility] CBC W/PLT COUNT & AUTO 2022-03-07 05:59:00 [facility] APTT 2022-03-06 21:42:00 Emeka Ashton [facility] [place] [facility] CARDIAC CATH REPORT - SCAN 2022-03-06 00:00:[address] [facility] EKG-SCANNED 2022-03-06 00:00:00 ProviderDaniela [facility] Plan of Care Planned Activity Planned Date Details Comments Source Future Scheduled 2022-07-[address] [facility] Test 00:00:00 (12+) [code = Medical Center DEPRESSION SCREENING (12+)] Future Scheduled 2022-03-19 INFLUENZA VACCINE (#1) C [...] St Michelle kes Test 00:00:00 measurement (procedure) [facility] [code = [id number]] Future Scheduled 2022-03-[address] [facility] Test 00:00:00 measurement (procedure) [facility] [code = [id number]] Future Scheduled 2022-03-[address] [facility] kes Test 00:00:00 measurement (procedure) [facility] [code = [id number]] Future Scheduled 2021-10-17 Medicare IPPE (WELCOME C [...] [facility] Test 00:00:00 [code = [id number]] Medical Ce nter Future Scheduled 2005 Lipid panel (procedure) [facility] Test 00:00:00 [code = [id number]] Medical Ce nter Future Scheduled 2005 Lipid panel (procedure) [facility] Test 00:00:00 [code = [id number]] Medical Ce nter Future Scheduled 1989 DTAP/TDAP/TD [...] Cessation Counseling and Screening (12+)] Future Scheduled [address] [facility] Test 00:00:00 Counseling and Medical Cente r Screening (12+) [code = Tobacco Cessation Counseling and Screening (12+)] Future Scheduled 1980 DIABETIC EYE EXAM [code [facility] Test 00:00:00 = DIABETIC EYE EXAM] Medical Center Future Scheduled [address] [facility]em es Test 00:00:00 examination Medical Center (regime/therapy) [code = 465562247] Future Scheduled 1980 Urine screening for [facility] Test 00:00:00 protein (procedure) Medical Center [code = [id number]] Future Scheduled 1980 DIABETIC EYE EXAM [code [facility] Test 00:00:00 = DIABETIC EYE EXAM] Medical Center Future Scheduled [address] [facility] Test 00:00:00 examination Medical Center (regime/therapy) [code = [id number]] Future Scheduled 1980 Urine screening for [facility] Test 00:00:00 protein (procedure) Medical Center [code = [id number]] Future Scheduled 1980 DIABETIC EYE EXAM [code [facility] Test 00:00:00 = DIABETIC EYE EXAM] Medical Center Future Scheduled [address] [facility] Test 00:00:00 examination Medical Center (regime/therapy) [code = [id number]] Future Scheduled 1980 Urine screening for [facility] Test 00:00:00 protein (procedure) Medical Center [code = [id number]] Future Scheduled [address] [...] Lukes Test 00:00:00 [code = CT Colonography [facility] [facility] (combo)] Future Scheduled [address] Screening for malignant [facility] 00:00:00 neoplasm of colon Medical Ce nter (procedure) [code = 866591094] Future Scheduled 1970 Screening for malignant [facility] Test 00:00:00 neoplasm of colon Medical Ce nter (procedure) [code = 825721435] Future Scheduled 1970 Screening for malignant [facility] Test 00:00:00 neoplasm of colon Medical Ce nter (procedure) [code = 001283500] Future Scheduled 1970 Screening for malignant [facility] 00:00:00 neoplasm of colon Medical Ce nter (procedure) [code = 634328169] Future Scheduled 1970 Sigmoidoscopy [facility]code = [facility]] Medical Cent[facility] Future Scheduled 1970 CT Colonography (combo) [facility] 00:00:00 [code = CT [facility] Future Scheduled 1970 Screening for malignant [facility] Test 00:00:00 neoplasm of colon Medical Ce nter (procedure) [code = 024806921] Future Scheduled 1970 Screening for malignant [facility] Test 00:00:00 neoplasm of colon Medical Ce nter (procedure) [code = 103285570] Future Scheduled 1970 Screening for malignant [facility] Test 00:00:00 neoplasm of colon Medical Ce nter (procedure) [code = 091809580] Future Scheduled 1970 Screening for malignant [facility] Test 00:00:00 neoplasm of colon Medical Ce nter (procedure) [code = 008159250] Future Scheduled 1970 Sigmoidoscopy [facility]code = [facility]] Medical Cente r Future Scheduled 1970 CT Colonography (combo) [facility] Test 00:00:00 [code = CT Colonography [facility] (combo)] Future Scheduled 1970 Screening for malignant [facility] Test 00:00:00 neoplasm of colon Medical Ce nter (procedure) [code = 865473536] Future Scheduled 1970 Screening for malignant [facility] Test 00:00:00 neoplasm of colon Medical Ce nter (procedure) [code = 076461894] Future Scheduled 1970 Screening for malignant [facility] Test 00:00:00 neoplasm of colon Medical Ce nter (procedure) [code = 612812112] Future Scheduled 1970 Screening for malignant [facility] Test 00:00:00 neoplasm of colon Medical Ce nter (procedure) [code = 405717312] Future Scheduled 1970 Sigmoidoscopy [facility]code [facility]oscopy] Medical Cente r Encounters Start End Encounter Admission Attending Care Care Encounter Source Date/Time Date/Time Type Type Clinicians Facility Department ID 2022-07-03 2022-07-03 Outpatient JANNETTE AMATO [id number] Jannette 00:00:00 00:00:00 VICKEY aviles 2022-06-30 2022-06-30 Outpatient TROY CASE [id number] Jannette 00:00:00 00:00:00 Seybol d 2022-03-06 2022-03-12 [facility] Emeka Ashton [facility] [id number] 17[facility]47:00 16:51:00 Encounter Henry Funez [facility] 2022-03-06 2022-03-12 [facility] Emeka Ashton [facility] [id number] [facility] 17[facility]47[facility] 16:51:00 Encounter Armin, [facility] 2022-03-06 2022-03-12 Inpatient UR ARMIN, [facility] Surgery [id number] [facility] 17:47:00 16:51:00 HENRY 2022-03-09 2022-03-09 Anesthesia Ledezma Navid [facility] [id number] [facility] 11:33:00 12:07:00 Event [facility] 2022-03-09 2022-03-09 Anesthesia LedezmaNavid warren [facility] [id number] [facility] 11:33:00 12:07:00 Event [facility] 2022-03-09 2022-03-09 [facility] [id number] 11:00:00 11:36:00 [facility] [place] 2022-03-09 2022-03-09 [facility] [id number] 11:00:00 11:36:00 [facility] 2022-03-06 2022-03-06 Travel [facility] [id number] [facility] 00:[facility]:00 [facility] 2022-03-06 2022-03-06 Travel [facility] [id number] [facility] 00:[facility] 00:[facility]:00 [facility] 2022-03-03 2022-03-03 Outpatient JANNETTE BATISTA [id number] [place] 10:00:00 10:00:00 JEREMY Setrinyol d 2022-03-03 2022-03-03 Outpatient JANNETTE BATISTA [id number] [place] 10:00:00 10:00:00 JEREMY Seybol d Results Test Description Test Time Test Comments Results Result Comments Source POC-Glucose meter 2022-03-12 15:36:24 Test Item Value Reference Range Interpretation [facility] POC-Glucose Meter (test code = 241 mg/dL 70-110 H : TESTED AT [place] [address]) [place] [address]358: Steel Placer/Techni narciso ID = [id number] for Baljit Bethany ee Lab Interpretation (test code = Abnormal 12623-1) [facility] [id number] 15:36:24 Test Item Value Reference Range Interpretation Comments POC-Glucose Meter (test 241 mg/dL 70-110 H : TE STED AT [facility] code = 1538) [address] [place] [address]: Steel Placer/Techni narciso ID = [id number] for Baljit Bethany ee Lab Interpretation (test Abnormal code = 21962-6) [facility]-Glucose [id number] 15:36:24 Test Item Value Reference Range Interpretation Comments POC-Glucose Meter (test 241 mg/dL 70-110 H : TE STED AT [facility] code = 1538) [address] [place] [address]: Steel Placer/Techni narciso ID = [id number] for Baljit Bethany ee Lab Interpretation (test Abnormal code = 76819-3) [facility] [id number] 15:36:24 Test Item Value Reference Range Interpretation Comments POC-GLUCOSE METER 241 mg/dL 70-110 H : TESTED A T [facility] [address]17 (BEAKER) (test code [address] [facility], = 1538) [place] [address]: Steel Placer/Techni narciso ID = [id number] for Will iams, Shyanne POCT-GLUCOSE [id number] 11:31:00 Test Item Value Reference Range Interpretation Comments POC-GLUCOSE METER 196 mg/dL 70-110 H : TESTED A T [facility] [address] (BEAKER) (test code [address] [facility], = 1538) [place] [address]: Steel [employer]acer/Techni narciso ID = [id number] for Will iams, Shyanne POCT-GLUCOSE [id number] 06:53:14 Test Item Value Reference Range Interpretation Comments POC-GLUCOSE METER 153 mg/dL 70-110 H : TESTED A T [facility] [address] (BEAKER) (test code [address] [facility], = 1538) [place] [address]: Steel Placer/Techni narciso ID = [id number] for Manuela Real [id number] 06:19:33 Test Item Value Reference Range Interpretation Comments MAGNESIUM (BEAKER) (test code = 1.7 mg/dL 1.5-3.0 627) [employer] ID - DSENSONOperator ID - DSENSONOperator ID - DSENSONOperator ID - DSENSONBASIC METABOLIC [id number] 06:18:13 Test Item Value Reference Range Interpretation [...] not appl icable for dialysis patien ts [employer] ID - DSENSONOperator ID - DSENSONOperator ID [...] PERCENT (BEAKER) (test code = 2801) POCT-GLUCOSE [id number] 21:21:14 Test Item Value Reference Range Interpretation Comments POC-GLUCOSE METER 229 mg/dL 70-110 H : TESTED A T [facility] [address] (BEAKER) (test code [address], = 1538) [place] [address]: Steel Placer/Techni narciso ID = [id number] for Manuela Real POCT-GLUCOSE [id number] 17:19:11 Test Item Value Reference Range Interpretation Comments POC-GLUCOSE METER 222 mg/dL 70-110 H : TESTED A T [facility] [address] (BEAKER) (test code [address], = 1538) [place] [address]: Steel Placer/Techni narciso ID = [id number] for Will iams, Shyanne POCT-GLUCOSE [id number] 12:31:07 Test Item Value Reference Range Interpretation Comments POC-GLUCOSE METER 202 mg/dL 70-110 H : TESTED A T [facility] [address] (BEAKER) ([facility] [place] [address]: Steel Placer/Techni narciso ID = [id number] for Will iams, Shyanne POCT-GLUCOSE [id number] 07:02:52 Test Item Value Reference Range Interpretation Comments POC-GLUCOSE METER 147 mg/dL 70-110 H : TESTED A T [facility] [address] (BEAKER) (test code [address], = 1538) [place] [address]: Steel Placer/Techni narciso ID = [id number] for Manuela Real [id number] 05:56:17 Test Item Value Reference Range Interpretation Comments MAGNESIUM (BEAKER) (test code = 1.9 mg/dL 1.5-3.0 627) [employer] ID - LITOOperator ID - LITOOperator ID - LITOOperator ID - LITOBASIC METABOLIC [id number] 05:54:55 Test Item Value Reference Range Interpretation [...] not appl icable for dialysis patien ts [employer] ID - LITOOperator ID - LITOOperator ID - LITOOperator ID - LITOOperator ID - LITOOperator ID - LITOOperator ID - LITOOperator ID - LITOOperator ID - LITOCBC W/PLT COUNT & AUTO [id number] 05:38:49 Test Item Value Reference Range Interpretation [...] PERCENT (BEAKER) (test code = 2801) POCT-GLUCOSE [id number] 21:43:46 Test Item Value Reference Range Interpretation Comments POC-GLUCOSE METER 236 mg/dL 70-110 H : TESTED A T [facility] [address] (BEAKER) (test code [address], = 1538) [place] [address]: Steel Placer/Techni nacriso ID = [id number] for Justin dante Manuela POCT-GLUCOSE [id number] 16:44:29 Test Item Value Reference Range Interpretation Comments POC-GLUCOSE METER 158 mg/dL 70-110 H : TESTED A T [facility] [address] (BEAKER) (test code [address], = 1538) [place] [address]: Steel Placer/Techni narciso ID = [id number] for Anamaria Tanner POCT-GLUCOSE [id number] 11:53:34 Test Item Value Reference Range Interpretation Comments POC-GLUCOSE METER 232 mg/dL 70-110 H : TESTED A T [facility] [address] (BEAKER) (test code [address], = 1538) [place] [address]: Steel Placer/Techni narciso ID = [id number] for Anamaria Tanner POCT-GLUCOSE [id number] 07:16:21 Test Item Value Reference Range Interpretation Comments POC-GLUCOSE METER 159 mg/dL 70-110 H : TESTED A T [facility] [address] (BEAKER) (test code [address], = 1538) [place] [address]: Steel Placer/Techni narciso ID = [id number] for Lala n, Debby POCT-GLUCOSE [id number] 21:25:29 Test Item Value Reference Range Interpretation Comments POC-GLUCOSE METER 151 mg/dL 70-110 H : TESTED A T [facility] [address] (BEAKER) (test code [address], = 1538) [place] [address]: Steel Placer/Techni narciso ID = [id number] for Brow n, Debby POCT-GLUCOSE [id number] 16:24:12 Test Item Value Reference Range Interpretation Comments POC-GLUCOSE METER 181 mg/dL 70-110 H : TESTED A T [facility] [address] (BEAKER) (test code [address], = 1538) [place] [address]: Steel Placer/Techni narciso ID = [id number] for Anamaria Tanner Transesophageal [id number] 15:43:50Ejection FractionSLEH ECHO HEARTLAB [facility]CK[facility]ON [facility] [id number] 15:43:50Ejection FractionSLEH ECHO HEARTLAB MKCKESSON [facility] [id number] 15:43:50Ejection FractionSLEH ECHO HEARTLAB MKCKESSON [facility], TUNNELED CATHETER INSERTION 2022-03-09 14:32:00Reason for Central Line/PICC?->> 21 days of IV infusionReason for exam:->MSSA Bacteremia/Osteomyelitis requiring long-term IV antibiotics. CKD Stage 3 patient. Nephrology recommended tunneled [facility] NULL : 1970 Sex: MFINAL REPORT PROCEDURE: Tunneled Central Venous Catheter Placement CLINICAL HISTORY: MSSA Bacteremia/Osteomyelitis requiring long-term IV antibiotics. CKD Stage 3 patient. Nephrology recommended tunneled lined instead of PICC CAMPAIGN MANAGEMENT SPECIALIST: Mike Lord M.D. ANESTHESIA: Conscious sedation was provided by radiology nursing using constant hemodynamic monitoring for 30 minutes. Versed IV 0.5 mg, Fentanyl IV 25 mcg. DEVICE: Dual-lumen 6 Lebanese catheter DOSE INFORMATION - Ka,r: 38 mGyFluoroscopy [...] Lord MDReport Verified Date/Time: 03/09/2022 14:32:48Reading Location: [facility] Radiology Reading Room POCT-GLUCOSE [id number] 07:07:43 Test Item Value Reference Range Interpretation Comments POC-GLUCOSE METER 143 mg/dL 70-110 H : TESTED A T [facility] 1317 (BEAKER) (test code [facility] [address], = 1538) [facility] 77 [address]: Steel Placer/Techni narciso ID = [id number] for Aurora Love [id number] 06:24:21 Test Item Value Reference Range Interpretation Comments MAGNESIUM (BEAKER) (test code = 1.8 mg/dL 1.5-3.0 627) [employer] ID - LITOOperator ID - LITOOperator ID - LITOOperator ID - LITOBASIC METABOLIC [id number] 06:23:18 Test Item Value Reference Range Interpretation [...] not appl icable for dialysis patien ts [employer]acer ID - LITOOperator ID - LITOOperator ID - LITOOperator ID - LITOOperator ID - LITOOperator ID - LITOOperator ID - LITOOperator ID - LITOOperator ID - LITOPROTHROMBIN TIME/[id number] 06:17:39 Test Item Value Reference Range Interpretation Comments PROTIME (BEAKER) 10.9 seconds 9.3-12.0 Final Infor mation (test code = 759) (Auto Outp ut) INR (BEAKER) (test 0.99 See_Comment Final Inf ormation code = 370) (Auto Output) [Automated mess age] The system [employer] generated this result transmitted ref erence range: <=5.90. The reference range was not used to int erpret this result as normal/abnormal . RECOMMENDED COUMADIN/WARFARIN INR THERAPY RANGESSTANDARD DOSE: 2.0 - 3.0 Includes: PROPHYLAXIS for venous thrombosis, systemic embolization; TREATMENT for venous thrombosis and/or pulmonary embolus.HIGH RISK: Target INR is 2.5-3.5 for patients with mechanical heart valves.[id number] 06:17:39 Test Item Value Reference Range Interpretation Comments PARTIAL THROMBOPLASTIN 31.0 seconds 23.0-35.0 Final Information TIME (BEAKER) (test (Auto Ou tput) code = 760) CBC W/PLT COUNT & AUTO [id number] 06:01:50 Test Item Value Reference Range Interpretation [...] PERCENT (BEAKER) (test code = 2801) POCT-GLUCOSE [id number] 20:56:03 Test Item Value Reference Range Interpretation Comments POC-GLUCOSE METER 250 mg/dL 70-110 H : TESTED A T [facility] [address] (BEAKER) (test code [address], = 1538) [place] [address]: Steel Placer/Techni narciso ID = [id number] [facility] PO[facility]-GLU[facility]SE [id number] 15:56:12 Test Item Value Reference Range Interpretation Comments POC-GLUCOSE METER 195 mg/dL 70-110 H : TESTED A T [facility] [address] (BEAKER) (test code [address], = 1538) [place] [address]: Steel Placer/Techni narciso ID = [id number] for Will iams, Shyanne POCT-GLUCOSE [id number] 11:52:00 Test Item Value Reference Range Interpretation Comments POC-GLUCOSE METER 234 mg/dL 70-110 H : TESTED A T [facility] [address] (BEAKER) (test code [address] [facility], = 1538) [place] [address]: Steel Placer/Techni narciso ID = [id number] for Will iams, Shyanne POCT-GLUCOSE [id number] 06:33:26 Test Item Value Reference Range Interpretation Comments POC-GLUCOSE METER 146 mg/dL 70-110 H : TESTED A T [facility] [address] (BEAKER) (test code [address], = 1538) [place] [address]: Steel Placer/Techni narciso ID = [id number] [facility] BASIC METABOLIC [id number] 05:52:23 Test Item Value Reference Range Interpretation [...] not appl icable for dialysis patien ts Steel [employer]acer ID - [id number] ID - [id number] ID - [id number] ID - [id number] ID - [id number] ID - MGFJAVMET065Sjrmvqrh ID - [id number] ID - [id number] ID - [id number] ID - [id number] 05:51:02 Test Item Value Reference Range Interpretation Comments MAGNESIUM (BEAKER) (test code = 2.2 mg/dL 1.5-3.0 627) [employer] ID - [id number] ID - [id number] ID - [id number] ID - [id number] W/PLT COUNT & AUTO DIFFERENTIAL 2022-03-08 05:34:17 [...] PERCENT (BEAKER) (test code = 2801) POCT-GLUCOSE [id number] 20:53:26 Test Item Value Reference Range Interpretation Comments POC-GLUCOSE METER 176 mg/dL 70-110 H : TESTED A T [facility] [address] (BEAKER) (test code [address], = 1538) [facility] 77 478: Steel Placer/Techni narciso ID = [id number] for [facility] december POCT-GLUCOSE [id number] 16:05:06 Test Item Value Reference Range Interpretation Comments POC-GLUCOSE METER 207 mg/dL 70-110 H : TESTED A T [facility] [address] (BEAKER) (test code [address], = 1538) [facility] 77 478: Steel Placer/Techni narciso ID = [id number] for Angelic Hoskins BASIC METABOLIC [id number] 06:50:11 Test Item Value Reference Range Interpretation [...] not appl icable for dialysis patien ts Steel Placer ID - LITOOperator ID - LITOOperator ID - LITOOperator ID - LITOOperator ID - LITOOperator ID - LITOOperator ID - LITOOperator ID - LITOOperator ID - LITOOperator ID - [id number] 06:43:01 Test Item Value Reference Range Interpretation Comments MAGNESIUM (BEAKER) (test code = 1.7 mg/dL 1.5-3.0 627) [employer] ID - LITOOperator ID - LITOOperator ID - LITOOperator ID - SUNNI [id number] 06:39:57 Test Item Value Reference Range Interpretation Comments PHOSPHORUS (BEAKER) (test code = 3.0 mg/dL 2.5-4.5 604) Steel [employer]acer ID - LITOPROTHROMBIN TIME/[id number] 06:35:14 Test Item Value Reference Range Interpretation Comments PROTIME (BEAKER) 11.6 seconds 9.3-12.0 Final Infor mation (test code = 759) (Auto Outp ut) INR (BEAKER) (test 1.06 See_Comment Final Inf ormation code = 370) (Auto Output) [Automated mess age] The system [employer] generated this result transmitted ref erence range: <=5.90. The reference range was not used to int erpret this result as normal/abnormal . RECOMMENDED COUMADIN/WARFARIN INR THERAPY RANGESSTANDARD DOSE: 2.0 - 3.0 Includes: PROPHYLAXIS for venous thrombosis, systemic embolization; TREATMENT for venous thrombosis and/or pulmonary embolus.HIGH RISK: Target INR is 2.5-3.5 for patients with mechanical heart valves.CBC W/PLT COUNT & AUTO [id number] 06:11:48 Test Item Value Reference Range Interpretation [...] 0-0 PERCENT (BEAKER) (test code = 2801) [id number] 22:05:34 Test Item Value Reference Range Interpretation Comments PARTIAL THROMBOPLASTIN 32.5 seconds 23.0-35.0 Final Information TIME (BEAKER) (test (Auto Ou tput) code = 760)
[2022-07-24 15:07] LABS: MCV 79.8 fL (80-100); MPV 7.9 fL (7.6-11.3); RBC Red Blood Cell Count 3.76 M/uL (4.33-5.43)
[2022-07-24 15:27] LABS: Potassium 3.4 mmol/L (3.5-5.1)
[2022-07-24] MEDS ORDERED: CLINDAMYCIN 900MG/D5W 900 MG/50 ML IVPB IV ONE (16:27)
--- NOTE | 2022-07-24 16:39 | EDPHYS ---
Physician Documentation [facility] Name: Bert Deng Age: 52 yrs Sex: Male : 1970 Arrival Date: 07/24/2022 Time: 13:24 Bed Treatment Private MD: Kavin Mast ED Physician Duane Coronel HPI: 07/25 00:28 This 52 yrs old Male presents to ER via Ambulatory with complaints of Hand kb Pain, Incision Problem. 00:28 The patient or guardian reports pain, swelling, tenderness. The complaints affect the kb right middle finger and left index finger and left thumb. Context: The problem was sustained at home, resulted from Postsurgical. Onset: The symptoms/episode began/occurred yesterday. Modifying factors: The symptoms are alleviated by nothing, the symptoms are aggravated by nothing. Associated signs and symptoms: The patient has no apparent associated signs or symptoms. Severity of symptoms: At their worst the symptoms were moderate, in the emergency department the symptoms are unchanged. The patient has experienced similar episodes in the past, a few times. The patient has been recently seen by a physician:. Historical: - Allergies: 07/24 13:39 Clonidine; kb3 13:39 Lorazepam; kb3 13:39 Sulfa (Sulfonamide Antibiotics); kb3 13:39 Vancomycin; kb3 - Home Meds: 13:41 Unable to obtain [Active]; kb3 - PMHx: 13:39 Cerebrovascular accident; chronic kidney disease; COPD; diabetes mellitus; Enlarged kb3 Heart; Hypertensive disorder; Hypothyroidism; Myocardial infarction; - PSHx: 13:39 Multiple partial finger amputations; kb3 - Immunization history:: Adult Immunizations up to date, Client reports receiving the 2nd dose of the Covid vaccine, Last tetanus immunization: up to date. - Social history:: Smoking status: Reported history of juuling and/or vaping. ROS: 07/25 00:25 Constitutional: Negative for fever, chills, and weight loss. kb Skin: Positive for of the right middle finger, left thumb and left index finger, surgical incisions with erythema and slight drainage. All other systems are negative. Exam: 00:25 Constitutional: This is a well developed, well nourished patient who is awake, alert, kb and in no acute distress. Head/Face: Normocephalic, atraumatic. ENT: Moist Mucous membranes Cardiovascular: Regular rate and rhythm with a normal S1 and S2. No gallops, murmurs, or rubs. No pulse deficits. Respiratory: Respirations even and unlabored. No increased work of breathing. Talking in full sentences Neuro: Awake and alert, GCS 15, oriented to person, place, time, and situation. Moves all extremities. Normal gait. Psych: Awake, alert, with orientation to person, place and time. Behavior, mood, and affect are within normal limits. 00:25 Musculoskeletal/extremity: Extremities: grossly normal except: noted in the right middle finger and left index finger and left thumb: erythema, pain, swelling, surgical incisions with sutures in place, ROM: no acute changes, Circulation is intact in all extremities. Sensation intact. 00:25 Skin: Wound recheck: Suture laceration closure: mild dehiscence, mild drainage, mild erythema, mild swelling. Vital Signs: 07/24 13:41 BP 137 / 87; Pulse 93; Resp 18; Temp 98.8; Pulse Ox 100% ; Weight 120.2 kg; Height 5 kb3 ft. 7 in. (170.18 cm); Pain 7/10; 16:05 BP 140 / 81; Pulse 84; Resp 18; Pulse Ox 99% on R/A; kr3 13:41 Body Mass Index 41.50 (120.20 kg, 170.18 cm) kb3 MDM: 13:40 Patient medically screened. kb 15:50 Data reviewed: vital signs, nurses notes. Data interpreted: Pulse oximetry: on room air kb is 100 %. Interpretation: normal. Counseling: I had a detailed discussion with the patient and/or guardian regarding: the historical points, exam findings, and any diagnostic results supporting the discharge/admit diagnosis, lab results, the need for outpatient follow up, Dr Mast, to return to the emergency department if symptoms worsen or persist or if there are any questions or concerns that arise at home. Physician consultation: Kavin Mast MD was contacted at 15:50, regarding consult, patient's condition, and will see patient in office, next week, wants to see pt in his [place] office at 0900 on Wednesday. 07/25 00:23 ED course: Consideration of hospitalization: Consider hospitalization but after kb consulting Dr. Ermias daily will send patient home to follow-up outpatient; Management of the patient was discussed with the following: Dr. Mast. Wants patient to follow-up at 9:00 in the morning on Wednesday for follow-up. Prescribed antibiotics for patient after surgery that patient has not picked up yet. I considered the following discharge prescriptions or medication management in the emergency department: Considered pain medication and antibiotics but patient has already been prescribed those by Dr. Mast Diagnostic test considered but not performed: X-ray considered Review of external records: Records from outpatient surgery reviewed History obtained from: Patient Care significantly affected by the following chronic conditions: Diabetes. 00:28 Differential diagnosis: Wound infection. kb 07/24 14:34 Order name: CBC with Diff; Complete Time: 15:23 kb 07/24 14:34 Order name: Basic Metabolic Panel; Complete Time: 15:29 kb 07/24 14:34 Order name: Blood Culture Adult (2) kb 07/24 14:34 Order name: Lactate w/ 2H reflex if indic.; Complete Time: 15:23 kb Administered Medications: 07/24 16:29 Drug: Clindamycin 900 mg Route: IVPB; Infused Over: 30 mins; Site: left antecubital; kr3 17:22 Follow up: Response: No adverse reaction; IV Status: Completed infusion; IV Intake: [id number] Disposition: 18:51 Co-signature as Attending Physician, Duane Coronel DO I was immediately available on-site ms3 in the Emergency Department for consultation in the care of the patient. Disposition Summary: 07/24/22 16:38 Discharge Ordered Location: Home kb Condition: Stable kb Diagnosis - Local infection of the skin and subcutaneous tissue, unspecified - post surgical kb Followup: kb - With: Emergency Department - When: As needed - Reason: Worsening of condition Followup: kb - With: Private Physician - When: 2 - 3 days - Reason: Recheck today's complaints, Continuance of care, Re-evaluation by your physician Discharge Instructions: - Discharge Summary Sheet kb - Wound Infection, [id number] kb Forms: - Medication Reconciliation Form kb - Thank You Letter kb - Antibiotic Education kb - Prescription Opioid Use kb Signatures: Dispatcher [employer] EDJada Davis FNP-C FNP-Ckb Sims, Marcus, DO DO ms3 Rashida Cruz RN RN kr3 Delores Valencia RN RN kb3 Corrections: (The following items were deleted from the chart) 13:41 13:39 Home Meds: Acetaminophen Oral 650 mg q4-6 hours as needed for pain for Pain kb3 Control; kb3
--- NOTE | 2022-07-24 16:39 | ER ---
Nurse's Notes [facility] Name: Bert Deng Age: 52 yrs Sex: Male : 1970 Arrival Date: 07/24/2022 Time: 13:24 Bed Treatment Private MD: Kavin Mast Diagnosis: Local infection of the skin and subcutaneous tissue, unspecified-post surgical Presentation: 07/24 13:36 Chief complaint: Patient states: Partial finger amputation on Wednesday, two on left hand kb3 and one on right hand. Pt reports pain, swelling and redness since yesterday. Coronavirus screen: Vaccine status: Patient reports receiving the 2nd dose of the covid vaccine. Client denies travel out of the [place] in the last 14 days. Ebola Screen: Patient negative for fever greater than or equal to 101.5 degrees Fahrenheit, and additional compatible Ebola Virus Disease symptoms Patient denies exposure to infectious person. Patient denies travel to an Ebola-affected area in the 21 days before illness onset. Initial Sepsis Screen: Does the patient meet any 2 criteria? No. Patient's initial sepsis screen is negative. Does the patient have a suspected source of infection? No. Patient's initial sepsis screen is negative. Risk Assessment: Do you want to hurt yourself or someone else? Patient reports no desire to harm self or others. Onset of symptoms was July 23, 2022. 13:36 Method Of Arrival: Ambulatory 3 13:36 Acuity: ELPIDIO 3 kb3 Triage Assessment: 13:41 General: Appears in no apparent distress. Behavior is calm, cooperative. Pain: kb3 Complains of pain in right hand and left hand Pain does not radiate. Pain currently is 7 out of 10 on a pain scale. Quality of pain is described as sharp. Historical: - Allergies: 13:39 Clonidine; kb3 13:39 Lorazepam; kb3 13:39 Sulfa (Sulfonamide Antibiotics); kb3 13:39 Vancomycin; kb3 - Home Meds: 13:41 Unable to obtain [Active]; kb3 - PMHx: 13:39 Cerebrovascular accident; chronic kidney disease; COPD; diabetes mellitus; Enlarged kb3 Heart; Hypertensive disorder; Hypothyroidism; Myocardial infarction; - PSHx: 13:39 Multiple partial finger amputations; kb3 - Immunization history:: Adult Immunizations up to date, Client reports receiving the 2nd dose of the Covid vaccine, Last tetanus immunization: up to date. - Social history:: Smoking status: Reported history of juuling and/or vaping. Screenin:20 [facility] ED Fall Risk Assessment (Adult) History of falling in the last 3 months, kr3 including since admission No falls in past 3 months (0 pts) Confusion or Disorientation No (0 pts) Intoxicated or Sedated No (0 pts) Impaired Gait No (0 pts) Mobility Assist Device Used No (0 pt) Altered Elimination No (0 pt) Score/Fall Risk Level 0 - 2 = Low Risk. Abuse screen: Denies threats or abuse. Nutritional screening: No deficits noted. Tuberculosis screening: No symptoms or risk factors identified. Assessment: 14:31 General: Appears in no apparent distress. comfortable, Behavior is calm, cooperative, kr3 appropriate for age. Pain: Complains of pain in right hand and left hand. Neuro: Level of Consciousness is awake, alert, obeys commands, Oriented to person, place, time, situation. Cardiovascular: Patient's skin is warm and dry. Respiratory: Airway is patent Respiratory effort is even, unlabored, Respiratory pattern is regular, symmetrical. GI: No signs and/or symptoms were reported involving the gastrointestinal system. : No signs and/or symptoms were reported regarding the genitourinary system. EENT: No signs and/or symptoms were reported regarding the EENT system. Derm: Wound noted right hand and left hand. Musculoskeletal: Swelling present in right hand and left hand. 14:33 Reassessment: patient has surgical wounds on bilateral hands draining serous kr3 sanguinous, and pus. Vital Signs: 13:41 BP 137 / 87; Pulse 93; Resp 18; Temp 98.8; Pulse Ox 100% ; Weight 120.2 kg; Height 5 kb3 ft. 7 in. (170.18 cm); Pain 7/10; 16:05 BP 140 / 81; Pulse 84; Resp 18; Pulse Ox 99% on R/A; kr3 13:41 Body Mass Index 41.50 (120.20 kg, 170.18 cm) kb3 ED Course: 13:24 Patient arrived in ED. as 13:24 Kavin Mast MD is Private Physician. as 13:29 Jada Yuan FNP-C is PHCP. kb 13:29 Duane Coronel DO is Attending Physician. kb 13:39 Triage completed. kb3 13:41 Arm band placed on right wrist. kb3 14:14 Rashida Cruz, RN is Primary Nurse. kr3 14:15 Bed in low position. Call light in reach. Side rails up X 1. kr3 14:50 Inserted saline lock: 22 gauge in left forearm, using aseptic technique. Blood kr3 collected. 14:59 Blood Culture Adult (2) Sent. kr3 14:59 CBC with Diff Sent. kr3 14:59 Basic Metabolic Panel Sent. kr3 14:59 Lactate w/ 2H reflex if indic. Sent. kr3 17:20 No provider procedures requiring assistance completed. kr3 17:21 IV discontinued, intact, bleeding controlled, No redness/swelling at site. Pressure kr3 dressing applied. Administered Medications: 16:29 Drug: Clindamycin 900 mg Route: IVPB; Infused Over: 30 mins; Site: left antecubital; kr3 17:22 Follow up: Response: No adverse reaction; IV Status: Completed infusion; IV Intake: [id number] Medication: 17:21 VIS not applicable for this client. kr3 Intake: 17:22 IV: 50ml; Total: 50ml. kr3 Outcome: 16:38 Discharge ordered by MD. kb 17:11 Patient left the ED. kr3 17:21 Discharged to home ambulatory. kr3 17:21 Condition: stable 17:21 Discharge instructions given to patient, Instructed on discharge instructions, follow up and referral plans. Demonstrated understanding of instructions, follow-up care. Addendum: 07/27/2022 06:41 Addendum: Culture Results: Positive blood culture. Other Patient called to come back to r v1 ED for IV antibiotics per Dr. Sims. Signatures: Jada Yuan, RENAL DIALYSIS TECHNICIAN-C RENAL DIALYSIS TECHNICIAN-Fernandob Tawny Ruelas as Rashida Cruz, RN RN kr3 Delores Valencia RN RN kb3 Ruthy [place] rv1 Corrections: (The following items were deleted from the chart) 07/24 13:41 13:39 Home Meds: Acetaminophen Oral 650 mg q4-6 hours as needed for pain for Pain kb3 Control; kb3
[2022-07-24 17:23] VITALS: TEMP 98.8
[2022-07-24 17:24] VITALS: BP 140/81; O2SAT 99
== END 2022-07-24 17:11 | disposition home or self-care (01) ==
LOC: ER 13:22
DX: L08.9 Local infection of the skin and subcutaneous tissue, unspecified (principal); Z89.022 Acquired absence of left finger(s); E11.22 Type 2 diabetes mellitus with diabetic chronic kidney disease; I12.9 Hypertensive chronic kidney disease with stage 1 through stage 4 chronic kidney disease, or unspecified chronic kidney disease; N18.9 Chronic kidney disease, unspecified; Z88.2 Allergy status to sulfonamides; Z88.3 Allergy status to other anti-infective agents; Z88.5 Allergy status to narcotic agent; Z88.8 Allergy status to other drugs, medicaments and biological substances
CPT/HCPCS: 36415; 80048; 83605; 85025; 87040; 87077; 87186; 87205; 96365; 99283

== ENCOUNTER 2022-07-27 08:21 | Inpatient (IN) | payer OTHER ==
--- OUTSIDE RECORDS SUMMARY | 2022-07-27 08:28 | XMS REPORT | Continuity of Care Document ---
:1970 Author Organization [facility] t Address [facility] [address] [place] [address] Care Team Providers Name Role Phone VICKEY AMATO Attending Clinician Unavailable TROY CASE Attending Clinician Unavailable Emeka Ashton MD Attending Clinician Armin MUNOZ, Henry Attending Clinician HENRY BELL Attending Clinician Unavailable Navid Ledezma MD Attending Clinician Ashley MUNOZ, Mart Arango' Attending Clinician [phone] JEREMY BATISTA Attending Clinician Unavailable EMEKA ASHTON Admitting Clinician Unavailable Payers Payer Name Policy Type Policy Number Effective Date Expiration Date S mian SERGEI CASTRO PPO 5 [id number] 2022 00:00:00 SERGEI CASTRO PREMIER 7 [id number] 2022 00:00:00 HMO PLAN Problems Condition Condition Condition Status Onset Resolution Last Treating Co mments Source Name Details Category Date Date Treatment Clinician Date MSSA MSSA Disease Active [facility] bacteremia - Michelle kes 00:00: Medical 00 Center Diabetes Diabetes Disease Active [facility] mellitus mellitus [facility] Hypertensi Hypertensi Disease Active [facility] on on [facility] OCD OCD Disease Active Overview: [facility] (obsessive (obsessive Formattin kes compulsive compulsive g of this Medical disorder) disorder) note Cent er might be different from the original. Nail biting Neuropathy Neuropathy Disease Active [facility] Allergies, Adverse Reactions, Alerts Allergy Allergy Status Severity Reaction(s) Onset Inactive Treating Comm ents Source Name Type Date Date Clinician CLONIDIN Allergy Active [facility] 00 Center LORAZEPA Allergy Active [facility] Medical 00 Center SULFA Allergy Active [facility] (SULFONA [facility] MIDE 00:00: Medical ANTIBIOT 00 Center ICS) VANCOMYC Allergy Active [facility] 00:[facility]: Medical 00 Center Clonidin Drug Active Patient [facility] 00:00: dizzy Medical 00 with high Center dosages Lorazepa Drug Active Gets [facility] 8[facility]19 dizzy [facility] 00:00: with high Medical 00 dosages Center Sulfa Drug Active Swells up [facility] (Sulfona Allergy 8[facility]19 [facility] mide 00:00: Medical Antibiot 00 Center ics) Vancomyc Propensi Active [facility] in ty to [facility]19 [facility] adverse 00:00: Medical reaction 00 Center s Sulfa Drug Active Swells up [facility] (Sulfona Allergy 8[facility]19 [facility] mide 00:00: Medical Antibiot 00 Center ics) Family History Family Member Diagnosis Comments Start Date Stop Date Source Natural father Cancer [facility] Natural father Hyperlipidemia [facility] Natural mother Diabetes [facility] Natural mother Hyperlipidemia [facility] Social History Social Habit Start Date [...] Center Alcohol intake 2022-03-06 2022-03-06 [facility] alcohol [facility] Center (finding) History SDOH 2022-03-06 2022-03-[address] [facility] [address] [place] Alcohol Comment 00:00:00 00:00:00 beer every Medical C enter couple of months Sex Assigned At [birth year] M [place] [facility] 00:00:00 00:[facility]:00 [facility] Center Smoking Status Start Date Stop Date Source Current some day smoker 2022-03-06 00:00:00 [facility] Medications Ordered Filled Start Stop Current Ordering Indication Dosage Frequency Signature Comments Components Source Medication Medication Date Date Medication? Clinician (SIG) Name Name ceFAZolin 2021- No 1g Inject [address] (ANCEF) 1 g 03-13- intravenou L ukes in sodium 00:00: 23:59 sly every Me dical chloride 00 :00 8 (eight) Center 0.9 % (NS) hours for 100 mL 33 days. (V2B) IVPB ceFAZolin 2021- No 1g Inject [address] (ANCEF) 1 g 03-13- intravenou L ukes in sodium 00:00: 23:59 sly every Me dical chloride 00 :00 8 (eight) Center 0.9 % (NS) hours for 100 mL 33 days. (V2B) IVPB ceFAZolin 2021- No 1g Inject [address] (ANCEF) 1 g 03-13- intravenou L ukes in sodium 00:00: 23:59 sly every Me dical chloride 00 :00 8 (eight) Center 0.9 % (NS) hours for 100 mL 33 days. (V2B) IVPB ceFAZolin 2021- No 1g Inject [address] (ANCEF) 1 g 8-28 intravenou L ukes in sodium 00:00: 23:59 [...] MG 16:51: mouth Medical tablet 08 daily. [place] amLODIPine Yes 10mg QD Take [address] (NORVASC) 8-25 by mouth [facility] 10 MG 16:51: daily. Medical tablet 08 [place] aspirin 81 Yes 81mg QD Take [address] MG EC 8-25 by mouth [facility] tablet 16:51: daily. Medical 08 [place] cetirizine Yes 10mg QD Take [address] (ZyrTEC) 10 8-25 by mouth Luke s MG tablet 16:51: daily. Medica [address] clopidogreL Yes 75mg QD Take [address] (PLAVIX) 75 8-25 by mouth Luke s mg tablet 16:51: daily. Medica l [address] [place] [address] ferrous Yes 325mg Take 325 [facility] sulfate 325 8-25 mg by [facility] (65 FE) MG 16:51: mouth Medica l tablet 08 daily with Center breakfast. finasteride Yes 5mg QD Take [address] (PROSCAR) 5 8-25 by mouth Luke s mg tablet 16:51: daily. Medica l [address] [place] [address] fluticasone Yes 1{spray QD [address] propionate 8-25 } Nasal [facility] (FLONASE) 16:51: route Medical 50 08 daily. Center mcg/actuati on nasal spray furosemide Yes 40mg QD Take [address] (LASIX) 40 8-25 by mouth [facility] MG tablet 16:51: daily. Medica l 08 Center gabapentin 2022-0 Yes 300mg Q.5D Take [address] (NEURONTIN) 8-25 mg by [facility] 300 MG 16:51: mouth 2 Medical capsule 08 (two) Center times daily. hydrOXYzine 2021-0 Yes 25mg Take [address] [...] 75 MG 16:51: daily. Medical tablet 08 [place] albuterol Yes 2{puff} Inhale [address] HFA 8-25 puffs by [facility] (VENTOLIN 16:51: mouth via Med ical HFA) 90 08 inhaler Center mcg/actuati every 4 on inhaler (four) hours as needed for Wheezing. allopurinoL Yes 100mg QD Take [address] (ZYLOPRIM) 8-25 mg by [facility] 100 MG 16:51: mouth Medical tablet 08 daily. [place] amLODIPine Yes 10mg QD Take [address] (NORVASC) 8-25 by mouth [facility] 10 MG 16:51: daily. Medical tablet 08 [place] aspirin 81 Yes 81mg QD Take [address] MG EC 8-25 by mouth [facility] tablet 16:51: daily. Medical 08 [place] cetirizine Yes 10mg QD Take [address] (ZyrTEC) 10 8-25 by mouth Luke s MG tablet 16:51: daily. Medica l [address] [place] [address] clopidogreL Yes 75mg QD Take [address] (PLAVIX) 75 8-25 by mouth Luke s mg tablet 16:51: daily. Medica l [address] [place] [address] ferrous Yes 325mg Take 325 [facility] sulfate 325 8-25 mg by [facility] (65 FE) MG 16:51: mouth Medica l tablet 08 daily with Center breakfast. finasteride Yes 5mg QD Take [address] (PROSCAR) 5 8-25 by mouth Luke s mg tablet 16:51: daily. Medica l [address] [place] [address] fluticasone Yes 1{spray QD [address] propionate 8-25 } Nasal [facility] (FLONASE) 16:51: route Medical 50 08 daily. [place] mcg/actuati on nasal spray furosemide Yes 40mg QD Take [address] (LASIX) 40 8-25 by mouth [facility] MG tablet 16:51: daily. Medica l 08 Center gabapentin 0 Yes 300mg Q.5D Take [address] (NEURONTIN) 8-25 mg by [facility] 300 MG 16:51: mouth 2 Medical capsule 08 (two) Center times daily. hydrOXYzine 0 Yes 25mg Take [address] [...] 75 MG 16:51: daily. Medical tablet 08 [place] albuterol Yes 2{puff} Inhale [address] HFA 8-25 puffs by [facility] (VENTOLIN 16:51: mouth via Med ical HFA) 90 08 inhaler Center mcg/actuati every 4 on inhaler (four) hours as needed for Wheezing. allopurinoL Yes 100mg QD Take [address] (ZYLOPRIM) 8-25 mg by [facility]ukes 100 MG 16:51: mouth Medical tablet 08 daily. [place] amLODIPine Yes 10mg QD Take [address] (NORVASC) 8-25 by mouth [facility] 10 MG 16:51: daily. Medical tablet 08 [place] aspirin 81 Yes 81mg QD Take [address] MG EC 8-25 by mouth [facility] tablet 16:51: daily. Medical 08 [place] cetirizine Yes 10mg QD Take [address] (ZyrTEC) 10 8-25 by mouth Luke s MG tablet 16:51: daily. Medica l [address] [place] [address] clopidogreL Yes 75mg QD Take [address] (PLAVIX) 75 8-25 by mouth Luke s mg tablet 16:51: daily. Medica l [address] [place] [address] ferrous Yes 325mg Take 325 [facility] sulfate 325 8-25 mg by [facility] (65 FE) MG 16:51: mouth Medica l tablet 08 daily with Center breakfast. finasteride Yes 5mg QD Take [address] (PROSCAR) 5 8-25 by mouth Luke s mg tablet 16:51: daily. Medica l 08 [place] fluticasone Yes 1{spray QD [address] propionate 8-25 } Nasal [facility] (FLONASE) 16:51: route Medical 50 08 daily. Center mcg/actuati on nasal spray furosemide 2022-0 Yes 40mg QD Take [address] (LASIX) 40 8-25 by mouth [facility] MG tablet 16:51: daily. Medica l 08 Center gabapentin 0 Yes 300mg Q.5D Take [address] (NEURONTIN) 8-25 mg by [facility] 300 MG 16:51: mouth 2 Medical capsule 08 (two) Center times daily. hydrOXYzine 2021-0 Yes 25mg Take [address] [...] mouth Medica l 24 hr 08 daily. [place] capsule acetaminoph Yes 650mg Take [address] en 8-25 mg by Lukes (TYLENOL) 16:51: mouth Medical 325 MG 08 every 6 Center tablet (six) hours as needed for Pain. venlafaxine Yes 75mg QD Take [address] (EFFEXOR) 8-25 by mouth [facility] 75 MG 16:51: daily. Medical tablet 08 [place] albuterol Yes 2{puff} Inhale [address] HFA 8-25 puffs by [facility] (VENTOLIN 16:51: mouth via Med ical HFA) 90 08 inhaler Center mcg/actuati every 4 on inhaler (four) hours as needed for Wheezing. allopurinoL Yes 100mg QD Take [address] (ZYLOPRIM) 8-25 mg by [facility]ukes 100 MG 16:51: mouth Medical tablet 08 daily. [place] amLODIPine Yes 10mg QD Take [address] (NORVASC) 8-25 by mouth [facility] 10 MG 16:51: daily. Medical tablet 08 [place] aspirin 81 Yes 81mg QD Take [address] MG EC 8-25 by mouth [facility] tablet 16:51: daily. Medical [address] [place] [address] cetirizine Yes 10mg QD Take [address] (ZyrTEC) 10 8-25 by mouth Luke s MG tablet 16:51: daily. Medica l [address] [place] [address] clopidogreL Yes 75mg QD Take [address] (PLAVIX) 75 8-25 by mouth Luke s mg tablet 16:51: daily. Medica l [address] [place] [address] ferrous Yes 325mg Take 325 [facility] sulfate 325 8-25 mg by [facility] (65 FE) MG 16:51: mouth Medica l tablet 08 daily with Center breakfast. finasteride Yes 5mg QD Take [address] (PROSCAR) 5 8-25 by mouth Luke s mg tablet 16:51: daily. Medica l [address] [place] [address] fluticasone Yes 1{spray QD [address] propionate 8-25 } Nasal [facility] (FLONASE) 16:51: route Medical 50 08 daily. [place] mcg/actuati on nasal spray furosemide 0 Yes 40mg QD Take [address] (LASIX) 40 8-25 by mouth [facility] MG tablet 16:51: daily. Medica l 08 Center gabapentin 0 Yes 300mg Q.5D Take [address] (NEURONTIN) 8-25 mg by [facility] 300 MG 16:51: mouth 2 Medical capsule 08 (two) Center times daily. hydrOXYzine 0 Yes 25mg Take [address] [...] mouth Medica l 24 hr 08 daily. [place] capsule acetaminoph Yes 650mg Take [address] en 8-25 mg by [facility]ukes (TYLENOL) 16:51: mouth Medical 325 MG 08 every 6 Center tablet (six) hours as needed for Pain. venlafaxine Yes 75mg QD Take [address] (EFFEXOR) 8-25 by mouth [facility]ukes 75 MG 16:51: daily. Medical tablet 08 [place] furosemide 2021- No 20mg QD Take [address] (LASIX) 20 8-25 08-25 by mouth Luke s MG tablet 15:12: 00:00 daily At Med ica 34 :00 noon . [place] lisinopriL 2021- No 10mg QD Take [address] (PRINIVIL,Z 8- 08-25 by mouth Naseem es ESTRIL) 10 15:12: 00:00 daily. Medi kyle MG tablet 34 :00 [place] loperamide 2021- No 2mg Take 2 mg [...] At Med ica 34 :00 noon . [place] lisinopriL 2021- No 10mg QD Take 10 [...] Center daily as needed for Diarrhea. metFORMIN 2021-2021- No 500mg Take [address] (GLUCOPHAGE 8-25 08-25 mg by Lukes ) 500 MG 15:12: 00:00 mouth 2 Medic al tablet 34 :00 (two) Center times daily with breakfast and dinner. furosemide 2021-2021- No 20mg QD Take [address] (LASIX) 20 8-25 08-25 by mouth Luke s MG tablet 15:12: 00:00 daily At Med ica 34 :00 noon . Center lisinopriL 2021-2021- No 10mg QD Take 10 mg CHI [...] ica 34 :00 noon . Center lisinopriL 2021-0 2021- No 10mg QD Take [address] (PRINIVIL,Z 8-25 08-25 by mouth Naseem es ESTRIL) 10 15:12: 00:00 daily. Medi kyle MG tablet 34 :00 Center loperamide 2021-2021- No 2mg Take 2 mg C HI [...] QD Take [address] n (LIPITOR) 8-25 08-25 tablet (40 L ukes 40 MG 00:00: 23:59 mg total) Medica l tablet 00 :00 by mouth Center nightly. hydrALAZINE 2022- No 100mg Take [address] (APRESOLINE 8-25 08-25 tablet [facility] ) 100 MG 00:00: 23:59 (100 mg Medic al tablet 00 :00 total) by Center mouth every 8 (eight) hours. glipiZIDE 2021-2022- No 5mg QD Take 1 [facility] (GLUCOTROL 8-25 08-25 tablet (5 Naseem es XL) 5 MG 24 00:00: 23:59 mg total) Medical hr tablet 00 :00 by mouth Center daily. atorvastati 2022- No 40mg QD Take [address] n (LIPITOR) 8-25 08-25 tablet (40 L ukes 40 MG [...] 00 :00 by mouth Center daily. atorvastati 2021-2022- No 40mg QD Take [address] n (LIPITOR) 8-25 08-25 tablet (40 L ukes 40 MG 00:00: 23:59 mg total) Medica l tablet 00 :00 by mouth Center nightly. hydrALAZINE 2021-2022- No 100mg Take [address] [...] QD Take [address] n (LIPITOR) 8-25 08-25 tablet (40 L ukes 40 MG [...] Q.5D Take [address] (COREG) -12 04-24 tablet [facility] 6.25 MG 00:00: 23:59 (6.25 mg Medic al tablet 00 :00 total) by Center mouth 2 (two) times daily for 30 days. carvediloL 2021- No 6.25mg Q.5D Take [address] (COREG) 8-25 09-24 tablet [facility] 6.25 MG 00:00: 23:59 (6.25 mg Medic al tablet 00 :00 total) by Center mouth 2 (two) times daily for 30 days. carvediloL 2021- No 6.25mg Q.5D Take [address] (COREG) 8-25 09-24 tablet [facility] 6.25 MG 00:00: 23:59 (6.25 mg Medic al tablet 00 :00 total) by Center mouth 2 (two) times daily for 30 days. carvediloL No 6.25mg Q.5D Take 1 CH I [...] kg Systolic blood 2022-03-12 16:00:00 116 mm[Hg] [facility] Diastolic blood 2022-03-12 16:00:00 63 mm[Hg] [facility] Heart rate 2022-03-12 16:00:00 87 /min [facility] Body temperature 2022-03-12 16:00:00 36.28 Betsy [facility] Respiratory rate 2022-03-12 16:00:00 18 /min [facility] Oxygen saturation in 2022-03-12 16:00:00 99 /min [facility] Arterial blood by Medical Ce nter Pulse oximetry Body height 2022-03-06 21:50:00 170.2 cm [facility] Body weight 2022-03-06 21:50:00 120.657 kg [facility] BMI 2022-03-06 21:50:00 41.66 kg/m2 [facility] Procedures Procedure Date / Time Performing Clinician Source Performed POCT-GLUCOSE METER 2022-03-12 15:24:00 Armin [facility] POCT-GLUCOSE METER 2022-03-12 11:19:00 [facility] POCT-GLUCOSE METER 2022-03-12 06:41:00 Armin [facility] CBC W/PLT COUNT & AUTO 2022-03-12 05:47:00 Emeka Ashton [facility] BASIC METABOLIC PANEL 2022-03-12 05:47:00 Emeka Ashton [facility] MAGNESIUM 2022-03-12 05:47:00 Emeka Ashton [facility] CBC W/PLT COUNT & AUTO 2022-03-12 05:47:00 Emeka Ashton [facility] POCT-GLUCOSE METER 2022-03-11 21:10:00 Armin [facility] POCT-GLUCOSE METER 2022-03-11 17:07:00 Armin [facility] POCT-GLUCOSE METER 2022-03-11 12:19:00 Armin [facility] POCT-GLUCOSE METER 2022-03-11 06:51:00 Cherieradha Emeka C [facility] CBC W/PLT COUNT & AUTO 2022-03-11 05:19:00 CherieradhaEmeka [facility] BASIC METABOLIC PANEL 2022-03-11 05:19:00 Emeka Ashton [facility] MAGNESIUM 2022-03-11 05:19:00 RileyEmeka [facility] CBC W/PLT COUNT & AUTO 2022-03-11 05:19:00 Emeka Ashton [facility] POCT-GLUCOSE METER 2022-03-10 21:32:00 Cherieradha Emeka C [facility] POCT-GLUCOSE METER 2022-03-10 16:27:00 CherieradhaEmeka [facility] POCT-GLUCOSE METER 2022-03-10 11:19:00 Cherieradha Emeka C [facility] POCT-GLUCOSE METER 2022-03-10 07:04:00 Cherieradha Emeka C [facility] POCT-GLUCOSE METER 2022-03-09 21:12:00 Cherieradha Emeka C [facility] POCT-GLUCOSE METER 2022-03-09 15:58:00 [facility] Emeka C [facility] IR TUNNELED CATHETER 2022-03-09 14:05:00 Emeka Ashton [facility] ECG 12-LEAD 2022-03-09 12:56:53 Unknown, Hl7 Doctor [facility] ECG 12-LEAD 2022-03-09 12:56:53 Unknown, Hl7 [facility] TRANSESOPHAGEAL ECHO 2022-03-09 11:09:12 Miguel [facility] COLOR-FLOW MAPPING 2022-03-09 07:32:46 Miguel [facility] CONT WAVE PULSED DOPPLER 2022-03-09 07:32:46 Miguel Jinu [facility] POCT-GLUCOSE METER 2022-03-09 06:56:00 Emeka Ashton Nando [facility] CBC W/PLT COUNT & AUTO 2022-03-09 05:51:00 Emeka Ashton Nando [facility] BASIC METABOLIC PANEL 2022-03-09 05:51:00 [facility] MAGNESIUM 2022-03-09 05:51:00 Emeka Ashton Nando [facility] PROTHROMBIN TIME/INR 2022-03-09 05:51:00 [facility] APTT 2022-03-09 05:51:00 Emeka Ashton Nando [facility] CBC W/PLT COUNT & AUTO 2022-03-09 05:51:00 Riley Emeka C [facility] POCT-GLUCOSE METER 2022-03-08 20:44:00 [facility] Emeka Nando [facility] POCT-GLUCOSE METER 2022-03-08 15:44:00 [facility] POCT-GLUCOSE METER 2022-03-08 11:40:00 [facility] POCT-GLUCOSE METER 2022-03-08 06:22:00 [facility] CBC W/PLT COUNT & AUTO 2022-03-08 05:01[facility]00 [facility] BASIC METABOLIC PANEL 2022-03-08 05:01:00 [facility] Nando [facility] MAGNESIUM 2022-03-08 05:01:00 [facility] CBC W/PLT COUNT & AUTO 2022-03-08 05:01:00 Riley Emeka C [facility] POCT-GLUCOSE METER 2022-03-07 20:41:00 [facility] Nando [facility] POCT-GLUCOSE METER 2022-03-07 15:53:00 [facility] E[facility] C [facility] CBC W/PLT COUNT & AUTO 2022-03-07 05:59:00 Emeka Ashton [facility] BASIC METABOLIC PANEL 2022-03-07 05:59:00 CherieEmeka garcia [facility] MAGNESIUM 2022-03-07 05:59:00 [facility] C [facility] PROTHROMBIN TIME/INR 2022-03-07 05:59:00 [facility] PHOSPHORUS 2022-03-07 05:59:00 Marialuisa Goff [facility] CBC W/PLT COUNT & AUTO 2022-03-07 05:59:00 [facility] APTT 2022-03-06 21:42:00 [facility] Emeka Nando [facility] CARDIAC CATH REPORT - SCAN 2022-03-06 00:00:00 Provider, Daniela [facility] EKG-SCANNED 2022-03-06 00:00:00 Provider, Default [facility] Plan of Care Planned Activity Planned Date Details Comments Source Future Scheduled 2022-07-[address] [facility] Test 00:00:00 (12+) [code = [facility] DEPRESSION SCREENING (12+)] Future Scheduled 2022-07-[address] [facility] Test 00:00:00 (12+) [code = [facility] DEPRESSION SCREENING (12+)] Future Scheduled 2022-03-19 INFLUENZA [...] [facility] Michelle kes Test 00:00:00 measurement (procedure) [facility] [code = 37762924] Future Scheduled 2022-03-[address] [facility] Test 00:00:00 measurement (procedure) [facility] [code = 28889722] Future Scheduled 2022-03-[address] [facility] k[facility] Test 00:00:00 measurement (procedure) [facility] [code = 65364266] Future Scheduled 2022-03-[address] Michelle kes Test 00:00:00 measurement (procedure) [facility] [code = 24824583] Future Scheduled 2021-10-17 Medicare IPPE (WELCOME C [...] Lukes Test 00:00:00 2) [code = SHINGLES [facility] VACCINES (1 of 2)] Future Scheduled 2005 Lipid panel (procedure) [facility] Test 00:00:00 [code = 65485991] Medical Ce nter Future Scheduled 2005 Lipid panel (procedure) [facility] Test 00:00:00 [code = 11296286] Medical Ce nter Future Scheduled 2005 Lipid panel (procedure) [facility] Test 00:00:00 [code = 55174325] Medical Ce nter Future Scheduled 2005 Lipid panel (procedure) [facility] Test 00:00:00 [code = 63373695] Medical Ce nter Future Scheduled 1989 DTAP/TDAP/TD [...] 00:00:00 examination Medical Center (regime/therapy) [code = 039909004] Future Scheduled 1980 Urine screening for [facility] Test 00:00:00 protein (procedure) Medical Center [code = 359545616] Future Scheduled 1980 DIABETIC EYE EXAM [code [facility] Test 00:00:00 = DIABETIC EYE EXAM] Medical Center Future Scheduled [address] N[facility]em es Test 00:00:00 examination Medical Center (regime/therapy) [code = 416696085] Future Scheduled 1980 Urine screening for [facility] Test 00:00:00 protein (procedure) Medical Center [code = 827326406] Future Scheduled 1980 DIABETIC EYE EXAM [code [facility] Test 00:00:00 = DIABETIC EYE EXAM] Medical Center Future Scheduled [address] [facility] N[facility]em es Test 00:00:00 examination Medical Center (regime/therapy) [code = 208838176] Future Scheduled 1980 Urine screening for [facility] Test 00:00:00 protein (procedure) Medical Center [code = 151387046] Future Scheduled 1980 DIABETIC EYE EXAM [code [facility] Test 00:00:00 = DIABETIC EYE EXAM] Medical Center Future Scheduled [address] [facility] N[facility]em es Test 00:00:00 examination Medical Center (regime/therapy) [code = 329945689] Future Scheduled 1980 Urine screening for [facility] Test 00:00:00 protein (procedure) Medical Center [code = 001477731] Future Scheduled [address] [...] Lukes Test 00:00:00 [code = CT Colonography [facility] (combo)] Future Scheduled 1970 Screening for malignant [facility] Test 00:00:00 neoplasm of colon Medical Ce nter (procedure) [code = 624364170] Future Scheduled 1970 Screening for malignant [facility] Test 00:00:00 neoplasm of colon Medical Ce nter (procedure) [code = 349668731] Future Scheduled 1970 Screening for malignant [facility] Test 00:00:00 neoplasm of colon Medical Ce nter (procedure) [code = 938846727] Future Scheduled 1970 Screening for malignant [facility] Test 00:00:00 neoplasm of colon Medical Ce nter (procedure) [code = 107307418] Future Scheduled 1970 Sigmoidoscopy [code = [facility] 00:00:00 Sigmoidoscopy] Medical Cente r Future Scheduled 1970 CT Colonography (combo) [facility] Test 00:00:00 [code = CT Colonography Medi [facility] (combo)] Future Scheduled 1970 Screening for malignant [facility] Test 00:00:00 neoplasm of colon Medical Ce nter (procedure) [code = 692317652] Future Scheduled 1970 Screening for malignant [facility] Test 00:00:00 neoplasm of colon Medical Ce nter (procedure) [code = 390605483] Future Scheduled 1970 Screening for malignant [facility] Test 00:00:00 neoplasm of colon Medical Ce nter (procedure) [code = 391216204] Future Scheduled 1970 Screening for malignant [facility] Test 00:00:00 neoplasm of colon Medical Ce nter (procedure) [code = 565436165] Future Scheduled 1970 Sigmoidoscopy [code = [facility] 00:00:00 Sigmoidoscopy] Medical Cente r Future Scheduled 1970 CT Colonography (combo) [facility] Test 00:00:00 [code = CT Colonography [facility] (combo)] Future Scheduled 1970 Screening for malignant [facility] Test 00:00:00 neoplasm of colon Medical Ce nter (procedure) [code = 212981733] Future Scheduled 1970 Screening for malignant [facility] 00:00:00 neoplasm of colon Medical Ce nter (procedure) [code = 357350224] Future Scheduled 1970 Screening for malignant [facility] Test 00:00:00 neoplasm of colon Medical Ce nter (procedure) [code = 301028054] Future Scheduled 1970 Screening for malignant [facility] Test 00:00:00 neoplasm of colon Medical Ce nter (procedure) [code = 177028725] Future Scheduled 1970 Sigmoidoscopy [facility]code = [facility]] [facility] Cent[facility] Future Scheduled 1970 CT Colonography (combo) [facility] 00:00:00 [code = CT Colonography [facility] (combo)] Future Scheduled 1970 Screening for malignant [facility] Test 00:00:00 neoplasm of colon Medical Ce nter (procedure) [code = 301487819] Future Scheduled 1970 Screening for malignant [facility] Test 00:00:00 neoplasm of colon Medical Ce nter (procedure) [code = 657745460] Future Scheduled 1970 Screening for malignant [facility] Test 00:00:00 neoplasm of colon Medical Ce nter (procedure) [code = 153204495] Future Scheduled 1970 Screening for malignant [facility] Test 00:00:00 neoplasm of colon Medical Ce nter (procedure) [code = 365565095] Future Scheduled 1970 Sigmoidoscopy [facility]code = [facility] S[facility]oidoscopy] Medical Elishae r Encounters Start End Encounter Admission Attending Care Care Encounter Source Date/Time Date/Time Type Type Clinicians Facility Department ID 2022-07-03 2022-07-03 Outpatient JANNETTE AMATO [id number] Jannette 00:00:00 00:00:00 VICKEY aviles 2022-06-30 2022-06-30 Outpatient TROY CASE [id number] Jannette 00:00:00 00:00:00 Seconor adler 2022-03-06 2022-03-12 [facility] Emeka Ashton [facility] [id number] 17[facility]47[facility]00 16:51:00 Encounter [facility] 2022-03-06 2022-03-12 [facility] Emeka Ashton [facility] [id number] 17:47:00 16:51:00 Encounter [facility] 2022-03-06 2022-03-12 Inpatient UR ARMIN, [facility] Surgery [id number] [facility] 17:47:00 16:51:00 [facility] 2022-03-09 2022-03-09 Anesthesia LedezmaNavid warren [facility] [id number] [facility] 11:33:00 12:07:00 Event [facility] 2022-03-09 2022-03-09 Anesthesia LedezmaNavid warren [facility] [id number] [facility] 11:33[facility]00 12:07:00 Event [facility] 2022-03-09 2022-03-09 [facility] [id number] 11:00:00 11:36:00 [facility] [place] 2022-03-09 2022-03-09 [facility] [id number] 11:00:00 11:36:00 [facility] [place] 2022-03-06 2022-03-06 Travel [facility] [id number] [facility] 00:[facility]:00 [facility] 2022-03-06 2022-03-06 Travel [facility] [id number] [facility] 00:[facility]00 [facility] 2022-03-03 2022-03-03 Outpatient JANNETTE BATISTA [id number] [place]ette 10:00:00 10:00:00 JEREMY adler 2022-03-03 2022-03-03 Outpatient JANNETTE BATISTA [id number] Jannette 10:00:00 10:00:00 JEREMY Seybol d Results Test Description Test Time Test Comments Results Result Comments Source POC-Glucose meter 2022-03-12 15:36:24 Test Item Value Reference Range Interpretation Comme [facility] POC-Glucose Meter (test code = 241 mg/dL 70-110 H : TESTED AT [place] [address]) [facility] [address]: Director Talent Acquisition/Techni narciso ID = [id number] for Bethany Smiley Lab Interpretation (test code = Abnormal 92530-5) [facility] [id number] 15:36:24 Test Item Value Reference Range Interpretation Comments POC-Glucose Meter (test 241 mg/dL 70-110 H : TE STED AT [facility] code = 1538) [address] [place] [address]25[address]: Director Talent Acquisition/Techni narciso ID = [id number] for Baljit, Bethany ee Lab Interpretation (test Abnormal code = 42061-6) [facility] [id number] 15:36:24 Test Item Value Reference Range Interpretation Comments POC-Glucose Meter (test 241 mg/dL 70-110 H : TE STED AT [facility] code = 1538) [address] [place], [place] [address]: Director Talent Acquisition/Techni narciso ID = [id number] for Baljit, Bethany ee Lab Interpretation (test Abnormal code = 26050-1) [facility] [id number] 15:36:24 Test Item Value Reference Range Interpretation Comments POC-Glucose Meter (test 241 mg/dL 70-110 H : TE STED AT [facility] code = 1538) [facility] [place] [address]: Director Talent Acquisition/Techni narciso ID = [id number] for Baljit, Bethany ee Lab Interpretation (test Abnormal code = 74100-6) [facility] [id number] 15:36:24 Test Item Value Reference Range Interpretation Comments POC-GLUCOSE METER 241 mg/dL 70-110 H : TESTED A T [facility] [address]17 (BEAKER) (test code [address], = 1538) [place] [address]: Director Talent Acquisition/Techni narciso ID = [id number] for Will iams, Shyanne POCT-GLUCOSE [id number] 11:31:00 Test Item Value Reference Range Interpretation Comments POC-GLUCOSE METER 196 mg/dL 70-110 H : TESTED A T [facility] [address] (BEAKER) (test code [address], = 1538) [place] [address]: Director Talent Acquisition/Techni narciso ID = [id number] for Will iams, Shyanne POCT-GLUCOSE [id number] 06:53:14 Test Item Value Reference Range Interpretation Comments POC-GLUCOSE METER 153 mg/dL 70-110 H : TESTED A T [facility] [address] (BEAKER) (test code [address], = 1538) [facility] 77 478: Director Talent Acquisition/Techni narciso ID = [id number] for Manuela Real [id number] 06:19:33 Test Item Value Reference Range Interpretation Comments MAGNESIUM (BEAKER) (test code = 1.7 mg/dL 1.5-3.0 627) Director Talent Acquisition ID - DSENSONOperator ID - DSENSONOperator ID - DSENSONOperator ID - DSENSONBASIC METABOLIC [id number] 06:18:13 Test Item Value Reference Range Interpretation [...] eGF R is based on the CKD-EPI 202 equation that d oes not use a race coefficientEsti mated GFR is not as accur ate as Creatinine Sasha hooks in predicting glom erular filtration rate . Estimated GFR is not appl icable for dialysis patien ts Director Talent Acquisition ID - DSENSONOperator ID - DSENSONOperator ID [...] PERCENT (BEAKER) (test code = 2801) POCT-GLUCOSE [id number] 21:21:14 Test Item Value Reference Range Interpretation Comments POC-GLUCOSE METER 229 mg/dL 70-110 H : TESTED A T [facility] [address] (BEAKER) (test code [address], = 1538) [place] [address]: Director Talent Acquisition/Techni narciso ID = [id number] for Manuela Real POCT-GLUCOSE [id number] 17:19:11 Test Item Value Reference Range Interpretation Comments POC-GLUCOSE METER 222 mg/dL 70-110 H : TESTED A T [facility] [address] (BEAKER) (test code [address] [facility], = 1538) [place] [address]: Director Talent Acquisition/Techni narciso ID = [id number] for Will iams, Shyanne POCT-GLUCOSE [id number] 12:31:07 Test Item Value Reference Range Interpretation Comments POC-GLUCOSE METER 202 mg/dL 70-110 H : TESTED A T [facility] [address]17 (BEAKER) ([facility] [address] [facility] = [facility]38) [place] [address]: Director Talent Acquisition/Techni narciso ID = [id number] for Will iams, Shyanne POCT-GLUCOSE [id number] 07:02:52 Test Item Value Reference Range Interpretation Comments POC-GLUCOSE METER 147 mg/dL 70-110 H : TESTED A T [facility] [address] (BEAKER) (test code [address] [facility], = 1538) [place] [address]: Director Talent Acquisition/Techni narciso ID = [id number] for Manuela Real [id number] 05:56:17 Test Item Value Reference Range Interpretation Comments MAGNESIUM (BEAKER) (test code = 1.9 mg/dL 1.5-3.0 627) Director Talent Acquisition ID - LITOOperator ID - LITOOperator ID - LITOOperator ID - LITOBASIC METABOLIC [id number] 05:54:55 Test Item Value Reference Range Interpretation [...] appl icable for dialysis patien ts Director Talent Acquisition ID - LITOOperator ID - LITOOperator ID - LITOOperator ID - LITOOperator ID - LITOOperator ID - LITOOperator ID - LITOOperator ID - LITOOperator ID - LITOCBC W/PLT COUNT & AUTO [id number] 05:38:49 Test Item Value Reference Range Interpretation [...] PERCENT (BEAKER) (test code = 2801) POCT-GLUCOSE [id number] 21:43:46 Test Item Value Reference Range Interpretation Comments POC-GLUCOSE METER 236 mg/dL 70-110 H : TESTED A T [facility] [address] (BEAKER) (test code [address], = 1538) [place] [address]: Director Talent Acquisition/Techni narciso ID = [id number] for Manuela Real POCT-GLUCOSE [id number] 16:44:29 Test Item Value Reference Range Interpretation Comments POC-GLUCOSE METER 158 mg/dL 70-110 H : TESTED A T [facility] [address] (BEAKER) (test code [address], = 1538) [place] [address]: Director Talent Acquisition/Techni narciso ID = [id number] for Anamaria Tanner POCT-GLUCOSE [id number] 11:53:34 Test Item Value Reference Range Interpretation Comments POC-GLUCOSE METER 232 mg/dL 70-110 H : TESTED A T [facility] [address] (BEAKER) (test code [address], = 1538) [place] [address]: Director Talent Acquisition/Techni narciso ID = [id number] for Anamaria Tanner POCT-GLUCOSE [id number] 07:16:21 Test Item Value Reference Range Interpretation Comments POC-GLUCOSE METER 159 mg/dL 70-110 H : TESTED A T [facility] [address] (BEAKER) (test code [address], = 1538) [place] [address]: Director Talent Acquisition/Techni narciso ID = [id number] for Brow n, Debby POCT-GLUCOSE [id number] 21:25:29 Test Item Value Reference Range Interpretation Comments POC-GLUCOSE METER 151 mg/dL 70-110 H : TESTED A T [facility] [address] (BEAKER) (test code [address], = 1538) [place] [address]: Director Talent Acquisition/Techni narciso ID = [id number] for Brow n, Debby POCT-GLUCOSE [id number] 16:24:12 Test Item Value Reference Range Interpretation Comments POC-GLUCOSE METER 181 mg/dL 70-110 H : TESTED A T [facility] [address] (BEAKER) (test code [address], = 1538) [place] [address]: Director Talent Acquisition/Techni narciso ID = [id number] for Anamaria Tanner Transesophageal [id number] 15:43:50Ejection FractionSLEH ECHO HEARTLAB MKCKESSON [facility] [id number] 15:43:50Ejection FractionSLEH ECHO HEARTLAB MKCKESSON [facility] [id number] 15:43:50Ejection FractionSLEH ECHO HEARTLAB MKCKESSON [facility]Trans[facility] [id number] 15:43:50Ejection FractionSLEH ECHO HEARTLAB MKCKESSON CPACSCHI [facility], TUNNELED CATHETER [id number] 14:32:00Reason for Central Line/PICC?->> 21 days of IV infusionReason for exam:->MSSA Bacteremia/Osteomyelitis requiring long-term IV antibiotics. CKD Stage 3 patient. Nephrology recommended tunneled lined instead of PICC [facility] : 1970 Sex: MFINAL REPORT PROCEDURE: Tunneled Central Venous Catheter Placement CLINICAL HISTORY: MSSA Bacteremia/Osteomyelitis requiring long-term IV antibiotics. CKD Stage 3 patient. Nephrology recommended tunneled lined instead of PICC [employer] NET DEVELOPER: Mike Lord M.D. ANESTHESIA: Conscious sedation was provided by radiology nursing using constant hemodynamic monitoring for 30 minutes. Versed IV 0.5 mg, Fentanyl IV 25 mcg. DEVICE: Dual-lumen 6 Polish catheter DOSE INFORMATION - Ka,r: 38 mGyFluoroscopy [...] Lord MDReport Verified Date/Time: 03/09/2022 14:32:48Reading Location: [facility] Radiology Reading Room POCT-GLUCOSE [id number] 07:07:43 Test Item Value Reference Range Interpretation Comments POC-GLUCOSE METER 143 mg/dL 70-110 H : TESTED A T [facility] 1317 (BEAKER) (test [facility] [address], = 1538) [facility] 77 [address]: Director Talent Acquisition/Techni narciso ID = [id number] for Aurora Love [id number] 06:24:21 Test Item Value Reference Range Interpretation Comments MAGNESIUM (BEAKER) (test code = 1.8 mg/dL 1.5-3.0 627) Director Talent Acquisition ID - LITOOperator ID - LITOOperator ID - LITOOperator ID - LITOBASIC METABOLIC [id number] 06:23:18 Test Item Value Reference Range Interpretation [...] appl icable for dialysis patien ts Director Talent Acquisition ID - LITOOperator ID - LITOOperator ID - LITOOperator ID - LITOOperator ID - LITOOperator ID - LITOOperator ID - LITOOperator ID - LITOOperator ID - LITOPROTHROMBIN TIME/[id number] 06:17:39 Test Item Value Reference Range Interpretation Comments PROTIME (BEAKER) 10.9 seconds 9.3-12.0 Final Infor mation (test code = 759) (Auto Outp ut) INR (BEAKER) (test 0.99 See_Comment Final Inf ormation code = 370) (Auto Output) [Automated mess age] The system [employer] generated this result transmitted ref erence range: <=5.90. The reference range was not used to int erpret this result as normal/abnormal . RECOMMENDED COUMADIN/WARFARIN INR THERAPY RANGESSTANDARD DOSE: 2.0 - 3.0 Includes: PROPHYLAXIS for venous thrombosis, systemic embolization; TREATMENT for venous thrombosis and/or pulmonary embolus.HIGH RISK: Target INR is 2.5-3.5 for patients with mechanical heart valves.[id number] 06:17:39 Test Item Value Reference Range Interpretation Comments PARTIAL THROMBOPLASTIN 31.0 seconds 23.0-35.0 Final Information TIME (BEAKER) (test (Auto Ou tput) code = 760) CBC W/PLT COUNT & AUTO [id number] 06:01:50 Test Item Value Reference Range Interpretation [...] PERCENT (BEAKER) (test code = 2801) POCT-GLUCOSE [id number] 20:56:03 Test Item Value Reference Range Interpretation Comments POC-GLUCOSE METER 250 mg/dL 70-110 H : TESTED A T [facility] (BEAKER) (test code [facility], = 1538) [place] [address]: Director Talent Acquisition/Techni narciso ID = [id number] [facility] POCT-GLUCOSE [id number] 15:56:12 Test Item Value Reference Range Interpretation Comments POC-GLUCOSE METER 195 mg/dL 70-110 H : TESTED A T [facility] 1317 (BEAKER) (test code [facility], = 1538) [place] [address]: Director Talent Acquisition/Techni narciso ID = [id number] for Will iams, Shyanne POCT-GLUCOSE [id number] 11:52:00 Test Item Value Reference Range Interpretation Comments POC-GLUCOSE METER 234 mg/dL 70-110 H : TESTED A T [facility] [address]17 (BEAKER) (test code [facility], = 1538) [place] [address]: Director Talent Acquisition/Techni narciso ID = [id number] for Will iams, Shyanne POCT-GLUCOSE [id number] 06:33:26 Test Item Value Reference Range Interpretation Comments POC-GLUCOSE METER 146 mg/dL 70-110 H : TESTED A T [facility] [address]17 (BEAKER) (test code [facility], = 1538) [place] [address]: Director Talent Acquisition/Techni narciso ID = [id number] for [facility], December BASIC METABOLIC [id number] 05:52:23 Test Item Value Reference Range Interpretation [...] appl icable for dialysis patien ts Director Talent Acquisition ID - [id number] ID - UFVFMLJLN222Ycwqikng ID - [id number] ID - [id number] ID - VDVRFEBUV490Zjzpuiba ID - MXJNIGPCI824Ieswacqu ID - AQTVELDTJ323Dehynajd ID - QMJIAUTSR751Axmtrvuw ID - GNHPDWMYE566Yjslzwpb ID - [id number] 05:51:02 Test Item Value Reference Range Interpretation Comments MAGNESIUM (BEAKER) (test code = 2.2 mg/dL 1.5-3.0 627) Director Talent Acquisition ID - [id number] ID - [id number] ID - [id number] ID - [id number] W/PLT COUNT & AUTO DIFFERENTIAL 2022-03-08 05:34:17 [...] PERCENT (BEAKER) (test code = 2801) POCT-GLUCOSE [id number] 20:53:26 Test Item Value Reference Range Interpretation Comments POC-GLUCOSE METER 176 mg/dL 70-110 H : TESTED A T [facility] [address]17 (BEAKER) (test code [address], = 1538) [facility] 77 [address]: Director Talent Acquisition/Techni narciso ID = [id number] for Razia december POCT-GLUCOSE [id number] 16:05:06 Test Item Value Reference Range Interpretation Comments POC-GLUCOSE METER 207 mg/dL 70-110 H : TESTED A T [facility] [address]17 (BEAKER) (test code [address], = 1538) [facility] 77 478: Director Talent Acquisition/Techni narciso ID = [id number] for Angelic Hoskins BASIC METABOLIC [id number] 06:50:11 Test Item Value Reference Range Interpretation [...] eGF R is based on the CKD-EPI 1 equation that d oes not use a race coefficientEsti mated GFR is not as accur ate as Creatinine Sasha neva in predicting glom erular filtration rate . Estimated GFR is not appl icable for dialysis patien ts Director Talent Acquisition ID - LITOOperator ID - LITOOperator ID - LITOOperator ID - LITOOperator ID - LITOOperator ID - LITOOperator ID - LITOOperator ID - LITOOperator ID - LITOOperator ID - [id number] 06:43:01 Test Item Value Reference Range Interpretation Comments MAGNESIUM (BEAKER) (test code = 1.7 mg/dL 1.5-3.0 627) Director Talent Acquisition ID - LITOOperator ID - LITOOperator ID - LITOOperator ID - SUNNI [id number] 06:39:57 Test Item Value Reference Range Interpretation Comments PHOSPHORUS (BEAKER) (test code = 3.0 mg/dL 2.5-4.5 604) Director Talent Acquisition ID - LITOPROTHROMBIN TIME/[id number] 06:35:14 Test Item Value Reference Range Interpretation Comments PROTIME (BEAKER) 11.6 seconds 9.3-12.0 Final Infor mation (test code = 759) (Auto Outp ut) INR (BEAKER) (test 1.06 See_Comment Final Inf ormation code = 370) (Auto Output) [Automated mess age] The system [employer] generated this result transmitted ref erence range: <=5.90. The reference range was not used to int erpret this result as normal/abnormal . RECOMMENDED COUMADIN/WARFARIN INR THERAPY RANGESSTANDARD DOSE: 2.0 - 3.0 Includes: PROPHYLAXIS for venous thrombosis, systemic embolization; TREATMENT for venous thrombosis and/or pulmonary embolus.HIGH RISK: Target INR is 2.5-3.5 for patients with mechanical heart valves.CBC W/PLT COUNT & AUTO [id number] 06:11:48 Test Item Value Reference Range Interpretation [...] 0-0 PERCENT (BEAKER) (test code = 2801) [id number] 22:05:34 Test Item Value Reference Range Interpretation Comments PARTIAL THROMBOPLASTIN 32.5 seconds 23.0-35.0 Final Information TIME (BEAKER) (test (Auto Ou tput) code = 760)
--- NOTE | 2022-07-27 08:57 | EDPHYS ---
Physician Documentation [facility] Name: Bert Deng Age: 52 yrs Sex: Male : 1970 Arrival Date: 07/27/2022 Time: 08:24 Bed 12 Private MD: ED Physician Al Rodriguez HPI: 07/27 08:43 This 52 yrs old Male presents to ER via Ambulatory with complaints of Finger daisy Infection. 08:43 The patient or guardian reports decreased range of motion, injury, pain, swelling, daisy tenderness. The complaints affect the left hand diffusely, right hand diffusely. Context: resulted from mrsa, surgery. Onset: The symptoms/episode began/occurred 2 day(s) ago. Modifying factors: The symptoms are alleviated by holding still. Associated signs and symptoms: The patient has no apparent associated signs or symptoms. Severity of symptoms: At their worst the symptoms were mild, moderate, in the emergency department the symptoms are actually worse. The patient has experienced similar episodes in the past, multiple times. Historical: - Allergies: 08:38 Clonidine; iw 08:38 Lorazepam; iw 08:38 Sulfa (Sulfonamide Antibiotics); iw 08:38 Vancomycin; iw - Home Meds: 08:38 allopurinol 100 mg Oral tab 1 tab once daily [Active]; aspirin 81 mg Oral cap 1 cap iw once daily [Active]; atorvastatin 40 mg oral tab 1 tab once daily [Active]; clopidogrel 75 mg oral tab 1 tab once daily [Active]; finasteride 5 mg oral tab 1 tab once daily [Active]; ferrous sulfate 325 mg (65 mg iron) Oral cpER daily [Active]; furosemide 40 mg Oral tab 1 tab 2 times per day [Active]; hydralazine 100 mg Oral tab 1 tab 3 times per day [Active]; levothyroxine 125 mcg tab 1 tab once daily [Active]; lisinopril 20 mg Oral tab 1 tab once daily [Active]; Klor-Con M20 20 mEq Oral TbTQ 1 tab once daily [Active]; quetiapine 50 mg oral tab daily [Active]; spironolactone 25 mg Oral tab 1 tab once daily [Active]; tamsulosin 0.4 mg oral cap 1 cap once daily [Active]; albuterol sulfate 90 mcg/actuation Inhl aebs 2 puffs every 4-6 hours [Active]; glipizide 5 mg Oral tab 1 tab once daily [Active]; nitroglycerin 0.4 mg SL subl 1 tab every 5 minutes [Active]; ondansetron HCl 8 mg Oral tab 1 tab 3 times per day [Active]; hydroxyzine HCl 50 mg Oral tab [Active]; cetirizine 10 mg oral tab 1 tab once daily [Active]; carvedilol 6.25 mg oral tab 1 tab every 12 hours [Active]; - PMHx: 08:38 Cerebrovascular accident; chronic kidney disease; COPD; diabetes mellitus; Enlarged iw Heart; Hypertensive disorder; Hypothyroidism; Myocardial infarction; - PSHx: 08:38 Multiple partial finger amputations; iw - Immunization history:: Adult Immunizations up to date. - Family history:: not pertinent. ROS: 08:49 Constitutional: Negative for fever, chills, and weight loss, Eyes: Negative for injury, daisy pain, redness, and discharge, ENT: Negative for injury, pain, and discharge, Neck: Negative for injury, pain, and swelling, Cardiovascular: Negative for chest pain, palpitations, and edema, Respiratory: Negative for shortness of breath, cough, wheezing, and pleuritic chest pain, Abdomen/GI: Negative for abdominal pain, nausea, vomiting, diarrhea, and constipation, Back: Negative for injury and pain, : Negative for injury, bleeding, discharge, and swelling, Neuro: Negative for headache, weakness, numbness, tingling, and seizure, Psych: Negative for depression, anxiety, suicide ideation, homicidal ideation, and hallucinations, Allergy/Immunology: Negative for hives, rash, and allergies, Endocrine: Negative for neck swelling, polydipsia, polyuria, polyphagia, and marked weight changes, Hematologic/Lymphatic: Negative for swollen nodes, abnormal bleeding, and unusual bruising. 08:49 MS/extremity: Positive for injury or acute deformity, decreased range of motion, erythema, pain, swelling, tenderness, of the right hand and left hand. Exam: 08:49 Constitutional: This is a well developed, well nourished patient who is awake, alert, daisy and in no acute distress. Head/Face: Normocephalic, atraumatic. Eyes: Pupils equal round and reactive to light, extra-ocular motions intact. Lids and lashes normal. Conjunctiva and sclera are non-icteric and not injected. Cornea within normal limits. Periorbital areas with no swelling, redness, or edema. ENT: Nares patent. No nasal discharge, no septal abnormalities noted. Tympanic membranes are normal and external auditory canals are clear. Oropharynx with no redness, swelling, or masses, exudates, or evidence of obstruction, uvula midline. Mucous membranes moist. Neck: Trachea midline, no thyromegaly or masses palpated, and no cervical lymphadenopathy. Supple, full range of motion without nuchal rigidity, or vertebral point tenderness. No Meningismus. Chest/axilla: Normal chest wall appearance and motion. Nontender with no deformity. No lesions are appreciated. Cardiovascular: Regular rate and rhythm with a normal S1 and S2. No gallops, murmurs, or rubs. Normal PMI, no JVD. No pulse deficits. Respiratory: Lungs have equal breath sounds bilaterally, clear to auscultation and percussion. No rales, rhonchi or wheezes noted. No increased work of breathing, no retractions or nasal flaring. Abdomen/GI: Soft, non-tender, with normal bowel sounds. No distension or tympany. No guarding or rebound. No evidence of tenderness throughout. Back: No spinal tenderness. No costovertebral tenderness. Full range of motion. Male : Normal genitalia with no discharge or lesions. Neuro: Awake and alert, GCS 15, oriented to person, place, time, and situation. Cranial nerves II-XII grossly intact. Motor strength 5/5 in all extremities. Sensory grossly intact. Cerebellar exam normal. Normal gait. Psych: Awake, alert, with orientation to person, place and time. Behavior, mood, and affect are within normal limits. 08:49 Skin: cellulitis, that is mild, that is moderate, induration, that is mild is noted, injury, post surgical. 11:21 ECG was reviewed by the Attending Physician. [facility] Vital Signs: 08:36 BP 160 / 83; Pulse 82; Resp 16; Temp 97.8; Pulse Ox 100% on R/A; Weight 121.56 kg; iw Height 5 ft. 7 in. (170.18 cm); Pain 0/10; 08:36 Body Mass Index 41.97 (121.56 kg, 170.18 cm) iw MDM: 08:27 Patient medically screened. [facility] 08:51 Differential diagnosis: open fracture, closed fracture. Data reviewed: vital signs, [facility] nurses notes, lab test result(s), EKG, radiologic studies, CT scan, plain films. 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 Counseling: I had a detailed discussion with the patient and/or guardian regarding: the historical points, exam findings, and any diagnostic results supporting the discharge/admit diagnosis, lab results, radiology results. 07/27 08:43 Order name: Blood Culture Adult (2) [facility] 07/27 08:43 Order name: Basic Metabolic Panel; Complete Time: 10: [facility] 07/27 08:43 Order name: CBC with Diff; Complete Time: 10: [facility] 07/27 08:43 Order name: LFT's; Complete Time: 10: [facility] 07/27 08:43 Order name: Magnesium; Complete Time: 10: [facility] 07/27 08:43 Order name: NT PRO-BNP; Complete Time: 10: [facility] 07/27 08:43 Order name: PT-INR; Complete Time: 10: [facility] 07/27 08:43 Order name: Troponin HS; Complete Time: 10: [facility] 07/27 08:43 Order name: Lactate w/ 2H reflex if indic.; Complete Time: 10: [facility] 07/27 08:58 Order name: Lab Add On EDTN 07/27 09:05 Order name: SARS RAPID; Complete Time: 10:09 07/27 09:08 Order name: C-Reactive Protein; Complete Time: 10:09 [facility] 07/27 09:24 Order name: Basic Metabolic Panel [facility]TN 07/27 09:24 Order name: Basic Metabolic Panel [facility] 07/27 08:43 Order name: XRAY Chest (1 view) [facility] 07/27 08:43 Order name: EKG; Complete Time: 08:44 [facility] 07/27 09:24 Order name: CONS Physician Consult EDTN 07/27 09:24 Order name: NPO; Complete Time: 09:53 EDMS 07/27 09:24 Order name: Regular EDMS 07/27 09:24 Order name: CBC with Automated Diff EDMS 07/27 09:24 Order name: CBC with Automated Diff EDTN 07/27 09:51 Order name: RAD; Complete Time: 10:09 EDMS 07/27 11:05 Order name: Creatine Phosphokinase [facility] 07/27 08:43 Order name: Cardiac monitoring; Complete Time: 09:14 [facility] 07/27 08:43 Order name: EKG - Nurse/Tech; Complete Time: 11:17 [facility] 07/27 08:43 Order name: IV Saline Lock; Complete Time: 09:14 [facility] 07/27 08:43 Order name: Labs collected and sent; Complete Time: 09:15 [facility] 07/27 08:43 Order name: O2 Per Protocol; Complete Time: 09:15 [facility] 07/27 08:43 Order name: O2 Sat Monitoring; Complete Time: 09:15 [facility] 07/27 08:43 Order name: Wound dressing; Complete Time: :15 [facility] EC:21 Rate is 72 beats/min. Rhythm is regular. QRS [place] is Normal. MT interval is normal. QRS daisy interval is normal. QT interval is normal. No Q waves. T waves are Normal. No ST changes noted. Clinical impression: NSR w/ Non-specific ST/T Changes. Interpreted by me. Reviewed by me. Administered Medications: 09:18 Not Given (Duplicate Order): Tetanus Toxoid,Adsorbed 0.5 ml IM once; Provide Vaccine [facility] Information Statement (VIS). 09:27 Drug: NS 0.9% 1000 ml Route: IV; Rate: 125 ml/hr; Site: left antecubital; [facility] 09:27 Drug: Bactroban (mupirocin) Ointment 2 % 1 application Route: Topical; Site: wound; [facility] 09:27 Drug: Clindamycin 900 mg Route: IVPB; Infused Over: 30 mins; Site: left antecubital; 5 10:00 Follow up: IV Status: Completed infusion [facility] 10:34 Drug: Magnesium Sulfate 1 grams Route: IVPB; Infused Over: 1 hrs; Site: left 5 antecubital; 10:37 Not Given (pt has had it within last 5 years): Boostrix Tdap 0.5 ml IM once [facility] 13:45 Not Given (Physician Discretion; Per Infection control; change DAPTOmycin): Ancef 5 (cefazolin) 2 grams IVPB once over 30 mins; (mix in 100 mL NS) Disposition Summary: 07/27/22 08:56 Hospitalization Ordered Hospitalization Status: Inpatient Admission [facility] Provider: Thanh Allen cha Location: Telemetry/MedSurg (Inpatient) daisy Condition: Fair daisy Problem: new daisy Symptoms: have improved daisy Bed/Room Type: Standard [facility] Room Assignment: [id number](07/27/22 12:58) [place] Diagnosis - Type 1 diabetes mellitus with hyperglycemia daisy - Cellulitis and acute lymphangitis of finger and toe daisy - Hypomagnesemia daisy - Unspecified kidney failure - chronic daisy - Hypokalemia daisy Forms: - Medication Reconciliation Form daisy - SBAR form daisy Signatures: Dispatcher [employer] EDAl Morelos MD MD cha Williams, Irene, RN RN iw Aguilar, Jose, RN RN ja1 Joann Tobias RN RN [id number] Corrections: (The following items were deleted from the chart) 12:58 08:56 daisy kaplan
--- NOTE | 2022-07-27 08:57 | ER ---
Nurse's Notes [facility] Name: Bert Deng Age: 52 yrs Sex: Male : 1970 Arrival Date: 07/27/2022 Time: 08:24 Bed 12 Private MD: Diagnosis: Type 1 diabetes mellitus with hyperglycemia;Cellulitis and acute lymphangitis of finger and toe;Hypomagnesemia;Unspecified kidney failure-chronic;Hypokalemia Presentation: 07/27 08:36 Chief complaint: Patient states: had his left thumb and index finger shortened d/t iw osteomyelitis on Tues with [place], was told he has MRSA in wound and to come to ER for possible admission. Coronavirus screen: At this time, the client does not indicate any symptoms associated with coronavirus-19. Ebola Screen: Patient negative for fever greater than or equal to 101.5 degrees Fahrenheit, and additional compatible Ebola Virus Disease symptoms Patient denies exposure to infectious person. Patient denies travel to an Ebola-affected area in the 21 days before illness onset. No symptoms or risks identified at this time. Initial Sepsis Screen: Does the patient meet any 2 criteria? No. Patient's initial sepsis screen is negative. Does the patient have a suspected source of infection? No. Patient's initial sepsis screen is negative. Risk Assessment: Do you want to hurt yourself or someone else? Patient reports no desire to harm self or others. Onset of symptoms was July 27, 2022. 08:36 Method Of Arrival: Ambulatory iw 08:36 Acuity: ELPIDIO 3 iw Historical: - Allergies: 08:38 Clonidine; iw 08:38 Lorazepam; iw 08:38 Sulfa (Sulfonamide Antibiotics); iw 08:38 Vancomycin; iw - Home Meds: 08:38 allopurinol 100 mg Oral tab 1 tab once daily [Active]; aspirin 81 mg Oral cap 1 cap iw once daily [Active]; atorvastatin 40 mg oral tab 1 tab once daily [Active]; clopidogrel 75 mg oral tab 1 tab once daily [Active]; finasteride 5 mg oral tab 1 tab once daily [Active]; ferrous sulfate 325 mg (65 mg iron) Oral cpER daily [Active]; furosemide 40 mg Oral tab 1 tab 2 times per day [Active]; hydralazine 100 mg Oral tab 1 tab 3 times per day [Active]; levothyroxine 125 mcg tab 1 tab once daily [Active]; lisinopril 20 mg Oral tab 1 tab once daily [Active]; Klor-Con M20 20 mEq Oral TbTQ 1 tab once daily [Active]; quetiapine 50 mg oral tab daily [Active]; spironolactone 25 mg Oral tab 1 tab once daily [Active]; tamsulosin 0.4 mg oral cap 1 cap once daily [Active]; albuterol sulfate 90 mcg/actuation Inhl aebs 2 puffs every 4-6 hours [Active]; glipizide 5 mg Oral tab 1 tab once daily [Active]; nitroglycerin 0.4 mg SL subl 1 tab every 5 minutes [Active]; ondansetron HCl 8 mg Oral tab 1 tab 3 times per day [Active]; hydroxyzine HCl 50 mg Oral tab [Active]; cetirizine 10 mg oral tab 1 tab once daily [Active]; carvedilol 6.25 mg oral tab 1 tab every 12 hours [Active]; - PMHx: 08:38 Cerebrovascular accident; chronic kidney disease; COPD; diabetes mellitus; Enlarged iw Heart; Hypertensive disorder; Hypothyroidism; Myocardial infarction; - PSHx: 08:38 Multiple partial finger amputations; iw - Immunization history:: Adult Immunizations up to date. - Family history:: not pertinent. Screenin:28 [facility] ED Fall Risk Assessment (Adult) History of falling in the last 3 months, jh5 including since admission No falls in past 3 months (0 pts) Confusion or Disorientation No (0 pts) Intoxicated or Sedated No (0 pts) Impaired Gait No (0 pts) Mobility Assist Device Used No (0 pt) Altered Elimination No (0 pt) Score/Fall Risk Level 0 - 2 = Low Risk. Abuse screen: Denies threats or abuse. Denies injuries from another. Nutritional screening: No deficits noted. Tuberculosis screening: No symptoms or risk factors identified. Vital Signs: 08:36 BP 160 / 83; Pulse 82; Resp 16; Temp 97.8; Pulse Ox 100% on R/A; Weight 121.56 kg; iw Height 5 ft. 7 in. (170.18 cm); Pain 0/10; 08:36 Body Mass Index 41.97 (121.56 kg, 170.18 cm) ED Course: 08:24 Patient arrived in ED. [id number] 08:27 Al Rodriguez MD is Attending Physician. [facility] 08:28 Joann Tobias, RN is Primary Nurse. [facility] 08:28 Patient has correct armband on for positive identification. Call light in reach. Side [facility] rails up X 1. 08:38 Triage completed. 08:55 Thanh Allen MD is Hospitalizing Provider. [facility] 09:15 Inserted saline lock: 20 gauge in left antecubital area, using aseptic technique. [facility] Administered Medications: 09:18 Not Given (Duplicate Order): Tetanus Toxoid,Adsorbed 0.5 ml IM once; Provide Vaccine [facility] Information Statement (VIS). 09:27 Drug: NS 0.9% 1000 ml Route: IV; Rate: 125 ml/hr; Site: left antecubital; [facility] 09:27 Drug: Bactroban (mupirocin) Ointment 2 % 1 application Route: Topical; Site: wound; [facility] 09:27 Drug: Clindamycin 900 mg Route: IVPB; Infused Over: 30 mins; Site: left antecubital; [facility] 10:00 Follow up: IV Status: Completed infusion [facility] 10:34 Drug: Magnesium Sulfate 1 grams Route: IVPB; Infused Over: 1 hrs; Site: left [facility] antecubital; 10:37 Not Given (pt has had it within last 5 years): Boostrix Tdap 0.5 ml IM once [facility] 13:45 Not Given (Physician Discretion; Per Infection control; change DAPTOmycin): Ancef [facility] (cefazolin) 2 grams IVPB once over 30 mins; (mix in 100 mL NS) Outcome: 08:56 Decision to Hospitalize by Provider. [facility] 14:48 Patient left the ED. [facility] Signatures: Al Rodriguez MD MD cha Williams, Irene, RN RN Marni Nazario [facility] Joann Tobias, NELL RN [facility]
[2022-07-27] MEDS ORDERED: ONDANSETRON 4 MG/2 ML VIAL IV PRN (09:19)
[2022-07-27] MEDS ORDERED: ACETAMINOPHEN 500 MG TAB PO PRN (09:19)
[2022-07-27] MEDS ORDERED: MORPHINE 2 MG/ML SYR IV PRN (09:19)
[2022-07-27 09:21] LABS: Absolute Lymphocytes (CBC) 1.3 K/uL (0.7-4.9); Hematocrit 29.6 % (39.6-49.0); Lymphocytes % 18.4 % (15.3-44.8); MCV 79.8 fL (80-100); MPV 7.8 fL (7.6-11.3); RBC Red Blood Cell Count 3.71 M/uL (4.33-5.43)
[2022-07-27] MEDS ORDERED: MUPIROCIN 2% OINT 22GM TUBE TOP ONE (09:22)
[2022-07-27] MEDS ORDERED: NA CHLORIDE 0.9% 1,000 ML ONE (09:23)
[2022-07-27] MEDS ORDERED: CLINDAMYCIN 900MG/D5W 900 MG/50 ML IVPB IV ONE (09:23)
[2022-07-27 09:26] LABS: Protime INR 1.17
[2022-07-27 09:40] LABS: Albumin 2.3 g/dL (3.4-5.0); Bilirubin Direct 0.1 mg/dL (0-0.2); Bilirubin Total 0.3 mg/dL (0.2-1.0); C-Reactive Protein 74.2 mg/L (<3.00); Potassium 3.3 mmol/L (3.5-5.1); Protein, Total 7.8 g/dL (6.4-8.2); Troponin High Sensitivity 13.5 pg/mL (<58.9)
[2022-07-27 09:42] LABS: Magnesium 1.4 mg/dL (1.6-2.4)
--- NOTE | 2022-07-27 09:50 | RAD REPORT ---
EXAM DESCRIPTION: RAD - Chest Single View - 07/27/2022 9:23 am CLINICAL HISTORY: COUGH COMPARISON: Portable 06/26/2022 TECHNIQUE: AP portable chest image was obtained 07/27/2022 9:23 am . FINDINGS: Lungs are clear of focal abnormality. Interstitial pattern is similar or less prominent th an prior imaging. . Heart size is slightly decreased from the prior study. No acute failure or volume overload seen. No measurable pleural effusion and no pneumothorax. No acute bony abnormality seen. No acute aortic findings suspected. IMPRESSION: No acute cardiopulmonary process.
[2022-07-27] MEDS: NA CHLORIDE 0.9% 1,000 ML IV SCH ×2 (10:00→23:20)
[2022-07-27 10:05] LABS: SARS-CoV-2 Antigen Rapid Res Negative (Negative)
[2022-07-27] MEDS ORDERED: MAGNESIUM SULFATE 1 gm IVPB 1 GM/100 ML BAG IV ONE (10:25)
--- NOTE | 2022-07-27 12:06 | P.CNS ---
Chief Complaint: Left index finger infection History of Present Illness: This 52 yrs old Male with history of Cerebrovascular accident, chronic kidney disease, COPD, diabetes mellitus, enlarged heart, hypertensive disorder, hypothyroidism, myocardial infarction, multiple partial finger amputations, and MRSA presents to ED with complaints of left index finger infection. ID was consulted for patient's infection management by the primary team. Allergies clonidine Allergy (Unknown, Verified 07/21/22 09:58) Itching/Hives/Rash Sulfa (Sulfonamide Antibiotics) Allergy (Verified 07/21/22 09:58) Itching vancomycin Allergy (Verified 07/21/22 09:58) Itching/Hives/Rash lorazepam Adverse Reaction (Verified 07/21/22 09:58) Shortness of breath Home Medications: Albuterol Inhaler [Ventolin Inhaler*] 2 puff IH Q6H PRN 06/27/22 Allopurinol 100 mg PO DAILY 06/27/22 Amlodipine [Norvasc*] 10 mg PO DAILY 06/27/22 Aspirin [Aspirin EC] 81 mg PO DAILY 06/27/22 Atorvastatin Calcium 40 mg PO BEDTIME 06/27/22 Cetirizine HCl 10 mg PO DAILY 06/27/22 Clopidogrel Bisulfate [Plavix*] 75 mg PO DAILY 06/27/22 Ferrous Sulfate [Ferrous Sulfate*] 325 mg PO DAILY 06/27/22 Finasteride [Proscar*] 5 mg PO DAILY 06/27/22 Fluticasone [Flonase 50MCG [place]*] 2 sprays NS DAILY 06/27/22 Furosemide [Lasix] 40 mg PO BID 06/27/22 Gabapentin 300 mg PO BID 06/27/22 Hydralazine HCl 100 mg PO TID 06/27/22 Levothyroxine [Synthroid*] 125 mcg PO [id number] 06/27/22 Lisinopril [Zestril] 20 mg PO DAILY 06/27/22 Quetiapine Fumarate [Seroquel] 50 mg PO BEDTIME 06/27/22 Quetiapine [Seroquel*] 25 mg PO BID PRN 06/27/22 Spironolactone [Aldactone*] 75 mg PO DAILY 06/27/22 Tamsulosin [Flomax*] 0.4 mg PO BEDTIME 06/27/22 Venlafaxine HCl 75 mg PO DAILY 06/27/22 carvediloL [Carvedilol] 6.25 mg PO BID 06/27/22 hydrOXYzine HCL [Atarax*] 25 mg PO TID 06/27/22 Codeine/APAP [Tylenol #3*] 1 tab PO Q4HP PRN #15 tab 07/01/22 levoFLOXacin [Levaquin] 750 mg PO Q48H #4 tab 07/01/22 Semaglutide [Ozempic] 1 mg SQ 07/21/22 - Past Medical/Surgical History Diabetic: Yes -: DM2 -: CHF -: CAD -: Gout -: Hypertension -: Hypothyroid -: COPD -: CKD 3 -: 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 -: Right rotator cuff repair Psychosocial/ Personal History: Patient lives at home with a friend, is disabled/unemployed - Family History Mother Medical History: Diabetes Father Medical History: Cancer - Social History Alcohol use: No CD- Drugs: No Caffeine use: Yes Review of Systems 10-point ROS is otherwise unremarkable Eyes: Other (left eye sight getting worse) Musculoskeletal: Other (multiple open lesions of the partial amputated fingers) Integumentary: Lesions (multiple open lesions of the partial amputated fingers) Physical Examination General: Alert, In no apparent distress HEENT: Other (wearing glasses) Neck: Supple Respiratory: Clear to auscultation bilaterally Cardiovascular: Normal S1 S2, Edema (+1 pitting edema of left leg) Gastrointestinal: Normal bowel sounds Musculoskeletal: Swelling (left leg +1 pitting edema), Other (bilateral hand partial finger amputations with open lesions) Integumentary: Other (right middle finger with sutures, left thumb with sutures, left index finger with bone exposed and sutures in place; ) Neurological: Normal speech Laboratory Data (last 24 hrs) 07/27/22 09:07: PT 12.9 H, INR 1.17 07/27/22 09:07: WBC 7.00, Hgb 10.1 L, Hct 29.6 L, Plt Count 208 07/27/22 09:07: Sodium 136, Potassium 3.3 L, BUN 30 H, Creatinine 2.39 H, Glucose 218 H, Magnesium 1.4 L*, Total Bilirubin 0.3, AST 25, ALT 31, Alkaline Phosphatase 102 - Problems (1) Cellulitis of finger of left hand Current Visit: Yes Status: Acute Plan: 1/9 BC: Pending for culture. 07/24 BC: Bacteremia of MRSA 07/21 Wound culture: MRSA positive 07/27 Clindamycin once given, 07/27 Recommend to switch to Daptomycin today, 07/27 Keep monitoring the signs of infection with fever and WBC trend (2) History of methicillin resistant staphylococcus aureus (MRSA) Current Visit: Yes Status: Acute Plan: 07/27 BC: Pending for culture. 07/24 BC: Bacteremia of MRSA 07/21 Wound culture: MRSA positive 07/27 Clindamycin once given, 07/27 Recommend to switch to Daptomycin today, 07/27 Keep monitoring the signs of infection with fever and WBC trend (3) Severe protein-calorie malnutrition Current Visit: Yes Status: Acute Plan: Encourage increasing protein oral intake and decrease the amount of carbohydrate and fat consumption (4) Diabetes mellitus with nephropathy Current Visit: Yes Status: Acute Plan: Managed by primary team and keep monitoring patient's sugar level (5) CKD (chronic kidney disease) Current Visit: Yes Status: Acute Plan: 07/27: BUN: 30, CR: 2.39 (6) CVA (cerebral vascular accident) Current Visit: Yes Status: Acute (7) COPD (chronic obstructive pulmonary disease) Current Visit: Yes Status: Acute (8) Hypertension Current Visit: Yes Status: Acute (9) Hypothyroidism Current Visit: Yes Status: Acute (10) Myocardial infarct Current Visit: Yes Status: Acute (11) Amputation finger Current Visit: Yes Status: Acute Conclusions/Impression: Case has been discussed with Luis Jackson Thank you Dr. Ivey for consultation.
[2022-07-27] MEDS: DAPTOmycin 700 MG in NA CHLORIDE 0.9% 100 ML IVPB SCH (13:00)
[2022-07-27 15:50] VITALS: BMI 41.8
[2022-07-27] MEDS ORDERED: LINEZOLID 600 MG IVPB 600 MG/300 ML BAG IV SCH (21:00)
[2022-07-28 05:27] LABS: Absolute Lymphocytes (CBC) 1.5 K/uL (0.7-4.9); Hematocrit 26.8 % (39.6-49.0); Lymphocytes % 28.8 % (15.3-44.8); MCV 79.1 fL (80-100); MPV 7.3 fL (7.6-11.3); RBC Red Blood Cell Count 3.39 M/uL (4.33-5.43)
[2022-07-28 05:43] LABS: Potassium 3.4 mmol/L (3.5-5.1)
[2022-07-28] MEDS ORDERED: propofoL 200 MG/20 ML VIAL IV ONE (07:40)
[2022-07-28] MEDS ORDERED: MIDAZOLAM HCL 2 MG/2 ML INJ ONE (07:40)
[2022-07-28] MEDS ORDERED: ONDANSETRON 4 MG/2 ML VIAL ONE (07:41)
[2022-07-28] MEDS ORDERED: KETOROLAC 30 MG/ML INJ ONE (07:41)
[2022-07-28] MEDS ORDERED: FENTANYL CITR 100 MCG/2 ML ONE (07:41)
[2022-07-28] MEDS ORDERED: LIDOCAINE 2% MPF 5 ML VIAL ONE (07:41)
--- NOTE | 2022-07-28 10:21 | P.HP ---
Certification for Inpatient Patient admitted to: Inpatient With expected LOS: >2 Midnights Patient will require the following post-hospital care: None Practitioner: I am a practitioner with admitting privileges, knowledge of patient current condition, hospital course, and medical plan of care. Services: Services provided to patient in accordance with Admission requirements found in Title 42 Section 412.3 of the Code of Federal Regulations Patient History Date of Service: 07/27/22 Reason for admission: Left index finger infection History of Present Illness: Pt is a 52yo who presented to the hospital with cellulitis of the left hand. Patient apparently places fingers quite often and he has been in most of his phalanges down. They are significantly swollen and erythematous. According to the staff this has been going on for quite a while. He follows up with a hand surgeon as an outpatient. He was on oral antibiotic therapy with infection wo rsen so he came into the emergency room. In the emergency room, patient was started on IV antibiotics. He had a prior history of MRSA infection. Patient will be admitted for the incision and debridement of the hand infection and will get infectious disease consultation as well. Allergies clonidine Allergy (Unknown, Verified 07/21/22 09:58) Itching/Hives/Rash Sulfa (Sulfonamide Antibiotics) Allergy (Verified 07/21/22 09:58) Itching vancomycin Allergy (Verified 07/21/22 09:58) Itching/Hives/Rash lorazepam Adverse Reaction (Verified 07/21/22 09:58) Shortness of breath Home Medications: Albuterol Inhaler [Ventolin Inhaler*] 2 puff IH Q6H PRN 06/27/22 Allopurinol 100 mg PO DAILY 06/27/22 Amlodipine [Norvasc*] 10 mg PO DAILY 06/27/22 Aspirin [Aspirin EC] 81 mg PO DAILY 06/27/22 Atorvastatin Calcium 40 mg PO BEDTIME 06/27/22 Cetirizine HCl 10 mg PO DAILY 06/27/22 Clopidogrel Bisulfate [Plavix*] 75 mg PO DAILY 06/27/22 Ferrous Sulfate [Ferrous Sulfate*] 325 mg PO DAILY 06/27/22 Finasteride [Proscar*] 5 mg PO DAILY 06/27/22 Fluticasone [Flonase 50MCG Nasal [place]*] 1 sprays NS DAILY 06/27/22 Furosemide [Lasix] 40 mg PO BID 06/27/22 Gabapentin 300 mg PO DAILY 06/27/22 Hydralazine HCl 100 mg PO TID 06/27/22 Levothyroxine [Synthroid*] 125 mcg PO [id number] 06/27/22 Lisinopril [Zestril] 20 mg PO DAILY 06/27/22 Quetiapine Fumarate [Seroquel] 50 mg PO BEDTIME 06/27/22 Spironolactone [Aldactone*] 75 mg PO DAILY 06/27/22 Tamsulosin [Flomax*] 0.4 mg PO DAILY 06/27/22 Venlafaxine HCl 75 mg PO DAILY 06/27/22 carvediloL [Carvedilol] 6.25 mg PO BID 06/27/22 hydrOXYzine HCL [Atarax*] 25 mg PO TID 06/27/22 Semaglutide [Ozempic] 1 mg SQ DAILY 07/21/22 Glipizide [Glipizide ER] 5 mg PO DAILY 07/27/22 Nitroglycerin 0.4 mg SL TID PRN 07/27/22 Ondansetron [Ondansetron Odt] 4 mg PO PRN 07/27/22 Quetiapine [Seroquel] 25 mg PO BID 07/27/22 hydrOXYzine HCL [Atarax*] 25 mg PO TID PRN 07/27/22 - Past Medical/Surgical History Has patient received pneumonia vaccine in the past: No Diabetic: Yes -: DM2 -: CHF -: CAD -: Gout -: Hypertension -: Hypothyroid -: COPD -: CKD 3 -: 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 moist/pink, EOMI, Sclerae nonicteric Neck: Supple, 2+ carotid pulse no bruit, No LAD, Without JVD or thyroid abnormality Respiratory: Clear to auscultation bilaterally, Normal air movement Cardiovascular: Regular rate/rhythm, Normal S1 S2 Gastrointestinal: Normal bowel sounds, Soft and benign, Non-distended, No tenderness Musculoskeletal: Erythema, Tenderness, Warmth, Other (Involves the proximal phalanges.) Integumentary: No rashes Neurological: Normal gait, Normal speech, Normal strength at 5/5 x4 extr, Normal tone, Normal affect Lymphatics: No axilla or inguinal lymphadenopathy Assessment & Plan - Plan Assessment: 1. Hand cellulitis 2. MRSA bacteremia 3. History of diabetes and hypertension 4. Morbid obesity PLAN: 1. Continue with IV antibiotic 2. Continue with local wound care 3. Hand/ID consultation 4. Gentle IV hydration 5. Monitor CBC 6. Strict blood sugar monitoring 7. Pain control 8. GI and DVT prophylaxis Discharge Plan: Home Plan to discharge in: Greater than 2 days - Advance Directives Does patient have a Living Will: No Does patient have a Durable POA for Healthcare: No - Code Status/Comfort Care Code Status Assessed: Yes Code Status: Full Code Critical Care: No Time Spent Managing PTS Care (In Minutes): 45
--- NOTE | 2022-07-28 10:42 | P.PN ---
Subjective Date of Service: 07/28/22 Chief Complaint: Left index finger infection Patient lying in bed s/p bilateral fingers debridement. No major events upon examination. Not in cardiopulmonary distress. Physical Examination - Vital Signs Temperature: 97.9 F Blood Pressure: 130/73 Pulse: 61 Respirations: 16 Pulse Ox (%): 92 - Physical Exam General: Alert, In no apparent distress, Oriented x3 HEENT: Other (wearing glasses) Respiratory: Clear to auscultation bilaterally Cardiovascular: No edema, Normal pulses, Normal S1 S2 Gastrointestinal: Normal bowel sounds Musculoskeletal: Other (S/P bilateral fingers debridement: Right thumb and 3rd; Left thumb and 2nd. Surgical dressing in place with mild blood seen) Integumentary: Other (S/P bilateral fingers debridement: Right thumb and 3rd; Left thumb and 2nd. Surgical dressing in place with mild blood seen) Neurological: Normal speech, Normal affect - Studies Current Medications: Acetaminophen (Acetaminophen 500 Mg Tab) 500 mg PO Q6H PRN PRN Reason: pain/fever Sodium Chloride (Ns 1000 Ml Ivbag) 1,000 mls @ 75 mls/hr IV .[id number] [facility] Last Admin: 07/27/22 23:20 Dose: Not Given Daptomycin 700 mg/ Sodium (Chloride) 100 mls @ 200 mls/hr IVPB Q24H [facility] Last Admin: 07/27/22 13:00 Dose: Not Given Morphine Sulfate (Morphine 2 Mg/Ml Syr) 2 mg IV Q4H PRN PRN Reason: Pain scale 5-7 (Moderate) Ondansetron HCl (Ondansetron 4 Mg/2 Ml Vial) 4 mg IV Q4H PRN PRN Reason: NAUSEA / VOMITING Sodium Chloride (Flush Normal Saline 10 Ml) 10 ml IV BID [facility] Last Admin: 07/28/22 08:46 Dose: Not Given 07/27/22 09:07 Blood - Blood Aerobic Blood Culture - Preliminary No growth in 24 hours. 07/27/22 09:07 Blood - Blood Anaerobic Blood Culture - Preliminary No growth in 24 hours. Assessment And Plan - Current Problems (Diagnosis) (1) Cellulitis of finger of left hand Current Visit: Yes Status: Acute Plan: Cultures: - 07/27 BC: Negative - 07/24 BC: Bacteremia of MRSA - 07/21 Wound culture: MRSA positive Antibiotics: - 07/27 Clindamycin once given and Daptomycin started, too - Recommend to continue IV Daptomycin - 07/28 WBC 5.1; HB.2; PLT: 205 Bilateral fingers debridement today by plastic surgeon Keep monitoring the signs of infection with fever and WBC trends - Plan History of methicillin resistant staphylococcus aureus (MRSA) - Recommend to continue IV Daptomycin - Keep monitoring the signs of infection with fever and WBC trend Severe protein-calorie malnutrition - Encourage increasing protein oral intake and decrease the amount of carbohydrate and fat consumption Diabetes mellitus with nephropathy - Managed by primary team and keep monitoring patient's sugar level CKD (chronic kidney disease) - Will keep monitoring the renal function and dosing antibiotics as needed CVA (cerebral vascular accident) COPD (chronic obstructive pulmonary disease) Hypertension Hypothyroidism Myocardial infarct Amputation finger Case has been discussed with Dr. Glover, N
[2022-07-28] MEDS: NA CHLORIDE 0.9% 1,000 ML IV SCH (11:53)
[2022-07-28] MEDS: DAPTOmycin 700 MG in NA CHLORIDE 0.9% 100 ML IVPB SCH (13:53)
--- NOTE | 2022-07-28 14:25 | EKG ---
Test Date: 2022-07-27 Test Time: 11:17:06 Copying Machine Mechanic: MAXIMILIAN MEASUREMENT RESULTS: Intervals: Rate: 72 [place]: 198 QRSD: 110 QT: 434 QTc: 475 [place]: P: 50 [place]: 198 QRS: 48 T: 46 INTERPRETIVE STATEMENTS: Normal sinus rhythm Normal ECG Compared to ECG 03/03/2022 16:28:41 Myocardial infarct finding no longer present Electronically Signed On 07-28-22 14:22:52 CREDIT CASHIER by Travis Paulino
[2022-07-29] MEDS: NA CHLORIDE 0.9% 1,000 ML IV SCH ×2 (00:43→13:51)
--- NOTE | 2022-07-29 09:40 | P.PN ---
Subjective Date of Service: 07/29/22 Chief Complaint: Left index finger infection Patient lying in bed s/p bilateral fingers debridement, day 1, No major events upon examination. Not in cardiopulmonary distress. Physical Examination - Vital Signs Temperature: 98.0 F Blood Pressure: 145/91 Pulse: 75 Respirations: 16 Pulse Ox (%): 94 - Physical Exam General: Alert, In no apparent distress Respiratory: Clear to auscultation bilaterally Cardiovascular: No edema, Normal pulses, Normal S1 S2 Gastrointestinal: Normal bowel sounds Musculoskeletal: Other (S/P bilateral fingers debridement: Right thumb and 3rd; Left thumb and 2nd. Surgical dressing in place with mild blood seen) Integumentary: Other (S/P bilateral fingers debridement: Right thumb and 3rd; Left thumb and 2nd. Surgical dressing in place with mild blood seen) Neurological: Normal speech, Normal affect - Studies Current Medications: Acetaminophen (Acetaminophen 500 Mg Tab) 500 mg PO Q6H PRN PRN Reason: pain/fever Sodium Chloride (Ns 1000 Ml Ivbag) 1,000 mls @ 75 mls/hr IV .[id number] [facility] Last Admin: 07/29/22 00:43 Dose: 1,000 mls Daptomycin 700 mg/ Sodium (Chloride) 100 mls @ 200 mls/hr IVPB Q24H [facility] Last Admin: 07/28/22 13:53 Dose: 100 mls Morphine Sulfate (Morphine 2 Mg/Ml Syr) 2 mg IV Q4H PRN PRN Reason: Pain scale 5-7 (Moderate) Ondansetron HCl (Ondansetron 4 Mg/2 Ml Vial) 4 mg IV Q4H PRN PRN Reason: NAUSEA / VOMITING Sodium Chloride (Flush Normal Saline 10 Ml) 10 ml IV BID [facility] Last Admin: 07/28/22 20:15 Dose: 10 ml Microbiology 07/27/22 09:07 Blood - Blood Aerobic Blood Culture - Preliminary No growth in 24 hours. 07/27/22 09:07 Blood - Blood Anaerobic Blood Culture - Preliminary No growth in 24 hours. 07/28 Wound culture for right finger: Pending Microbiology Data (last 24 hrs): Microbiology Assessment And Plan - Current Problems (Diagnosis) (1) Cellulitis of finger of left hand Current Visit: Yes Status: Acute Plan: Cultures: - 07/28 Right finger: Pending - 07/27 BC: Negative - 07/24 BC: Bacteremia of MRSA - 07/21 Wound culture: MRSA positive Antibiotics: - 07/27 Clindamycin once given and Daptomycin started, too - Recommend to continue IV Daptomycin Bilateral fingers debridement on 07/28 by plastic surgeon Keep monitoring the signs of infection with fever and WBC trends - Plan History of methicillin resistant staphylococcus aureus (MRSA) - Recommend to continue IV Daptomycin - Keep monitoring the signs of infection with fever and WBC trend Severe protein-calorie malnutrition - Encourage increasing protein oral intake and decrease the amount of carbohydrate and fat consumption Diabetes mellitus with nephropathy - Managed by primary team and keep monitoring patient's sugar level CKD (chronic kidney disease) - Will keep monitoring the renal function and dosing antibiotics as needed CVA (cerebral vascular accident) COPD (chronic obstructive pulmonary disease) Hypertension Hypothyroidism Myocardial infarct Amputation finger Case has been discussed with Luis Jackson
--- NOTE | 2022-07-29 09:48 | P.PN ---
Subjective Date of Service: 07/28/22 Subjective: No new changes, No C/O voiced, Improving Review of Systems 10-point ROS is otherwise unremarkable Physical Examination - Vital Signs Temperature: 97.9 F Blood Pressure: 130/73 Pulse: 61 Respirations: 16 Pulse Ox (%): 92 - Physical Exam General: Alert, In no apparent distress HEENT: Atraumatic, PERRLA, EOMI Neck: Supple, JVD not distended Respiratory: Clear to auscultation bilaterally, Normal air movement Cardiovascular: Regular rate/rhythm, Normal S1 S2 Gastrointestinal: Normal bowel sounds, No tenderness Musculoskeletal: No tenderness Integumentary: No rashes Neurological: Normal speech, Normal tone, Normal affect Lymphatics: No axilla or inguinal lymphadenopathy - Studies Medications List Reviewed: Yes Assessment & Plan - Plan Assessment: 1. Hand cellulitis 2. MRSA bacteremia 3. History of diabetes and hypertension 4. Morbid obesity PLAN: 1. Continue with IV antibiotic 2. Continue with local wound care 3. Hand/ID consultation appreciated 4. Gentle IV hydration 5. Schedule for echocardiogram 6. Strict blood sugar monitoring 7. Pain control 8. GI and DVT prophylaxis Discharge Plan: Home Plan to discharge in: Greater than 2 days - Advance Directives Does patient have a Living Will: No Does patient have a Durable POA for Healthcare: No - Code Status/Comfort Care Code Status: Full Code Critical Care: No Time Spent Managing PTS Care (In Minutes): 45
--- NOTE | 2022-07-29 10:37 | OP ---
Surgeon: Kavin Mast MD Preoperative Diagnosis: Open wounds of the right middle and left thumb and index. Postoperative Diagnosis: Open wounds of the right middle and left thumb and index. Procedure: Amputation at the proximal level of the right middle and left index and thumb with flap c losure. Anesthesia: General. Procedure In Detail: After satisfactory induction of general anesthesia, the hands were prepped with Betadine scrub and paint. Dry sterile drapes were placed in usual manner. Right side approached fi rst. A Fabiola drain was used as a tourniquet on the middle finger. Elliptical incision was made ex cising all necrotic tissue and sutures removed. Dissection proceeded down to bone. The bone was cut with bone saw and then soft tissue resected as much as possible. Cultures were taken. The wound wa s jet lavaged, irrigated with 1 L of dilute Betadine solution. Tourniquet released. Electrocautery was used for hemostasis. Flaps were closed with 3-0 Prolene. Attention was turned to the left thumb and index. Identical procedures were done with amputation of the bone with flap closure. Dressing consisted of Xeroform and 2 inch Ирина on all the wounds. The patient tolerated the procedure well a nd returned to recovery room. ELIECER/VIVIENNE Voice ID: [id number] Report ID: [id number]
--- NOTE | 2022-07-29 10:37 | HP ---
Date of Admission: 07/27/2022 History Of Present Illness: Patient is a 52-year-old male, right-hand dominant, who has open wounds and status post amputation of multiple digits of both hands. At this time, he has open wound of the right middle finger, left thumb, and left index finger. He has diabetes, hypertension, renal failure. He has had multiple hand surgeries as well as right rotator cuff. Physical Examination: He has amputations of the tips of all fingers including thumbs. Assessment: He has an open wound of the right middle, open wound of the left thumb and left index. Plan: Debridement, possible flap or graft closure. ELIECER/VIVIENNE Voice ID: [id number] L[place]ON
[2022-07-29] MEDS: DAPTOmycin 700 MG in NA CHLORIDE 0.9% 100 ML IVPB SCH (13:47)
[2022-07-30] MEDS: NA CHLORIDE 0.9% 1,000 ML IV SCH ×2 (03:01→17:00)
--- NOTE | 2022-07-30 06:36 | ECHO ---
HEIGHT: 5 ft 7 in WEIGHT: 267 lb 0 oz DATE OF STUDY: 07/29/[address]: Ezio Ivey MD 2-DIMENSIONAL: YES M.MODE: YES DOPPLER: YES COLOR FLOW: YES TDS: PORTABLE: YES DEFINITY: BUBBLE STUDY: DIAGNOSIS: ENDOCARDITIS CARDIAC HISTORY: CATHERIZATION: YES SURGERY: PROSTHETIC VALVE: PACEMAKER: MEASUREMENTS (cm) DIASTOLIC (NORMALS) SYSTOLIC (NORMALS) IVSd 1.2 (0.6-1.2) LA Diam 4.2 (1.9-4.0) LVEF 59% LVIDd 4.9 (3.5-5.7) LVIDs 3.4 (2.0-3.5) %FS 31% LVPWd 1.7 (0.6-1.2) Ao Diam 3.7 (2.0-3.7) 2 DIMENSIONAL ASSESSMENT: RIGHT ATRIUM: NORMAL LEFT ATRIUM: NORMAL RIGHT VENTRICLE: NORMAL LEFT VENTRICLE: NORMAL TRICUSPID VALVE: NORMAL MITRAL VALVE: NORMAL PULMONIC VALVE: NORMAL AORTIC VALVE: NORMAL PERICARDIAL EFFUSION: NONE AORTIC ROOT: NORMAL LEFT VENTRICULAR WALL MOTION: NORMAL DOPPLER/COLOR FLOW: TRACE MITRAL REGURGITATION/ TRACE TRICUSPID REGURGITATION COMMENTS: 1. NORMAL LEFT VENTRICULAR EJECTION FRACTION 60-65% 2. NORMAL WALL MOTION 3. NO VEGETATION IS SEEN 4. TRACE MITRAL REGURGITATION/ TRACE TRICUSPID REGURGITATION TECHNOLOGIST: VALERIE SOUSA
--- NOTE | 2022-07-30 11:13 | P.PN ---
Subjective Date of Service: 07/30/22 Chief Complaint: Left index finger infection Patient lying in bed s/p bilateral fingers debridement, day 2, No major events upon examination. Not in cardiopulmonary distress. Patient took a shower today Physical Examination - Vital Signs Temperature: 97.6 F Blood Pressure: 157/94 Pulse: 65 Respirations: 14 Pulse Ox (%): 97 - Physical Exam General: Alert, In no apparent distress Respiratory: Clear to auscultation bilaterally Cardiovascular: No edema, Normal pulses, Normal S1 S2 Gastrointestinal: Normal bowel sounds Musculoskeletal: Other (S/P bilateral fingers debridement: Right thumb and 3rd; Left thumb and 2nd. Surgical dressing in place with mild blood seen) Integumentary: Other (S/P bilateral fingers debridement: Right thumb and 3rd; Left thumb and 2nd. Surgical dressing in place) Neurological: Normal speech, Normal affect - Studies Current Medications Acetaminophen (Acetaminophen 500 Mg Tab) 500 mg PO Q6H PRN PRN Reason: pain/fever Sodium Chloride (Ns 1000 Ml Ivbag) 1,000 mls @ 75 mls/hr IV .[id number] [facility] Last Admin: 07/30/22 03:01 Dose: 1,000 mls Daptomycin 700 mg/ Sodium (Chloride) 100 mls @ 200 mls/hr IVPB Q24H [facility] Last Admin: 07/29/22 13:47 Dose: 100 mls Morphine Sulfate (Morphine 2 Mg/Ml Syr) 2 mg IV Q4H PRN PRN Reason: Pain scale 5-7 (Moderate) Ondansetron HCl (Ondansetron 4 Mg/2 Ml Vial) 4 mg IV Q4H PRN PRN Reason: NAUSEA / VOMITING Sodium Chloride (Flush Normal Saline 10 Ml) 10 ml IV BID [facility] Last Admin: 07/30/22 07:39 Dose: Not Given Microbiology 07/27/22 09:07 Blood - Blood Aerobic Blood Culture - Preliminary No growth in 24 hours. 07/27/22 09:07 Blood - Blood Anaerobic Blood Culture - Preliminary No growth in 24 hours. 07/29 BC: Pending 07/27 Wound right finger: Positive Staphlococcus species, Pending for culture Medications List Reviewed: Yes Assessment And Plan - Current Problems (Diagnosis) (1) Cellulitis of finger of left hand Current Visit: Yes Status: Acute Plan: Cultures: - 07/29 BC: Pending - 07/28 Wound Right finger: Positive Staphlococcus species, Pending for culture - 07/27 BC: Negative - 07/24 BC: Bacteremia of MRSA - 07/21 Wound culture: MRSA positive Antibiotics: - 07/27 Clindamycin once given and Daptomycin started, too - Recommend to continue IV Daptomycin Bilateral fingers debridement on 07/28 by plastic surgeon Keep monitoring the signs of infection with fever and WBC trends - Plan History of methicillin resistant staphylococcus aureus (MRSA) - Recommend to continue IV Daptomycin - Keep monitoring the signs of infection with fever and WBC trend Severe protein-calorie malnutrition - Encourage increasing protein oral intake and decrease the amount of carbohydrate and fat consumption Diabetes mellitus with nephropathy - Managed by primary team and keep monitoring patient's sugar level CKD (chronic kidney disease) - Will keep monitoring the renal function and dosing antibiotics as needed CVA (cerebral vascular accident) COPD (chronic obstructive pulmonary disease) Hypertension Hypothyroidism Myocardial infarct Amputation finger Case has been discussed with Dr. Glover, N
[2022-07-30 11:44] LABS: Bilirubin Total 0.3 mg/dL (0.2-1.0); Magnesium 1.6 mg/dL (1.6-2.4); Potassium 3.5 mmol/L (3.5-5.1); Protein, Total 7.2 g/dL (6.4-8.2)
[2022-07-30 12:35] LABS: Absolute Lymphocytes (CBC) 1.8 K/uL (0.7-4.9); Hematocrit 30.3 % (39.6-49.0); Lymphocytes % 24.3 % (15.3-44.8); MCV 79.3 fL (80-100); MPV 7.1 fL (7.6-11.3); RBC Red Blood Cell Count 3.82 M/uL (4.33-5.43)
[2022-07-30] MEDS: DAPTOmycin 700 MG in NA CHLORIDE 0.9% 100 ML IVPB SCH (13:12)
[2022-07-31] MEDS: NA CHLORIDE 0.9% 1,000 ML IV SCH ×2 (05:19→20:40)
--- NOTE | 2022-07-31 07:49 | P.PN ---
Date of Service: 07/29/22 Subjective Patient is doing well no new complaints. Click status post surgery. Continue with wound care. Echocardiogram pending. Review of Systems 10-point ROS is otherwise unremarkable Physical Examination - Vital Signs Reviewed - Physical Exam General: Alert, In no apparent distress Respiratory: Clear to auscultation bilaterally, Normal air movement Cardiovascular: Regular rate/rhythm, Normal S1 S2 Gastrointestinal: Normal bowel sounds, No tenderness Neurological: Normal speech, Normal tone, Normal affect Assessment & Plan - Assessment Assessment: 1. Hand cellulitis 2. MRSA bacteremia 3. History of diabetes and hypertension 4. Morbid obesity - Plan PLAN: 1. Continue with IV antibiotic 2. Continue with local wound care 3. Hand/ID consultation appreciated 4. Gentle IV hydration 5. Schedule for echocardiogram 6. Strict blood sugar monitoring 7. Pain control 8. GI and DVT prophylaxis Discharge Plan: Home Plan to discharge in: Greater than 2 days - Advance Directives Does patient have a Living Will: No Does patient have a Durable POA for Healthcare: No - Code Status/Comfort Care Code Status: Full Code Critical Care: No Time Spent Managing PTS Care (In Minutes): 45
--- NOTE | 2022-07-31 07:50 | P.PN ---
Date of Service: 07/30/22 Subjective spoke with Infectious Disease and they want to do IV antibiotic therapy for MRSA. Patient does want to go to an LTAC and wants to go to a nursing home facility. Physical Examination - Vital Signs Reviewed - Physical Exam General: Alert, In no apparent distress Respiratory: Clear to auscultation bilaterally, Normal air movement Cardiovascular: Regular rate/rhythm, Normal S1 S2 Gastrointestinal: Normal bowel sounds, No tenderness Neurological: Normal speech, Normal tone, Normal affect Assessment & Plan - Assessment Assessment: 1. Hand cellulitis 2. MRSA bacteremia 3. History of diabetes and hypertension 4. Morbid obesity - Plan PLAN: 1. Continue with IV antibiotic 2. Continue with local wound care 3. Hand/ID consultation appreciated 4. Gentle IV hydration 5. Schedule for echocardiogram 6. Strict blood sugar monitoring 7. Pain control 8. GI and DVT prophylaxis Discharge Plan: Home Plan to discharge in: Greater than 2 days - Advance Directives Does patient have a Living Will: No Does patient have a Durable POA for Healthcare: No - Code Status/Comfort Care Code Status: Full Code Critical Care: No Time Spent Managing PTS Care (In Minutes): 45
--- NOTE | 2022-07-31 10:54 | RAD REPORT ---
EXAM DESCRIPTION: RAD - Chest Single View - 07/31/2022 10:48 am CLINICAL HISTORY: PICC line placement (right upper arm) COMPARISON: Chest Single View dated 07/27/2022; Chest Single View dated 06/26/2022; Chest Single View d ated 03/03/2022; CHEST PA AND LAT 2 VIEW dated 02/14/2011 FINDINGS: Portable chest was obtained following placement of a right upper extremity PICC line. The catheter tip projects over the SVC..
[2022-07-31] MEDS: DAPTOmycin 700 MG in NA CHLORIDE 0.9% 100 ML IVPB SCH (13:19)
--- NOTE | 2022-07-31 20:23 | PN ---
Subjective: Patient is sitting in bed, not in any acute cardiopulmonary distress. Objective: Vital Signs: Reviewed. Lungs: Clear to auscultation. Heart: S1, S2. Regular. Abdomen: Soft, nontender. Bowel sounds present. Extremities: Wounds noted. Laboratory Data: Reviewed. Assessment And Plan: Methicillin-resistant Staphylococcus aureus wound infection of the hand. Lorne nue daptomycin for total of 2 weeks, diabetes mellitus, diabetic neuropathy, severe protein-calorie m alnourishment, chronic kidney disease, multiple digit amputation. We will follow the patient as need ed. NF/MODL Voice ID: [id number] Report ID: [id number]
[2022-07-31] MEDS: QUETIAPINE 25 MG TAB PO SCH (21:20)
[2022-08-01 09:07] VITALS: O2SAT 98
[2022-08-01] MEDS: NA CHLORIDE 0.9% 1,000 ML IV SCH ×3 (10:00→23:20)
[2022-08-01] MEDS: DAPTOmycin 700 MG in NA CHLORIDE 0.9% 100 ML IVPB SCH (13:38)
--- NOTE | 2022-08-01 19:41 | PN ---
Subjective: The patient had a PICC line placed. Denies any headache, nausea, vomiting, chest pain, abdominal pain, constipation, or diarrhea. Objective: Vital Signs: Temperature 98, pulse 76, respirations 16, blood pressure 127/94. Lungs: Basal crackles. Heart: S1, S2. Regular. Abdomen: Soft, nontender. Bowel sounds present. Extremities: No edema. Wounds noted. Laboratory Data: Reviewed. Assessment And Plan: 1.Methicillin-resistant Staphylococcus aureus wound infection of hand. 2.Cellulitis. 3.Diabetes mellitus and neuropathy. 4.Anemia of chronic disease. 5.Moderate protein-calorie malnourishment. We will follow the patient closely. No other recommenda tion at this time. NF/MODL Voice ID: [id number] Report ID: [id number]
[2022-08-01] MEDS: QUETIAPINE 25 MG TAB PO SCH (20:52)
--- NOTE | 2022-08-01 23:38 | P.PN ---
Date of Service: 07/31/22 Subjective Arranging for IV antibiotics at a senior care facility Physical Examination - Vital Signs Reviewed - Physical Exam General: Alert, In no apparent distress Respiratory: Clear to auscultation bilaterally, Normal air movement Cardiovascular: Regular rate/rhythm, Normal S1 S2 Gastrointestinal: Normal bowel sounds, No tenderness Neurological: Normal speech, Normal tone, Normal affect Assessment & Plan - Assessment Assessment: 1. Hand cellulitis 2. MRSA bacteremia 3. History of diabetes and hypertension 4. Morbid obesity - Plan PLAN: 1. Continue with IV antibiotic 2. Continue with local wound care 3. Hand/ID consultation appreciated 4. Hep-Lock IV 5. echocardiogram negative for vegetation 6. Strict blood sugar monitoring 7. Pain control 8. arrange for placement at senior care facility 9. Gi DVT prophylaxis
--- NOTE | 2022-08-01 23:39 | P.PN ---
Date of Service: 08/01/22 Subjective patient is clinically doing well with no new complaints. Patientis stable for transfer when accepted. Arranging for IV antibiotics at a halfway facility Physical Examination - Vital Signs Reviewed - Physical Exam General: Alert, In no apparent distress Respiratory: Clear to auscultation bilaterally, Normal air movement Cardiovascular: Regular rate/rhythm, Normal S1 S2 Gastrointestinal: Normal bowel sounds, No tenderness Neurological: Normal speech, Normal tone, Normal affect Assessment & Plan - Assessment Assessment: 1. Hand cellulitis 2. MRSA bacteremia 3. History of diabetes and hypertension 4. Morbid obesity - Plan PLAN: 1. Continue with IV antibiotic 2. Continue with local wound care 3. Hand/ID consultation appreciated 4. PICC line in place 5. echocardiogram negative for vegetation 6. Strict blood sugar monitoring 7. Pain control 8. arrange for placement at halfway facility 9. Gi DVT prophylaxis
[2022-08-02] MEDS: DAPTOmycin 700 MG in NA CHLORIDE 0.9% 100 ML IVPB SCH (13:13)
[2022-08-02] MEDS ORDERED: NITROGLYCERIN 0.4 MG/TAB SL PRN (17:35)
[2022-08-02] MEDS ORDERED: ALBUTEROL INHALER 60 PUFF/8 GM IH PRN (17:35)
--- NOTE | 2022-08-02 17:42 | P.PN ---
Date of Service: 08/02/22 Subjective Patient is a 52-year-old gentleman who has current history of MRSA bacteremia that has been recurring from chest and hand cellulitis. Patient tends to bite his fingers to the bone. Patient has been following up with her hand surgeon as an outpatient. They tried oral antibiotics as an outpatient but patient continued to remain having fevers and worsening infection. Patient was sent in for IV antibiotics and debridement. Patient status post debridement on July 28 which resulted in amputation and closure of the wounds. Spoke with infectious disease and with patient's persistent bacteremia recommended mended IV daptomycin for 2 additional weeks. Arrange for antibiotic therapy at [facility] at discharge. PICC line has been placed. Patient did have a and cardiology spoke to me transthoracic echocardiogram and did not feel patient has any kind of vegetations. Repeat blood cultures have been negative. Physical Examination - Vital Signs Reviewed - Physical Exam General: Alert, In no apparent distress Respiratory: Clear to auscultation bilaterally, Normal air movement Cardiovascular: Regular rate/rhythm, Normal S1 S2 Gastrointestinal: Normal bowel sounds, No tenderness Neurological: Normal speech, Normal tone, Normal affect Assessment & Plan - Assessment Assessment: 1. Hand cellulitis 2. MRSA bacteremia 3. History of diabetes and hypertension 4. Morbid obesity - Plan PLAN: 1. Continue with IV antibiotic 2. Continue with local wound care 3. Hand/ID consultation appreciated 4. PICC line in place 5. echocardiogram negative for vegetation 6. Strict blood sugar monitoring 7. Pain control 8. arrange for placement at long-term facility 9. Gi DVT prophylaxis
[2022-08-02] MEDS ORDERED: hydrOXYzine HCL 25 MG TAB PO PRN (20:55)
[2022-08-02] MEDS: QUETIAPINE 25 MG TAB PO SCH (20:58)
[2022-08-02] MEDS: ATORVASTATIN 40 MG TAB PO SCH (20:58)
[2022-08-02] MEDS: FUROSEMIDE 40 MG TABLET PO SCH (20:58)
[2022-08-02] MEDS: carvediloL 6.25 MG TAB PO SCH (20:58)
[2022-08-03] MEDS: LEVOTHYROXINE SOD 0.125 MG TAB PO SCH (05:08)
[2022-08-03 05:26] LABS: Absolute Lymphocytes (CBC) 2.7 K/uL (0.7-4.9); Hematocrit 24.2 % (39.6-49.0); Lymphocytes % 29.3 % (15.3-44.8); MPV 7.2 fL (7.6-11.3); RBC Red Blood Cell Count 3.02 M/uL (4.33-5.43)
[2022-08-03 05:47] LABS: Blood Morphology Comment NOTED (NOT SEEN); Ovalocytes 1+; Platelet Estimate ADEQ; White Blood Cell Scan OK (OK)
[2022-08-03 05:54] LABS: Potassium 2.9 mmol/L (3.5-5.1)
[2022-08-03] MEDS: KCL 20 MEQ/100 mL IVPB 20 MEQ/100 ML BAG IV SCH ×3 (06:48→11:22)
[2022-08-03] MEDS: TAMSULOSIN 0.4 MG SR CAP PO SCH (09:00)
[2022-08-03] MEDS: VENLAFAXINE HCL 75 MG TABLET PO SCH (09:00)
[2022-08-03] MEDS: SPIRONOLACTONE 25 MG TABLET PO SCH (09:00)
[2022-08-03] MEDS: ASPIRIN EC 81 MG TAB PO SCH (09:13)
[2022-08-03] MEDS: carvediloL 6.25 MG TAB PO SCH ×2 (09:13→22:35)
[2022-08-03] MEDS: CLOPIDOGREL 75 MG TABLET PO SCH (09:14)
[2022-08-03] MEDS: AMLODIPINE 10 MG TAB PO SCH (09:14)
[2022-08-03] MEDS: FUROSEMIDE 40 MG TABLET PO SCH ×2 (09:14→22:36)
[2022-08-03] MEDS: FINASTERIDE 5 MG TAB PO SCH (09:14)
[2022-08-03] MEDS: CETIRIZINE HCL 5 MG TABLET PO SCH (09:14)
[2022-08-03] MEDS: GLIPIZIDE S.A. 5 MG TAB PO SCH (09:15)
[2022-08-03] MEDS: GABAPENTIN 300 MG CAP PO SCH (09:15)
[2022-08-03] MEDS: allopurinoL 100 MG TAB PO SCH (09:15)
--- NOTE | 2022-08-03 09:49 | P.PN ---
Subjective Date of Service: 08/03/22 Chief Complaint: Left index finger infection Patient sitting in chair listening to music s/p bilateral fingers debridement, day 6, No major events upon examination. Not in cardiopulmonary distress. Patient took a shower today Physical Examination - Vital Signs Temperature: 97.7 F Blood Pressure: 146/89 Pulse: 80 Respirations: 17 Pulse Ox (%): 96 - Physical Exam General: Alert, In no apparent distress, Oriented x3 Respiratory: Clear to auscultation bilaterally Cardiovascular: No edema, Normal pulses, Normal S1 S2 Gastrointestinal: Normal bowel sounds Musculoskeletal: Other (S/P bilateral fingers debridement: Right thumb and 3rd; Left thumb and 2nd. Wound clean with no signs of infection) Integumentary: Other (S/P bilateral fingers debridement: Right thumb and 3rd; Left thumb and 2nd. Wound clean with no signs of infection) Neurological: Normal speech, Normal tone - Studies Current Medication: Acetaminophen (Acetaminophen 500 Mg Tab) 500 mg PO Q6H PRN PRN Reason: pain/fever Albuterol Sulfate (Albuterol Inhaler 60 Puff/8 Gm) 2 puff IH Q6H PRN PRN Reason: SHORTNESS OF BREATH Allopurinol (Allopurinol 100 Mg Tab) 100 mg PO DAILY [facility] Last Admin: 08/03/22 09:15 Dose: 100 mg Amlodipine Besylate (Amlodipine 10 Mg Tab) 10 mg PO DAILY [facility] Last Admin: 08/03/22 09:14 Dose: 10 mg Aspirin (Aspirin Ec 81 Mg Tab) 81 mg PO DAILY [facility] Last Admin: 08/03/22 09:13 Dose: 81 mg Atorvastatin Calcium (Atorvastatin 40 Mg Tab) 40 mg PO BEDTIME [facility] Last Admin: 08/02/22 20:58 Dose: 40 mg Carvedilol (Carvedilol 6.25 Mg Tab) 6.25 mg PO BID [facility] Last Admin: 08/03/22 09:13 Dose: 6.25 mg Cetirizine HCl (Cetirizine Hcl 5 Mg Tablet) 10 mg PO DAILY [facility] Last Admin: 08/03/22 09:14 Dose: 10 mg Clopidogrel Bisulfate (Clopidogrel 75 Mg Tablet) 75 mg PO DAILY [facility] Last Admin: 08/03/22 09:14 Dose: 75 mg Finasteride (Finasteride 5 Mg Tab) 5 mg PO DAILY [facility] Last Admin: 08/03/22 09:14 Dose: 5 mg Furosemide (Furosemide 40 Mg Tablet) 40 mg PO BID [facility] Last Admin: 08/03/22 09:14 Dose: 40 mg Gabapentin (Gabapentin 300 Mg Cap) 300 mg PO DAILY [facility] Last Admin: 08/03/22 09:15 Dose: 300 mg Glipizide (Glipizide S.A. 5 Mg Tab) 5 mg PO DAILY [facility] Last Admin: 08/03/22 09:15 Dose: 5 mg Home Med (Semaglutide [Ozempic]) 1 mg SQ DAILY [facility] Last Admin: 08/03/22 08:58 Dose: Not Given Hydroxyzine HCl (Hydroxyzine Hcl 25 Mg Tab) 25 mg PO TID PRN PRN Reason: ANXIETY Daptomycin 700 mg/ Sodium (Chloride) 100 mls @ 200 mls/hr IVPB Q24H [facility] Potassium Chloride (Kcl 20 Meq/100 Ml Ivpb (Premix)) 20 meq in 100 mls @ 50 mls/hr IV Q2H [facility]; Protocol Stop: 08/03/22 12:59 Last Admin: 08/03/22 09:15 Dose: 100 mls Levothyroxine Sodium (Levothyroxine Sod 0.125 Mg Tab) 0.125 mg PO [id number] [facility] Last Admin: 08/03/22 05:08 Dose: 0.125 mg Nitroglycerin (Nitroglycerin 0.4 Mg/Tab) 0.4 mg SL TID PRN PRN Reason: Pain scale 5-7 (Moderate) Ondansetron HCl (Ondansetron 4 Mg/2 Ml Vial) 4 mg IV Q4H PRN PRN Reason: NAUSEA / VOMITING Quetiapine Fumarate (Quetiapine 25 Mg Tab) 50 mg PO BEDTIME [facility] Last Admin: 08/02/22 20:58 Dose: 50 mg Sodium Chloride (Flush Normal Saline 10 Ml) 10 ml IV BID [facility] Last Admin: 08/03/22 09:00 Dose: Not Given Spironolactone (Spironolactone 25 Mg Tablet) 75 mg PO DAILY [facility] Last Admin: 08/03/22 09:00 Dose: 75 mg Tamsulosin HCl (Tamsulosin 0.4 Mg Sr Cap) 0.4 mg PO DAILY [facility] Last Admin: 08/03/22 09:00 Dose: 0.4 mg Venlafaxine HCl (Venlafaxine Hcl 75 Mg Tablet) 75 mg PO DAILY [facility] Last Admin: 08/03/22 09:00 Dose: 75 mg Medications List Reviewed: Yes Assessment And Plan - Current Problems (Diagnosis) (1) Cellulitis of finger of left hand Current Visit: Yes Status: Acute Plan: Cultures: - 07/29 BC: Negative - 07/28 Wound Right finger: Methicillin resistant staphylococcus aureus (MRSA) positive - 07/27 BC: Negative Antibiotics: - 07/27 Clindamycin once given and Daptomycin started, too - Recommend to continue IV Daptomycin Plan to discharge to [facility] Bilateral fingers debridement on 07/28 by plastic surgeon Keep monitoring the signs of infection with fever and WBC trends - Plan History of methicillin resistant staphylococcus aureus (MRSA) - Recommend to continue IV Daptomycin - Keep monitoring the signs of infection with fever and WBC trends - Plan to discharge to [facility] Severe protein-calorie malnutrition - Encourage increasing protein oral intake and decrease the amount of carbohydrate and fat consumption Diabetes mellitus with nephropathy - Managed by primary team and keep monitoring patient's sugar level CKD (chronic kidney disease) - Will keep monitoring the renal function and dosing antibiotics as needed CVA (cerebral vascular accident) COPD (chronic obstructive pulmonary disease) Hypertension Hypothyroidism Myocardial infarct Amputation finger Case has been discussed with Dr. Glover, N
--- NOTE | 2022-08-03 10:57 | P.PN ---
Subjective Date of Service: 08/03/22 Chief Complaint: Left index finger infection No acute events overnight. He was sitting in a chair eating breakfast this morning. He reports mild discomfort at the base of his left thumb. Discussed with Dr. Mast, who also evalauted him earlier this morning. Per Dr. Mast, he is cleared to be discharged with IV antibiotics, but would like to see Mr. Deng in his clinic on 08/10/2022 at 09:00 AM. Review of Systems 10-point ROS is otherwise unremarkable Musculoskeletal: Hand Pain (base of left thumb) Physical Examination - Vital Signs Temperature: 97.7 F Blood Pressure: 146/89 Pulse: 80 Respirations: 17 Pulse Ox (%): 96 - Physical Exam General: Alert, In no apparent distress, Oriented x3 HEENT: Atraumatic, Mucous membr. moist/pink, EOMI, Sclerae nonicteric Neck: JVD not distended Respiratory: Clear to auscultation bilaterally, Normal air movement Cardiovascular: No edema, Regular rate/rhythm, Normal S1 S2, No gallops, No rubs, No murmurs Gastrointestinal: Normal bowel sounds, Soft and benign, Non-distended, No tenderness, No rebound, No guarding Integumentary: Other (swelling and erythema at distal tip of left thumb and left 2nd digit. 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 Mast - recommendations appreciated - Cleared for discharge with outpatient follow-up on 08/10/2022 @ 09:00 AM - Consulted Infectious Diseases and spoke with Dr. Glover - recommendations appreciated - Recommended daptomycin for now - Recommended 6 weeks of IV antibiotics, today is day 8 of . Will require SNF placement - Appreciate case management assistance - Wound culture positive for MRSA - Blood cultures on 07/24 positive for MRSA - Transthoracic echocardiogram = "1. normal left ventricular ejection fraction 60-65% 2. normal wall motion 3. no vegetation is seen 4. trace mitral regurgitation/ trace tricuspid regurgitation" - Repeat blood cultures without growth - May require JÚNIOR - will consult Dr. Paulino - Appreciate wound care recs # KDIGO Stage I Acute Kidney Injury on Chronic Kidney Distase Stage III - Creatinine: 2.39 -> 1.65 -> 1.50 -> 1.63 - Monitor creatinine and urine output - If worsening, obtain renal ultrasound and consult Nephrology - Renally dose medications # Chronic Compensated Diastolic Congestive Heart Failure with Preserved Ejection Fraction - Transthoracic echocardiogram = "1. normal left ventricular ejection fraction 60-65% 2. normal wall motion 3. no vegetation is seen 4. trace mitral regurgitation/ trace tricuspid regurgitation" - Continue home carvedilol, furosemide, spironolactone - Daily weights - Strict I/O - Cardiac diet, 1.5 L fluid restriction, 2 g Na restriction # Coronary Artery Disease # History of Cerebrovascular Accident # Hypertension - Continue home aspirin, atorvastatin, carvedilol, clopidogrel, amlodipine # Type II Diabetes Mellitus # Morbid Obesity - BMI 41.8 kg/m2 - Continue home glipizide, semaglutide # Obsessive-Compulsive Disorder - Continue home quetiapine, venlafaxine # Gout - Continue home allopurinol # Chronic Obstructive Pulmonary Disease - Continue home medications # Benign Prostatic Hyperplasia - Continue home tamsulosin, finasteride # Hypothyroidism - Continue home levothyroxine Yonny Ortiz M.D.
--- NOTE | 2022-08-03 12:20 | DS ---
While the hand is improving, ELIECER/VIVIENNE Voice ID: [id number] Report ID: [id number] LANDON
[2022-08-03] MEDS: DAPTOmycin 700 MG in NA CHLORIDE 0.9% 100 ML IVPB SCH (14:23)
--- NOTE | 2022-08-03 17:14 | CON ---
Date of Consultation: 08/03/2022 Reason For Consultation: Bacteremia, possible ruling out endocarditis. History Of Present Illness: A 52-year-old male with history of diabetes, CHF, coronary artery diseas e, hypertension, COPD, chronic kidney disease, status post amputation of the tips of all his fingers due to severe OCD, kept biting them, presented to the emergency room with infection of the left index finger that required intervention and the patient had bacteremia. An echo was done transthoracic, w hich was a good quality study and no vegetations were seen. The patient does not have any fever and no persistent bacteremia. Past Medical History: As outlined above in the HPI. Medications: Refer to reconciliation sheet for detailed list. Allergies: CLONIDINE, SULFA, VANCOMYCIN, AND LORAZEPAM. Family History: No premature coronary artery disease or cancer. Social History: He does not drink or smoke or use any drugs. Review of Systems: All systems reviewed and they were negative except what mentioned in HPI. Physical Examination: Vital Signs: Reviewed. Head and Neck: Pupils are equal, reactive to light. Intact eye movements. No JVD. No cervical lym phadenopathy. Neck is supple. Thyroid is not enlarged. Lungs: Clear to auscultation bilaterally. No rhonchi, wheezing, or crackles. No accessory muscle u se. Heart: Regular rate and rhythm. No extra sounds. Abdomen: Soft, nontender. Bowel sounds positive. No organomegaly. No masses or hernia. No rigidi ty or rebound. Extremities: No edema, clubbing, or cyanosis. Intact pulses. Skin: No rash. Neurologic: Alert, awake, oriented x3. No acute focal deficits appreciated. Investigations: BUN 20, creatinine 0.63. Troponin is negative. Hemoglobin is 8.4. Assessment And Recommendations: Bacteremia due to methicillin-resistant Staphylococcus aureus. [place] sthoracic echo did not show any evidence of vegetations. It was good quality test and there was no s ignificant regurgitation. The fact that he does not have persistent bacteremia or resistance to bc tment, makes the diagnosis of endocarditis unlikely. I recommend continue antibiotics and after the course is completed to recheck blood cultures. If he continues to bacteria, then JÚNIOR will be recommended. Thank you for the consult. /VIVIENNE Voice ID: [id number] Report ID: [id number]
[2022-08-03] MEDS: ATORVASTATIN 40 MG TAB PO SCH (22:36)
[2022-08-03] MEDS: QUETIAPINE 25 MG TAB PO SCH (22:36)
[2022-08-04 04:20] LABS: Magnesium 1.7 mg/dL (1.6-2.4); Potassium 3.1 mmol/L (3.5-5.1)
[2022-08-04] MEDS: LEVOTHYROXINE SOD 0.125 MG TAB PO SCH (06:20)
[2022-08-04] MEDS ORDERED: Magnesium Sulfate 2gm IVPB 2 G/50 ML BAG IV ONE (06:42)
--- NOTE | 2022-08-04 08:43 | P.PN ---
Subjective Date of Service: 08/04/22 Chief Complaint: Left index finger infection Patient sitting in chair watching TV s/p bilateral fingers debridement, day 7. Wounds are clean and dry with no signs of redness, swelling, or infection. No major events upon examination. Physical Examination - Vital Signs Temperature: 97.0 F Blood Pressure: 111/57 Pulse: 71 Respirations: 18 Pulse Ox (%): 99 - Physical Exam General: Alert, In no apparent distress, Oriented x3 Respiratory: Clear to auscultation bilaterally Cardiovascular: No edema, Normal pulses, Normal S1 S2 Gastrointestinal: Normal bowel sounds Musculoskeletal: Other (S/P bilateral fingers debridement: Right thumb and 3rd; Left thumb and 2nd. Wound clean with no signs of infection) Integumentary: Other (S/P bilateral fingers debridement: Right thumb and 3rd; Left thumb and 2nd. Wound clean with no signs of infection) Neurological: Normal speech, Normal tone - Studies Current medications: Acetaminophen (Acetaminophen 500 Mg Tab) 500 mg PO Q6H PRN PRN Reason: pain/fever Albuterol Sulfate (Albuterol Inhaler 60 Puff/8 Gm) 2 puff IH Q6H PRN PRN Reason: SHORTNESS OF BREATH Allopurinol (Allopurinol 100 Mg Tab) 100 mg PO DAILY [facility] Last Admin: 08/03/22 09:15 Dose: 100 mg Amlodipine Besylate (Amlodipine 10 Mg Tab) 10 mg PO DAILY [facility] Last Admin: 08/03/22 09:14 Dose: 10 mg Aspirin (Aspirin Ec 81 Mg Tab) 81 mg PO DAILY [facility] Last Admin: 08/03/22 09:13 Dose: 81 mg Atorvastatin Calcium (Atorvastatin 40 Mg Tab) 40 mg PO BEDTIME [facility] Last Admin: 08/03/22 22:36 Dose: 40 mg Carvedilol (Carvedilol 6.25 Mg Tab) 6.25 mg PO BID [facility] Last Admin: 08/03/22 22:35 Dose: 6.25 mg Cetirizine HCl (Cetirizine Hcl 5 Mg Tablet) 10 mg PO DAILY [facility] Last Admin: 08/03/22 09:14 Dose: 10 mg Clopidogrel Bisulfate (Clopidogrel 75 Mg Tablet) 75 mg PO DAILY [facility] Last Admin: 08/03/22 09:14 Dose: 75 mg Finasteride (Finasteride 5 Mg Tab) 5 mg PO DAILY [facility] Last Admin: 08/03/22 09:14 Dose: 5 mg Furosemide (Furosemide 40 Mg Tablet) 40 mg PO BID [facility] Last Admin: 08/03/22 22:36 Dose: 40 mg Gabapentin (Gabapentin 300 Mg Cap) 300 mg PO DAILY [facility] Last Admin: 08/03/22 09:15 Dose: 300 mg Glipizide (Glipizide S.A. 5 Mg Tab) 5 mg PO DAILY [facility] Last Admin: 08/03/22 09:15 Dose: 5 mg Home Med (Semaglutide [Ozempic]) 1 mg SQ EVERY 7TH DAY [facility] Hydroxyzine HCl (Hydroxyzine Hcl 25 Mg Tab) 25 mg PO TID PRN PRN Reason: ANXIETY Last Admin: 08/03/22 22:42 Dose: 25 mg Daptomycin 700 mg/ Sodium (Chloride) 100 mls @ 200 mls/hr IVPB Q24H [facility] Last Admin: 08/03/22 14:23 Dose: 100 mls Potassium Chloride (Kcl 20 Meq/100 Ml Ivpb (Premix)) 20 meq in 100 mls @ 50 mls/hr IV Q2H [facility]; Protocol Stop: 08/04/22 12:59 Levothyroxine Sodium (Levothyroxine Sod 0.125 Mg Tab) 0.125 mg PO [id number] [facility] Last Admin: 08/04/22 06:20 Dose: 0.125 mg Nitroglycerin (Nitroglycerin 0.4 Mg/Tab) 0.4 mg SL TID PRN PRN Reason: Pain scale 5-7 (Moderate) Ondansetron HCl (Ondansetron 4 Mg/2 Ml Vial) 4 mg IV Q4H PRN PRN Reason: NAUSEA / VOMITING Quetiapine Fumarate (Quetiapine 25 Mg Tab) 50 mg PO BEDTIME [facility] Last Admin: 08/03/22 22:36 Dose: 50 mg Sodium Chloride (Flush Normal Saline 10 Ml) 10 ml IV BID [facility] Last Admin: 08/03/22 22:37 Dose: 10 ml Spironolactone (Spironolactone 25 Mg Tablet) 75 mg PO DAILY [facility] Last Admin: 08/03/22 09:00 Dose: 75 mg Tamsulosin HCl (Tamsulosin 0.4 Mg Sr Cap) 0.4 mg PO DAILY [facility] Last Admin: 08/03/22 09:00 Dose: 0.4 mg Venlafaxine HCl (Venlafaxine Hcl 75 Mg Tablet) 75 mg PO DAILY [facility] Last Admin: 08/03/22 09:00 Dose: 75 mg Medications List Reviewed: Yes Assessment And Plan - Current Problems (Diagnosis) (1) Cellulitis of finger of left hand Current Visit: Yes Status: Acute Plan: Cultures: - 07/29 BC: Negative - 07/28 Wound Right finger: Methicillin resistant staphylococcus aureus (MRSA) positive - 07/27 BC: Negative Antibiotics: - 07/27 Clindamycin once given and Daptomycin started, too - Recommend to continue IV Daptomycin Plan to discharge to SNF when approved Bilateral fingers debridement on 07/28 by plastic surgeon Keep monitoring the signs of infection with fever and WBC trends - Plan History of methicillin resistant staphylococcus aureus (MRSA) - Recommend to continue IV Daptomycin - Keep monitoring the signs of infection with fever and WBC trends - Plan to discharge to SNF as approved Severe protein-calorie malnutrition - Encourage increasing protein oral intake and decrease the amount of carbohydrate and fat consumption Diabetes mellitus with nephropathy - Managed by primary team and keep monitoring patient's sugar level CKD (chronic kidney disease) - Will keep monitoring the renal function and dosing antibiotics as needed CVA (cerebral vascular accident) COPD (chronic obstructive pulmonary disease) Hypertension Hypothyroidism Myocardial infarct Amputation finger Case has been discussed with Dr. Glover, N
[2022-08-04] MEDS: KCL 20 MEQ/100 mL IVPB 20 MEQ/100 ML BAG IV SCH ×2 (09:28→11:31)
[2022-08-04] MEDS: CETIRIZINE HCL 5 MG TABLET PO SCH (09:30)
[2022-08-04] MEDS: ASPIRIN EC 81 MG TAB PO SCH (09:30)
[2022-08-04] MEDS: SPIRONOLACTONE 25 MG TABLET PO SCH (09:30)
[2022-08-04] MEDS: GABAPENTIN 300 MG CAP PO SCH (09:30)
[2022-08-04] MEDS: GLIPIZIDE S.A. 5 MG TAB PO SCH (09:30)
[2022-08-04] MEDS: VENLAFAXINE HCL 75 MG TABLET PO SCH (09:30)
[2022-08-04] MEDS: carvediloL 6.25 MG TAB PO SCH (09:31)
[2022-08-04] MEDS: allopurinoL 100 MG TAB PO SCH (09:31)
[2022-08-04] MEDS: FUROSEMIDE 40 MG TABLET PO SCH (09:31)
[2022-08-04] MEDS: AMLODIPINE 10 MG TAB PO SCH (09:31)
[2022-08-04] MEDS: TAMSULOSIN 0.4 MG SR CAP PO SCH (09:31)
[2022-08-04] MEDS: CLOPIDOGREL 75 MG TABLET PO SCH (09:31)
[2022-08-04] MEDS: FINASTERIDE 5 MG TAB PO SCH (09:31)
--- NOTE | 2022-08-04 10:23 | DS ---
The wounds are healing perfectly well ELIECER/VIVIENNE Voice ID: [id number] Report ID: [id number] LANDON
[2022-08-04] MEDS: DAPTOmycin 700 MG in NA CHLORIDE 0.9% 100 ML IVPB SCH (13:30)
--- NOTE | 2022-08-04 13:55 | P.DS ---
Admission Date: 07/27/22 Discharge Date: 08/04/22 Disposition: TRANSFER TO SNF Discharge Condition: GOOD Reason for Admission: Left index finger infection Consultations: 1. Hand Surgery 2. 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 Bert Deng is a pleasant 52 year old male with a past medical history significant for chronic diastolic congestive heart failure, coronary artery disease, prior cerebrovascular accident, hypertension, type 2 diabetes, obsessive-compulsive disorder, chronic obstructive pulmonary disease, and hypothyroidism who was admitted to the [facility] on 07/27/2022 for left hand cellulitis. He was admitted to the Medicine service. Upon further evaluation, he was found to have left hand cellulitis with MRSA bacteremia. Infectious Diseases was consulted and he was evaluated by Dr. Glover. Given his allergy profile, it was recommended that he receive 6 weeks of IV daptomycin (for which he has received 9 days so far). Hand Surgery was also consulted and he was evaluated by Dr. Mast. On 07/28/2022, he underwent debridement of his bilateral hands, and on 07/29/2022, he underwent amputation at the proximal level of the right middle and left index and thumb with flap closure. He did well initially, and Infectious Diseases recommended LTAC placement for IV antibiotics, but he declined. He agreed to go to a halfway facility to receive the remainder of his IV antibiotic course. With the assistance of case management, he was accepted to [facility] Dr. Mast and Dr. Glover have cleared him for discharge from their respective standpoints. In regards to his MRSA bacteremia, I discussed the possibility of a transesophageal echocardiogram with Dr. Paulino. He stated that since he was able to get clear windows on the transthoracic echocardiogram and the fact that he is not persistently bacteremic, he does not feel that a transesophageal echocardiogram is warranted. Also, Mr. Deng reported some discomfort at the base of his left thumb. I discussed this with Dr. Mast, who recommended an outpatient follow-up with him on 08/10/2022 at 09:00 AM. Mr. Deng agreed to make this appointment. On 08/04/2022, he was seen on rounds and deemed medically stable for discharge. He was given the opportunity to ask questions and reported no further questions. Furthermore, all questions were answered to the best of my ability. A copy of this discharge summary will be sent to the above providers to facilitate continuity of care. Today, I personally spent 35 minutes on his case, of which greater than 50% of the time was spent in patient education, counseling, and coordination of care as described above. - Physical Exam General: Alert, In no apparent distress, Oriented x3 HEENT: Atraumatic, Mucous membr. moist/pink, EOMI, Sclerae nonicteric Neck: JVD not distended Respiratory: Clear to auscultation bilaterally, Normal air movement Cardiovascular: No edema, Regular rate/rhythm, Normal S1 S2, No gallops, No rubs, No murmurs Gastrointestinal: Normal bowel sounds, Soft and benign, Non-distended, No tenderness, No rebound, No guarding Integumentary: Other (swelling and erythema at distal tip of left thumb and left 2nd digit. He is s/p amputation of multiple distal phalanges.) Neurological: Normal speech, Normal affect Vital Signs/Physical Exam: Temp Pulse Resp BP Pulse Ox 97.8 F 68 17 153/91 H 95 08/04/22 11:19 08/04/22 11:19 08/04/22 11:19 08/04/22 11:19 08/04/22 11:19 Laboratory Data at Discharge: WBC 9.10 K/uL (4.3-10.9) 08/03/22 05:00 Hgb 8.4 g/dL (13.6-17.9) L 08/03/22 05:00 Hct 24.2 % (39.6-49.0) L 08/03/22 05:00 Plt Count 222 K/uL (152-406) 08/03/22 05:00 PT 12.9 SECONDS (9.5-12.5) H 07/27/22 09:07 INR 1.17 07/27/22 09:07 Sodium 142 mmol/L (136-145) 08/04/22 03:38 Potassium 3.1 mmol/L (3.5-5.1) L D 08/04/22 03:38 BUN 22 mg/dL (7-18) H 08/04/22 03:38 Creatinine 1.61 mg/dL (0.70-1.30) H 08/04/22 03:38 Glucose 140 mg/dL (74-106) H 08/04/22 03:38 Magnesium 1.7 mg/dL (1.6-2.4) 08/04/22 03:38 Total Bilirubin 0.3 mg/dL (0.2-1.0) 07/30/22 10:47 AST 16 U/L (15-37) 07/30/22 10:47 ALT 22 U/L (16-61) 07/30/22 10:47 Alkaline Phosphatase 91 U/L (45-117) 07/30/22 10:47 Home Medications: Albuterol Inhaler [Ventolin Inhaler*] 2 puff IH Q6H PRN 06/27/22 Allopurinol 100 mg PO DAILY 06/27/22 Amlodipine [Norvasc*] 10 mg PO DAILY 06/27/22 Aspirin [Aspirin EC] 81 mg PO DAILY 06/27/22 Atorvastatin Calcium 40 mg PO BEDTIME 06/27/22 Cetirizine HCl 10 mg PO DAILY 06/27/22 Clopidogrel Bisulfate [Plavix*] 75 mg PO DAILY 06/27/22 Ferrous Sulfate [Ferrous Sulfate*] 325 mg PO DAILY 06/27/22 Finasteride [Proscar*] 5 mg PO DAILY 06/27/22 Fluticasone [Flonase 50MCG Nasal [place]*] 1 sprays NS DAILY 06/27/22 Furosemide [Lasix] 40 mg PO BID 06/27/22 Gabapentin 300 mg PO DAILY 06/27/22 Hydralazine HCl 100 mg PO TID 06/27/22 Levothyroxine [Synthroid*] 125 mcg PO [id number] 06/27/22 Lisinopril [Zestril] 20 mg PO DAILY 06/27/22 Quetiapine Fumarate [Seroquel] 50 mg PO BEDTIME 06/27/22 Spironolactone [Aldactone*] 75 mg PO DAILY 06/27/22 Tamsulosin [Flomax*] 0.4 mg PO DAILY 06/27/22 Venlafaxine HCl 75 mg PO DAILY 06/27/22 carvediloL [Carvedilol] 6.25 mg PO BID 06/27/22 hydrOXYzine HCL [Atarax*] 25 mg PO TID 06/27/22 Semaglutide [Ozempic] 1 mg SQ DAILY 07/21/22 Glipizide [Glipizide ER] 5 mg PO DAILY 07/27/22 Nitroglycerin 0.4 mg SL TID PRN 07/27/22 Ondansetron [Ondansetron Odt] 4 mg PO PRN 07/27/22 Quetiapine [Seroquel*] 25 mg PO BID 07/27/22 hydrOXYzine HCL [Atarax*] 25 mg PO TID PRN 07/27/22 DAPTOmycin [Daptomycin] 700 mg IV DAILY 33 Days #1 vial 08/04/22 New Medications: DAPTOmycin [Daptomycin] 700 mg IV DAILY 33 Days #1 vial Physician Discharge Instructions: -DC IV and DC to nursing facility for IV antibiotic therapy -Follow-up with PCP in 1 to 2 weeks -Follow-up with hand surgeon in 1 to 2 weeks -Please call Dr. Ivey at [phone] if any questions regarding hospital stay -Please call nursing station at [phone] if any nursing or medication questions -Return to the emergency room if symptoms worsen -We will let hand surgery decide if PICC line can be removed as an outpatient; over the course of the next 6 to 12 weeks Diet: ADA Activity: Fall precautions Followup: Kavin Mast MD [ACTIVE - CAN ADMIT] - Rocky Glover MD [ACTIVE - CAN ADMIT] - Time spent managing pt's care (in minutes): 35
[2022-08-04 17:23] VITALS: BP 111/57; TEMP 97
[2022-08-10] MEDS ORDERED: SEMAGLUTIDE 1 MG SQ SCH (09:00)
== END 2022-08-04 17:00 | DRG 981 ==
LOC: ER 08:21 → ERHOLD 09:19 → 4TH 14:30
PROVIDERS: ADMIT Hospitalist; ATTEND Internal Medicine
PROC: 0X6P0Z0 Detachment at Left Index Finger, Complete, Open Approach (ICD-10-PCS; 2022-07-28)
PROC: 0X6Q0Z0 Detachment at Right Middle Finger, Complete, Open Approach (ICD-10-PCS; 2022-07-28)
PROC: 0X6 Anatomical Regions, Upper Extremities, Detachment (ICD-10-PCS; principal; 2022-07-28 09:00)
PROC: 02HV33Z Insertion of Infusion Device into Superior Vena Cava, Percutaneous Approach (ICD-10-PCS; 2022-07-31)
DX: E11.69 Type 2 diabetes mellitus with other specified complication (principal); E43 Unspecified severe protein-calorie malnutrition; E11.52 Type 2 diabetes mellitus with diabetic peripheral angiopathy with gangrene; Z68.41 Body mass index [BMI] 40.0-44.9, adult; R78.81 Bacteremia; M86.8X4 Other osteomyelitis, hand; I50.32 Chronic diastolic (congestive) heart failure; I13.0 Hypertensive heart and chronic kidney disease with heart failure and stage 1 through stage 4 chronic kidney disease, or unspecified chronic kidney disease; N17.9 Acute kidney failure, unspecified; N18.30 Chronic kidney disease, stage 3 unspecified; E11.22 Type 2 diabetes mellitus with diabetic chronic kidney disease; E11.65 Type 2 diabetes mellitus with hyperglycemia; E11.40 Type 2 diabetes mellitus with diabetic neuropathy, unspecified; D63.1 Anemia in chronic kidney disease; L03.012 Cellulitis of left finger; E03.9 Hypothyroidism, unspecified; E87.6 Hypokalemia; E83.42 Hypomagnesemia; M10.9 Gout, unspecified; J44.9 Chronic obstructive pulmonary disease, unspecified; E66.01 Morbid (severe) obesity due to excess calories; N40.0 Benign prostatic hyperplasia without lower urinary tract symptoms; I08.1 Rheumatic disorders of both mitral and tricuspid valves; F42.9 Obsessive-compulsive disorder, unspecified; I25.10 Atherosclerotic heart disease of native coronary artery without angina pectoris; I25.2 Old myocardial infarction; B95.62 Methicillin resistant Staphylococcus aureus infection as the cause of diseases classified elsewhere; Z56.0 Unemployment, unspecified; Z88.1 Allergy status to other antibiotic agents; Z88.8 Allergy status to other drugs, medicaments and biological substances; Z86.73 Personal history of transient ischemic attack (TIA), and cerebral infarction without residual deficits; Z79.82 Long term (current) use of aspirin; Z79.02 Long term (current) use of antithrombotics/antiplatelets; Z79.84 Long term (current) use of oral hypoglycemic drugs; Z86.14 Personal history of Methicillin resistant Staphylococcus aureus infection; Z89.029 Acquired absence of unspecified finger(s); Z79.890 Hormone replacement therapy; Z79.899 Other long term (current) drug therapy; Z20.822 Contact with and (suspected) exposure to COVID-19
CPT/HCPCS: 36415; 36569; 71045; 80048; 80053; 80076; 82550; 82947; 83605; 83735; 83880; 84132; 84484; 85025; 85610; 86140; 87040; 87070; 87075; 87077; 87186; 87205; 87811; 88304; 88311; 93005; 93306; 96365; 96375; 99283; J0878; J2001; J2250; J2270; J2405; J2704; J3010; J3475; J3480; J7030

== ENCOUNTER 2022-08-18 08:24 | Day surgery (SDC) | payer OTHER ==
[2022-08-18 08:43] LABS: Absolute Lymphocytes (CBC) 2.1 K/uL (0.7-4.9); Lymphocytes % 38.8 % (15.3-44.8); MCV 80.9 fL (80-100); MPV 8.3 fL (7.6-11.3)
[2022-08-18] MEDS ORDERED: CEFAZOLIN SODIUM 1 GM/VIAL ONE (08:55)
[2022-08-18] MEDS ORDERED: NA CHLORIDE 0.9% 1,000 ML ONE (08:55)
[2022-08-18] MEDS ORDERED: ONDANSETRON 4 MG/2 ML VIAL ONE (10:25)
[2022-08-18] MEDS ORDERED: LIDOCAINE 2% MPF 5 ML VIAL ONE (10:25)
[2022-08-18] MEDS ORDERED: MIDAZOLAM HCL 2 MG/2 ML INJ ONE (10:25)
[2022-08-18] MEDS ORDERED: dexAMETHasone 10 MG/ML VIAL ONE (10:25)
[2022-08-18] MEDS ORDERED: FENTANYL CITR 100 MCG/2 ML ONE (10:25)
[2022-08-18] MEDS ORDERED: propofoL 200 MG/20 ML VIAL IV ONE (10:25)
[2022-08-18] MEDS ORDERED: KETOROLAC 30 MG/ML INJ ONE (10:25)
[2022-08-18] MEDS ORDERED: NS 0.9% VIAL 10 ML ONE (10:59)
[2022-08-18 12:22] VITALS: BP 148/88; TEMP 97.1; O2SAT 100
== END 2022-08-18 12:10 | disposition home or self-care (01) ==
LOC: OR 08:24
PROVIDERS: ATTEND Specialist
PROC: 0HBQXZZ Excision of Finger Nail, External Approach (ICD-10-PCS; principal; 2022-08-18 10:00)
DX: S61.101A Unspecified open wound of right thumb with damage to nail, initial encounter (principal); I10 Essential (primary) hypertension; E11.8 Type 2 diabetes mellitus with unspecified complications; N18.30 Chronic kidney disease, stage 3 unspecified; I25.2 Old myocardial infarction; Z88.2 Allergy status to sulfonamides; Z88.3 Allergy status to other anti-infective agents
CPT/HCPCS: 85025; 36415; 82947 ×2; 88304; 11750; J2704; J2001; J2250; J3010; J1100; A4216; J7030; J2405; J0690

== ENCOUNTER 2022-09-08 06:33 | Day surgery (SDC) | payer MEDICARE, OTHER ==
[2022-09-08 07:21] LABS: Lymphocytes % 28.4 % (15.3-44.8); MCV 82.1 fL (80-100); MPV 7.5 fL (7.6-11.3); RBC Red Blood Cell Count 3.53 M/uL (4.33-5.43)
[2022-09-08 07:35] LABS: Potassium 4.1 mmol/L (3.5-5.1)
[2022-09-08] MEDS ORDERED: NA CHLORIDE 0.9% 500 ML ONE (07:43)
[2022-09-08] MEDS ORDERED: CEFAZOLIN SODIUM 1 GM/VIAL ONE ×2 (07:43→08:48)
[2022-09-08] MEDS ORDERED: MIDAZOLAM HCL 2 MG/2 ML INJ ONE (08:25)
[2022-09-08] MEDS ORDERED: LIDOCAINE 2% MPF 5 ML VIAL ONE (08:25)
[2022-09-08] MEDS ORDERED: ONDANSETRON 4 MG/2 ML VIAL ONE (08:25)
[2022-09-08] MEDS ORDERED: FENTANYL CITR 100 MCG/2 ML ONE (08:25)
[2022-09-08] MEDS ORDERED: propofoL 200 MG/20 ML VIAL IV ONE (08:25)
--- NOTE | 2022-09-08 08:42 | RAD REPORT ---
EXAM DESCRIPTION: RAD - Finger-Thumb Right - 09/08/2022 7:36 am CLINICAL HISTORY: PREOP Pain and swelling COMPARISON: Hand Right 3 View dated 07/21/2022 FINDINGS: Lucency in destructive changes seen distal phalanx of the first finger with surrounding so ft tissue swelling. This has a similar appearance to 07/21/2022 prior study, which is suspicious for osteomyelitis. Amputation involves a portion of the second through fifth phalanges.
--- NOTE | 2022-09-08 12:02 | OP ---
Surgeon: Kavin Mast MD Preoperative Diagnosis: Osteomyelitis of the right thumb, distal phalanx. Postoperative Diagnosis: Osteomyelitis of the right thumb, distal phalanx. Procedure: Debridement of skin, subcutaneous tissue and amputation to the distal portion of the prox imal phalanx with flap closure. Anesthesia: General. Description Of Procedure: After satisfactory induction of general anesthesia, right hand prepped wit h Betadine scrub and Betadine paint. Dry sterile drapes applied in the usual manner. Hand placed in roll lock table. Scalpel was used to incise over the IPJ of the thumb dorsally and then dissection proceeded down through the extensor tendon which was cut and then down to the joint, the distal phala nx was excised with the calcified soft tissue as well. The bone was cut off the distal portion of th e proximal phalanx with soft edges smoothed with a file. Wound was jet lavaged, irrigated with 3 L o f dilute Betadine solution. Tourniquet released. Electrocautery used for hemostasis. Flap was clos ed with 4-0 Prolene with vertical mattress simple sutures. Dressed with Xeroform, 2 inch Ирина. Pat ient tolerated the procedure well and returned to recovery room. ELIECER/VIVIENNE Voice ID: [id number] Report ID: [id number]
[2022-09-08 13:58] VITALS: BP 146/89; TEMP 96.7; O2SAT 99
--- NOTE | 2022-09-08 20:17 | HP ---
Date of Admission: 09/08/2022 History Of Present Illness: He is a 52-year-old male, who is right-hand dominant. He has right thum b open wound despite attempts to close it, he is status post amputation of the tips and thumb and of all digits of both hands. X-ray shows osteomyelitis and due to the fact he has history of diabetes, renal failure, high blood pressure with previous surgery and multiple tip amputation, heart stent, an d a rotator cuff. He is allergic to sulfa, vancomycin. He is on metformin, insulin. Other medicati ons, please see list. He has had no significant family history amputation of multiple dig its of both right and left hands. On the right thumb, he has open wound on the dorsum where the nail bed used to be and this was with some minimal drainage but moist. Assessment: Osteomyelitis. Plan: Debridement with muscle flap closure, possible amputation of tip. ELIECER/VIVIENNE Voice ID: [id number]
== END 2022-09-08 12:18 | disposition home or self-care (01) ==
LOC: OR 06:33
PROVIDERS: ATTEND Specialist
PROC: 0X6L0Z1 Detachment at Right Thumb, High, Open Approach (ICD-10-PCS; principal; 2022-09-08 09:00)
DX: M86.9 Osteomyelitis, unspecified (principal); S61.001A Unspecified open wound of right thumb without damage to nail, initial encounter; E11.9 Type 2 diabetes mellitus without complications; I10 Essential (primary) hypertension; Z88.2 Allergy status to sulfonamides; Z88.3 Allergy status to other anti-infective agents; Z79.4 Long term (current) use of insulin; Z79.899 Other long term (current) drug therapy
CPT/HCPCS: 85025; 80048; 36415; 88305; 73140; 26952; J2704; J2001; J2250; J3010; J7040; J2405; J0690